=== PATIENT | male | born 1970 | race African-American/Black ===

== ENCOUNTER 2016-10-12 12:19 | Observation (INO) | payer MEDICARE, MEDICAID ==
[~2016-10-12] VITALS: Ht 177.8 cm; Wt 65.0 kg
[~2016-10-12 12:19] MED LIST: ATEN50 PO; DIGO0.12 PO; ERGO50000 PO; FURO20 PO; LISI5 PO; OXYC5 PO; SPIR25 PO; WARF5 PO
[2016-10-12 12:22] VITALS: BP 137/72; PULSE 50; RESP 28; TEMP 97.3; O2SAT 100
--- NOTE | 2016-10-12 17:40 | PD ---
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 He denies any fevers or chills. He says his abdomen feels uncomfortable. He has had ascites in the past and [facility] Past Medical History Hx Anticoagulant Therapy: Yes (WARFARIN) Arthritis: No Asthma: No Blood Disorders: Yes Anxiety: No Depression: No Heart Rhythm Problems: Yes (AFIB) Cancer: No Cardiovascular Problems: Yes (OPEN HEART SX) High Cholesterol: Yes Chemotherapy: No Chest Pain: No Congestive Heart Failure: Yes COPD: No Cerebrovascular Accident: Yes Diabetes: Yes (NO LONGER A DIABETIC, TOLD TO STOP MEDS) Diminished Hearing: No Endocrine: No Gastrointestinal Disorders: Yes (ASCITES) GERD: No Genitourinary: Yes (HEMATURIA) Headaches: No Hiatal Hernia: No Hypertension: Yes Immune Disorder: No Inguinal Hernia: No Implanted Vascular Access Dvce: Yes Kidney Stones: Yes Musculoskeletal: No Neurologic: Yes (CVA A CHILD) Psychiatric: No Reproductive: No Respiratory: No Immunizations Current: No Migraines: No Myocardial Infarction: Yes Radiation Therapy: No Renal Failure: Yes (CKD) Seizures: No Sickle Cell Disease: No Sleep Apnea: No Thyroid Disease: No Ulcer: No Tetanus Vaccination: < 5 Years Influenza Vaccination: Yes Past Surgical History Abdominal Surgery: No AICD: Yes (HAS HAD 5-6 SINCE PLACED AT AGE 12 pacemakers ) Arteriovenous Shunt: No Body Medical Devices: PACER WIRES IN ABDOMEN PLACED AT AGE 12 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 Malick's Valve x1) Social History Alcohol Use: No Tobacco Use: No (quit 10 years ago) Substance Use: No Allergies-Medications (Allergen,Severity, Reaction): Coded Allergies: Cozaar (Verified Allergy, Unknown, 05/28/16) Reported Meds & Prescriptions Reported Meds & Active Scripts Active Reported Lisinopril 2.5 Mg Tab 2.5 Mg PO DAILY Lasix (Furosemide) 20 Mg Tab 20 Mg PO DAILY Drisdol (Ergocalciferol) 50,000 Unit Cap 50,000 Units PO WEEKLY ON WEDNESDAYS Digoxin 0.125 Mg Tab 0.125 Mg PO DAILY Atenolol 50 Mg Tab 50 Mg PO BID Warfarin 7.5 Mg Tab 7.5 Mg PO WEFR @ 1600 Warfarin 5 Mg Tab 5 Mg PO SUMOTUTHSA @ 1600 Physical Exam Narrative GENERAL: Chronically ill-appearing SKIN: Warm and dry. HEAD: Atraumatic. Normocephalic. EYES: Pupils equal and round. No injection or drainage. ENT: Moist mucous membranes NECK: Trachea midline. CARDIOVASCULAR: Regular rate and rhythm. No murmur appreciated. RESPIRATORY: Clear to auscultation. Breath sounds equal bilaterally. GASTROINTESTINAL: Distended, positive fluid wave, reducible umbilical hernia MUSCULOSKELETAL: No obvious deformities. NEUROLOGICAL: Awake and alert. No obvious cranial nerve deficits. Moving all extremities. PSYCHIATRIC: Appropriate mood and affect; insight and judgment normal. Data Data Last Documented VS Vital Signs Date Time Temp Pulse Resp B/P Pulse Ox O2 Delivery O2 Flow Rate FiO2 10/12/16 17:13 22 10/12/16 12:22 97.3 50 137/72 100 Room Air Orders Complete Blood Count With Diff (10/12/16 17:32) Comprehensive Metabolic Panel (10/12/16 17:32) ^ Insert Iv (10/12/16 17:32) Act Partial Throm Time (Ptt) (10/12/16 17:32) Prothrombin Time / Inr (Pt) (10/12/16 17:32) Labs Laboratory Tests Test 10/12/16 18:00 White Blood Count 6.1 TH/MM3 Red Blood Count 4.49 MIL/MM3 Hemoglobin 11.0 GM/DL Hematocrit 33.7 % Mean Corpuscular Volume 75.1 FL Mean Corpuscular Hemoglobin 24.4 PG Mean Corpuscular Hemoglobin 32.5 % Concent Red Cell Distribution Width 19.0 % Platelet Count 186 TH/MM3 Mean Platelet Volume 10.5 FL Neutrophils (%) (Auto) 74.8 % Lymphocytes (%) (Auto) 8.6 % Monocytes (%) (Auto) 14.3 % Eosinophils (%) (Auto) 1.1 % Basophils (%) (Auto) 1.2 % Neutrophils # (Auto) 4.6 TH/MM3 Lymphocytes # (Auto) 0.5 TH/MM3 Monocytes # (Auto) 0.9 TH/MM3 Eosinophils # (Auto) 0.1 TH/MM3 Basophils # (Auto) 0.1 TH/MM3 CBC Comment AUTO DIFF Differential Comment AUTO DIFF CONFIRMED Platelet Estimate NORMAL Platelet Morphology Comment ENLARGED Acanthocytes OCC Keratocytes OCC Prothrombin Time 18.7 SEC Prothromb Time International 1.7 RATIO Ratio Activated Partial 37.8 SEC Thromboplast Time Sodium Level 141 MEQ/L Potassium Level 4.1 MEQ/L Chloride Level 107 MEQ/L Carbon Dioxide Level 22.3 MEQ/L Anion Gap 12 MEQ/L Blood Urea Nitrogen 24 MG/DL Creatinine 1.70 MG/DL Estimat Glomerular Filtration 53 ML/MIN Rate Random Glucose 89 MG/DL Calcium Level 9.0 MG/DL Total Bilirubin 1.8 MG/DL Aspartate Amino Transf 19 U/L (AST/SGOT) Alanine Aminotransferase 17 U/L (ALT/SGPT) Alkaline Phosphatase 328 U/L Total Protein 8.8 GM/DL Albumin 3.2 GM/DL [facility] Medical Decision Making Medical Screen Exam Complete: Yes Emergency Medical Condition: Yes Interpretation(s) Afebrile, bradycardia, tachypnea Anemia Renal insufficiency Total bilirubin is 1.8 INR is 1.7 Differential Diagnosis Congestive heart failure, cirrhosis, spontaneous bacterial peritonitis Narrative Course This is a 47-year-old male who presents the emergency department with ascites which is increasing and is affecting his breathing. The patient has a history of a mechanical valve. Today his INR is 1.7 which is really subtherapeutic for him. Given he needs the paracentesis it seems reasonable to admit him to the hospital and have the paracentesis done now as his INR is subtherapeutic and then we can restart him on anticoagulation and restore him to his therapeutic anticoagulation level. Diagnosis Primary Impression: Ascites Qualified Code: R18.8 - Other ascites Admitting Information Admitting Physician Requests: Admit Shannon Chowdary MD Oct 12, 2016 17:40
[2016-10-12 18:13] LABS: AUTOMATED NEUTROPHIL # 4.6 TH/MM3 (1.8-7.7); BASOPHIL # 0.1 TH/MM3 (0-0.2); BASOPHIL % 1.2 % (0.0-2.0); EOSINOPHIL # 0.1 TH/MM3 (0-0.4); EOSINOPHIL % 1.1 % (0.0-4.0); HEMATOCRIT 33.7 % (39.0-51.0); LYMPH % 8.6 % (9.0-44.0); LYMPHOCYTE # 0.5 TH/MM3 (1.0-4.8); MEAN CELL VOLUME 75.1 FL (80.0-100.0); MEAN CORPUSCULAR HEMOGLOBIN 24.4 PG (27.0-34.0); MEAN CORPUSCULAR HGB CONC 32.5 % (32.0-36.0); MONO % 14.3 % (0.0-8.0); NEUT % 74.8 % (16.0-70.0); PLATELET COUNT 186 TH/MM3 (150-450); RED BLOOD COUNT 4.49 MIL/MM3 (4.50-5.90); WHITE BLOOD COUNT 6.1 TH/MM3 (4.0-11.0)
[2016-10-12 18:18] LABS: HEMO FLAGS AUTO DIFF
[2016-10-12 18:25] LABS: ALT (GPT) 17 U/L (12-78); ANION GAP 12 MEQ/L (5-15); AST (GOT) 19 U/L (15-37); BICARBONATE 22.3 MEQ/L (21.0-32.0); BLOOD UREA NITROGEN 24 MG/DL (7-18); CHLORIDE 107 MEQ/L (98-107); GLOMERULAR FILTRATION RATE 53 ML/MIN (>89); POTASSIUM 4.1 MEQ/L (3.5-5.1); SODIUM (NA) 141 MEQ/L (136-145)
[2016-10-12 18:27] LABS: ALKALINE PHOSPHATASE 328 U/L (45-117); TOTAL BILIRUBIN ADULT 1.8 MG/DL (0.2-1.0)
[2016-10-12] MEDS ORDERED: WARF-21 PO (18:43)
[2016-10-12] MEDS ORDERED: WARF-23 PO (18:43)
[2016-10-12] MEDS ORDERED: ATEN50TA PO (18:43)
[2016-10-12] MEDS ORDERED: DIGO0.12 PO (18:44)
[2016-10-12] MEDS ORDERED: DRIS50002 PO (18:44)
[2016-10-12] MEDS ORDERED: LISI2.5T3 PO (18:45)
[2016-10-12] MEDS ORDERED: FURO1TAB62 PO (18:45)
[2016-10-12 18:48] LABS: SCAN/DIFF AUTO DIFF CONFIRMED
[2016-10-12 18:49] LABS: KERATOCYTES OCC (NORMAL); PLATELET ESTIMATE SMEAR NORMAL (NORMAL); PLATELET MORPHOLOGY ENLARGED (NORMAL)
[2016-10-12 18:50] LABS: ACANTHOCYTES OCC (NORMAL)
[2016-10-12 19:01] LABS: APTT (PATIENT) 37.8 SEC (24.3-30.1); INTERNATIONAL NORMALIZED RATIO 1.7 RATIO; PROTHROMBIN TIME - PATIENT 18.7 SEC (9.8-11.6)
[2016-10-12] MEDS ORDERED: ONDANSETRON HCL 4 MG/2 ML VIAL IVP PRN (19:45)
[2016-10-12] MEDS ORDERED: SENNOSIDES 8.6 MG TAB PO PRN (19:45)
[2016-10-12] MEDS ORDERED: PROCHLORPERAZINE 25 MG SUPP PR PRN (19:45)
[2016-10-12] MEDS ORDERED: ACETAMINOPHEN 325 MG TAB PO PRN (19:45)
[2016-10-12] MEDS ORDERED: BISACODYL 10 MG SUPP PR PRN (19:45)
[2016-10-12] MEDS ORDERED: SODIUM CHLORIDE 0.9% FLUSH 5 ML FLUSH FLUSH PRN (19:45)
--- NOTE | 2016-10-12 20:26 | HHI.HP ---
cc: Makenna Obregon MD [facility] Service [facility] Primary Care Physician Fco Bhakta MD Admission Diagnosis ascites Diagnoses: Chief Complaint: abdominal distention Travel History International Travel<30 Days: No Contact w/Intl Traveler <30 Da: No Traveled to Known Affected Are: No History of Present Illness History taken from patient and the ED physician. 45-year-old male with a history of hypertension, CHF, mitral valve replacement, A. fib, diabetes, COPD and ascites presented with abdominal pain and distention that has been increasing for the last 3-4 weeks. Patient does complain of shortness of breath with increase in abdominal fluid, but denies nausea or vomiting. He does have a history of abdominal wires placed in his abdomen and he feels like the are popping out. Patient has had a paracentesis in the past. Currently on Coumadin for the mechanical valve replacement, INR is currently 1.7. He sees Dr. Lara for his multiple heart issues. Patient currently denies any chest pain, fever or chills. Review of Systems Constitutional: DENIES: Fever, Chills Respiratory: COMPLAINS OF: Shortness of breath, DENIES: Cough, Sputum production Cardiovascular: COMPLAINS OF: Lower Extremity Edema, DENIES: Chest pain Gastrointestinal: COMPLAINS OF: Abdominal pain, DENIES: Diarrhea, Nausea, Vomiting Genitourinary: DENIES: Dysuria Musculoskeletal: DENIES: Back pain, Neck pain Integumentary: DENIES: Rash Hematologic/lymphatic: DENIES: Lymphadenopathy Immunologic/allergic: DENIES: Urticaria Neurologic: DENIES: Headache Past Family Social History Past Medical History Congenital Transposition of the great vessels, 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 Congestive heart failure, EF from April 02 percent 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, chronically anticoagulated on Coumadin Chronic kidney disease Hypertension Diet controlled diabetes Past Surgical History Surgery for transposition the great vessels Mitral valve replacement 2 currently with mechanical valve Pacemaker placement with 5 replacements Reported Medications Reported Meds & Active Scripts Active Reported Lisinopril 2.5 Mg Tab 2.5 Mg PO DAILY Lasix (Furosemide) 20 Mg Tab 20 Mg PO DAILY Drisdol (Ergocalciferol) 50,000 Unit Cap 50,000 Units PO WEEKLY ON WEDNESDAYS Digoxin 0.125 Mg Tab 0.125 Mg PO DAILY Atenolol 50 Mg Tab 50 Mg PO BID Warfarin 7.5 Mg Tab 7.5 Mg PO WEFR @ 1600 Warfarin 5 Mg Tab 5 Mg PO SUMOTUTHSA @ 1600 Allergies: Coded Allergies: Cozaar (Verified Allergy, Unknown, 05/28/16) Active Ordered Medications Current Medications Medications (Trade) Dose Ordered Sig/Leonardo Route Start Time Stop Time Status Last Admin (NS Flush) 2 ml UNSCH PRN FLUSH 10/12/16 19:45 (NS Flush) 2 ml BID FLUSH 10/12/16 21:00 (Tylenol) 650 mg Q4H PRN PO 10/12/16 19:45 (Zofran Inj) 4 mg Q6H PRN IVP 10/12/16 19:45 (Compazine Supp) 25 mg Q12H PRN MN 10/12/16 19:45 (Dulcolax Supp) 10 mg DAILY PRN MN 10/12/16 19:45 (Senokot) 17.2 mg Q12H PRN PO 10/12/16 19:45 (Tenormin) 50 mg BID PO 10/12/16 21:00 (Lanoxin) 0.125 mg DAILY PO 10/13/16 09:00 (Lasix) 20 mg DAILY PO 10/13/16 09:00 (Prinivil) 2.5 mg DAILY PO 10/13/16 09:00 Family History Father: Bladder cancer, DM Mom: CVA, DM Social History Tobacco use: Quit 14 yrs ago Alcohol use: Denies Illicit drug use: Denies Physical Exam Vital Signs Vital Signs Date Time Temp Pulse Resp B/P Pulse Ox O2 Delivery O2 Flow Rate FiO2 10/12/16 17:13 22 10/12/16 12:22 97.3 50 28 137/72 100 Room Air Physical Exam GENERAL: This is a well-nourished, well-developed patient, in no apparent distress. SKIN: No rashes, ecchymoses or lesions. Cool and dry. HEAD: Atraumatic. Normocephalic. EYES: Pupils equal round and reactive. ENT: Nose without bleeding, purulent drainage or septal hematoma. Airway patent. NECK: Trachea midline. No JVD . CARDIOVASCULAR: Regular rate and rhythm with a aortic and mitral murmur appreciated RESPIRATORY: Bilateral basilar crackles, worse on the right GASTROINTESTINAL: Abdomen soft, tender, and distended. Umbilical hernia noted. MUSCULOSKELETAL: +2 pitting edema bilateral lower extremities. No calf tenderness. NEUROLOGICAL: Awake and alert. Motor and sensory grossly within normal limits. Normal speech. Laboratory Laboratory Tests Test 10/12/16 18:00 White Blood Count 6.1 Red Blood Count 4.49 Hemoglobin 11.0 Hematocrit 33.7 Mean Corpuscular Volume 75.1 Mean Corpuscular Hemoglobin 24.4 Mean Corpuscular Hemoglobin 32.5 Concent Red Cell Distribution Width 19.0 Platelet Count 186 Mean Platelet Volume 10.5 Neutrophils (%) (Auto) 74.8 Lymphocytes (%) (Auto) 8.6 Monocytes (%) (Auto) 14.3 Eosinophils (%) (Auto) 1.1 Basophils (%) (Auto) 1.2 Neutrophils # (Auto) 4.6 Lymphocytes # (Auto) 0.5 Monocytes # (Auto) 0.9 Eosinophils # (Auto) 0.1 Basophils # (Auto) 0.1 CBC Comment AUTO DIFF Differential Comment AUTO DIFF CONFIRMED Platelet Estimate NORMAL Platelet Morphology Comment ENLARGED Acanthocytes OCC Keratocytes OCC Prothrombin Time 18.7 Prothromb Time International 1.7 Ratio Activated Partial 37.8 Thromboplast Time Sodium Level 141 Potassium Level 4.1 Chloride Level 107 Carbon Dioxide Level 22.3 Anion Gap 12 Blood Urea Nitrogen 24 Creatinine 1.70 Estimat Glomerular Filtration 53 Rate Random Glucose 89 Calcium Level 9.0 Total Bilirubin 1.8 Aspartate Amino Transf 19 (AST/SGOT) Alanine Aminotransferase 17 (ALT/SGPT) Alkaline Phosphatase 328 Total Protein 8.8 Albumin 3.2 Result Diagram: 10/12/16 1800 10/12/16 1800 Assessment and Plan Problem List: (1) Ascites ICD Code: R18.8 Status: Acute (2) Shortness of breath ICD Code: R06.02 Status: Acute (3) Chronic kidney disease ICD Code: N18.9 Status: Chronic (4) HTN (hypertension) ICD Code: I10 Status: Chronic (5) H/O mitral valve replacement with mechanical valve ICD Code: Z95.2 Status: Chronic (6) Atrial fibrillation ICD Code: I48.91 Status: Chronic Assessment and Plan 45-year-old male with a history of hypertension, CHF, mitral valve replacement, A. fib, diabetes, COPD and ascites presented with: Ascites -Consult radiology for ultrasound-guided abdominal paracentesis -Abdominal x-ray pending Shortness of breath, likely due to increased abdominal fluid -Lasix 40 mg IV 1 given for basilar crackles -Oxygen if needed -Restarted home medications Lasix 20mb BID Mechanical valve replacement, currently on Coumadin -Hold Coumadin for paracentesis, will restart and bridge with Lovenox Chronic kidney disease, chronic Creatinine at baseline 1.7 -Avoid nephrotoxic drugs Hypertension, chronic -Restart home medications lisinopril and atenolol -Monitor vitals A. fib, chronic -Restart home medications digoxin -Monitor telemetry DVT prophylaxis: SCDs Written by Sarahi GONZALEZ, acting as scribe for Dr. Dockery on 10/12/16 at 2045. The documentation accurately reflects the work performed [id number] and decisions made by me and the physician Dr Dockery on 10/12/16. The documentation accurately reflects the work performed [id number] by me Dr Dockery on 10/12/16. Discussed Condition With Patient and ED physician Physician Certification 2 Midnight Certification Type: Admission for Inpatient Services Order for Inpatient Services The services are ordered in accordance with Medicare regulations or non- Medicare payer requirements, as applicable. In the case of services not specified as inpatient-only, they are appropriately provided as inpatient services in accordance with the 2-midnight benchmark. Estimated LOS (days): 3 days is the estimated time the patient will need to remain in the hospital, assuming treatment plan goals are met and no additional complications. Post-Hospital Plan: Home Problem Qualifiers (1) Ascites: Qualified Code: R18.8 - Other ascites (2) Chronic kidney disease: Qualified Code: N18.3 - Chronic kidney disease, stage 3 (moderate) Sarahi Barkley Oct 12, 2016 20:26 Jennifer Dockery MD Oct 13, 2016 04:52
[2016-10-12 20:58] VITALS: BP 131/60; PULSE 50; RESP 18; O2SAT 98
[2016-10-12] MEDS: ATENOLOL 50 MG TAB PO SCH (21:00)
[2016-10-12] MEDS: SODIUM CHLORIDE 0.9% FLUSH 5 ML FLUSH FLUSH SCH (21:14)
[2016-10-12 22:18] VITALS: BP 125/60; PULSE 50; RESP 20; TEMP 97.4; O2SAT 98
[2016-10-12] MEDS ORDERED: FUROSEMIDE 40 MG/4 ML VIAL IV PUSH ONE (22:30)
--- NOTE | 2016-10-12 23:06 | RADRPT ---
EXAM DATE/TIME: 10/12/2016 22:51 [facility] COMPARISON: No previous studies available for comparison. INDICATIONS : Left side abdominal pain. Patient stated he feels like a pacemaker lead is poking out. MEDICAL HISTORY : Hypertension. Hypercholesterolemia. Congestive heart failure. Liver disease. CKD. Hyperammonianemia. Afib. Transposition of great vessels. SURGICAL HISTORY : CABG. Pacemaker. Mitral valve repair. ENCOUNTER: Subsequent ACUITY: 2 days PAIN SCORE: 5/10 LOCATION: Left abdomenial. FINDINGS: A single erect view of the abdomen demonstrates a right pleural effusion. Significant cardiomegaly. L igated pacer leads overlie the left upper quadrant. No evidence of free intraperitoneal gas. The vi sualized bowel loops are unremarkable. CONCLUSION: 1. Significant cardiomegaly. 2. Right pleural effusion. 3. Ligated pacer leads. Ramón Aguilar Jr., MD on October 12, 2016 at 23:02 Board Certified Radiologist. This report was verified electronically.
[2016-10-13] VITALS (7 sets, daily range): BP systolic 104–138; BP diastolic 54–70; PULSE 50–51; RESP 16–20; TEMP 97.2–98; O2SAT 96–100
[2016-10-13 09:01] LABS: BASOPHIL % 0.4 % (0.0-2.0); EOSINOPHIL # 0.1 TH/MM3 (0-0.4); EOSINOPHIL % 2.1 % (0.0-4.0); HEMATOCRIT 29.4 % (39.0-51.0); LYMPH % 7.6 % (9.0-44.0); LYMPHOCYTE # 0.4 TH/MM3 (1.0-4.8); MEAN CELL VOLUME 74.7 FL (80.0-100.0); MEAN CORPUSCULAR HEMOGLOBIN 24.6 PG (27.0-34.0); MEAN CORPUSCULAR HGB CONC 32.9 % (32.0-36.0); MONO % 17.5 % (0.0-8.0); NEUT % 72.4 % (16.0-70.0); PLATELET COUNT 179 TH/MM3 (150-450); RED BLOOD COUNT 3.94 MIL/MM3 (4.50-5.90); WHITE BLOOD COUNT 5.6 TH/MM3 (4.0-11.0)
[2016-10-13 09:09] LABS: HEMO FLAGS AUTO DIFF
[2016-10-13 09:13] LABS: INTERNATIONAL NORMALIZED RATIO 1.8 RATIO; PROTHROMBIN TIME - PATIENT 20.4 SEC (9.8-11.6)
[2016-10-13 09:21] LABS: BICARBONATE 22.7 MEQ/L (21.0-32.0)
[2016-10-13 10:12] LABS: SCAN/DIFF AUTO DIFF CONFIRMED
[2016-10-13] MEDS: ATENOLOL 50 MG TAB PO SCH ×2 (10:31→21:49)
[2016-10-13] MEDS: DIGOXIN 0.125 MG TAB PO SCH (10:31)
[2016-10-13] MEDS: SODIUM CHLORIDE 0.9% FLUSH 5 ML FLUSH FLUSH SCH ×2 (10:32→21:49)
[2016-10-13] MEDS: FUROSEMIDE 20 MG TAB PO SCH (10:32)
[2016-10-13] MEDS: LISINOPRIL 5 MG TAB PO SCH (10:36)
--- NOTE | 2016-10-13 11:12 | HHI.PR ---
Subjective Remarks Follow up for ascites, abdominal distention, SOB. The patient reports continued abdominal distention, slight shortness of breath secondary to the pressure. He denies any abdominal pain, N/V, fevers or chills. He is hungry and wants to eat. He has been able to ambulate without difficulty. Going for paracentesis. Also discussed CHF and possible need for AICD. The patient reports he currently has a pacemaker and Dr. Obregon follows him closely for his CHF however they have not discussed AICD insertion at this time. He states he has an upcoming appt with Dr. Obregon soon. Objective Vitals Vital Signs Date Time Temp Pulse Resp B/P Pulse Ox O2 Delivery O2 Flow Rate FiO2 10/13/16 09:00 97.7 50 18 138/67 96 10/13/16 04:07 98.0 51 18 104/54 98 10/13/16 00:06 97.5 50 20 109/56 98 10/12/16 22:18 97.4 50 20 125/60 98 10/12/16 20:58 50 18 131/60 98 Room Air 10/12/16 17:13 22 10/12/16 12:22 97.3 50 28 137/72 100 Room Air I/O 10/12/16 10/12/16 10/12/16 10/13/16 10/13/16 10/13/16 06:59 14:59 22:59 06:59 14:59 22:59 Output Total 200 ml Balance -200 ml Output Urine Total 200 ml Result Diagram: 10/13/16 0837 10/13/16 0837 Imaging Last Impressions Abdomen X-Ray 10/12/16 0000 Signed Impressions: Service Date/Time: Wednesday, October 12, 2016 22:51 - CONCLUSION: 1. Significant cardiomegaly. 2. Right pleural effusion. 3. Ligated pacer leads. Ramón Aguilar Jr., MD Objective Remarks GENERAL: Well-nourished, well-developed middle aged male patient in [facility]. SKIN: Warm and dry. No rash. HEAD: Normocephalic. Atraumatic. EYES: Pupils equal and round. No scleral icterus. No injection or drainage. NECK: Supple. Trachea midline. CARDIOVASCULAR: Regular rate and rhythm. S1, S2 noted. No murmur appreciated. RESPIRATORY: No accessory muscle use. Clear to auscultation. Breath sounds equal bilaterally. GASTROINTESTINAL: Abdomen soft, non-tender, but diffusely distended, +ascites, with umbilical hernia currently unable to reduce. Normoactive bowel sounds x4. MUSCULOSKELETAL: No obvious deformities. Trace bilateral lower extremity edema, right slightly worse than left (chronic per patient). No calf pain bilaterally. NEUROLOGICAL: Awake and alert. No obvious cranial nerve deficits. Motor grossly within normal limits. Normal speech. PSYCHIATRIC: Appropriate mood and affect; insight and judgment normal. Medications and IVs Current Medications Medications (Trade) Dose Ordered Sig/Leonardo Route Start Time Stop Time Status Last Admin (NS Flush) 2 ml UNSCH PRN FLUSH 10/12/16 19:45 (NS Flush) 2 ml BID FLUSH 10/12/16 21:00 10/13/16 10:32 (Tylenol) 650 mg Q4H PRN PO 10/12/16 19:45 (Zofran Inj) 4 mg Q6H PRN IVP 10/12/16 19:45 (Compazine Supp) 25 mg Q12H PRN MD 10/12/16 19:45 (Dulcolax Supp) 10 mg DAILY PRN MD 10/12/16 19:45 (Senokot) 17.2 mg Q12H PRN PO 10/12/16 19:45 (Tenormin) 50 mg BID PO 10/12/16 21:00 10/13/16 10:31 (Lanoxin) 0.125 mg DAILY PO 10/13/16 09:00 10/13/16 10:31 (Lasix) 20 mg DAILY PO 10/13/16 09:00 10/13/16 10:32 Lisinopril 2.5 mg 2.5 mg DAILY PO 10/13/16 09:00 10/13/16 10:36 (Coumadin Consult Pharmacy) 0 ml @ 0 mls/hr UNSCH OTHER 10/13/16 08:00 (Coumadin) 5 mg SuMoTuThSa@16 PO 10/13/16 16:00 (Coumadin) 7.5 mg WeFr@16 PO 10/14/16 16:00 Urinary Catheter: No Vascular Central Line Catheter: No A/P Problem List: (1) Ascites ICD Code: R18.8 Status: Acute (2) Shortness of breath ICD Code: R06.02 Status: Acute (3) Chronic kidney disease ICD Code: N18.9 Status: Chronic (4) HTN (hypertension) ICD Code: I10 Status: Chronic (5) H/O mitral valve replacement with mechanical valve ICD Code: Z95.2 Status: Chronic (6) Atrial fibrillation ICD Code: I48.91 Status: Chronic Assessment and Plan 45-year-old male with a history of hypertension, CHF, mitral valve replacement, A. fib, diabetes, COPD and ascites presented with: Ascites: secondary to CHF. Has been evaluated by GI on previous admission, no true cirrhosis, all likely secondary to right sided heart failure. -Consulted radiology for ultrasound-guided abdominal paracentesis -Abdominal x-ray unremarkable although does show migrated pacer leads, patient reports since childhood Shortness of breath, suspect secondary to increased abdominal fluid/pressure -S/p Lasix 40 mg IV 1 given for basilar crackles -Oxygen if needed, O2 sat currently 96-98% on room air -Restarted home medications Lasix 20mg BID Mechanical valve replacement, currently on Coumadin, INR goal 2.5-3.5 -Continue Coumadin however will need to check with IR if need to be held for paracentesis Chronic kidney disease, chronic -Creatinine at baseline 1.7 -Avoid nephrotoxic drugs Hypertension, chronic -Restart home medications lisinopril and atenolol -Monitor vitals A. fib, chronic -Restart home medications digoxin -Monitor on telemetry DVT prophylaxis: SCDs, on Coumadin Written by Randi Butt, acting as scribe for Dr. Matias on 10/13/16 at 08:50. The documentation accurately reflects the work performed [id number] by me on at 0850 Discharge Planning Await paracentesis. Possible discharge later today. Problem Qualifiers (1) Ascites: Qualified Code: R18.8 - Other ascites (2) Chronic kidney disease: Qualified Code: N18.3 - Chronic kidney disease, stage 3 (moderate) Randi Butt PA-C Oct 13, 2016 11:12 Jourdan Matias MD Oct 13, 2016 16:45
[2016-10-13] MEDS ORDERED: WARFARIN SOD 5 MG TAB PO SCH (16:00)
[2016-10-13 17:42] LABS: HEMOGLOBIN A1a 0.8 %; HEMOGLOBIN A1b 0.5 %; HEMOGLOBIN Ao 59.3 %; HEMOGLOBIN F 0.7 %; HEMOGLOBIN LA1C 1.4 %; HEMOGLOBIN P3 4.1 %
[2016-10-14 00:10] VITALS: BP 99/55; PULSE 50; RESP 16; TEMP 96.6; O2SAT 97
[2016-10-14 04:30] VITALS: BP 121/60; PULSE 50; RESP 18; TEMP 96; O2SAT 99
[2016-10-14 07:52] LABS: INTERNATIONAL NORMALIZED RATIO 1.6 RATIO; PROTHROMBIN TIME - PATIENT 18.6 SEC (9.8-11.6)
[2016-10-14 07:58] LABS: AUTOMATED NEUTROPHIL # 3.7 TH/MM3 (1.8-7.7); BASOPHIL % 0.3 % (0.0-2.0); EOSINOPHIL # 0.2 TH/MM3 (0-0.4); EOSINOPHIL % 3.8 % (0.0-4.0); HEMATOCRIT 28.5 % (39.0-51.0); LYMPHOCYTE # 0.4 TH/MM3 (1.0-4.8); MEAN CELL VOLUME 74.1 FL (80.0-100.0); MEAN CORPUSCULAR HEMOGLOBIN 24.2 PG (27.0-34.0); MEAN CORPUSCULAR HGB CONC 32.7 % (32.0-36.0); MONO % 20.8 % (0.0-8.0); NEUT % 67.1 % (16.0-70.0); PLATELET COUNT 177 TH/MM3 (150-450); RED BLOOD COUNT 3.85 MIL/MM3 (4.50-5.90); WHITE BLOOD COUNT 5.5 TH/MM3 (4.0-11.0)
[2016-10-14 08:21] LABS: HEMO FLAGS AUTO DIFF
[2016-10-14 09:15] VITALS: BP 131/60; PULSE 50; RESP 18; TEMP 97.6; O2SAT 98
[2016-10-14 09:45] VITALS: BP 122/61; PULSE 50; RESP 14; TEMP 97.7; O2SAT 100
[2016-10-14 10:20] LABS: PLATELET ESTIMATE SMEAR NORMAL (NORMAL); PLATELET MORPHOLOGY NORMAL (NORMAL); SCAN/DIFF AUTO DIFF CONFIRMED
[2016-10-14 10:21] LABS: KERATOCYTES OCC (NORMAL); TARGET CELLS 1+ (NORMAL); TEARDROP RBCS 1+ (NORMAL)
--- NOTE | 2016-10-14 10:39 | HHI.PR ---
Subjective Remarks Follow-up for ascites. The patient appears report abdominal pressure and distention, no change overnight. He denies any abdominal pain. Hopefully going for paracentesis today. He states that he has been on Lovenox in the past , but is unable to give himself shots, asking if home health nurse can do it. Objective Vitals Vital Signs Date Time Temp Pulse Resp B/P Pulse Ox O2 Delivery O2 Flow Rate FiO2 10/14/16 09:45 97.7 50 14 122/61 100 10/14/16 04:30 96.0 50 18 121/60 99 10/14/16 00:10 96.6 50 16 99/55 97 10/13/16 19:33 97.2 50 18 132/70 100 10/13/16 12:30 97.9 50 16 138/66 97 I/O 10/13/16 10/13/16 10/13/16 10/14/16 10/14/16 10/14/16 07:00 15:00 23:00 07:00 15:00 23:00 Intake Total 800 ml Output Total 200 ml 0 ml Balance -200 ml 800 ml Intake Oral 800 ml Output Urine Total 200 ml Stool Total 0 ml # Voids 5 # Bowel Movements 1 Result Diagram: 10/14/16 0720 10/13/16 0837 Imaging Last Impressions Abdomen X-Ray 10/12/16 0000 Signed Impressions: Service Date/Time: Wednesday, October 12, 2016 22:51 - CONCLUSION: 1. Significant cardiomegaly. 2. Right pleural effusion. 3. Ligated pacer leads. Ramón Aguilar Jr., MD Objective Remarks GENERAL: Well-developed well-nourished. In no acute distress. SKIN: Warm and dry. No lesions noted. HEENT: Normocephalic. Pupils equal and round. Mucous membranes pink and moist. CARDIOVASCULAR: Regular rate and rhythm. Mechanical murmur appreciated. RESPIRATORY: No accessory muscle use. Clear to auscultation. Breath sounds equal bilaterally. GASTROINTESTINAL: Abdomen soft, non-tender, significantly distended with ascites. Bowel sounds x4. MUSCULOSKELETAL: No obvious deformities. No clubbing or cyanosis. Trace edema. NEUROLOGICAL: Awake and alert. Chronic right hand weakness. Moves upper and lower extremities spontaneously. Normal speech. PSYCHIATRIC: Appropriate mood and affect; insight and judgment normal. A/P Problem List: (1) Ascites ICD Code: R18.8 Status: Acute (2) Shortness of breath ICD Code: R06.02 Status: Acute (3) Chronic kidney disease ICD Code: N18.9 Status: Chronic (4) HTN (hypertension) ICD Code: I10 Status: Chronic (5) H/O mitral valve replacement with mechanical valve ICD Code: Z95.2 Status: Chronic (6) Atrial fibrillation ICD Code: I48.91 Status: Chronic Assessment and Plan 45-year-old male with a history of hypertension, CHF, mitral valve replacement, A. fib, diabetes, COPD and ascites presented with: Ascites: secondary to CHF. Has been evaluated by GI on previous admission, no true cirrhosis, all likely secondary to right sided heart failure. Abdominal x-ray unremarkable although does show migrated pacer leads, patient reports since childhood -Consulted radiology for ultrasound-guided abdominal paracentesis when INR allows Shortness of breath, suspect secondary to increased abdominal fluid/pressure as above -S/p Lasix 40 mg IV 1 given for basilar crackles -Oxygen if needed, O2 sat currently 96-98% on room air -Restarted home Lasix 20mg BID Mechanical valve replacement, currently on Coumadin, INR goal 2.5-3.5 INR 1.6 today with Coumadin on hold for paracentesis as above. -If no paracentesis today, will start heparin GTT -If paracentesis done, will resume Coumadin and start Lovenox bridge Chronic kidney disease, chronic Chronic, stable. Creatinine baseline ~1.7 -Avoid nephrotoxic drugs Hypertension, chronic -Continue home lisinopril and atenolol -Monitor vitals A. fib, chronic -Continue home digoxin -Monitor on telemetry DVT prophylaxis: SCDs, on Coumadin Written by Ashish Neil, acting as scribe for Dr. Matias on 10/14/16 at 10:39. The documentation accurately reflects the work performed [id number] by me on at 1039 Discharge Planning Possible discharge with [facility] after paracentesis if patient remains stable Problem Qualifiers (1) Ascites: Qualified Code: R18.8 - Other ascites (2) Chronic kidney disease: Qualified Code: N18.3 - Chronic kidney disease, stage 3 (moderate) Ashish Neil Oct 14, 2016 10:39 Jourdan Matias MD Oct 14, 2016 16:46
[2016-10-14 11:12] VITALS: BP 109/51; PULSE 50; RESP 14; TEMP 97.7; O2SAT 99
[2016-10-14] MEDS ORDERED: ALBUMIN HUMAN 25% 50GM-W/12.5GM FOR 62.5GM IV ONE (11:45)
[2016-10-14] MEDS ORDERED: ALBUMIN HUMAN 25% 12.5GM-W/50GM FOR 62.5GM IV ONE (11:45)
[2016-10-14] MEDS: FUROSEMIDE 20 MG TAB PO SCH (12:12)
[2016-10-14] MEDS: DIGOXIN 0.125 MG TAB PO SCH (12:12)
[2016-10-14] MEDS: LISINOPRIL 5 MG TAB PO SCH (12:12)
[2016-10-14] MEDS: ATENOLOL 50 MG TAB PO SCH (12:12)
[2016-10-14 12:46] VITALS: BP 113/70; PULSE 67; RESP 14; TEMP 97.7; O2SAT 97
[2016-10-14] MEDS: SODIUM CHLORIDE 0.9% FLUSH 5 ML FLUSH FLUSH SCH (12:46)
--- NOTE | 2016-10-14 13:14 | RADRPT ---
EXAM DATE/TIME: 10/14/2016 09:25 [place] COMPARISON: US GUIDED ABD PARACENTESIS, May 25, 2016, 14:12. INDICATIONS : Ascites. MEDICAL HISTORY : Congestive heart failure. Hypercholesterolemia. Hypertension. CVA. Heart attack. Dyspnea. Ascites. Li venkatesh disease. CKD. Hyperammonianemia. Afib. Hematuria. Diabetes. Transposition of great vessels. Anit coagulant therapy, Warfarin. SURGICAL HISTORY : CABG. Mitral valve repair. Pacemaker. Paracentesis. Thoracentesis. Blood transfusions. ENCOUNTER: Subsequent ACUITY: 4-6 months PAIN SCORE: 1/10 LOCATION: Right lower quadrant FLUID: Total volume of 10,000 cc of clear, red fluid was removed. Fluid was discarded. Paracentesis was therapeutic only. Post procedure scanning reveals no hematoma or other complication. TECHNIQUE: 1. Ultrasound guidance for abdominal paracentesis. 2. Paracentesis. The risks, benefits, and alternatives to ultrasound guided paracentesis were explained to the patient in detail including the risk of bleeding and infection. Written and verbal informed consent was obt ained. With the patient on the ultrasound table, ultrasound imaging was used to select the most appropriate approach for paracentesis. Overlying skin was prepped and draped in the usual sterile fashion and wi th a local anesthetic, a dermatotomy was made with an 11 blade scalpel. A 6 [place] [id number]ses[employer] ca theter was introduced into the peritoneal cavity and fluid was collected. The patient tolerated the procedure well and left the ultrasound suite in stable condition. CONCLUSION: Uncomplicated ultrasound guided paracentesis. Patient received albumin per protocol. Anthony Almazan MD FACR on October 14, 2016 at 13:13 Board Certified Radiologist. This report was verified electronically.
[2016-10-14] MEDS ORDERED: ENOXAPARIN SODIUM 60 MG/0.6 ML SYRINGE SQ ONE (14:00)
[2016-10-14] MEDS ORDERED: ENOX60P SQ (15:20)
--- NOTE | 2016-10-14 15:24 | HHI.FF ---
Face to Face Verification Diagnosis: (1) H/O mitral valve replacement with mechanical valve (2) Subtherapeutic anticoagulation (3) Congestive heart failure (CHF) (4) Chronic kidney disease (5) Ascites (6) Shortness of breath Home Health Nursing Order: Medical education Signs/symptoms of disease process CHF education Medication education-adverse effect Nursing assessment with vital signs IV medication administration Instructions: Lovenox injections and instruction. Daily PT/INR checks with results to Dr. Lara I have seen patient Mike Ko on 10/14/16. My clinical findings support the need for the requested home health care services because: Need for psychosocial assistance Injectable med education/admin I certify that my clinical findings support that this patient is homebound because: Need for psychosocial assistance Poor cardiac reserve Ashish Neil Oct 14, 2016 15:24
[2016-10-14] MEDS ORDERED: WARFARIN SOD 7.5 MG TAB PO SCH (16:00)
[2016-10-14] MEDS ORDERED: ENOXAPARIN SODIUM 60 MG/0.6 ML SYRINGE SQ SCH (16:00)
[2016-10-14] MEDS ORDERED: ACETAMINOPHEN/HYDROcodone 325 MG/5 MG TAB PO ONE (16:00)
== END 2016-10-14 18:25 | disposition home or self-care (01) ==
LOC: NEPE 12:19 → NEDA 19:25 → INTOOBSV 19:25 → NEPHCDU 22:21
PROVIDERS: ADMIT Internal Medicine; ATTEND Internal Medicine
DX: R18.8 Other ascites (principal); I13.0 Hypertensive heart and chronic kidney disease with heart failure and stage 1 through stage 4 chronic kidney disease, or unspecified chronic kidney disease; N18.3 Chronic kidney disease, stage 3 (moderate); I50.9 Heart failure, unspecified; I48.2 Chronic atrial fibrillation; R06.02 Shortness of breath; Z79.01 Long term (current) use of anticoagulants; Z95.2 Presence of prosthetic heart valve; Z95.0 Presence of cardiac pacemaker; Z95.1 Presence of aortocoronary bypass graft; Z87.891 Personal history of nicotine dependence
CPT/HCPCS: 49083; 74000; 80048; 80053; 83036; 85025; 85610; 85730; 97163; 99285; C1729; G0378; G8987; G8988; J1650; J1940; P9047

== ENCOUNTER 2016-11-15 12:39 | Inpatient (IN) | payer MEDICARE, MEDICAID ==
[~2016-11-15] VITALS: Ht 177.8 cm; Wt 55.0 kg
[~2016-11-15 12:39] MED LIST changes: -ATEN50 PO; +ATEN50TA PO; +DRIS50002 PO; +ENOX60P SQ; -ERGO50000 PO; +FURO1TAB62 PO; -FURO20 PO; +LISI2.5T3 PO; -LISI5 PO; -OXYC5 PO; -SPIR25 PO; +WARF-21 PO; +WARF-23 PO; -WARF5 PO
[2016-11-15 12:41] VITALS: BP 162/74; PULSE 60; RESP 16; TEMP 97.4; O2SAT 92
--- NOTE | 2016-11-15 16:11 | PD ---
HPI Chief Complaint: Abdominal Pain Time Seen by Provider: 16:10 (Sharmila Hcikman) Time Seen by Provider: 16:10 (Luz Toledo DO) Travel History International Travel<30 days: No Contact w/Intl Traveler<30days: No Traveled to known affect area: No (Sharmila Hickman) History of Present Illness HPI 45-year-old male with history of CHF, DM, A. fib, CKD, cirrhosis, mitral valve replacement on Coumadin presents to the ED for evaluation of abdominal pain. Patient states that his ascites is "real bad." Last paracentesis "about a month ago." He denies fevers, chills, chest pain, palpitations, anorexia, nausea, vomiting, changes in bowel habits, dysuria, back pain. Endorses edema in the right lower extremity 2 weeks. Denies known injury. Followed by Dr. Fauzia Lara. (Sharmila Hickman) PFS Past Medical History Hx Anticoagulant Therapy: Yes (WARFARIN) Arthritis: No Asthma: No Blood Disorders: Yes Anxiety: No Depression: No Heart Rhythm Problems: Yes (AFIB) Cancer: No Cardiovascular Problems: Yes (OPEN HEART SX) High Cholesterol: Yes Chemotherapy: No Chest Pain: No Congestive Heart Failure: Yes COPD: No Cerebrovascular Accident: Yes Diabetes: Yes (NO LONGER A DIABETIC, TOLD TO STOP MEDS) Diminished Hearing: No Endocrine: No Gastrointestinal Disorders: Yes (ASCITES) GERD: No Genitourinary: Yes (HEMATURIA) Headaches: No Hiatal Hernia: No Hypertension: Yes Immune Disorder: No Inguinal Hernia: No Implanted Vascular Access Dvce: Yes Kidney Stones: Yes Musculoskeletal: No Neurologic: Yes (CVA A CHILD) Psychiatric: No Reproductive: No Respiratory: No Immunizations Current: No Migraines: No Myocardial Infarction: Yes Radiation Therapy: No Renal Failure: Yes (CKD) Seizures: No Sickle Cell Disease: No Sleep Apnea: No Thyroid Disease: No Ulcer: No (Sharmila Hickman) Past Surgical History Abdominal Surgery: No AICD: Yes (HAS HAD 5-6 SINCE PLACED AT AGE 12 pacemakers ) Arteriovenous Shunt: No Body Medical Devices: PACER WIRES IN ABDOMEN PLACED AT AGE 12 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 Valve x1) (Sharmila Hickman) Social History Alcohol Use: No Tobacco Use: No (quit 10 years ago) Substance Use: No (Sharmila Hickman) Allergies-Medications (Allergen,Severity, Reaction): Coded Allergies: Cozaar (Verified Allergy, Unknown, 11/15/16) Reported Meds & Prescriptions Reported Meds & Active Scripts Active Reported Coumadin (Warfarin) 5 Mg Tab 5 Mg PO DAILY , , , sat, and sun 2.5mg on Monday and Monday Amlodipine (Amlodipine Besylate) 5 Mg Tab 5 Mg PO DAILY Lasix (Furosemide) 20 Mg Tab 20 Mg PO DAILY Atenolol 50 Mg Tab 50 Mg PO BID (Luz Toledo DO) Review of Systems Except as stated in HPI: all other systems reviewed are Neg (Sharmila Hickman ) Physical Exam Narrative GENERAL: Well-nourished, well-developed chronically ill-appearing black male in no acute distress. SKIN: Warm and dry. HEAD: Normocephalic. EYES: No scleral icterus. No drainage. Bilaterally injected. NECK: Supple, trachea midline. No JVD or lymphadenopathy. CARDIOVASCULAR: Regular rate and rhythm with murmur best heard at LLSB. RESPIRATORY: Breath sounds equal bilaterally. No accessory muscle use. GASTROINTESTINAL: Abdomen tense, protuberant, distended. Positive fluid wave. Large protruding, reducible umbilical hernia. MUSCULOSKELETAL: No cyanosis. 2+ pitting edema to the knee on the right. Homans sign negative. BACK: Nontender without obvious deformity. No CVA tenderness. (Sharmila Hickman) Data Data Last Documented VS Vital Signs Date Time Temp Pulse Resp B/P Pulse Ox O2 Delivery O2 Flow Rate FiO2 11/15/16 20:00 98.7 65 16 140/76 95 Room Air (Luz Toledo DO) Orders Complete Blood Count With Diff (11/15/16 16:24) Comprehensive Metabolic Panel (11/15/16 16:24) Prothrombin Time / Inr (Pt) (11/15/16 16:24) Act Partial Throm Time (Ptt) (11/15/16 16:24) Urinalysis - C+S If Indicated (11/15/16 16:24) Iv Access Insert/Monitor (11/15/16 16:24) Ecg Monitoring (11/15/16 16:24) Oximetry (11/15/16 16:24) Morphine Inj (Morphine Inj) (11/15/16 16:30) Sodium Chloride 0.9% Flush (Ns Flush) (11/15/16 16:30) Ammonia (11/15/16 17:03) Admit Order (Ed Use Only) (11/15/16 20:37) (Luz Toledo DO) Labs Laboratory Tests Test 11/15/16 11/15/16 17:00 17:30 Urine Color YELLOW Urine Turbidity CLEAR Urine pH 5.5 Urine Specific [place] 1.012 Urine Protein 30 mg/dL Urine Glucose (UA) NEG mg/dL Urine Ketones NEG mg/dL Urine Occult Blood NEG Urine Nitrite NEG Urine Bilirubin NEG Urine Urobilinogen 4.0 MG/DL Urine Leukocyte Esterase NEG Urine RBC 2 /hpf Urine WBC 2 /hpf Microscopic Urinalysis Comment CULT NOT INDICATED White Blood Count 7.5 TH/MM3 Red Blood Count 4.05 MIL/MM3 Hemoglobin 9.9 GM/DL Hematocrit 30.2 % Mean Corpuscular Volume 74.6 FL Mean Corpuscular Hemoglobin 24.5 PG Mean Corpuscular Hemoglobin 32.8 % Concent Red Cell Distribution Width 19.9 % Platelet Count 341 TH/MM3 Mean Platelet Volume 9.9 FL Neutrophils (%) (Auto) 78.4 % Lymphocytes (%) (Auto) 7.6 % Monocytes (%) (Auto) 12.4 % Eosinophils (%) (Auto) 1.1 % Basophils (%) (Auto) 0.5 % Neutrophils # (Auto) 5.9 TH/MM3 Lymphocytes # (Auto) 0.6 TH/MM3 Monocytes # (Auto) 0.9 TH/MM3 Eosinophils # (Auto) 0.1 TH/MM3 Basophils # (Auto) 0.0 TH/MM3 CBC Comment AUTO DIFF Differential Comment AUTO DIFF CONFIRMED Platelet Estimate NORMAL Platelet Morphology Comment NORMAL Prothrombin Time 29.7 SEC Prothromb Time International 2.6 RATIO Ratio Activated Partial 39.7 SEC Thromboplast Time Sodium Level 138 MEQ/L Potassium Level 4.2 MEQ/L Chloride Level 107 MEQ/L Carbon Dioxide Level 20.2 MEQ/L Anion Gap 11 MEQ/L Blood Urea Nitrogen 24 MG/DL Creatinine 1.40 MG/DL Estimat Glomerular Filtration 66 ML/MIN Rate Random Glucose 79 MG/DL Calcium Level 8.7 MG/DL Total Bilirubin 1.3 MG/DL Aspartate Amino Transf 40 U/L (AST/SGOT) Alanine Aminotransferase 14 U/L (ALT/SGPT) Alkaline Phosphatase 303 U/L Ammonia 45 MCMOL/L Total Protein 8.5 GM/DL Albumin 2.8 GM/DL (Luz Toledo DO) [facility] Medical Decision Making Medical Screen Exam Complete: Yes Emergency Medical Condition: Yes Differential Diagnosis Acute on chronic renal failure versus cirrhosis versus electrolyte abnormality versus anemia versus SBP versus supratherapeutic INR versus other Narrative Course 45-year-old male with history of CHF, DM, A. fib, CKD, cirrhosis, mitral valve replacement on Coumadin presents to the ED for evaluation of abdominal pain. Patient states that his ascites is "real bad." Last paracentesis "about a month ago." He denies fevers, chills, chest pain, palpitations, anorexia, nausea, vomiting, changes in bowel habits, dysuria, back pain. Endorses edema in the right lower extremity 2 weeks. Denies known injury. Followed by Dr. Fauzia Lara. Vitals reviewed. Physical exam reveals a chronically ill-appearing black male in no acute distress. Harsh murmur heard best in the left lower sternal border. Chest clear to auscultation bilaterally. Abdomen protuberant, tense, positive fluid wave. Reducible umbilical hernia. 2+ pretibial edema on the right, Homans sign negative. IV was established. Patient was placed on continuous monitoring. He was administered 4 mg morphine IV. CBC: WBC 7.5. Hemoglobin 9.9. INR 2.6. CMP BUN 24, creatinine 1.4. Bilirubin 1.3. (baseline) UA: No culture indicated. Ammonia: 45 I discussed the patient, workup and plan of care with Dr. Toledo. She agrees that the patient needs therapeutic paracentesis. Discussed with case reviewer. Procedure cannot be done on an outpatient basis due to the patient's INR of 2.6. I spoke with Dr. Mortensen of the the medical service who recommended that I get IR recommendations. I spoke with Dr. Higgins, neuroradiologist who states that the procedure cannot be performed until the INR is 1.5 or less, recommends premedication. Patient will be admitted to the medicine service for reversal of anticoagulation. Please see medicine and IR notes for disposition. (Sharmila Hickman) Diagnosis Primary Impression: Ascites Qualified Code: R18.8 - Other ascites Additional Impression: Supratherapeutic international normalized ratio (INR) Sharmila Hickman Nov 15, 2016 16:11 Luz Toledo DO Nov 16, 2016 12:47
[2016-11-15] MEDS ORDERED: SODIUM CHLORIDE 0.9% FLUSH 5 ML FLUSH IVF PRN (16:30)
[2016-11-15] MEDS ORDERED: MORPHINE SULFATE 4 MG/ML INJ IV PUSH ONE (16:30)
[2016-11-15 17:40] VITALS: BP 124/58; PULSE 59; RESP 20; O2SAT 99
[2016-11-15 17:47] LABS: AUTOMATED NEUTROPHIL # 5.9 TH/MM3 (1.8-7.7); BASOPHIL % 0.5 % (0.0-2.0); EOSINOPHIL # 0.1 TH/MM3 (0-0.4); EOSINOPHIL % 1.1 % (0.0-4.0); HEMATOCRIT 30.2 % (39.0-51.0); LYMPH % 7.6 % (9.0-44.0); LYMPHOCYTE # 0.6 TH/MM3 (1.0-4.8); MEAN CELL VOLUME 74.6 FL (80.0-100.0); MEAN CORPUSCULAR HEMOGLOBIN 24.5 PG (27.0-34.0); MEAN CORPUSCULAR HGB CONC 32.8 % (32.0-36.0); MONO % 12.4 % (0.0-8.0); NEUT % 78.4 % (16.0-70.0); PLATELET COUNT 341 TH/MM3 (150-450); RED BLOOD COUNT 4.05 MIL/MM3 (4.50-5.90); RED CELL DISTRIBUTION WIDTH 19.9 % (11.6-17.2); WHITE BLOOD COUNT 7.5 TH/MM3 (4.0-11.0)
[2016-11-15 17:48] LABS: HEMO FLAGS AUTO DIFF
[2016-11-15 17:59] LABS: APTT (PATIENT) 39.7 SEC (24.3-30.1); INTERNATIONAL NORMALIZED RATIO 2.6 RATIO; PROTHROMBIN TIME - PATIENT 29.7 SEC (9.8-11.6)
[2016-11-15 18:00] LABS: BLOOD, URINE NEG (NEG); COMMENT (UR) CULT NOT INDICATED; CULTURE IF INDICATED CULT NOT INDICATED; GLUCOSE,URINE NEG (NEG); KETONE, URINE NEG (NEG); NITRITE,URINE NEG (NEG); PH, URINE 5.5 (5.0-8.5); URINE COLOR YELLOW (YELLW/STRAW)
[2016-11-15 18:22] LABS: ANION GAP 11 MEQ/L (5-15); AST (GOT) 40 U/L (15-37); BICARBONATE 20.2 MEQ/L (21.0-32.0); BLOOD UREA NITROGEN 24 MG/DL (7-18); CHLORIDE 107 MEQ/L (98-107); GLOMERULAR FILTRATION RATE 66 ML/MIN (>89); SODIUM (NA) 138 MEQ/L (136-145)
[2016-11-15 18:24] LABS: ALKALINE PHOSPHATASE 303 U/L (45-117); ALT (GPT) 14 U/L (12-78); TOTAL BILIRUBIN ADULT 1.3 MG/DL (0.2-1.0)
[2016-11-15 18:25] LABS: PLATELET ESTIMATE SMEAR NORMAL (NORMAL); PLATELET MORPHOLOGY NORMAL (NORMAL); SCAN/DIFF AUTO DIFF CONFIRMED
[2016-11-15 18:27] LABS: POTASSIUM 4.2 MEQ/L (3.5-5.1)
[2016-11-15] MEDS ORDERED: AMLO5TAB2 PO (19:13)
[2016-11-15] MEDS ORDERED: COUM5TAB PO (19:15)
[2016-11-15 20:00] VITALS: BP 140/76; PULSE 65; RESP 16; TEMP 98.7; O2SAT 95
[2016-11-15] MEDS ORDERED: NALOXONE HCL 0.4 MG/ML AMP IV PRN (22:15)
[2016-11-15] MEDS ORDERED: SODIUM CHLORIDE 0.9% FLUSH 5 ML FLUSH FLUSH PRN (22:15)
[2016-11-16] VITALS (7 sets, daily range): BP systolic 97–142; BP diastolic 57–80; PULSE 59–64; RESP 18–21; TEMP 98.7–98.8; O2SAT 95–100
[2016-11-16 04:36] LABS: AUTOMATED NEUTROPHIL # 4.3 TH/MM3 (1.8-7.7); BASOPHIL % 0.5 % (0.0-2.0); EOSINOPHIL # 0.1 TH/MM3 (0-0.4); EOSINOPHIL % 1.6 % (0.0-4.0); HEMATOCRIT 26.8 % (39.0-51.0); LYMPH % 7.8 % (9.0-44.0); LYMPHOCYTE # 0.5 TH/MM3 (1.0-4.8); MEAN CELL VOLUME 73.7 FL (80.0-100.0); MEAN CORPUSCULAR HEMOGLOBIN 24.5 PG (27.0-34.0); MEAN CORPUSCULAR HGB CONC 33.3 % (32.0-36.0); MONO % 17.2 % (0.0-8.0); NEUT % 72.9 % (16.0-70.0); PLATELET COUNT 269 TH/MM3 (150-450); RED BLOOD COUNT 3.64 MIL/MM3 (4.50-5.90); RED CELL DISTRIBUTION WIDTH 19.3 % (11.6-17.2); WHITE BLOOD COUNT 5.9 TH/MM3 (4.0-11.0)
[2016-11-16 04:54] LABS: INTERNATIONAL NORMALIZED RATIO 2.1 RATIO; PROTHROMBIN TIME - PATIENT 24.2 SEC (9.8-11.6)
[2016-11-16 05:00] LABS: BICARBONATE 22.2 MEQ/L (21.0-32.0); POTASSIUM 3.6 MEQ/L (3.5-5.1)
[2016-11-16 05:12] LABS: HEMO FLAGS AUTO DIFF
[2016-11-16 07:26] LABS: KERATOCYTES OCC (NORMAL); PLATELET ESTIMATE SMEAR NORMAL (NORMAL); PLATELET MORPHOLOGY NORMAL (NORMAL); SCAN/DIFF AUTO DIFF CONFIRMED
[2016-11-16 07:27] LABS: TARGET CELLS 1+ (NORMAL)
--- NOTE | 2016-11-16 08:49 | HHI.HP ---
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 The patient is known to me from previous admissions for ascites requiring paracentesis. He measures his abdomen daily, 3-4 days ago measured at 37inches, now over the past few days is 40inches , associated with weight gain, worsening lower extremity edema, and shortness of breath secondary to increased abdominal pressure. Denies any nausea/ vomiting. Bowel movements have been normal, no diarrhea/constipation. Denies fevers/chills. He reports compliance with medications. Although previous extensive GI work ups negative for liver disease/cirrhosis, his community health director is Dr. Obregon believes this is related to the liver and not the heart; Dr. Obregon is referring him to [facility] for further evaluation in the near future. Review of Systems Constitutional: DENIES: Diaphoretic episodes, Fever, Chills, Dizziness Endocrine: DENIES: Polydipsia, Polyuria, Polyphagia Eyes: DENIES: Blurred vision, Vision loss, Double Vision Ears, nose, mouth, throat: DENIES: Throat pain, Ear Pain, Running Nose, Odynophagia Respiratory: COMPLAINS OF: Shortness of breath, DENIES: Cough, Wheezing Cardiovascular: COMPLAINS OF: Lower Extremity Edema, DENIES: Chest pain, Palpitations, Dyspnea on Exertion Gastrointestinal: COMPLAINS OF: Abdominal pain, DENIES: Constipation, Diarrhea , Nausea, Vomiting Genitourinary: DENIES: Urinary frequency, Urgency, Dysuria Musculoskeletal: DENIES: Back pain, Neck pain Integumentary: DENIES: Pruritus, Rash Hematologic/lymphatic: DENIES: Bruising, Lymphadenopathy Immunologic/allergic: DENIES: Eczema, Urticaria Neurologic: DENIES: Abnormal gait, Headache, Localized weakness Psychiatric: DENIES: Anxiety, Depression Past Family Social History Past Medical History systolic CHF with EF 25% on echo March 2016 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 mechanical mitral valve replacement on Coumadin atrial fibrillation COPD hypertension CKD recurrent ascites secondary to heart failure 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 Past Surgical History Surgery for transposition the great vessels Mitral valve replacement 2 currently with mechanical valve Pacemaker placement with 5 replacements Paracentesis Reported Medications Coumadin (Warfarin) 5 Mg Tab 5 Mg PO DAILY , , , sat, and sun 2.5mg on Monday and Monday Amlodipine (Amlodipine Besylate) 5 Mg Tab 5 Mg PO DAILY Lasix (Furosemide) 20 Mg Tab 20 Mg PO DAILY Atenolol 50 Mg Tab 50 Mg PO BID Allergies: Coded Allergies: Cozaar (Verified Allergy, Unknown, 11/15/16) Active Ordered Medications Current Medications Medications (Trade) Dose Ordered Sig/Leonardo Route Start Time Stop Time Status Last Admin (NS Flush) 2 ml UNSCH PRN FLUSH 11/15/16 22:15 (NS Flush) 2 ml BID FLUSH 11/16/16 09:00 11/16/16 10:14 (Narcan Inj) 0.4 mg UNSCH PRN IV 11/15/16 22:15 (Norvasc) 5 mg DAILY PO 11/16/16 10:00 11/16/16 10:13 (Tenormin) 50 mg BID PO 11/16/16 10:00 11/16/16 10:13 (Lasix) 20 mg DAILY PO 11/16/16 10:00 11/16/16 10:13 (Morphine Inj) 2 mg Q3H PRN IV 11/16/16 14:00 (Roxicodone) 5 mg Q4H PRN PO 11/16/16 14:00 Family History Father with Bladder cancer, DM Mom with CVA, DM Social History Tobacco use: Smoked occasional cigar, Quit 14 yrs ago Alcohol use: Denies Illicit drug use: Denies Physical Exam Vital Signs Vital Signs Date Time Temp Pulse Resp B/P Pulse Ox O2 Delivery O2 Flow Rate FiO2 11/16/16 04:18 60 18 140/80 99 Room Air 11/16/16 01:57 64 18 142/78 99 Room Air 11/16/16 00:00 98.8 62 18 141/68 95 Room Air 11/15/16 20:00 98.7 65 16 140/76 95 Room Air 11/15/16 17:40 59 20 124/58 99 Room Air 11/15/16 12:41 97.4 60 16 162/74 92 Room Air Physical Exam GENERAL: Well-nourished, well-developed pleasant AA male patient in NAD. SKIN: Warm and dry. No rash. HEAD: Normocephalic. Atraumatic. EYES: Pupils equal and round. No scleral icterus. No injection or drainage. ENT: No nasal bleeding or discharge. Mucous membranes pink and moist. NECK: Supple. Trachea midline. CARDIOVASCULAR: Irregular rate and rhythm. S1, S2 noted. No murmur appreciated. RESPIRATORY: No accessory muscle use. Clear to auscultation. Breath sounds equal bilaterally. GASTROINTESTINAL: Abdomen soft, diffusely tender, distended, positive fluid wave , with large umbilical hernia. Normoactive bowel sounds x4. MUSCULOSKELETAL: No obvious deformities. 2+ BLE pitting edema. NEUROLOGICAL: Awake and alert. No obvious cranial nerve deficits. Motor grossly within normal limits. Normal speech. PSYCHIATRIC: Appropriate mood and affect; insight and judgment normal. Laboratory Laboratory Tests Test 11/15/16 11/15/16 11/15/16 11/16/16 17:00 17:30 22:10 04:01 Urine Color YELLOW Urine Turbidity CLEAR Urine pH 5.5 Urine Specific Franklin 1.012 Urine Protein 30 Urine Glucose (UA) NEG Urine Ketones NEG Urine Occult Blood NEG Urine Nitrite NEG Urine Bilirubin NEG Urine Urobilinogen 4.0 Urine Leukocyte Esterase NEG Urine RBC 2 Urine WBC 2 Microscopic Urinalysis Comment CULT NOT INDICATED White Blood Count 7.5 5.9 Red Blood Count 4.05 3.64 Hemoglobin 9.9 8.9 Hematocrit 30.2 26.8 Mean Corpuscular Volume 74.6 73.7 Mean Corpuscular Hemoglobin 24.5 24.5 Mean Corpuscular Hemoglobin 32.8 33.3 Concent Red Cell Distribution Width 19.9 19.3 Platelet Count 341 269 Mean Platelet Volume 9.9 9.6 Neutrophils (%) (Auto) 78.4 72.9 Lymphocytes (%) (Auto) 7.6 7.8 Monocytes (%) (Auto) 12.4 17.2 Eosinophils (%) (Auto) 1.1 1.6 Basophils (%) (Auto) 0.5 0.5 Neutrophils # (Auto) 5.9 4.3 Lymphocytes # (Auto) 0.6 0.5 Monocytes # (Auto) 0.9 1.0 Eosinophils # (Auto) 0.1 0.1 Basophils # (Auto) 0.0 0.0 CBC Comment AUTO DIFF AUTO DIFF Differential Comment AUTO DIFF AUTO DIFF CONFIRMED CONFIRMED Platelet Estimate NORMAL NORMAL Platelet Morphology Comment NORMAL NORMAL Prothrombin Time 29.7 24.2 Prothromb Time International 2.6 2.1 Ratio Activated Partial 39.7 Thromboplast Time Sodium Level 138 141 Potassium Level 4.2 3.6 Chloride Level 107 108 Carbon Dioxide Level 20.2 22.2 Anion Gap 11 11 Blood Urea Nitrogen 24 23 Creatinine 1.40 1.38 Estimat Glomerular Filtration 66 67 Rate Random Glucose 79 106 Calcium Level 8.7 8.2 Total Bilirubin 1.3 Aspartate Amino Transf 40 (AST/SGOT) Alanine Aminotransferase 14 (ALT/SGPT) Alkaline Phosphatase 303 Ammonia 45 Total Protein 8.5 Albumin 2.8 Blood Bank Comment Target Cells 1+ Keratocytes OCC Result Diagram: 11/16/1640011/16/16400 Assessment and Plan Problem List: (1) Ascites ICD Code: R18.8 Status: Acute Assessment and Plan 45-year-old male with history of systolic CHF with EF 25%, 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 Ascites: secondary to CHF. Has been thoroughly evaluated by GI on previous admissions, no true cirrhosis, likely secondary to right sided heart failure. -overnight initially radiology requested FFP to be given and proceed with paracentesis (FFP never given) however radiologist today wants patient off Coumadin x5days therefore procedure canceled -patient high risk off Coumadin for multiple days given mechanical valve -Plan for ultrasound-guided abdominal paracentesis when INR < 1.5, will then need to bridge with Lovenox after procedure -Continue patient's lasix -Oxycodone and IV morphine prn pain Chronic Systolic CHF -Restarted home atenolol, Lasix 20mg daily -pt reports his community health director Dr. Obregon does not believe ascites related to CHF , arranging for patient to be seen at [facility] Mechanical valve replacement, currently on Coumadin, INR goal 2.5-3.5 -INR 2.1 today with Coumadin on hold for paracentesis as above. -Restart Coumadin with Lovenox bridge after paracentesis completed Chronic kidney disease, stage II, chronic. Creatinine baseline ~1.7 -Avoid nephrotoxic drugs Hypertension, chronic -Continue home atenolol and Norvasc -Monitor vitals A. fib, chronic -Continue home atenolol -Monitor on telemetry DVT prophylaxis: SCDs, on Coumadin Written by Randi Butt, acting as scribe for Dr. Dockery on 11/16/16 at 11:55 The documentation accurately reflects the work performed [id number] by me Dr. Dockery on 11/16/16 at 11:55 Code Status Full Code Discussed Condition With Patient, Dr. Mortensen, [employer] SALES REPRESENTATIVE Problem Qualifiers (1) Ascites: Qualified Code: R18.8 - Other ascites Randi Butt PA-C Nov 16, 2016 08:49 Jennifer Dockery MD Nov 16, 2016 20:45
[2016-11-16] MEDS: amLODIPine BESYLATE 5 MG TAB PO SCH (10:13)
[2016-11-16] MEDS: FUROSEMIDE 20 MG TAB PO SCH (10:13)
[2016-11-16] MEDS: ATENOLOL 50 MG TAB PO SCH ×2 (10:13→21:41)
[2016-11-16] MEDS: SODIUM CHLORIDE 0.9% FLUSH 5 ML FLUSH FLUSH SCH ×2 (10:14→21:42)
[2016-11-16] MEDS ORDERED: MORPHINE SULFATE 4 MG/ML INJ IV PRN (14:00)
[2016-11-17] VITALS (7 sets, daily range): BP systolic 104–159; BP diastolic 57–87; PULSE 53–64; RESP 18–21; TEMP 96.5–98.4; O2SAT 95–100
[2016-11-17 07:38] LABS: AUTOMATED NEUTROPHIL # 3.4 TH/MM3 (1.8-7.7); BASOPHIL % 0.6 % (0.0-2.0); EOSINOPHIL # 0.2 TH/MM3 (0-0.4); EOSINOPHIL % 3.9 % (0.0-4.0); HEMATOCRIT 27.5 % (39.0-51.0); LYMPH % 8.9 % (9.0-44.0); LYMPHOCYTE # 0.5 TH/MM3 (1.0-4.8); MEAN CORPUSCULAR HEMOGLOBIN 24.2 PG (27.0-34.0); MEAN CORPUSCULAR HGB CONC 32.7 % (32.0-36.0); MONO % 19.8 % (0.0-8.0); NEUT % 66.8 % (16.0-70.0); PLATELET COUNT 272 TH/MM3 (150-450); RED BLOOD COUNT 3.72 MIL/MM3 (4.50-5.90); RED CELL DISTRIBUTION WIDTH 19.3 % (11.6-17.2); WHITE BLOOD COUNT 5.1 TH/MM3 (4.0-11.0)
[2016-11-17 07:40] LABS: HEMO FLAGS AUTO DIFF
[2016-11-17 07:42] LABS: INTERNATIONAL NORMALIZED RATIO 1.9 RATIO; PROTHROMBIN TIME - PATIENT 21.1 SEC (9.8-11.6)
[2016-11-17 08:06] LABS: BICARBONATE 23.8 MEQ/L (21.0-32.0); POTASSIUM 3.8 MEQ/L (3.5-5.1)
[2016-11-17 08:28] LABS: TARGET CELLS 1+ (NORMAL)
[2016-11-17 08:29] LABS: KERATOCYTES OCC (NORMAL); SCAN/DIFF AUTO DIFF CONFIRMED
[2016-11-17] MEDS: amLODIPine BESYLATE 5 MG TAB PO SCH (08:32)
[2016-11-17] MEDS: ATENOLOL 50 MG TAB PO SCH ×2 (08:32→20:59)
[2016-11-17] MEDS: SODIUM CHLORIDE 0.9% FLUSH 5 ML FLUSH FLUSH SCH ×2 (08:33→17:23)
[2016-11-17] MEDS: FUROSEMIDE 20 MG TAB PO SCH (08:33)
--- NOTE | 2016-11-17 14:33 | HHI.PR ---
Subjective Remarks Follow-up for ascites. The patient continues to complain of right upper quadrant pain. He does have abdominal distention. He denies any fever, chills , nausea, vomiting. He states that he is a little short of breath when he tries to walk. Objective Vitals Vital Signs Date Time Temp Pulse Resp B/P Pulse Ox O2 Delivery O2 Flow Rate FiO2 11/17/16 12:00 96.7 55 20 159/87 96 11/17/16 08:00 96.8 60 20 104/57 98 11/17/16 03:25 97.8 60 21 131/69 100 11/17/16 00:00 97.8 64 21 120/62 100 11/16/16 21:04 98.7 59 21 111/57 100 11/16/16 18:24 60 18 125/71 98 Result Diagram: 11/17/16 0702 11/17/16 0702 Objective Remarks GENERAL: Well-developed well-nourished. In no acute distress. SKIN: Warm and dry. No lesions noted. HEENT: Normocephalic. Pupils equal and round. Mucous membranes pink and moist. CARDIOVASCULAR: Regular rate and rhythm. No murmur appreciated. RESPIRATORY: No accessory muscle use. Clear to auscultation. Breath sounds equal bilaterally. GASTROINTESTINAL: Abdomen large, distended, diffusely tender. Large umbilical hernia. Bowel sounds x4. MUSCULOSKELETAL: No obvious deformities. No clubbing or cyanosis. Lower extremity edema. NEUROLOGICAL: Awake and alert. Chronic right-sided weakness. Moves upper and lower extremities spontaneously. Normal speech. PSYCHIATRIC: Appropriate mood and affect; insight and judgment normal. 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 Ascites: secondary to CHF. Has been thoroughly evaluated by GI on previous admissions, no true cirrhosis, likely secondary to right sided heart failure. 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 -Restart Coumadin with Lovenox bridge after paracentesis completed Chronic kidney disease, stage II, chronic. Creatinine baseline ~1.7 -Avoid nephrotoxic drugs Hypertension, chronic -Continue home atenolol and Norvasc -Monitor vitals A. fib, chronic -Continue home atenolol -Monitor on telemetry DVT prophylaxis: SCDs, on Coumadin Written by Ashish Neil, acting as scribe for Dr. Dockery on 11/17/16 at 14:29. The documentation accurately reflects the work performed [id number] by me Dr. Dockery on 11/17/16 at 14:29. Discharge Planning Follow-up INR in the a.m., and hopefully paracentesis tomorrow. Problem Qualifiers (1) Ascites: Qualified Code: R18.8 - Other ascites Ashish Neil Nov 17, 2016 14:33 Jennifer Dockery MD Nov 17, 2016 16:39
[2016-11-18] VITALS (8 sets, daily range): BP systolic 104–145; BP diastolic 58–72; PULSE 56–85; RESP 17–22; TEMP 96.8–98.2; O2SAT 94–100
[2016-11-18 08:03] LABS: INTERNATIONAL NORMALIZED RATIO 1.6 RATIO; PROTHROMBIN TIME - PATIENT 17.5 SEC (9.8-11.6)
[2016-11-18] MEDS: SODIUM CHLORIDE 0.9% FLUSH 5 ML FLUSH FLUSH SCH ×2 (08:48→21:42)
[2016-11-18] MEDS: amLODIPine BESYLATE 5 MG TAB PO SCH (08:48)
[2016-11-18] MEDS: FUROSEMIDE 20 MG TAB PO SCH (08:51)
[2016-11-18] MEDS: ATENOLOL 50 MG TAB PO SCH ×2 (08:51→21:00)
--- NOTE | 2016-11-18 12:15 | HHI.PR ---
Subjective Remarks Follow-up for recurrent ascites. The patient continues to complain of right upper quadrant abdominal pain and distention. He states that due to right sided weakness, he is unable to give himself a Lovenox shot. He states he had issues with home health service last time, and his chief medical officer recommended not being on Lovenox and allow INR to increase back to therapeutic level naturally. Objective Vitals Vital Signs Date Time Temp Pulse Resp B/P Pulse Ox O2 Delivery O2 Flow Rate FiO2 11/18/16 11:57 96.8 59 18 129/62 99 11/18/16 07:36 97.5 60 18 132/66 94 11/18/16 03:43 97.7 56 22 104/63 95 11/17/16 23:45 98.2 62 19 112/63 97 11/17/16 19:05 98.4 60 18 113/57 96 11/17/16 17:22 16 11/17/16 16:00 96.5 53 20 109/62 95 I/O 11/17/16 11/17/16 11/17/16 11/18/16 11/18/16 11/18/16 07:00 15:00 23:00 07:00 15:00 23:00 Output Total 300 ml Balance -300 ml Output Urine Total 300 ml Result Diagram: 11/17/1670111/17/16701 Objective Remarks GENERAL: Well-developed well-nourished. In no acute distress. SKIN: Warm and dry. No lesions noted. HEENT: Normocephalic. Pupils equal and round. Mucous membranes pink and moist. CARDIOVASCULAR: Regular rate and rhythm. Systolic mechanical murmur appreciated. RESPIRATORY: No accessory muscle use. Clear to auscultation. Decreased breath sounds in the right base. GASTROINTESTINAL: Abdomen large, distended, diffusely tender worse in the RUQ. Large umbilical hernia. Bowel sounds x4. MUSCULOSKELETAL: No obvious deformities. No clubbing or cyanosis. Lower extremity edema. NEUROLOGICAL: Awake and alert. Chronic right-sided weakness. Moves upper and lower extremities spontaneously. Normal speech. PSYCHIATRIC: Appropriate mood and affect; insight and judgment normal. 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 Ascites: secondary to CHF. Has been thoroughly evaluated by GI on previous admissions, no true cirrhosis, likely secondary to right sided heart failure. -patient high risk off Coumadin for multiple days given mechanical valve, would avoid performing paracentesis as outpatient -IR consulted, Plan for ultrasound-guided abdominal paracentesis when INR < 1.5 -Continue patient's lasix -Oxycodone and IV morphine prn pain -Outpatient GI follow-up Chronic Systolic CHF -Restarted home atenolol, Lasix 20mg daily -pt reports his chief medical officer Dr. Obregon does not believe ascites related to CHF , arranging for patient to be seen at [facility] Mechanical valve replacement, currently on Coumadin, INR goal 2.5-3.5 -INR 1.6 today with Coumadin on hold for paracentesis as above. -Restart Coumadin with Lovenox bridge after paracentesis completed Chronic kidney disease, stage II, chronic. Creatinine baseline ~1.7 -Avoid nephrotoxic drugs Hypertension, chronic -Continue home atenolol and Norvasc -Monitor vitals A. fib, chronic -Continue home atenolol -Monitor on telemetry DVT prophylaxis: SCDs, on Coumadin Written by Ashish Neil, acting as scribe for Dr. Dockery on 11/18/16 at 12:14. The documentation accurately reflects the work performed [id number] by me Dr. Dockery on 11/18/16 at 12:14. Discharge Planning Resume Coumadin after paracentesis. May have to discharge once INR is therapeutic again. Problem Qualifiers (1) Ascites: Qualified Code: R18.8 - Other ascites Ashish Neil Nov 18, 2016 12:15 Jennifer Dockery MD Nov 18, 2016 16:26
[2016-11-18] MEDS ORDERED: ALBUMIN HUMAN 25% 25 GM/100 ML BAGP IV ONE (15:30)
[2016-11-18] MEDS: WARFARIN SOD 5 MG TAB PO SCH (21:42)
[2016-11-19] VITALS (9 sets, daily range): BP systolic 96–125; BP diastolic 55–71; PULSE 56–63; RESP 18–19; TEMP 97.7–98.2; O2SAT 95–98
[2016-11-19 07:48] LABS: INTERNATIONAL NORMALIZED RATIO 1.4 RATIO; PROTHROMBIN TIME - PATIENT 15.9 SEC (9.8-11.6)
[2016-11-19] MEDS ORDERED: WARFARIN SOD 2 MG TAB PO ONE (08:15)
--- NOTE | 2016-11-19 08:37 | HHI.PR ---
Subjective Remarks Follow-up for ascites. The patient had paracentesis done yesterday. He reports abdominal pain and distention have improved. He has been having a productive cough, has not checked a sputum for color. He denies any fever or chills. He has not had a bowel movement in 3 days. Objective Vitals Vital Signs Date Time Temp Pulse Resp B/P Pulse Ox O2 Delivery O2 Flow Rate FiO2 11/19/16 08:28 97.7 60 18 114/58 98 11/19/16 03:39 98.2 60 19 117/58 98 11/19/16 00:21 98.2 60 18 96/55 98 11/18/16 20:04 98.2 61 18 109/59 95 11/18/16 20:00 60 11/18/16 16:57 97.8 60 17 124/58 100 11/18/16 16:41 97.5 85 17 124/59 97 11/18/16 15:02 98.0 59 20 145/72 97 11/18/16 11:57 96.8 59 18 129/62 99 Result Diagram: 11/17/1670111/17/1602 Objective Remarks GENERAL: Well-developed well-nourished. In no acute distress. SKIN: Warm and dry. No lesions noted. HEENT: Normocephalic. Pupils equal and round. Mucous membranes pink and moist. CARDIOVASCULAR: Regular rate and rhythm. Systolic mechanical murmur appreciated. RESPIRATORY: No accessory muscle use. Clear to auscultation. Decreased breath sounds in the right base. GASTROINTESTINAL: Abdomen soft, mild distention, mild RUQ TTP. Large umbilical hernia. Bowel sounds x4. MUSCULOSKELETAL: No obvious deformities. No clubbing or cyanosis. Lower extremity edema. NEUROLOGICAL: Awake and alert. Chronic right-sided weakness. Moves upper and lower extremities spontaneously. Normal speech. PSYCHIATRIC: Appropriate mood and affect; insight and judgment normal. 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 Ascites: secondary to CHF. Has been thoroughly evaluated by GI on previous admissions, no true cirrhosis, likely secondary to right sided heart failure. 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 -INR 1.4 today, reportedly issues with Lovenox administration in the past -Resumed home Coumadin dose, give extra 2 mg now. -Close monitoring until INR improves, will give further anticoagulation if indicated Chronic kidney disease, stage II, chronic. Creatinine baseline ~1.7 -Avoid nephrotoxic drugs Hypertension, chronic BP bed soft after paracentesis, monitor -Continue home atenolol and Norvasc with hold parameters A. fib, chronic -Continue home atenolol -Monitor on telemetry Cough with possible right pleural effusion: Suspect underlying with CHF as above. Afebrile with no leukocytosis. Check chest x-ray. Incentive spirometry. Supportive care. Antibiotics if indicated. Constipation: Start lactulose daily. DVT prophylaxis: SCDs, on Coumadin Written by Ashish Neil, acting as scribe for Dr. Dockery on 11/19/16 at 08:36. The documentation accurately reflects the work performed [id number] by me Dr. Dockery on 11/19/16 at 08:36. Discharge Planning Discharge planning once INR improves Problem Qualifiers (1) Ascites: Qualified Code: R18.8 - Other ascites Ashish Neil Nov 19, 2016 08:36 Jennifer Dockery MD Nov 19, 2016 14:28
--- NOTE | 2016-11-19 08:54 | RADRPT ---
EXAM DATE/TIME: 11/19/2016 08:32 [place] COMPARISON: CHEST SINGLE AP, May 24, 2016, 11:09. INDICATIONS : Cough. MEDICAL HISTORY : Congestive heart failure. Hypercholesterolemia. Hypertension. CVA. Heart attack. Dyspnea. Ascites. Liver disease. CKD. Hyperammonianemia. Afib. Hematuria. Diabetes. Transposition of great vesse ls. Anticoagulant therapy, Warfarin. SURGICAL HISTORY : CABG. Mitral valve repair. Pacemaker. Paracentesis. Thoracentesis. Blood transfusion. ENCOUNTER: Subsequent ACUITY: 2 days PAIN SCORE: 0/10 LOCATION: Chest. FINDINGS: A single view of the chest demonstrates extensive cardiomegaly. Extensive pleural parenchymal density throughout the right lung and suspected loculated effusion which has increased in size. Right-sided pacemaker with single intact lead. Previous CABG. Left lung relatively clear. There is increased pulm onary vascularity. The cardiomediastinal contours are unremarkable. Osseous structures are intact. CONCLUSION: 1. Right basilar pleural-parenchymal density likely large loculated effusion and atelectasis. 2. Marked enlargement of the cardiac silhouette with previous CABG and increased pulmonary vascularit yNichelle Fenton MD on November 19, 2016 at 8:51 Board Certified Radiologist. This report was verified electronically.
[2016-11-19] MEDS: ATENOLOL 50 MG TAB PO SCH ×2 (09:00→20:24)
[2016-11-19] MEDS: LACTULOSE SYRUP 20 GM/30 ML CUP PO SCH (09:07)
[2016-11-19] MEDS: FUROSEMIDE 20 MG TAB PO SCH (09:07)
[2016-11-19] MEDS: SODIUM CHLORIDE 0.9% FLUSH 5 ML FLUSH FLUSH SCH ×2 (09:07→20:25)
[2016-11-19] MEDS: amLODIPine BESYLATE 5 MG TAB PO SCH (09:08)
[2016-11-19] MEDS: WARFARIN SOD 5 MG TAB PO SCH (16:13)
[2016-11-20] VITALS (9 sets, daily range): BP systolic 104–123; BP diastolic 54–66; PULSE 59–60; RESP 17–19; TEMP 97.8–98.2; O2SAT 95–98
[2016-11-20] MEDS: FUROSEMIDE 20 MG TAB PO SCH (08:31)
[2016-11-20] MEDS: SODIUM CHLORIDE 0.9% FLUSH 5 ML FLUSH FLUSH SCH ×2 (08:31→21:14)
[2016-11-20] MEDS: LACTULOSE SYRUP 20 GM/30 ML CUP PO SCH (08:31)
[2016-11-20] MEDS: amLODIPine BESYLATE 5 MG TAB PO SCH (08:34)
[2016-11-20] MEDS: ATENOLOL 50 MG TAB PO SCH ×2 (09:00→21:14)
--- NOTE | 2016-11-20 09:49 | HHI.PR ---
Subjective Remarks Follow up for ascites, large loculated pleural effusion. The patient denies any shortness of breath today, but does have cough, nonproductive. Denies fevers or chills. Abdominal pain improved s/p paracentesis. Tolerating oral intake. Denies any other medical complaints at this time. Objective Vitals Vital Signs Date Time Temp Pulse Resp B/P Pulse Ox O2 Delivery O2 Flow Rate FiO2 11/20/16 07:40 97.8 60 18 110/60 96 11/20/16 03:51 98.0 59 19 120/65 96 11/20/16 00:19 98.0 60 18 123/64 97 11/19/16 20:00 63 11/19/16 19:24 98.1 56 18 113/58 96 11/19/16 16:38 97.8 59 19 120/60 95 11/19/16 13:08 97.7 60 19 125/59 98 Result Diagram: 11/17/16 0702 11/17/16 0702 Imaging Last Impressions Chest X-Ray 11/19/16 0000 Signed Impressions: Service Date/Time: Saturday, November 19, 2016 08:32 - CONCLUSION: 1. Right basilar pleural-parenchymal density likely large loculated effusion and atelectasis. 2. Marked enlargement of the cardiac silhouette with previous CABG and increased pulmonary vascularity. Jerome Fenton MD Objective Remarks GENERAL: Well-developed well-nourished middle aged male patient in [facility]. SKIN: Warm and dry. No lesions noted. HEENT: Normocephalic. Pupils equal and round. Mucous membranes pink and moist. CARDIOVASCULAR: Regular rate and rhythm. Systolic mechanical murmur appreciated. RESPIRATORY: No accessory muscle use. Clear to auscultation. Decreased breath sounds in the right base. GASTROINTESTINAL: Abdomen soft, mild distention, mild RUQ TTP. Large umbilical hernia. Normoactive Bowel sounds x4. MUSCULOSKELETAL: No obvious deformities. No clubbing or cyanosis. Lower extremity edema. NEUROLOGICAL: Awake and alert. Chronic right-sided weakness. Moves upper and lower extremities spontaneously. Normal speech. PSYCHIATRIC: Appropriate mood and affect; insight and judgment normal. Medications and IVs Current Medications Medications (Trade) Dose Ordered Sig/Leonardo Route Start Time Stop Time Status Last Admin (NS Flush) 2 ml UNSCH PRN FLUSH 11/15/16 22:15 (NS Flush) 2 ml BID FLUSH 11/16/16 09:00 11/20/16 08:31 (Narcan Inj) 0.4 mg UNSCH PRN IV 11/15/16 22:15 (Norvasc) 5 mg DAILY PO 11/16/16 10:00 11/19/16 09:08 (Tenormin) 50 mg BID PO 11/16/16 10:00 11/18/16 08:51 (Lasix) 20 mg DAILY PO 11/16/16 10:00 11/20/16 08:31 (Morphine Inj) 2 mg Q3H PRN IV 11/16/16 14:00 (Roxicodone) 5 mg Q4H PRN PO 11/16/16 14:00 11/20/16 08:32 (Coumadin) 5 mg DAILY@1600 PO 11/18/16 20:00 11/19/16 16:13 (Lactulose Liq) 30 ml DAILY PO 11/19/16 09:00 11/20/16 08:31 (Robitussin Dm 200-20 Mg/10 ml Liq) 10 ml Q4H PRN PO 11/19/16 22:15 A/P Problem List: (1) Ascites ICD Code: R18.8 Status: Acute Assessment and Plan 45-year-old male with history of systolic CHF with EF 25%, 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 Ascites: secondary to CHF. Has been thoroughly evaluated by GI on previous admissions, no true cirrhosis, likely secondary to right sided heart failure. -patient high risk off Coumadin for multiple days given mechanical valve, would avoid performing paracentesis as outpatient -IR consulted, performed therapeutic paracentesis 11/18, symptoms improved -Continue patient's lasix, monitor renal function -Oxycodone and IV morphine prn pain -Outpatient GI follow-up Large Right Loculated Pleural Effusion: Suspect secondary to CHF as above. CXR showed Right basilar pleural-parenchymal density likely large loculated effusion and atelectasis. Afebrile with no leukocytosis. -Incentive spirometry. -Robitussin prn cough. -Consult pulmonology, does not recommend repeat thoracentesis at this time, patient to f/up at 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 Mechanical valve replacement with subtherapeutic anticoagulation on Coumadin, INR goal 2.5-3.5 Coumadin was on hold for paracentesis as above. -INR 1.0 today, reportedly issues with Lovenox administration in the past -Resumed home Coumadin dose, giving extra, pharmacy consult -Close monitoring until INR therapeutic, will give further anticoagulation if indicated Chronic kidney disease, stage II, chronic. Creatinine baseline ~1.7 -Avoid nephrotoxic drugs Hypertension, chronic BP bed soft after paracentesis, monitor -Continue home atenolol and Norvasc with hold parameters A. fib, chronic -Continue home atenolol -Monitor on telemetry Constipation: Started lactulose daily. DVT prophylaxis: SCDs, on Coumadin Written by Randi Butt, acting as scribe for Dr. Dockery on 11/20/16 at 09:47. The documentation accurately reflects the work performed [id number] by me Dr. Dockery on 11/20/16 at 09:47. Problem Qualifiers (1) Ascites: Qualified Code: R18.8 - Other ascites Randi Butt PA-C Nov 20, 2016 09:48 Jennifer Dockery MD Nov 20, 2016 17:42
--- NOTE | 2016-11-20 12:48 | MB ---
cc: JAIME RAGSDALE M.D., R. STEVEN M.D. DATE OF CONSULTATION: 11/20/2016 REASON FOR CONSULTATION: Pulmonary consultation. HISTORY Mr. Ko is a 45-year-old black male with a lifelong history of heart disease. He had congenital transposition of the great vessels and has had a number of surgeries including valve replacement. He is on chronic Coumadin therapy for atrial fibrillation and has presented back multiple times recently with ascites for paracentesis. He has chronic right heart failure according to the record, the last EF was 25% in March of last year. The patient presented on one occasion in May of this year and had a thoracentesis done at that time. Fluid at that time appeared transudative and cultures were negative. Since then, the patient has had several recurrent episodes of ascites, has had it drained but has had no significant chest symptoms or recurrent throacenteses. He presented on this occasion again with tense ascites, has had that drained but routine chest x-ray reveals recurrence of right effusion. He has no symptoms referable to this, no cough, no congestion, no shortness of breath. O2 saturation is 98% on room air. The patient's prior pulmonary history is otherwise unremarkable. SOCIAL HISTORY: He has not smoked in the last 14 or 15 years. FAMILY HISTORY: Family history is positive for cancer, diabetes and stroke. REVIEW OF SYSTEMS The patient has had no chest pain. No fever. No cough or congestion. No significant shortness of breath particularly now that the ascites has been drained, no increasing edema. PHYSICAL EXAMINATION Thin black male in no distress at rest, 98 degrees, pulse is 50-60, respirations are 16-18 and sat is 98% on room air. Sclerae anicteric. Neck veins are mildly distended. Chest is diminished on the right otherwise clear, clear on the left. Heart: Soft systolic murmur. No audible S3. Extremities: No pitting edema or cyanosis. No clubbing. LABORATORY DATA: White blood cell count 5000, hemoglobin 9, BUN is 24 with a creatinine of 1.4. DISCUSSION Mr. Ko presents with recurrent ascites underlying cardiomyopathy. It looks like he may have cirrhosis of the liver probably from chronic heart failure and a recurrence of right effusion which has been drained previously at least on one occasion. He is entirely asymptomatic in this regard. The patient has had a thorough evaluation here with regard to ascites, this is thought to be due to liver problems related to chronic heart failure. He is scheduled in the next few weeks to be evaluated for this at [facility]. A shunt is being considered. In light of the fact the patient is entirely asymptomatic, he is being re-anticoagulated and this pleural effusion at this point is entirely without symptoms. I would suggest not proceeding with another thoracentesis and allowing this to be addressed when he has the appointment at [facility]. Obviously the cause of the effusion seems to be the chronic recurrence of ascites and the pleural fluid will recur in this setting despite the fact we drain it again. Obviously if he became symptomatic it could be drained for palliative purposes or if he had signs of infection for diagnostic purposes. I have reviewed this recommendation with the patient. He agrees. He would like to wait until he is seen at [facility] to address the whole picture but he understands if symptoms arise prior to that, he should come back to the hospital. R. MD DENZEL Cao/ANGELA /11:51 AM /12:33 PM
[2016-11-20] MEDS: guaiFENesin/DEXTROMETHORPHAN 200 MG/20 MG/10 ML CUP PO PRN (16:03)
[2016-11-20] MEDS: WARFARIN SOD 5 MG TAB PO SCH (16:53)
[2016-11-21] VITALS (8 sets, daily range): BP systolic 95–119; BP diastolic 51–62; PULSE 59–60; RESP 16–20; TEMP 97.2–98.2; O2SAT 95–100
[2016-11-21 07:33] LABS: INTERNATIONAL NORMALIZED RATIO 1.9 RATIO; PROTHROMBIN TIME - PATIENT 21.7 SEC (9.8-11.6)
--- NOTE | 2016-11-21 07:49 | RADRPT ---
EXAM DATE/TIME: 11/18/2016 14:43 [facility] COMPARISON: US GUIDED ABD PARACENTESIS, October 14, 2016, 9:25. INDICATIONS : Ascites. MEDICAL HISTORY : Myocardial infarction. Congestive heart failure. Hypercholesterolemia. Hypertension. Dyspnea. Renal f ailure. Kidney stones. Hematuria. Ascites. Chronic kidney disease. Diabetes. SURGICAL HISTORY : CABG Pacemaker. Mitral valve replacement. ENCOUNTER: Subsequent ACUITY: 2 weeks PAIN SCORE: 4/10 LOCATION: Right lower quadrant FLUID: Total volume of 10,600 cc of clear, red fluid was removed. Fluid was discarded. Paracentesis was therapeutic only. Post procedure scanning reveals no hematoma or other complication. TECHNIQUE: 1. Ultrasound guidance for abdominal paracentesis. 2. Paracentesis. The risks, benefits, and alternatives to ultrasound guided paracentesis were explained to the patient in detail including the risk of bleeding and infection. Written and verbal informed consent was obt ained. With the patient on the ultrasound table, ultrasound imaging was used to select the most appropriate approach for paracentesis. Overlying skin was prepped and draped in the usual sterile fashion and wi th a local anesthetic, a dermatotomy was made with an 11 blade scalpel. A 6 [id number] ca theter was introduced into the peritoneal cavity and fluid was collected. The patient tolerated the procedure well and left the ultrasound suite in stable condition. CONCLUSION: Uncomplicated ultrasound guided paracentesis. Patient received albumin per protocol. Anthony Almazan MD FACR on November 21, 2016 at 7:47 Board Certified Radiologist. This report was verified electronically.
[2016-11-21] MEDS: LACTULOSE SYRUP 20 GM/30 ML CUP PO SCH (08:52)
[2016-11-21] MEDS: ATENOLOL 50 MG TAB PO SCH ×2 (08:52→20:38)
[2016-11-21] MEDS: amLODIPine BESYLATE 5 MG TAB PO SCH (08:52)
[2016-11-21] MEDS: FUROSEMIDE 20 MG TAB PO SCH (08:53)
[2016-11-21] MEDS: SODIUM CHLORIDE 0.9% FLUSH 5 ML FLUSH FLUSH SCH ×2 (08:53→20:37)
--- NOTE | 2016-11-21 11:30 | HHI.PR ---
Subjective Remarks Follow up for ascites, large loculated pleural effusion, subtherapeutic INR with mechanical valve. The patient denies any shortness of breath or cough. O2 sat stable on room air. No fevers or chills. Abdominal pain well controlled. Tolerating oral intake. Objective Vitals Vital Signs Date Time Temp Pulse Resp B/P Pulse Ox O2 Delivery O2 Flow Rate FiO2 11/21/16 08:03 97.5 60 16 110/62 100 11/21/16 07:34 60 11/21/16 04:32 98.2 60 18 101/52 95 11/20/16 23:23 98.2 59 18 104/60 97 11/20/16 20:00 60 11/20/16 19:33 98.2 60 18 120/66 98 11/20/16 17:47 60 17 108/61 11/20/16 12:08 59 18 118/54 95 I/O 11/20/16 11/20/16 11/20/16 11/21/16 11/21/16 11/21/16 07:00 15:00 23:00 07:00 15:00 23:00 Output Total 530 ml Balance -530 ml Output Urine Total 530 ml Result Diagram: 11/17/16 0702 11/17/16 0702 Imaging Last Impressions Chest X-Ray 11/19/16 0000 Signed Impressions: Service Date/Time: Saturday, November 19, 2016 08:32 - CONCLUSION: 1. Right basilar pleural-parenchymal density likely large loculated effusion and atelectasis. 2. Marked enlargement of the cardiac silhouette with previous CABG and increased pulmonary vascularity. Jerome Fenton MD Cyst Biopsy Asp-Paracentesis US 11/18/16 0000 Signed Impressions: Service Date/Time: Friday, November 18, 2016 14:43 - CONCLUSION: Uncomplicated ultrasound guided paracentesis. Patient received albumin per protocol. Anthony Almazan MD FACR Objective Remarks GENERAL: Well-developed well-nourished middle aged male patient in [facility]. SKIN: Warm and dry. No lesions noted. HEENT: Normocephalic. Pupils equal and round. Mucous membranes pink and moist. CARDIOVASCULAR: Regular rate and rhythm. Systolic mechanical murmur appreciated. RESPIRATORY: No accessory muscle use. Decreased breath sounds in the right base , otherwise clear. GASTROINTESTINAL: Abdomen soft, mild distention, nontender today. Large umbilical hernia. Normoactive Bowel sounds x4. MUSCULOSKELETAL: No obvious deformities. No clubbing or cyanosis. Trace b/l lower extremity edema. NEUROLOGICAL: Awake and alert. Chronic right-sided weakness. Moves upper and lower extremities spontaneously. Normal speech. PSYCHIATRIC: Appropriate mood and affect; insight and judgment normal. Medications and IVs Current Medications Medications (Trade) Dose Ordered Sig/Leonardo Route Start Time Stop Time Status Last Admin (NS Flush) 2 ml UNSCH PRN FLUSH 11/15/16 22:15 (NS Flush) 2 ml BID FLUSH 11/16/16 09:00 11/21/16 08:53 (Narcan Inj) 0.4 mg UNSCH PRN IV 11/15/16 22:15 (Norvasc) 5 mg DAILY PO 11/16/16 10:00 11/21/16 08:52 (Tenormin) 50 mg BID PO 11/16/16 10:00 11/21/16 08:52 (Lasix) 20 mg DAILY PO 11/16/16 10:00 11/21/16 08:53 (Morphine Inj) 2 mg Q3H PRN IV 11/16/16 14:00 (Roxicodone) 5 mg Q4H PRN PO 11/16/16 14:00 11/20/16 08:32 (Lactulose Liq) 30 ml DAILY PO 11/19/16 09:00 11/21/16 08:52 Guaifenesin/ Dextromethorphan 10 ml 10 ml Q4H PRN PO 11/19/16 22:15 11/20/16 16:03 (Coumadin Consult Pharmacy) 0 ml @ 0 mls/hr UNSCH OTHER 11/20/16 16:45 (Coumadin) 4 mg DAILY@16 PO 11/22/16 16:00 (Coumadin) 2 mg ONCE PO 11/21/16 16:00 11/21/16 21:00 A/P Problem List: (1) Ascites ICD Code: R18.8 Status: Acute Assessment and Plan 45-year-old male with history of systolic CHF with EF 25%, 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 Ascites: secondary to CHF. Has been thoroughly evaluated by GI on previous admissions, no true cirrhosis, likely secondary to right sided heart failure. -patient high risk off Coumadin for multiple days given mechanical valve, would avoid performing paracentesis as outpatient -IR consulted, performed therapeutic paracentesis 11/18, symptoms improved -Continue patient's lasix, monitor renal function -Oxycodone and IV morphine prn pain -Outpatient GI follow-up Large Right Loculated Pleural Effusion: Suspect secondary to CHF as above. CXR showed Right basilar pleural-parenchymal density likely large loculated effusion and atelectasis. Afebrile with no leukocytosis. -Incentive spirometry. -Robitussin prn cough. 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 -INR 1.9 today, reportedly issues with Lovenox administration in the past -Resumed home Coumadin dose, giving extra, pharmacy consult -Close monitoring until INR therapeutic Chronic kidney disease, stage II, chronic. Creatinine baseline ~1.7 -Avoid nephrotoxic drugs Hypertension, chronic BP bed soft after paracentesis, monitor -Continue home atenolol and Norvasc with hold parameters A. fib, chronic -Continue home atenolol -Monitor on telemetry Constipation: Started lactulose daily. DVT prophylaxis: SCDs, on Coumadin Written by Randi Butt, acting as scribe for Dr. Dockery on 11/21/16 at 12:10 The documentation accurately reflects the work performed [id number] by me Dr. Dockery on 11/21/16 at 12:10 Problem Qualifiers (1) Ascites: Qualified Code: R18.8 - Other ascites Randi Butt PA-C Nov 21, 2016 11:30 Jennifer Dockery MD Nov 21, 2016 14:32
[2016-11-21] MEDS ORDERED: WARFARIN SOD 2 MG TAB PO SCH (16:00)
[2016-11-21] MEDS ORDERED: WARFARIN SOD 5 MG TAB PO SCH (16:00)
[2016-11-21] MEDS: guaiFENesin/DEXTROMETHORPHAN 200 MG/20 MG/10 ML CUP PO PRN (20:37)
[2016-11-22 06:10] VITALS: BP 101/54; PULSE 59; RESP 18; TEMP 97.2; O2SAT 93
[2016-11-22 07:03] LABS: INTERNATIONAL NORMALIZED RATIO 2.2 RATIO; PROTHROMBIN TIME - PATIENT 24.7 SEC (9.8-11.6)
[2016-11-22 08:20] VITALS: BP 113/62; PULSE 59; RESP 20; TEMP 97.4; O2SAT 96
--- NOTE | 2016-11-22 10:04 | HHI.PR ---
Subjective Remarks At the margin of the bed. Pain is controlled by meds. INR is 2.2 today. No fever or chills. No n/v/d/c. Objective Vitals Vital Signs Date Time Temp Pulse Resp B/P Pulse Ox O2 Delivery O2 Flow Rate FiO2 11/22/16 08:20 97.4 59 20 113/62 96 11/22/16 06:10 97.2 59 18 101/54 93 11/21/16 23:51 97.4 60 18 95/51 96 11/21/16 20:35 97.2 60 16 119/60 97 11/21/16 20:00 60 11/21/16 15:40 97.9 59 20 97/58 100 11/21/16 12:23 97.3 60 18 109/53 Imaging Last Impressions Chest X-Ray 11/19/16 0000 Signed Impressions: Service Date/Time: Saturday, November 19, 2016 08:32 - CONCLUSION: 1. Right basilar pleural-parenchymal density likely large loculated effusion and atelectasis. 2. Marked enlargement of the cardiac silhouette with previous CABG and increased pulmonary vascularity. Jerome Fenton MD Cyst Biopsy Asp-Paracentesis US 11/18/16 0000 Signed Impressions: Service Date/Time: Friday, November 18, 2016 14:43 - CONCLUSION: Uncomplicated ultrasound guided paracentesis. Patient received albumin per protocol. Anthony Almazan MD FACR Objective Remarks GENERAL: Well-developed well-nourished middle aged male patient in [facility]. SKIN: Warm and dry. No lesions noted. HEENT: Normocephalic. Pupils equal and round. Mucous membranes pink and moist. CARDIOVASCULAR: Regular rate and rhythm. Systolic mechanical murmur appreciated. RESPIRATORY: No accessory muscle use. Decreased breath sounds in the right base , otherwise clear. GASTROINTESTINAL: Abdomen soft, mild distention, nontender today. Large umbilical hernia. Normoactive Bowel sounds x4. MUSCULOSKELETAL: No obvious deformities. No clubbing or cyanosis. Trace b/l lower extremity edema. NEUROLOGICAL: Awake and alert. Chronic right-sided weakness. Moves upper and lower extremities spontaneously. Normal speech. PSYCHIATRIC: Appropriate mood and affect; insight and judgment normal. 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 Ascites: secondary to CHF. Has been thoroughly evaluated by GI on previous admissions, no true cirrhosis, likely secondary to right sided heart failure. -patient high risk off Coumadin for multiple days given mechanical valve, would avoid performing paracentesis as outpatient -IR consulted, performed therapeutic paracentesis 11/18, symptoms improved -Continue patient's lasix, monitor renal function -Oxycodone and IV morphine prn pain -Outpatient GI follow-up Large Right Loculated Pleural Effusion: Suspect secondary to CHF as above. CXR showed Right basilar pleural-parenchymal density likely large loculated effusion and atelectasis. Afebrile with no leukocytosis. -Incentive spirometry. -Robitussin prn cough. 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 Obregon does not believe ascites related to CHF , arranging for patient to be seen at [facility] Mechanical valve replacement with subtherapeutic anticoagulation on Coumadin, INR goal 2.5-3.5 Coumadin was on hold for paracentesis as above. -INR 1.9 today, reportedly issues with Lovenox administration in the past -Resumed home Coumadin dose, giving extra, pharmacy consult -Close monitoring until INR therapeutic Chronic kidney disease, stage II, chronic. Creatinine baseline ~1.7 -Avoid nephrotoxic drugs Hypertension, chronic BP bed soft after paracentesis, monitor -Continue home atenolol and Norvasc with hold parameters A. fib, chronic -Continue home atenolol -Monitor on telemetry Constipation: Started lactulose daily. DVT prophylaxis: SCDs, on Coumadin DC when INR therapeutic ( goal is 2.5-3-5) Problem Qualifiers (1) Ascites: Qualified Code: R18.8 - Other ascites Jennifer Dockery MD Nov 22, 2016 10:04
[2016-11-22] MEDS: FUROSEMIDE 20 MG TAB PO SCH (10:38)
[2016-11-22] MEDS: amLODIPine BESYLATE 5 MG TAB PO SCH (10:38)
[2016-11-22] MEDS: LACTULOSE SYRUP 20 GM/30 ML CUP PO SCH (10:38)
[2016-11-22] MEDS: ATENOLOL 50 MG TAB PO SCH ×2 (10:38→21:00)
[2016-11-22] MEDS: SODIUM CHLORIDE 0.9% FLUSH 5 ML FLUSH FLUSH SCH ×2 (10:38→22:08)
[2016-11-22 11:49] VITALS: BP 110/68; PULSE 59; RESP 20; TEMP 97.4; O2SAT 100
[2016-11-22 15:23] VITALS: BP 117/64; PULSE 60; RESP 20; TEMP 98.1; O2SAT 97
[2016-11-22] MEDS ORDERED: WARFARIN SOD 4 MG TAB PO SCH (16:00)
[2016-11-22] MEDS ORDERED: WARFARIN SOD 2 MG TAB PO SCH (16:00)
[2016-11-22 19:17] VITALS: BP 93/48; PULSE 60; RESP 18; TEMP 97.4; O2SAT 97
[2016-11-22 20:20] VITALS: PULSE 60
[2016-11-23] VITALS (8 sets, daily range): BP systolic 101–117; BP diastolic 55–63; PULSE 59–79; RESP 18–20; TEMP 97.4–98.1; O2SAT 93–100
[2016-11-23 07:04] LABS: PROTHROMBIN TIME - PATIENT 22.4 SEC (9.8-11.6)
[2016-11-23] MEDS: SODIUM CHLORIDE 0.9% FLUSH 5 ML FLUSH FLUSH SCH ×2 (08:31→21:22)
[2016-11-23] MEDS: LACTULOSE SYRUP 20 GM/30 ML CUP PO SCH (08:31)
[2016-11-23] MEDS: FUROSEMIDE 20 MG TAB PO SCH (08:32)
[2016-11-23] MEDS: amLODIPine BESYLATE 5 MG TAB PO SCH (08:33)
[2016-11-23] MEDS: ATENOLOL 50 MG TAB PO SCH ×2 (09:00→21:24)
--- NOTE | 2016-11-23 09:18 | HHI.PR ---
Subjective Remarks INR of 2 today. Patient says he doesn't have much abdominal pain. He is eating no n/v/d/c. Has intermittent cough, nonproductive, no fever or chills. No sob. Objective Vitals Vital Signs Date Time Temp Pulse Resp B/P Pulse Ox O2 Delivery O2 Flow Rate FiO2 11/23/16 08:16 98.1 59 20 111/62 99 11/23/16 00:52 97.4 59 18 101/56 93 11/22/16 20:20 60 11/22/16 19:17 97.4 60 18 93/48 97 11/22/16 15:23 98.1 60 20 117/64 97 11/22/16 11:49 97.4 59 20 110/68 100 Imaging Last Impressions Chest X-Ray 11/19/16 0000 Signed Impressions: Service Date/Time: Saturday, November 19, 2016 08:32 - CONCLUSION: 1. Right basilar pleural-parenchymal density likely large loculated effusion and atelectasis. 2. Marked enlargement of the cardiac silhouette with previous CABG and increased pulmonary vascularity. Jerome Fenton MD Cyst Biopsy Asp-Paracentesis US 11/18/16 0000 Signed Impressions: Service Date/Time: Friday, November 18, 2016 14:43 - CONCLUSION: Uncomplicated ultrasound guided paracentesis. Patient received albumin per protocol. Anthony Almazan MD FACR Objective Remarks GENERAL: Well-developed well-nourished middle aged male patient in [facility]. SKIN: Warm and dry. No lesions noted. HEENT: Normocephalic. Pupils equal and round. Mucous membranes pink and moist. CARDIOVASCULAR: Regular rate and rhythm. Systolic mechanical murmur appreciated. RESPIRATORY: No accessory muscle use. Decreased breath sounds in the right base , otherwise clear. GASTROINTESTINAL: Abdomen soft, mild distention, nontender today. Large umbilical hernia. Normoactive Bowel sounds x4. MUSCULOSKELETAL: No obvious deformities. No clubbing or cyanosis. Trace b/l lower extremity edema. NEUROLOGICAL: Awake and alert. Chronic right-sided weakness. Moves upper and lower extremities spontaneously. Normal speech. PSYCHIATRIC: Appropriate mood and affect; insight and judgment normal. 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 Ascites: secondary to CHF. Has been thoroughly evaluated by GI on previous admissions, no true cirrhosis, likely secondary to right sided heart failure. -patient high risk off Coumadin for multiple days given mechanical valve, would avoid performing paracentesis as outpatient -IR consulted, performed therapeutic paracentesis 11/18, symptoms improved -Continue patient's lasix, monitor renal function -Oxycodone and IV morphine prn pain -Outpatient GI follow-up Large Right Loculated Pleural Effusion: Suspect secondary to CHF as above. CXR showed Right basilar pleural-parenchymal density likely large loculated effusion and atelectasis. Afebrile with no leukocytosis. -Incentive spirometry. -Robitussin prn cough. -Consult pulmonology, does not recommend repeat thoracentesis at this time, patient to f/up at [facility] Chronic Systolic CHF -Restarted home atenolol, Lasix 20mg daily -pt reports his hospital receptionist Dr. Obregon does not believe ascites related to CHF , arranging for patient to be seen at [facility] Mechanical valve replacement with subtherapeutic anticoagulation on Coumadin, INR goal 2.5-3.5 Coumadin was on hold for paracentesis as above. -INR 1.9 today, reportedly issues with Lovenox administration in the past -Resumed home Coumadin dose, giving extra, pharmacy consult -Close monitoring until INR therapeutic Chronic kidney disease, stage II, chronic. Creatinine baseline ~1.7 -Avoid nephrotoxic drugs Hypertension, chronic BP bed soft after paracentesis, monitor -Continue home atenolol and Norvasc with hold parameters A. fib, chronic -Continue home atenolol -Monitor on telemetry Constipation: Started lactulose daily. DVT prophylaxis: SCDs, on Coumadin DC when INR therapeutic ( goal is 2.5-3-5) Problem Qualifiers (1) Ascites: Qualified Code: R18.8 - Other ascites Jennifer Dockery MD Nov 23, 2016 09:18
[2016-11-23] MEDS ORDERED: WARFARIN SOD 3 MG TAB PO SCH (16:00)
[2016-11-23] MEDS: WARFARIN SOD 5 MG TAB PO SCH (16:06)
[2016-11-24 04:41] VITALS: BP 101/59; PULSE 60; RESP 18; TEMP 98.8; O2SAT 97
[2016-11-24 06:27] LABS: INTERNATIONAL NORMALIZED RATIO 2.1 RATIO; PROTHROMBIN TIME - PATIENT 24.1 SEC (9.8-11.6)
[2016-11-24 07:14] VITALS: BP 105/57; PULSE 60; RESP 19; TEMP 98.1; O2SAT 98
[2016-11-24] MEDS: amLODIPine BESYLATE 5 MG TAB PO SCH (08:09)
[2016-11-24] MEDS: ATENOLOL 50 MG TAB PO SCH ×2 (08:09→21:18)
--- NOTE | 2016-11-24 08:09 | HHI.PR ---
Subjective Remarks Patient in bed. Says his belly is feeling again with fluid. No abdominal pain . No fever or chills. No sob or chest pain. He is tolerating food. INR is still subtherapeutic will give extra coumadin today. Objective Vitals Vital Signs Date Time Temp Pulse Resp B/P Pulse Ox O2 Delivery O2 Flow Rate FiO2 11/24/16 07:14 98.1 60 19 105/57 98 11/24/16 04:41 98.8 60 18 101/59 97 11/23/16 23:29 98.1 59 20 114/55 98 11/23/16 21:23 97.9 68 20 107/56 97 11/23/16 20:00 60 11/23/16 16:15 97.5 60 18 117/63 100 11/23/16 11:36 79 11/23/16 08:16 98.1 59 20 111/62 99 Imaging Last Impressions Chest X-Ray 11/19/16 0000 Signed Impressions: Service Date/Time: Saturday, November 19, 2016 08:32 - CONCLUSION: 1. Right basilar pleural-parenchymal density likely large loculated effusion and atelectasis. 2. Marked enlargement of the cardiac silhouette with previous CABG and increased pulmonary vascularity. Jerome Fenton MD Cyst Biopsy Asp-Paracentesis US 11/18/16 0000 Signed Impressions: Service Date/Time: Friday, November 18, 2016 14:43 - CONCLUSION: Uncomplicated ultrasound guided paracentesis. Patient received albumin per protocol. Anthony Almazan MD FACR Objective Remarks GENERAL: Well-developed well-nourished middle aged male patient in [facility]. SKIN: Warm and dry. No lesions noted. HEENT: Normocephalic. Pupils equal and round. Mucous membranes pink and moist. CARDIOVASCULAR: Regular rate and rhythm. Systolic mechanical murmur appreciated. RESPIRATORY: No accessory muscle use. Decreased breath sounds in the right base , otherwise clear. GASTROINTESTINAL: Abdomen soft, mild distention, nontender today. Large umbilical hernia. Normoactive Bowel sounds x4. MUSCULOSKELETAL: No obvious deformities. No clubbing or cyanosis. Trace b/l lower extremity edema. NEUROLOGICAL: Awake and alert. Chronic right-sided weakness. Moves upper and lower extremities spontaneously. Normal speech. PSYCHIATRIC: Appropriate mood and affect; insight and judgment normal. 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 Ascites: secondary to CHF. Has been thoroughly evaluated by GI on previous admissions, no true cirrhosis, likely secondary to right sided heart failure. -patient high risk off Coumadin for multiple days given mechanical valve, would avoid performing paracentesis as outpatient -IR consulted, performed therapeutic paracentesis 11/18, symptoms improved -Continue patient's lasix, monitor renal function -Oxycodone and IV morphine prn pain -Outpatient GI follow-up Large Right Loculated Pleural Effusion: Suspect secondary to CHF as above. CXR showed Right basilar pleural-parenchymal density likely large loculated effusion and atelectasis. Afebrile with no leukocytosis. -Incentive spirometry. -Robitussin prn cough. 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 Obregon does not believe ascites related to CHF , arranging for patient to be seen at [facility] Mechanical valve replacement with subtherapeutic anticoagulation on Coumadin, INR goal 2.5-3.5 Coumadin was on hold for paracentesis as above. -INR still subtherapeutic today, reportedly issues with Lovenox administration in the past -Resumed home Coumadin dose, giving extra, pharmacy consult -Close monitoring until INR therapeutic (goal is 2.5-3.5) Chronic kidney disease, stage II, chronic. Creatinine baseline ~1.7 -Avoid nephrotoxic drugs Hypertension, chronic BP bed soft after paracentesis, monitor -Continue home atenolol and Norvasc with hold parameters A. fib, chronic -Continue home atenolol -Monitor on telemetry Constipation: Started lactulose daily. DVT prophylaxis: SCDs, on Coumadin DC when INR therapeutic ( goal is 2.5-3-5) Problem Qualifiers (1) Ascites: Qualified Code: R18.8 - Other ascites Jennifer Dockery MD Nov 24, 2016 08:09
[2016-11-24] MEDS ORDERED: WARFARIN SOD 2.5 MG TAB PO ONE (09:00)
[2016-11-24] MEDS: FUROSEMIDE 20 MG TAB PO SCH (09:13)
[2016-11-24] MEDS: SODIUM CHLORIDE 0.9% FLUSH 5 ML FLUSH FLUSH SCH ×2 (09:13→21:00)
[2016-11-24] MEDS: LACTULOSE SYRUP 20 GM/30 ML CUP PO SCH (09:13)
[2016-11-24 12:05] VITALS: BP 121/64; PULSE 55; RESP 20; TEMP 98.2; O2SAT 99
[2016-11-24 15:49] VITALS: BP 121/61; PULSE 60; RESP 20; TEMP 98; O2SAT 100
[2016-11-24] MEDS: WARFARIN SOD 5 MG TAB PO SCH (16:06)
[2016-11-24 20:09] VITALS: BP 138/73; PULSE 59; RESP 18; TEMP 98.8; O2SAT 99
[2016-11-25] VITALS: BP 133/73; PULSE 75; RESP 18; TEMP 97.8; O2SAT 98
[2016-11-25 00:50] VITALS: PULSE 62
[2016-11-25 08:23] VITALS: BP 115/64; PULSE 60; RESP 18; TEMP 97.4; O2SAT 100
[2016-11-25] MEDS: SODIUM CHLORIDE 0.9% FLUSH 5 ML FLUSH FLUSH SCH (08:43)
[2016-11-25] MEDS: ATENOLOL 50 MG TAB PO SCH (08:43)
[2016-11-25] MEDS: amLODIPine BESYLATE 5 MG TAB PO SCH (08:43)
[2016-11-25] MEDS: LACTULOSE SYRUP 20 GM/30 ML CUP PO SCH (08:43)
[2016-11-25] MEDS: FUROSEMIDE 20 MG TAB PO SCH (08:43)
[2016-11-25 09:06] LABS: AUTOMATED NEUTROPHIL # 4.9 TH/MM3 (1.8-7.7); BASOPHIL % 0.5 % (0.0-2.0); EOSINOPHIL # 0.1 TH/MM3 (0-0.4); EOSINOPHIL % 1.9 % (0.0-4.0); HEMATOCRIT 31.3 % (39.0-51.0); LYMPHOCYTE # 0.8 TH/MM3 (1.0-4.8); MEAN CELL VOLUME 74.8 FL (80.0-100.0); MEAN CORPUSCULAR HGB CONC 32.1 % (32.0-36.0); MONO % 17.9 % (0.0-8.0); NEUT % 68.7 % (16.0-70.0); PLATELET COUNT 279 TH/MM3 (150-450); RED BLOOD COUNT 4.18 MIL/MM3 (4.50-5.90); RED CELL DISTRIBUTION WIDTH 19.3 % (11.6-17.2); WHITE BLOOD COUNT 7.1 TH/MM3 (4.0-11.0)
[2016-11-25 09:10] LABS: INTERNATIONAL NORMALIZED RATIO 2.4 RATIO
[2016-11-25 09:17] LABS: HEMO FLAGS AUTO DIFF
[2016-11-25 09:26] LABS: BICARBONATE 24.4 MEQ/L (21.0-32.0); POTASSIUM 4.5 MEQ/L (3.5-5.1)
[2016-11-25 10:05] LABS: KERATOCYTES OCC (NORMAL); SCAN/DIFF AUTO DIFF CONFIRMED; TARGET CELLS 1+ (NORMAL)
[2016-11-25] MEDS ORDERED: LACT10SO PO (10:39)
--- NOTE | 2016-11-25 11:14 | HHI.DS ---
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 The patient is known to me from previous admissions for ascites requiring paracentesis. He measures his abdomen daily, 3-4 days ago measured at 37inches, now over the past few days is 40inches , associated with weight gain, worsening lower extremity edema, and shortness of breath secondary to increased abdominal pressure. Denies any nausea/ vomiting. Bowel movements have been normal, no diarrhea/constipation. Denies fevers/chills. He reports compliance with medications. Although previous extensive GI work ups negative for liver disease/cirrhosis, his accounting manager assistant controller is Dr. Obregon believes this is related to the liver and not the heart; Dr. Obregon is referring him to [facility] for further evaluation in the near future. CBC/BMP: 11/25/16 0649 11/25/16 0649 Significant Findings Laboratory Tests Test 11/23/16 11/24/16 11/25/16 06:08 05:45 06:49 Prothrombin Time 22.4 SEC 24.1 SEC 27.0 SEC (9.8-11.6) (9.8-11.6) (9.8-11.6) Red Blood Count 4.18 MIL/MM3 (4.50-5.90) Hemoglobin 10.0 GM/DL (13.0-17.0) Hematocrit 31.3 % (39.0-51.0) Mean Corpuscular Volume 74.8 FL (80.0-100.0) Mean Corpuscular Hemoglobin 24.0 PG (27.0-34.0) Red Cell Distribution Width 19.3 % (11.6-17.2) Monocytes (%) (Auto) 17.9 % (0.0-8.0) Lymphocytes # (Auto) 0.8 TH/MM3 (1.0-4.8) Monocytes # (Auto) 1.3 TH/MM3 (0-0.9) Target Cells 1+ (NORMAL) Estimat Glomerular Filtration 78 ML/MIN (>89) Rate Calcium Level 8.2 MG/DL (8.5-10.1) Imaging Last Impressions Chest X-Ray 11/19/16 0000 Signed Impressions: Service Date/Time: Saturday, November 19, 2016 08:32 - CONCLUSION: 1. Right basilar pleural-parenchymal density likely large loculated effusion and atelectasis. 2. Marked enlargement of the cardiac silhouette with previous CABG and increased pulmonary vascularity. Jerome Fenton MD Cyst Biopsy Asp-Paracentesis US 11/18/16 0000 Signed Impressions: Service Date/Time: Friday, November 18, 2016 14:43 - CONCLUSION: Uncomplicated ultrasound guided paracentesis. Patient received albumin per protocol. Anthony Almazan MD FACR PE at Discharge GENERAL: Well-developed well-nourished middle aged male patient in [facility]. SKIN: Warm and dry. No lesions noted. HEENT: Normocephalic. Pupils equal and round. Mucous membranes pink and moist. CARDIOVASCULAR: Regular rate and rhythm. Systolic mechanical murmur appreciated. RESPIRATORY: No accessory muscle use. Decreased breath sounds in the right base , otherwise clear. GASTROINTESTINAL: Abdomen soft, mild distention, nontender today. Large umbilical hernia. Normoactive Bowel sounds x4. MUSCULOSKELETAL: No obvious deformities. No clubbing or cyanosis. Trace b/l lower extremity edema. NEUROLOGICAL: Awake and alert. Chronic right-sided weakness. Moves upper and lower extremities spontaneously. Normal speech. PSYCHIATRIC: Appropriate mood and affect; insight and judgment normal. Pt update on day of discharge The patient is doing well. He has no acute complaints. Normal BM. INR is 2.4 , patient is ready to go home and follow-up with Dr. 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 Ascites: secondary to CHF. Has been thoroughly evaluated by GI on previous admissions, no true cirrhosis, likely secondary to right sided heart failure. -patient high risk off Coumadin for multiple days given mechanical valve, would avoid performing paracentesis as outpatient -IR consulted, performed therapeutic paracentesis 11/18, symptoms improved -Continue patient's lasix, monitor renal function -Outpatient GI follow-up Large Right Loculated Pleural Effusion: Suspect secondary to CHF as above. CXR showed Right basilar pleural-parenchymal density likely large loculated effusion and atelectasis. Afebrile with no leukocytosis. -Incentive spirometry. -Consult pulmonology, does not recommend repeat thoracentesis at this time, patient to f/up at [facility] Chronic Systolic CHF -Restarted home atenolol, Lasix 20mg daily -pt reports his accounting manager assistant controller Dr. Obregon does not believe ascites related to CHF , arranging for patient to be seen at [facility] Mechanical valve replacement with subtherapeutic anticoagulation on Coumadin, INR goal 2.5-3.5 Coumadin was on hold for paracentesis as above. -INR still subtherapeutic today, reportedly issues with Lovenox administration in the past -Resumed home Coumadin dose, INR improved to 2.4 -Continue outpatient INR monitoring cardiology follow-up Chronic kidney disease, stage II, chronic. Creatinine baseline ~1.7 -Avoid nephrotoxic drugs Hypertension, chronic BP bed soft after paracentesis, monitor -Continue home atenolol and Norvasc with hold parameters A. fib, chronic -Continue home atenolol -Monitor on telemetry Constipation: Lactulose as needed Pt Condition on Discharge: Stable Discharge Disposition: Discharge Home Discharge Time: > 30 minutes Discharge Instructions DIET: Follow Instructions for: Heart Healthy Diet Activities you can perform: Regular-No Restrictions Follow up Referrals: Cardiology - 2 Weeks with Makenna Obregon MD Gastroenterology - 3 Weeks PCP Follow-up - 1 Week with Fco Bhakta MD New Orders: PT/INR - 3-5 Days New Medications: Lactulose Liq (Lactulose Liq) 10 Gm/15 Ml Soln 30 ML PO DAILY PRN CONSTIPATION #1 BOTTLE Continued Medications: Amlodipine (Amlodipine) 5 Mg Tab 5 MG PO DAILY Blood Pressure Management #30 Ref 0 TAB Atenolol (Atenolol) 50 Mg Tab 50 MG PO BID Blood Pressure Management #60 Ref 0 TAB Furosemide (Lasix) 20 Mg Tab 20 MG PO DAILY #30 Ref 0 TAB Warfarin (Coumadin) 5 Mg Tab 5 MG PO DAILY , , , mon, and sun 2.5mg on Monday and Monday Blood Clot Prevention #30 Ref 0 TAB Additional Information Written by Ashish Neil, acting as scribe for Dr. Saunders on 11/25/16 at 11:14. The documentation accurately reflects the work performed [id number] by me on at 11:14. Ashish Neil Nov 25, 2016 11:14 am Patel Saunders DO Nov 25, 2016 3:34 pm
== END 2016-11-25 12:37 | disposition home or self-care (01) | DRG 292 ==
LOC: NEPE 12:39 → NEDA 20:39 → NEDH 11-16 01:08 → NEPHCDU 11-16 17:59 → OBSVTOIN 11-19 16:02
PROVIDERS: ADMIT Hospitalist; ATTEND Hospitalist
PROC: 0W9G3ZZ Drainage of Peritoneal Cavity, Percutaneous Approach (ICD-10-PCS; principal; 2016-11-18)
DX: I13.0 Hypertensive heart and chronic kidney disease with heart failure and stage 1 through stage 4 chronic kidney disease, or unspecified chronic kidney disease (principal); R18.8 Other ascites; I42.9 Cardiomyopathy, unspecified; I50.22 Chronic systolic (congestive) heart failure; J98.11 Atelectasis; I48.2 Chronic atrial fibrillation; N18.2 Chronic kidney disease, stage 2 (mild); I25.2 Old myocardial infarction; K42.9 Umbilical hernia without obstruction or gangrene; J44.9 Chronic obstructive pulmonary disease, unspecified; K59.00 Constipation, unspecified; Z79.01 Long term (current) use of anticoagulants; Z86.73 Personal history of transient ischemic attack (TIA), and cerebral infarction without residual deficits; Z87.74 Personal history of (corrected) congenital malformations of heart and circulatory system; Z87.891 Personal history of nicotine dependence; Z95.2 Presence of prosthetic heart valve
CPT/HCPCS: 49083; 71010; 80048; 80053; 81001; 82140; 85025; 85610; 85730; 86927; 94150; 96374; C1729; G0378; J2270; P9047

== ENCOUNTER 2017-08-01 09:12 | Emergency (ER) | payer MEDICARE, MEDICAID ==
[~2017-08-01] VITALS: Ht 177.8 cm; Wt 50.0 kg
[~2017-08-01 09:12] MED LIST changes: +AMLO5TAB2 PO; +COUM5TAB PO; -DIGO0.12 PO; -DRIS50002 PO; -ENOX60P SQ; +LACT10SO PO; -LISI2.5T3 PO; -WARF-21 PO; -WARF-23 PO
[2017-08-01 09:14] VITALS: BP 158/72; PULSE 60; RESP 16; TEMP 98.4; O2SAT 100
[2017-08-01] MEDS ORDERED: FURO1TAB60 PO (10:00)
[2017-08-01] MEDS ORDERED: BUME1TAB PO (10:00)
[2017-08-01 10:14] LABS: APTT (PATIENT) 40.8 SEC (24.3-30.1); INTERNATIONAL NORMALIZED RATIO 2.4 RATIO
[2017-08-01] MEDS ORDERED: SODIUM CHLORIDE 0.9% FLUSH 10 ML FLUSH IVF PRN (10:45)
[2017-08-01 11:28] LABS: AUTOMATED NEUTROPHIL # 3.8 TH/MM3 (1.8-7.7); BASOPHIL % 0.6 % (0.0-2.0); EOSINOPHIL # 0.1 TH/MM3 (0-0.4); EOSINOPHIL % 1.7 % (0.0-4.0); HEMATOCRIT 33.6 % (39.0-51.0); HEMO FLAGS DIFF FINAL; LYMPH % 9.2 % (9.0-44.0); LYMPHOCYTE # 0.5 TH/MM3 (1.0-4.8); MEAN CELL VOLUME 77.5 FL (80.0-100.0); MEAN CORPUSCULAR HGB CONC 33.5 % (32.0-36.0); MONO % 14.9 % (0.0-8.0); NEUT % 73.6 % (16.0-70.0); PLATELET COUNT 142 TH/MM3 (150-450); RED BLOOD COUNT 4.34 MIL/MM3 (4.50-5.90); RED CELL DISTRIBUTION WIDTH 18.2 % (11.6-17.2); WHITE BLOOD COUNT 5.2 TH/MM3 (4.0-11.0)
[2017-08-01 11:30] LABS: BLOOD, URINE NEG (NEG); GLUCOSE,URINE NEG (NEG); KETONE, URINE TRACE mg/dL (NEG); NITRITE,URINE NEG (NEG); URINE COLOR YELLOW (YELLW/STRAW)
--- NOTE | 2017-08-01 11:31 | PD ---
HPI Chief Complaint: Bleeding Time Seen by Provider: 10:20 Travel History International Travel<30 days: No Contact w/Intl Traveler<30days: No Traveled to known affect area: No History of Present Illness HPI 46-year-old male arrives due to bleeding from the gums. This has been 2 days in duration. He takes Coumadin for history of stroke at age 8 in addition to multiple open chest surgeries initially due to transposition of the great vessels. He denies any injury. He denies hematemesis. He denies hemoptysis. No dizziness or headache. No injury to the gums. Location hematologic. Severity moderate. He denies any petechia or rash. He's had no swelling/ evidence of hemarthrosis. He denies any history of bleeding diathesis. PFSH Past Medical History Hx Anticoagulant Therapy: Yes Arthritis: No Asthma: No Blood Disorders: Yes Anxiety: No Depression: No Heart Rhythm Problems: Yes (AFIB) Cancer: No Cardiovascular Problems: Yes High Cholesterol: Yes Chemotherapy: No Chest Pain: No Congestive Heart Failure: Yes COPD: No Cerebrovascular Accident: Yes Diminished Hearing: No Endocrine: No Gastrointestinal Disorders: Yes (ASCITES) GERD: No Genitourinary: Yes (HEMATURIA) Headaches: No Hiatal Hernia: No Hypertension: Yes Immune Disorder: No Inguinal Hernia: No Implanted Vascular Access Dvce: Yes Kidney Stones: Yes Musculoskeletal: No Neurologic: Yes (CVA A CHILD) Psychiatric: No Reproductive: No Respiratory: No Immunizations Current: No Migraines: No Myocardial Infarction: Yes Radiation Therapy: No Renal Failure: Yes (CKD) Seizures: No Sickle Cell Disease: No Sleep Apnea: No Thyroid Disease: No Ulcer: No Past Surgical History Abdominal Surgery: No AICD: Yes (HAS HAD 5-6 SINCE PLACED AT AGE 12 pacemakers ) Arteriovenous Shunt: No Body Medical Devices: PACER WIRES IN ABDOMEN PLACED AT AGE 12 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 Malick's Valve x1) Social History Alcohol Use: No Tobacco Use: No (quit 10 years ago) Substance Use: No Allergies-Medications (Allergen,Severity, Reaction): Coded Allergies: losartan (Unverified Allergy, Unknown, 08/01/17) Reported Meds & Prescriptions Reported Meds & Active Scripts Active Reported Bumetanide 1 Mg Tab 1 Mg PO DAILY Lasix (Furosemide) 40 Mg Tab 40 Mg PO DAILY Coumadin (Warfarin) 5 Mg Tab 5 Mg PO DAILY , , , sat, and sun 2.5mg on Monday and Monday Atenolol 50 Mg Tab 50 Mg PO BID Review of Systems Except as stated in HPI: all other systems reviewed are Neg General / Constitutional: No: Fever HENT: No: Headaches Physical Exam Narrative GENERAL: Well-nourished well-developed 46-year-old male SKIN: Warm and dry. No evidence of testicular lower extremities. HEAD: Atraumatic. Normocephalic. EYES: Pupils equal and round. No scleral icterus. No injection or drainage. ENT: No nasal bleeding or discharge. Mucous membranes pink and moist. Oral mucosa is normal with no evidence of bleeding. There is some dried blood on his lips. NECK: Trachea midline. No JVD. CARDIOVASCULAR: Regular rate and rhythm. RESPIRATORY: No accessory muscle use. Clear to auscultation. Breath sounds equal bilaterally. GASTROINTESTINAL: Abdomen soft, non-tender, nondistended. Hepatic and splenic margins not palpable. MUSCULOSKELETAL: Extremities without clubbing, cyanosis, or edema. No obvious deformities. NEUROLOGICAL: Awake and alert. No obvious cranial nerve deficits. Motor grossly within normal limits. Five out of 5 muscle strength in the arms and legs. Normal speech. PSYCHIATRIC: Appropriate mood and affect; insight and judgment normal. Data Data Last Documented VS Vital Signs Date Time Temp Pulse Resp B/P (MAP) Pulse Ox O2 Delivery O2 Flow Rate FiO2 08/01/17 13:00 08/01/17 09:14 98.4 60 16 100 Vital signs reviewed Orders Orders Act Partial Throm Time (Ptt) (08/01/17 09:29) Prothrombin Time / Inr (Pt) (08/01/17 09:29) Complete Blood Count With Diff (08/01/17 10:31) Comprehensive Metabolic Panel (08/01/17 10:31) Iv Access Insert/Monitor (10/24/17 10:31) Sodium Chloride 0.9% Flush (Ns Flush) (08/01/17 10:45) Urinalysis - C+S If Indicated (08/01/17 10:31) Ed Discharge Order (08/01/17 12:47) Labs Laboratory Tests Test 08/01/17 09:40 08/01/17 10:42 08/01/17 10:50 Prothrombin Time 27.0 SEC Prothromb Time International Ratio 2.4 RATIO Activated Partial Thromboplast Time 40.8 SEC White Blood Count 5.2 TH/MM3 Red Blood Count 4.34 MIL/MM3 Hemoglobin 11.3 GM/DL Hematocrit 33.6 % Mean Corpuscular Volume 77.5 FL Mean Corpuscular Hemoglobin 26.0 PG Mean Corpuscular Hemoglobin Concent 33.5 % Red Cell Distribution Width 18.2 % Platelet Count 142 TH/MM3 Mean Platelet Volume 10.0 FL Neutrophils (%) (Auto) 73.6 % Lymphocytes (%) (Auto) 9.2 % Monocytes (%) (Auto) 14.9 % Eosinophils (%) (Auto) 1.7 % Basophils (%) (Auto) 0.6 % Neutrophils # (Auto) 3.8 TH/MM3 Lymphocytes # (Auto) 0.5 TH/MM3 Monocytes # (Auto) 0.8 TH/MM3 Eosinophils # (Auto) 0.1 TH/MM3 Basophils # (Auto) 0.0 TH/MM3 CBC Comment DIFF FINAL Differential Comment Blood Urea Nitrogen 29 MG/DL Creatinine 1.62 MG/DL Random Glucose 78 MG/DL Total Protein 8.9 GM/DL Albumin 3.2 GM/DL Calcium Level 9.4 MG/DL Alkaline Phosphatase 317 U/L Aspartate Amino Transf (AST/SGOT) 21 U/L Alanine Aminotransferase (ALT/SGPT) 18 U/L Total Bilirubin 3.0 MG/DL Sodium Level 140 MEQ/L Potassium Level 3.9 MEQ/L Chloride Level 106 MEQ/L Carbon Dioxide Level 24.9 MEQ/L Anion Gap 9 MEQ/L Estimat Glomerular Filtration Rate 56 ML/MIN Urine Color YELLOW Urine Turbidity CLEAR Urine pH 6.0 Urine Specific [place] 1.010 Urine Protein TRACE mg/dL Urine Glucose (UA) NEG mg/dL Urine Ketones TRACE mg/dL Urine Occult Blood NEG Urine Nitrite NEG Urine Bilirubin NEG Urine Urobilinogen 4.0 MG/DL Urine Leukocyte Esterase NEG Urine RBC 1 /hpf Urine WBC 1 /hpf Microscopic Urinalysis Comment CULT NOT INDICATED MDM Medical Decision Making Medical Screen Exam Complete: Yes Emergency Medical Condition: Yes Differential Diagnosis Anemia, subtherapeutic INR, thrombocytopenia, bleeding diathesis Narrative Course CBC & BMP Diagram 08/01/17 10:42 Total Protein 8.9 H, Albumin 3.2 L, Calcium Level 9.4, Alkaline Phosphatase 317 H, Aspartate Amino Transf (AST/SGOT) 21, Alanine Aminotransferase (ALT/SGPT) 18 , Total Bilirubin 3.0 H INR 2.4 APTT 40.8 UA: no blood The patient is resting comfortably and feels better, is alert and in no distress. The patients results and examination findings were discussed. The repeat examination is unremarkable and benign. The history, exam, diagnostic testing, and current condition do not suggest any significant pathology to warrant further testing, continued ED treatment, admission, or surgical evaluation at this point. The vital signs have been stable. The patient does not have uncontrollable pain, intractable vomiting, or other significant symptoms. The patient's condition is stable and appropriate for discharge. The patient will pursue further outpatient evaluation with a primary care physician or other designated or consulting physician as indicated in the discharge instructions. The patient expressed understanding and was agreeable with this plan. Diagnosis Primary Impression: Gingival bleeding Referrals: Primary Care Physician call for appointment Additional Instructions: You have a choice when it comes to health care, and we are glad that you chose [facility]. Hopefully, we have met your expectations on today's visit. You are welcome to return to [facility] at any time, as we are committed to meeting the health care needs of our community. Med/Other Pt SpecificInfo: No Change to Meds Disposition: 01 DISCHARGE HOME Condition: Stable Quinton Portillo MD Aug 01, 2017 11:31
[2017-08-01 11:36] LABS: COMMENT (UR) CULT NOT INDICATED; CULTURE IF INDICATED CULT NOT INDICATED
[2017-08-01 11:52] LABS: ALT (GPT) 18 U/L (12-78); ANION GAP 9 MEQ/L (5-15); AST (GOT) 21 U/L (15-37); BICARBONATE 24.9 MEQ/L (21.0-32.0); BLOOD UREA NITROGEN 29 MG/DL (7-18); CHLORIDE 106 MEQ/L (98-107); GLOMERULAR FILTRATION RATE 56 ML/MIN (>89); POTASSIUM 3.9 MEQ/L (3.5-5.1); SODIUM (NA) 140 MEQ/L (136-145)
[2017-08-01 11:55] LABS: ALKALINE PHOSPHATASE 317 U/L (45-117)
== END 2017-08-01 16:30 | disposition home or self-care (01) ==
LOC: NEPD 09:12
DX: K06.8 Other specified disorders of gingiva and edentulous alveolar ridge (principal); I48.91 Unspecified atrial fibrillation; E78.00 Pure hypercholesterolemia, unspecified; I50.9 Heart failure, unspecified; I10 Essential (primary) hypertension; I12.9 Hypertensive chronic kidney disease with stage 1 through stage 4 chronic kidney disease, or unspecified chronic kidney disease; N18.9 Chronic kidney disease, unspecified; Z79.01 Long term (current) use of anticoagulants; Z86.73 Personal history of transient ischemic attack (TIA), and cerebral infarction without residual deficits
CPT/HCPCS: 80053; 81001; 85025; 85610; 85730; 99283

== ENCOUNTER 2017-11-14 11:07 | Observation (INO) | payer MEDICARE, MEDICAID ==
[~2017-11-14] VITALS: Ht 177.8 cm; Wt 58.6 kg
[~2017-11-14 11:07] MED LIST changes: -AMLO5TAB2 PO; +BUME1TAB PO; +FURO1TAB60 PO; -FURO1TAB62 PO; -LACT10SO PO
[2017-11-14 11:08] VITALS: BP 163/74; PULSE 59; RESP 16; TEMP 97.5; O2SAT 97
--- NOTE | 2017-11-14 11:27 | PD ---
HPI Chief Complaint: Lump, Cyst, Hernia Time Seen by Provider: 11:25 Travel History International Travel<30 days: No Contact w/Intl Traveler<30days: No Traveled to known affect area: No History of Present Illness HPI 46-year-old male came to the emergency room complaining of his umbilical hernia worsening. Meanwhile patient appeared to be nauseated, tachypneic and looking sick. Upon asking he said that he has history of congestive heart failure. His breathing and shortness of breath has worsened more than his baseline. No history of chest pain or fever. No history of cough. Patient does not have any history of abdominal pain but he has noticed that his abdomen is getting distended. He has had paracentesis done in the past as well as pleuracentesis. Vital signs were relatively stable. 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 He is on Coumadin and his last INR was done couple days ago. He saw his wire saw operator about a week or so ago. Patient was admitted in [facility] in [place] 1 year ago when the recommended that he should have heart transplant but at that time he had refused to get that and they have done another surgery. He does not know the name. He says since then he has been feeling little better. [facility] Past Medical History Narrative Medical List of his past medical, surgical, social and family history is reviewed from the nursing note. Hx Anticoagulant Therapy: Yes Arthritis: No Asthma: No Blood Disorders: Yes Anxiety: No Depression: No Heart Rhythm Problems: Yes (AFIB) Cancer: No Cardiovascular Problems: Yes High Cholesterol: Yes Chemotherapy: No Chest Pain: No Congestive Heart Failure: Yes COPD: No Cerebrovascular Accident: Yes Diabetes: Yes Diminished Hearing: No Endocrine: No Gastrointestinal Disorders: Yes (ASCITES) GERD: No Genitourinary: Yes (HEMATURIA) Headaches: No Hiatal Hernia: No Hypertension: Yes Immune Disorder: No Inguinal Hernia: No Implanted Vascular Access Dvce: Yes Kidney Stones: Yes Musculoskeletal: No Neurologic: Yes (CVA A CHILD) Psychiatric: No Reproductive: No Respiratory: Yes Immunizations Current: No Migraines: No Myocardial Infarction: Yes Radiation Therapy: No Renal Failure: Yes (CKD) Seizures: No Sickle Cell Disease: No Sleep Apnea: No Thyroid Disease: No Ulcer: No Past Surgical History Abdominal Surgery: No AICD: Yes (HAS HAD 5-6 SINCE PLACED AT AGE 12 pacemakers ) Arteriovenous Shunt: No Body Medical Devices: PACER WIRES IN ABDOMEN PLACED AT AGE 12 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 Malick's Valve x1) Social History Alcohol Use: No Tobacco Use: No (quit 10 years ago) Substance Use: No Allergies-Medications (Allergen,Severity, Reaction): Coded Allergies: losartan (Unverified Allergy, Unknown, 08/01/17) Comments List of his allergies reviewed from the nursing note. Reported Meds & Prescriptions Reported Meds & Active Scripts Active Reported Bumetanide 1 Mg Tab 1 Mg PO DAILY Coumadin (Warfarin) 5 Mg Tab 5 Mg PO DAILY , , , sat, and sun 2.5mg on Monday and Monday Narrative Medication List of his home medications reviewed from the nursing note. Review of Systems Except as stated in HPI: all other systems reviewed are Neg Respiratory: Positive: Shortness of Breath Physical Exam Narrative GENERAL: Awake, alert, mass seated, moderate distress SKIN: Focused skin assessment warm/dry. HEAD: Atraumatic. Normocephalic. EYES: Pupils equal and round. No scleral icterus. No injection or drainage. ENT: No nasal bleeding or discharge. Mucous membranes pink and moist. NECK: Trachea midline. No JVD. CARDIOVASCULAR: Regular rate and rhythm. No murmur appreciated. RESPIRATORY: No accessory muscle use. Tachypnea, decreased air entry right lung field GASTROINTESTINAL: Abdomen is distended with ascites and 2 separate umbilical hernia both reducible. The skin is thickened and appears to be chronic. Hepatic and splenic margins not palpable. MUSCULOSKELETAL: No cyanosis. No edema. NEUROLOGICAL: Awake and alert. No obvious cranial nerve deficits. Motor grossly within normal limits. Normal speech. PSYCHIATRIC: Appropriate mood and affect; insight and judgment normal. Data Data Last Documented VS Orders Orders Complete Blood Count With Diff (11/14/17 11:35) Comprehensive Metabolic Panel (11/14/17 11:35) Prothrombin Time / Inr (Pt) (11/14/17 11:35) Urinalysis - C+S If Indicated (11/14/17 11:35) Chest, Single Ap (11/14/17 ) Electrocardiogram (11/14/17 ) Admit Order (Ed Use Only) (11/14/17 14:37) Labs Laboratory Tests Test 11/14/17 11:55 11/14/17 13:20 White Blood Count 5.3 TH/MM3 Red Blood Count 4.20 MIL/MM3 Hemoglobin 11.0 GM/DL Hematocrit 32.8 % Mean Corpuscular Volume 78.1 FL Mean Corpuscular Hemoglobin 26.2 PG Mean Corpuscular Hemoglobin Concent 33.6 % Red Cell Distribution Width 18.7 % Platelet Count 183 TH/MM3 Mean Platelet Volume 10.0 FL Neutrophils (%) (Auto) 80.5 % Lymphocytes (%) (Auto) 5.2 % Monocytes (%) (Auto) 12.8 % Eosinophils (%) (Auto) 0.8 % Basophils (%) (Auto) 0.7 % Neutrophils # (Auto) 4.3 TH/MM3 Lymphocytes # (Auto) 0.3 TH/MM3 Monocytes # (Auto) 0.7 TH/MM3 Eosinophils # (Auto) 0.0 TH/MM3 Basophils # (Auto) 0.0 TH/MM3 CBC Comment AUTO DIFF Differential Comment AUTO DIFF CONFIRMED Prothrombin Time 17.6 SEC Prothromb Time International Ratio 1.7 RATIO Blood Urea Nitrogen 27 MG/DL Creatinine 1.82 MG/DL Random Glucose 174 MG/DL Total Protein 8.7 GM/DL Albumin 3.0 GM/DL Calcium Level 8.6 MG/DL Alkaline Phosphatase 323 U/L Aspartate Amino Transf (AST/SGOT) 26 U/L Alanine Aminotransferase (ALT/SGPT) 15 U/L Total Bilirubin 2.7 MG/DL Sodium Level 137 MEQ/L Potassium Level 4.0 MEQ/L Chloride Level 104 MEQ/L Carbon Dioxide Level 25.1 MEQ/L Anion Gap 8 MEQ/L Estimat Glomerular Filtration Rate 49 ML/MIN Urine Color YELLOW Urine Turbidity CLEAR Urine pH 6.5 Urine Specific [place] 1.008 Urine Protein 100 mg/dL Urine Glucose (UA) NEG mg/dL Urine Ketones NEG mg/dL Urine Occult Blood NEG Urine Nitrite NEG Urine Bilirubin NEG Urine Urobilinogen 2.0 MG/DL Urine Leukocyte Esterase NEG Urine RBC 1 /hpf Urine WBC LESS THAN 1 /hpf Urine Squamous Epithelial Cells <1 /hpf Urine Hyaline Casts 4 /lpf Microscopic Urinalysis Comment CULT NOT INDICATED MDM Medical Decision Making Medical Screen Exam Complete: Yes Emergency Medical Condition: Yes Medical Record Reviewed: Yes Interpretation(s) Twelve-lead EKG was reviewed by me. Paced rhythm. Heart rate of 62 bpm. 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 He had surgery in the childhood but requires further surgery. Patient says he has refused for cardiac transplant and he absolutely does not want that. Meanwhile he has been managed medically. I ordered blood test to check his liver function test as well as chest x-ray since I did not hear any lung sounds on the right side. Blood test results do not appear to be significantly different from his baseline in the past. However the chest x-ray shows a large right-sided pleural effusion. Patient's INR is 1.7 since he is on Coumadin. With that INR patient cannot have a pleural tap done by IR. In which case I would prefer to admit him. Awaiting for the hospitalist to call back. Procedures EKG Prior to Arrival: No Diagnosis Primary Impression: Pleural effusion on right Additional Impressions: Respiratory distress Ascites Qualified Codes: R18.8 - Other ascites Umbilical hernia Qualified Codes: K42.9 - Umbilical hernia without obstruction or gangrene Renal insufficiency Jaundice Congestive heart failure Qualified Codes: I50.9 - Heart failure, unspecified Admitting Information Admitting Physician Requests: Admit Scripts Furosemide (Furosemide) 40 Mg Tab 40 MG PO BID, #28 TAB 0 Refills Prov: Kingsley Hopson MD R2 11/16/17 Donny Villegas MD Nov 14, 2017 11:27
[2017-11-14 12:05] LABS: AUTOMATED NEUTROPHIL # 4.3 TH/MM3 (1.8-7.7); BASOPHIL % 0.7 % (0.0-2.0); EOSINOPHIL % 0.8 % (0.0-4.0); HEMATOCRIT 32.8 % (39.0-51.0); LYMPH % 5.2 % (9.0-44.0); LYMPHOCYTE # 0.3 TH/MM3 (1.0-4.8); MEAN CELL VOLUME 78.1 FL (80.0-100.0); MEAN CORPUSCULAR HEMOGLOBIN 26.2 PG (27.0-34.0); MEAN CORPUSCULAR HGB CONC 33.6 % (32.0-36.0); MONO % 12.8 % (0.0-8.0); MONOCYTE # 0.7 TH/MM3 (0-0.9); NEUT % 80.5 % (16.0-70.0); PLATELET COUNT 183 TH/MM3 (150-450); RED CELL DISTRIBUTION WIDTH 18.7 % (11.6-17.2); WHITE BLOOD COUNT 5.3 TH/MM3 (4.0-11.0)
[2017-11-14 12:14] LABS: INTERNATIONAL NORMALIZED RATIO 1.7 RATIO; PROTHROMBIN TIME - PATIENT 17.6 SEC (9.8-11.6)
--- NOTE | 2017-11-14 12:23 | RADRPT ---
EXAM DATE/TIME: 11/14/2017 12:05 [facility] COMPARISON: CHEST SINGLE AP, November 19, 2016, 8:32. INDICATIONS : Shortness of breath. MEDICAL HISTORY : Diabetes mellitus type II. Congestive heart failure. Hypercholesterolemia. Hypertension. CVA. H eart attack. Dyspnea. Ascites. Liver disease. CKD. Hyperammonianemia. SURGICAL HISTORY : CABG. Mitral valve repair. Pacemaker. ENCOUNTER: Initial ACUITY: 3 days PAIN SCORE: 0/10 LOCATION: Bilateral chest FINDINGS: Pacemaker device is noted with control pack over the right chest. There is extensive right pleural ef fusion with near-complete opacification of the right chest. The left lung is grossly clear. Past card iomegaly noted. Previous sternotomy. CONCLUSION: Cardiomegaly and large right effusion with parenchymal consolidation, slightly worse than on previous exam. Fco Bassett MD on November 14, 2017 at 12:20 Board Certified Radiologist. This report was verified electronically.
[2017-11-14 12:25] LABS: AST (GOT) 26 U/L (15-37); BICARBONATE 25.1 MEQ/L (21.0-32.0); BLOOD UREA NITROGEN 27 MG/DL (7-18); CALCIUM 8.6 MG/DL (8.5-10.1); CHLORIDE 104 MEQ/L (98-107); CREATININE 1.82 MG/DL (0.60-1.30); GLOMERULAR FILTRATION RATE 49 ML/MIN (>89); GLUCOSE,RANDOM 174 MG/DL (74-106); SODIUM (NA) 137 MEQ/L (136-145)
[2017-11-14 12:27] LABS: ALKALINE PHOSPHATASE 323 U/L (45-117); ALT (GPT) 15 U/L (12-78); TOTAL BILIRUBIN ADULT 2.7 MG/DL (0.2-1.0); TOTAL PROTEIN 8.7 GM/DL (6.4-8.2)
[2017-11-14 13:54] LABS: BILIRUBIN, URINE NEG (NEG); BLOOD, URINE NEG (NEG); GLUCOSE,URINE NEG (NEG); HYALINE CAST, URINE 4 /lpf (RARE); KETONE, URINE NEG (NEG); NITRITE,URINE NEG (NEG); PH, URINE 6.5 (5.0-8.5); SQUAMOUS EPITHELIAL CELL URINE <1 /hpf (0-5); URINE COLOR YELLOW (YELLW/STRAW); URINE LEUKOCYTE ESTERASE NEG (NEG)
--- NOTE | 2017-11-14 15:12 | HHI.HP ---
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 Patient reports 3 year history of umbilical hernia. He reports it has been getting bigger on the right side over the past month. He has been experience a right-sided, aching, intermittent, abdominal pain this morning. The only thing that makes it better is laying on his right side. The umbilical pain was the reason he called a cab and decided to come to the ED. He reports regular BMs and has been passing gas. He reports history of multiple paracentesis. He was offered elective surgery for umbilical hernia, but declined. He is reconsidering and interested in umbilical hernia repair now. He also complains of troubling breathing for the past 2 weeks. He reports expiratory breathing problems that has worsen in the last 3-4 days. He also has associated nonproductive cough for the last 2 weeks. He attributed the cough to possibly having a "cold". He has been having intermittent, slightly-tinged blood in the last 2 weeks attributed to severe cough. He denies fever and CP. Architectural Inspector is Dr. Obregon. Patient was admitted in [facility] in [place] 1 yr ago , patient refused recommended heart transplant. (Jenn Navarro MD R1) Review of Systems Constitutional: COMPLAINS OF: Night Sweats (mild), DENIES: Fever, Weight loss Eyes: DENIES: Blurred vision Ears, nose, mouth, throat: DENIES: Throat pain, Running Nose Respiratory: COMPLAINS OF: Cough, Hemoptysis, Shortness of breath Cardiovascular: DENIES: Chest pain Gastrointestinal: COMPLAINS OF: Abdominal pain, Vomiting, DENIES: Diarrhea, Nausea Genitourinary: DENIES: Dysuria Musculoskeletal: DENIES: Muscle aches Integumentary: DENIES: Rash Hematologic/lymphatic: DENIES: Bruising Neurologic: DENIES: Headache (Jenn Navarro MD R1) Past Family Social History Past Medical History Past Medical History systolic CHF with EF 25% on echo March 2016 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- 4 open heart surgies before he was 12 pacemaker at 12 mechanical mitral valve replacement on Coumadin atrial fibrillation COPD hypertension CKD recurrent ascites secondary to heart failure 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 Past Surgical History Past Surgical History Surgery for transposition the great vessels Mitral valve replacement 2 currently with mechanical valve, 8 & 12yrs old Pacemaker placement with 5 replacements Paracentesis x6, last paracentesis was last year in [place] in de[place] (Jenn Navarro MD R1) Allergies: Coded Allergies: losartan (Unverified Allergy, Unknown, 08/01/17) Family History Family History Father with Bladder cancer, DM 84 Mom with CVA, DM 86, living Social History Social History Lives with mom in [facility], 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 Cool and dry. HEAD: Atraumatic. Normocephalic. No temporal or scalp tenderness. EYES: Pupils equal round and reactive. Extraocular motions intact. No scleral icterus. No injection or drainage. ENT: Nose without bleeding, purulent drainage or septal hematoma. Throat without erythema, tonsillar hypertrophy or exudate. Uvula midline. Airway patent. NECK: JVD present b/l CARDIOVASCULAR: Distant heart sounds RESPIRATORY: Moderate decreased breath sound on R lower lung base compared to L GASTROINTESTINAL: 9x9cm fluid-filled abdominal outpouching with skin changes MUSCULOSKELETAL: Extremities without clubbing, cyanosis, or edema. No joint tenderness, effusion, or edema noted. No calf tenderness. Negative Homans sign bilaterally. NEUROLOGICAL: Awake, alert, and oriented x3 Laboratory Laboratory Tests Test 11/14/17 11:55 11/14/17 13:20 White Blood Count 5.3 Red Blood Count 4.20 Hemoglobin 11.0 Hematocrit 32.8 Mean Corpuscular Volume 78.1 Mean Corpuscular Hemoglobin 26.2 Mean Corpuscular Hemoglobin Concent 33.6 Red Cell Distribution Width 18.7 Platelet Count 183 Mean Platelet Volume 10.0 Neutrophils (%) (Auto) 80.5 Lymphocytes (%) (Auto) 5.2 Monocytes (%) (Auto) 12.8 Eosinophils (%) (Auto) 0.8 Basophils (%) (Auto) 0.7 Neutrophils # (Auto) 4.3 Lymphocytes # (Auto) 0.3 Monocytes # (Auto) 0.7 Eosinophils # (Auto) 0.0 Basophils # (Auto) 0.0 CBC Comment AUTO DIFF Differential Comment AUTO DIFF CONFIRMED Prothrombin Time 17.6 Prothromb Time International Ratio 1.7 Blood Urea Nitrogen 27 Creatinine 1.82 Random Glucose 174 Total Protein 8.7 Albumin 3.0 Calcium Level 8.6 Alkaline Phosphatase 323 Aspartate Amino Transf (AST/SGOT) 26 Alanine Aminotransferase (ALT/SGPT) 15 Total Bilirubin 2.7 Sodium Level 137 Potassium Level 4.0 Chloride Level 104 Carbon Dioxide Level 25.1 Anion Gap 8 Estimat Glomerular Filtration Rate 49 Urine Color YELLOW Urine Turbidity CLEAR Urine pH 6.5 Urine Specific [place] 1.008 Urine Protein 100 Urine Glucose (UA) NEG Urine Ketones NEG Urine Occult Blood NEG Urine Nitrite NEG Urine Bilirubin NEG Urine Urobilinogen 2.0 Urine Leukocyte Esterase NEG Urine RBC 1 Urine WBC LESS THAN 1 Urine Squamous Epithelial Cells <1 Urine Hyaline Casts 4 Microscopic Urinalysis Comment CULT NOT INDICATED (Jenn Navarro MD R1) Result Diagram: 11/14/17 1155 11/14/17 1155 Caprini VTE Risk Assessment Caprini VTE Risk Assessment: No/Low Risk (score <= 1) Caprini Risk Assessment Model Point Value = 1 Point Value = 2 Point Value = 3 Point Value = 5 Age 41-60 Minor surgery BMI > 25 kg/m2 Swollen legs Varicose veins or History of unexplained or recurrent spontaneous Oral contraceptives or hormone replacement Sepsis (< 1 month) Serious lung disease, including pneumonia (< 1 month) Abnormal pulmonary function Acute myocardial infarction Congestive heart failure (< 1 month) History of inflammatory bowel disease Medical patient at bed rest Age 61-74 Arthroscopic surgery Major open surgery (> 45 min) Laparoscopic surgery (> 45 min) Malignancy Confined to bed (> 72 hours) Immobilizing plaster cast Central venous access Age >= 75 History of VTE Family history of VTE Factor V Leiden Prothrombin [id number] Lupus anticoagulant Anticardiolipin antibodies Elevated serum homocysteine Heparin-induced thrombocytopenia Other congenital or acquired thrombophilia Stroke (< 1 month) Elective arthroplasty Hip, pelvis, or leg fracture Acute spinal cord injury (< 1 month) Prophylaxis Regimen Total Risk Factor Score Risk Level Prophylaxis Regimen 0-1 Low Early ambulation 2 Moderate Order ONE of the following: *Sequential Compression Device (SCD) *Heparin 5000 units SQ BID 3-4 Higher Order ONE of the following medications: *Heparin 5000 units SQ TID *Enoxaparin/Lovenox 40 mg SQ daily (WT < 150 kg, CrCl > 30 mL/min) *Enoxaparin/Lovenox 30 mg SQ daily (WT < 150 kg, CrCl > 10-29 mL/min) *Enoxaparin/Lovenox 30 mg SQ BID (WT < 150 kg, CrCl > 30 mL/min) AND/OR *Sequential Compression Device (SCD) 5 or more Highest Order ONE of the following medications: *Heparin 5000 units SQ TID (Preferred with Epidurals) *Enoxaparin/Lovenox 40 mg SQ daily (WT < 150 kg, CrCl > 30 mL/min) *Enoxaparin/Lovenox 30 mg SQ daily (WT < 150 kg, CrCl > 10-29 mL/min) *Enoxaparin/Lovenox 30 mg SQ BID (WT < 150 kg, CrCl > 30 mL/min) AND *Sequential Compression Device (SCD) (Jenn Navarro MD R1) Assessment and Plan Assessment and Plan 46 year-old male with history of systolic CHF with EF 25% in March2016, 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 Code Status Full code Discussed Condition With Dr. Abbott and Dr. Hopson (Jenn Navarro MD R1) Attending Attestation THIS CASE WAS DISCUSSED WITH THE RESIDENT PHYSICIAN. I HAVE REVIEWED THE RECORD AND AGREE WITH THE ABOVE NOTE AND PLAN OF CARE WAS DISCUSSED. I HAVE AUTHORIZED THE ORDER FOR PLACEMENT IN OUT-PATIENT OBSERVATION STATUS. (Serge Abbott MD) Problem List: (1) CHF (congestive heart failure) ICD Codes: I50.9 - Heart failure, unspecified Status: Chronic Plan: -Hx of CHF (Echo 2014)EF of 25% -BNP elevated at 938 -EKG and Troponin ordered -CXR demonstrates cardiomegaly and large right effusion with parenchymal consolidation -Administer Lasix 20mg IV Push once -Continue home Lasix 40mg PO daily, Bumex 1 mg PO daily -Fluid restriction 1.5L daily, strict I & Os, daily weights, Low sodium diet -Monitor on cardiac Telemetry -Hold home Coumadin for thora/para centesis tomorrow (2) Pleural effusion due to congestive heart failure ICD Codes: I50.9 - Heart failure, unspecified Plan: -Held home Coumadin, anticoagulate with Heparin 5000 units q8h -INR 1.7, INR needs to be less than 1.5 for procedure -Recheck INR in the AM -Plan for therapeutic thoracentesis tomorrow (3) Abdominal distention ICD Codes: R14.0 - Abdominal distension (gaseous) Plan: Held home Coumadin, anticoagulate with Heparin 5000 units q8h -INR 1.7, INR needs to be less than 1.5 for procedure -Recheck INR in the AM -Plan for therapeutic paracentesis tomorrow (4) Stage 3 chronic kidney disease ICD Codes: N18.3 - Chronic kidney disease, stage 3 (moderate) Plan: GFR of 49 BUN 27, Cr 1.82 Per chart review, Cr 1.22 on previous admission on 11/25/16 Continue to monitor (5) Umbilical hernia ICD Codes: K42.9 - Umbilical hernia without obstruction or gangrene Status: Acute Plan: -Will follow up with surgery outpatient for elective surgery (6) Nutrition, metabolism, and development symptoms ICD Codes: R63.8 - Other symptoms and signs concerning food and fluid intake Status: Acute Plan: Diet: Low sodium diet, fluid restriction 1.5 L Fluids: not indicated at this time strict I & Os, monitor vitals q4, daily weights DVT ppx: heparin 5000 units q8hr (Jenn Navarro MD R1) Problem Qualifiers (1) CHF (congestive heart failure): Qualified Codes: I50.23 - Acute on chronic systolic (congestive) heart failure (2) Umbilical hernia: Qualified Codes: K42.9 - Umbilical hernia without obstruction or gangrene Jenn Navarro MD R1 Nov 14, 2017 15:12 Serge Abbott MD Nov 14, 2017 19:16
[2017-11-14] MEDS ORDERED: FUROSEMIDE 40 MG TAB PO SCH (16:00)
[2017-11-14] MEDS ORDERED: BUMETANIDE 1 MG TAB PO SCH (16:00)
[2017-11-14] MEDS ORDERED: SODIUM CHLORIDE 0.9% FLUSH 10 ML FLUSH IV FLUSH PRN (16:30)
[2017-11-14] MEDS ORDERED: BISACODYL 10 MG SUPP RECTAL PRN (16:30)
[2017-11-14] MEDS ORDERED: hydrALAZINE HCL 10 MG TAB PO PRN (16:30)
[2017-11-14] MEDS ORDERED: ACETAMINOPHEN 325 MG TAB PO PRN (16:30)
[2017-11-14] MEDS ORDERED: MAGNESIUM HYDROXIDE SUSP 30 ML CUP PO PRN (16:30)
[2017-11-14] MEDS ORDERED: LACTULOSE SYRUP 20 GM/30 ML CUP PO PRN (16:30)
[2017-11-14] MEDS ORDERED: NALOXONE HCL 0.4 MG/ML AMP IV PUSH PRN (16:30)
[2017-11-14] MEDS ORDERED: FUROSEMIDE 40 MG/4 ML VIAL IV PUSH ONE (16:30)
[2017-11-14] MEDS ORDERED: SENNOSIDES 8.6 MG TAB PO PRN (16:30)
[2017-11-14] MEDS ORDERED: ONDANSETRON HCL 4 MG/2 ML VIAL IVP PRN (16:30)
[2017-11-14 16:33] VITALS: BP 123/57; PULSE 61; RESP 20; O2SAT 100
[2017-11-14] MEDS ORDERED: FUROSEMIDE 20 MG/2 ML VIAL IV PUSH ONE (16:45)
[2017-11-14] MEDS: HEPARIN SODIUM - SQ 10,000 UNITS/ML VIAL SQ SCH (17:00)
[2017-11-14 17:48] VITALS: BP 130/61; PULSE 61; RESP 16; TEMP 97.8; O2SAT 98
--- NOTE | 2017-11-14 19:12 | HHI.HP ---
[facility] Service Family Medicine Primary Care Physician Fco Bhakta MD Admission Diagnosis Respiratory distress, pleural effusion, ascites Diagnoses: (1) CHF (congestive heart failure) (2) Pleural effusion due to congestive heart failure (3) Abdominal distention (4) Stage 3 chronic kidney disease (5) Umbilical hernia (6) Nutrition, metabolism, and development symptoms International Travel<30 Days: No Contact w/Intl Traveler<30days: No Known Affected Area: No History of Present Illness 46 yo M presenting to the ED with progressive shortness of breath and abdominal pain. 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 He states that over the last 3 days he has had a progression of shortness of breath and increased abdominal distention causing pain and an existing umbilical hernia. He has had the umbilical hernia for greater than 3 years but feels that it has slowly been getting bigger over the last month and painful over the last 3 days. He denies any fevers or chills, denies any nausea or vomiting has any chest pain or palpitations, he denies any sputum production. He does endorse progressive shortness of breath with a subjective weight gain. He denies lower extremity edema. 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- 4 open heart surgies before he was 12 pacemaker at 12 mechanical mitral valve replacement on Coumadin atrial fibrillation COPD hypertension CKD recurrent ascites secondary to heart failure 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 Past Surgical History Past Surgical History Surgery for transposition the great vessels Mitral valve replacement 2 currently with mechanical valve, 8 & 12yrs old Pacemaker placement with 5 replacements Paracentesis x6, last paracentesis was last year in [place] in december Allergies: Coded Allergies: losartan (Unverified Allergy, Unknown, 08/01/17) Family History Family History Father with Bladder cancer, DM 84 Mom with CVA, DM 86, living Social History Social History Lives with mom in [facility], 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 Cool and dry. HEAD: Atraumatic. Normocephalic. No temporal or scalp tenderness. EYES: Pupils equal round and reactive. Extraocular motions intact. No scleral icterus. No injection or drainage. ENT: Nose without bleeding, purulent drainage or septal hematoma. Throat without erythema, tonsillar hypertrophy or exudate. Uvula midline. Airway patent. NECK: JVD present b/l CARDIOVASCULAR: Distant heart sounds RESPIRATORY: Moderate decreased breath sound on R lower lung base compared to L GASTROINTESTINAL: 9x9cm fluid-filled abdominal outpouching with skin changes MUSCULOSKELETAL: Extremities without clubbing, cyanosis, or edema. No joint tenderness, effusion, or edema noted. No calf tenderness. Negative Homans sign bilaterally. NEUROLOGICAL: Awake, alert, and oriented x3 Laboratory Laboratory Tests Test 11/14/17 11:55 11/14/17 13:20 11/14/17 17:25 White Blood Count 5.3 Red Blood Count 4.20 Hemoglobin 11.0 Hematocrit 32.8 Mean Corpuscular Volume 78.1 Mean Corpuscular Hemoglobin 26.2 Mean Corpuscular Hemoglobin Concent 33.6 Red Cell Distribution Width 18.7 Platelet Count 183 Mean Platelet Volume 10.0 Neutrophils (%) (Auto) 80.5 Lymphocytes (%) (Auto) 5.2 Monocytes (%) (Auto) 12.8 Eosinophils (%) (Auto) 0.8 Basophils (%) (Auto) 0.7 Neutrophils # (Auto) 4.3 Lymphocytes # (Auto) 0.3 Monocytes # (Auto) 0.7 Eosinophils # (Auto) 0.0 Basophils # (Auto) 0.0 CBC Comment AUTO DIFF Differential Comment AUTO DIFF CONFIRMED Prothrombin Time 17.6 Prothromb Time International Ratio 1.7 Blood Urea Nitrogen 27 Creatinine 1.82 Random Glucose 174 Total Protein 8.7 Albumin 3.0 Calcium Level 8.6 Alkaline Phosphatase 323 Aspartate Amino Transf (AST/SGOT) 26 Alanine Aminotransferase (ALT/SGPT) 15 Total Bilirubin 2.7 Sodium Level 137 Potassium Level 4.0 Chloride Level 104 Carbon Dioxide Level 25.1 Anion Gap 8 Estimat Glomerular Filtration Rate 49 Urine Color YELLOW Urine Turbidity CLEAR Urine pH 6.5 Urine Specific Morton 1.008 Urine Protein 100 Urine Glucose (UA) NEG Urine Ketones NEG Urine Occult Blood NEG Urine Nitrite NEG Urine Bilirubin NEG Urine Urobilinogen 2.0 Urine Leukocyte Esterase NEG Urine RBC 1 Urine WBC LESS THAN 1 Urine Squamous Epithelial Cells <1 Urine Hyaline Casts 4 Microscopic Urinalysis Comment CULT NOT INDICATED Troponin I LESS THAN 0.02 B-Type Natriuretic Peptide 938 Result Diagram: 11/14/17 1155 11/14/17 1155 Imaging Last 48 hours Impressions Chest X-Ray 11/14/17 0000 Signed Impressions: Service Date/Time: Tuesday, November 14, 2017 12:05 - CONCLUSION: Cardiomegaly and large right effusion with parenchymal consolidation, slightly worse than on previous exam. MD Dennis Swanson VTE Risk Assessment Caprini VTE Risk Assessment: No/Low Risk (score <= 1) Caprini Risk Assessment Model Point Value = 1 Point Value = 2 Point Value = 3 Point Value = 5 Age 41-60 Minor surgery BMI > 25 kg/m2 Swollen legs Varicose veins or History of unexplained or recurrent spontaneous Oral contraceptives or hormone replacement Sepsis (< 1 month) Serious lung disease, including pneumonia (< 1 month) Abnormal pulmonary function Acute myocardial infarction Congestive heart failure (< 1 month) History of inflammatory bowel disease Medical patient at bed rest Age 61-74 Arthroscopic surgery Major open surgery (> 45 min) Laparoscopic surgery (> 45 min) Malignancy Confined to bed (> 72 hours) Immobilizing plaster cast Central venous access Age >= 75 History of VTE Family history of VTE Factor V Leiden Prothrombin [id number] Lupus anticoagulant Anticardiolipin antibodies Elevated serum homocysteine Heparin-induced thrombocytopenia Other congenital or acquired thrombophilia Stroke (< 1 month) Elective arthroplasty Hip, pelvis, or leg fracture Acute spinal cord injury (< 1 month) Prophylaxis Regimen Total Risk Factor Score Risk Level Prophylaxis Regimen 0-1 Low Early ambulation 2 Moderate Order ONE of the following: *Sequential Compression Device (SCD) *Heparin 5000 units SQ BID 3-4 Higher Order ONE of the following medications: *Heparin 5000 units SQ TID *Enoxaparin/Lovenox 40 mg SQ daily (WT < 150 kg, CrCl > 30 mL/min) *Enoxaparin/Lovenox 30 mg SQ daily (WT < 150 kg, CrCl > 10-29 mL/min) *Enoxaparin/Lovenox 30 mg SQ BID (WT < 150 kg, CrCl > 30 mL/min) AND/OR *Sequential Compression Device (SCD) 5 or more Highest Order ONE of the following medications: *Heparin 5000 units SQ TID (Preferred with Epidurals) *Enoxaparin/Lovenox 40 mg SQ daily (WT < 150 kg, CrCl > 30 mL/min) *Enoxaparin/Lovenox 30 mg SQ daily (WT < 150 kg, CrCl > 10-29 mL/min) *Enoxaparin/Lovenox 30 mg SQ BID (WT < 150 kg, CrCl > 30 mL/min) AND *Sequential Compression Device (SCD) Assessment and Plan Assessment and Plan 46 year-old male with history of systolic CHF with EF 25% in March2016, 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 Problem List: (1) CHF (congestive heart failure) ICD Codes: I50.9 - Heart failure, unspecified Status: Chronic Plan: -Hx of CHF (Echo 2014)EF of 25% -BNP elevated at 938 -EKG and Troponin ordered -CXR demonstrates cardiomegaly and large right effusion with parenchymal consolidation -Administer Lasix 20mg IV Push once -Continue home Lasix 40mg PO daily, Bumex 1 mg PO daily -Fluid restriction 1.5L daily, strict I & Os, daily weights, Low sodium diet -Monitor on cardiac Telemetry -Hold home Coumadin for thora/para centesis tomorrow (2) Pleural effusion due to congestive heart failure ICD Codes: I50.9 - Heart failure, unspecified Plan: -Held home Coumadin, anticoagulate with Heparin 5000 units q8h -INR 1.7, INR needs to be less than 1.5 for procedure -Recheck INR in the AM -Plan for therapeutic thoracentesis tomorrow (3) Abdominal distention ICD Codes: R14.0 - Abdominal distension (gaseous) Plan: Held home Coumadin, anticoagulate with Heparin 5000 units q8h -INR 1.7, INR needs to be less than 1.5 for procedure -Recheck INR in the AM -Plan for therapeutic paracentesis tomorrow (4) Stage 3 chronic kidney disease ICD Codes: N18.3 - Chronic kidney disease, stage 3 (moderate) Plan: GFR of 49 BUN 27, Cr 1.82 Per chart review, Cr 1.22 on previous admission on 11/25/16 Continue to monitor (5) Umbilical hernia ICD Codes: K42.9 - Umbilical hernia without obstruction or gangrene Status: Acute Plan: -Will follow up with surgery outpatient for elective surgery (6) Nutrition, metabolism, and development symptoms ICD Codes: R63.8 - Other symptoms and signs concerning food and fluid intake Status: Acute Plan: Diet: Low sodium diet, fluid restriction 1.5 L Fluids: not indicated at this time strict I & Os, monitor vitals q4, daily weights DVT ppx: heparin 5000 units q8hr Problem Qualifiers (1) CHF (congestive heart failure): Qualified Codes: I50.23 - Acute on chronic systolic (congestive) heart failure (2) Umbilical hernia: Qualified Codes: K42.9 - Umbilical hernia without obstruction or gangrene Serge Abbott MD Nov 14, 2017 19:12
[2017-11-14 20:30] VITALS: BP 116/56; PULSE 60; RESP 18; TEMP 97.6; O2SAT 96
[2017-11-14] MEDS: DOCUSATE SODIUM 50 MG/SENNA 8.6 MG TAB PO SCH (21:52)
[2017-11-14] MEDS: SODIUM CHLORIDE 0.9% FLUSH 10 ML FLUSH IV FLUSH SCH (21:52)
[2017-11-15] VITALS (12 sets, daily range): BP systolic 116–144; BP diastolic 69–80; PULSE 55–69; RESP 16–20; TEMP 97.3–98.4; O2SAT 95–99
[2017-11-15] MEDS: HEPARIN SODIUM - SQ 10,000 UNITS/ML VIAL SQ SCH (01:00)
[2017-11-15 06:43] LABS: AUTOMATED NEUTROPHIL # 3.6 TH/MM3 (1.8-7.7); BASOPHIL % 0.3 % (0.0-2.0); EOSINOPHIL # 0.1 TH/MM3 (0-0.4); HEMATOCRIT 31.9 % (39.0-51.0); HEMOGLOBIN 10.9 GM/DL (13.0-17.0); LYMPH % 7.8 % (9.0-44.0); LYMPHOCYTE # 0.4 TH/MM3 (1.0-4.8); MEAN CELL VOLUME 77.5 FL (80.0-100.0); MEAN CORPUSCULAR HEMOGLOBIN 26.4 PG (27.0-34.0); MEAN CORPUSCULAR HGB CONC 34.1 % (32.0-36.0); MEAN PLATELET VOLUME 9.8 FL (7.0-11.0); MONO % 15.3 % (0.0-8.0); MONOCYTE # 0.7 TH/MM3 (0-0.9); NEUT % 74.6 % (16.0-70.0); PLATELET COUNT 180 TH/MM3 (150-450); RED BLOOD COUNT 4.11 MIL/MM3 (4.50-5.90); RED CELL DISTRIBUTION WIDTH 18.8 % (11.6-17.2); WHITE BLOOD COUNT 4.8 TH/MM3 (4.0-11.0)
[2017-11-15 06:46] LABS: INTERNATIONAL NORMALIZED RATIO 1.8 RATIO; PROTHROMBIN TIME - PATIENT 18.7 SEC (9.8-11.6)
[2017-11-15 07:00] LABS: ALBUMIN 2.9 GM/DL (3.4-5.0); AST (GOT) 22 U/L (15-37); BICARBONATE 27.3 MEQ/L (21.0-32.0); BLOOD UREA NITROGEN 30 MG/DL (7-18); CALCIUM 9.2 MG/DL (8.5-10.1); CHLORIDE 102 MEQ/L (98-107); CREATININE 1.74 MG/DL (0.60-1.30); GLOMERULAR FILTRATION RATE 51 ML/MIN (>89); GLUCOSE,RANDOM 100 MG/DL (74-106); SODIUM (NA) 137 MEQ/L (136-145)
[2017-11-15 07:01] LABS: ALT (GPT) 12 U/L (12-78)
[2017-11-15 07:03] LABS: ALKALINE PHOSPHATASE 304 U/L (45-117); TOTAL BILIRUBIN ADULT 2.9 MG/DL (0.2-1.0); TOTAL PROTEIN 8.7 GM/DL (6.4-8.2)
[2017-11-15] MEDS ORDERED: FUROSEMIDE 40 MG TAB PO SCH (08:00)
[2017-11-15] MEDS: DOCUSATE SODIUM 50 MG/SENNA 8.6 MG TAB PO SCH ×2 (09:00→21:00)
[2017-11-15] MEDS: BUMETANIDE 1 MG TAB PO SCH ×2 (09:00→10:00)
[2017-11-15] MEDS ORDERED: HEPARIN-D5W 25,000 U/250 ML 250 ML IV PRN (09:45)
[2017-11-15] MEDS: SODIUM CHLORIDE 0.9% FLUSH 10 ML FLUSH IV FLUSH SCH ×2 (10:00→21:00)
--- NOTE | 2017-11-15 10:29 | HHI.FPPN ---
Subjective Remarks No acute events overnight. Pt lying in bed on right side, comfortably. He states that his SOB and abdominal pressure has improved. Pt has no complaints this AM. He denies CP, diarrhea, and N/V. (Jenn Navarro MD R1) Objective Vitals Vital Signs Date Time Temp Pulse Resp B/P (MAP) Pulse Ox O2 Delivery O2 Flow Rate FiO2 11/15/17 08:18 97.7 59 18 138/80 (99) 96 11/15/17 07:29 98 21 11/15/17 06:13 21 11/15/17 04:42 97.3 55 16 116/78 (91) 99 11/15/17 03:54 60 11/15/17 01:48 97.6 60 16 125/69 (87) 98 11/15/17 00:00 60 11/14/17 20:30 97.6 60 18 116/56 (76) 96 11/14/17 17:54 (84) 11/14/17 17:48 97.8 61 16 130/61 (84) 98 11/14/17 16:33 61 20 123/57 (79) 100 Room Air 11/14/17 11:08 97.5 59 16 163/74 (103) 97 Room Air I/O 11/14/17 11/14/17 11/14/17 11/15/17 11/15/17 11/15/17 07:00 15:00 23:00 07:00 15:00 23:00 Output Total 350 ml Balance -350 ml Output Urine Total 350 ml (Jenn Navarro MD R1) Result Diagram: 11/15/17 0609 11/15/17 0609 Imaging GENERAL: thin male, laying on right side, in NAD SKIN: No rashes, ecchymoses or lesions. Cool and dry. HEAD: Atraumatic. Normocephalic. No temporal or scalp tenderness. EYES: Pupils equal round and reactive. Extraocular motions intact. No scleral icterus. No injection or drainage. ENT: Nose without bleeding, purulent drainage or septal hematoma. Throat without erythema, tonsillar hypertrophy or exudate. Uvula midline. Airway patent. NECK: JVD present b/l CARDIOVASCULAR: Distant heart sounds RESPIRATORY: Moderate decreased breath sound on R lower lung base compared to L GASTROINTESTINAL: 9x9cm fluid-filled abdominal outpouching with skin changes, distended abdomen improved from prior exam, EKG wires present in abdomen MUSCULOSKELETAL: Extremities without clubbing, cyanosis, or edema. No joint tenderness, effusion, or edema noted. No calf tenderness. Negative Homans sign bilaterally. 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 (Jenn Navarro MD R1) Attending Attestation Patient seen and examined during rounds this morning with resident physicians The patient case and updates were discussed with the resident physicians during rounds I have read the above note and agree with the assessment/plan as discussed with me I was involved in all medical decision making for this patient Serge Abbott MD (Serge Abbott MD) Problem List: (1) CHF (congestive heart failure) ICD Codes: I50.9 - Heart failure, unspecified Status: Chronic Plan: -Hx of CHF (Echo 2014)EF of 25% -Held home lasix, continue Furosemide 40mg BID -Fluid restriction 1.5L daily, strict I & Os, daily weights, Low sodium diet -Monitor on cardiac Telemetry -Continue home Coumadin for thora/para centesis tomorrow, INR 1.8 Previous Workup: -BNP elevated at 938 -EKG- electronic ventricular pacemaker -Troponin less than 0.02 -CXR demonstrates cardiomegaly and large right effusion with parenchymal consolidation (2) Pleural effusion due to congestive heart failure ICD Codes: I50.9 - Heart failure, unspecified Plan: -Held home Coumadin, anticoagulate with Heparin drip -INR 1.8 today -Recheck INR in the AM -Plan for therapeutic thoracentesis tomorrow, plan to stop heparin drip 1 hr before procedure (3) Abdominal distention ICD Codes: R14.0 - Abdominal distension (gaseous) Plan: Held home Coumadin, anticoagulate with Heparin drip -INR 1.8 today -Recheck INR in the AM -Plan for therapeutic paracentesis tomorrow, plan to stop heparin drip 1 hr before procedure (4) Stage 3 chronic kidney disease ICD Codes: N18.3 - Chronic kidney disease, stage 3 (moderate) Plan: Improving Per chart review, Cr 1.82, BUN 27 on admission, Cr 1.22 on previous admission on 11/25/16 Continue to monitor (5) Umbilical hernia ICD Codes: K42.9 - Umbilical hernia without obstruction or gangrene Status: Acute Plan: -Will follow up with surgery outpatient for elective surgery (6) Nutrition, metabolism, and development symptoms ICD Codes: R63.8 - Other symptoms and signs concerning food and fluid intake Status: Acute Plan: Diet: Low sodium diet, fluid restriction 1.5 L Fluids: not indicated at this time strict I & Os, monitor vitals q4, daily weights DVT ppx: heparin drip (Jenn Navarro MD R1) Problem Qualifiers (1) CHF (congestive heart failure): Qualified Codes: I50.23 - Acute on chronic systolic (congestive) heart failure (2) Umbilical hernia: Qualified Codes: K42.9 - Umbilical hernia without obstruction or gangrene Jenn Navarro MD R1 Nov 15, 2017 10:28 Serge Abbott MD Nov 15, 2017 16:46
--- NOTE | 2017-11-15 13:04 | EKG ---
Date Performed: 11/14/2017 Time Performed: 11:54:26 PTAGE: 46 years EKG: ELECTRONIC VENTRICULAR PACEMAKER ABNORMAL RHYTHM ECG PREVIOUS TRACING : 12/01/2015 08.36 DOCTOR: Joe Messer Interpretating Date/Time 11/15/2017 12:56:29
[2017-11-15 15:58] LABS: HEMATOCRIT 32.2 % (39.0-51.0); HEMOGLOBIN 10.5 GM/DL (13.0-17.0); MEAN CELL VOLUME 78.9 FL (80.0-100.0); MEAN CORPUSCULAR HEMOGLOBIN 25.7 PG (27.0-34.0); MEAN CORPUSCULAR HGB CONC 32.5 % (32.0-36.0); MEAN PLATELET VOLUME 10.2 FL (7.0-11.0); PLATELET COUNT 177 TH/MM3 (150-450); RED BLOOD COUNT 4.08 MIL/MM3 (4.50-5.90); RED CELL DISTRIBUTION WIDTH 18.1 % (11.6-17.2)
[2017-11-15] MEDS: FUROSEMIDE 40 MG/5 ML UNIT DOSE CUP NG SCH (17:46)
[2017-11-16] VITALS (16 sets, daily range): BP systolic 92–157; BP diastolic 53–83; PULSE 58–82; RESP 16–26; TEMP 97.5–98.5; O2SAT 93–100
[2017-11-16 04:00] LABS: HEMATOCRIT 29.9 % (39.0-51.0); HEMOGLOBIN 9.9 GM/DL (13.0-17.0); MEAN CELL VOLUME 78.4 FL (80.0-100.0); MEAN CORPUSCULAR HEMOGLOBIN 26.1 PG (27.0-34.0); MEAN CORPUSCULAR HGB CONC 33.3 % (32.0-36.0); MEAN PLATELET VOLUME 9.9 FL (7.0-11.0); PLATELET COUNT 171 TH/MM3 (150-450); RED BLOOD COUNT 3.81 MIL/MM3 (4.50-5.90); RED CELL DISTRIBUTION WIDTH 18.2 % (11.6-17.2)
[2017-11-16 04:22] LABS: BICARBONATE 26.8 MEQ/L (21.0-32.0); CALCIUM 9.1 MG/DL (8.5-10.1); CREATININE 1.55 MG/DL (0.60-1.30)
[2017-11-16 04:24] LABS: INTERNATIONAL NORMALIZED RATIO 1.8 RATIO; PROTHROMBIN TIME - PATIENT 18.7 SEC (9.8-11.6)
[2017-11-16] MEDS: SODIUM CHLORIDE 0.9% FLUSH 10 ML FLUSH IV FLUSH SCH ×2 (09:00→20:32)
[2017-11-16] MEDS ORDERED: SODIUM CHLOR 0.9% 250 ML INJ 250 ML IV ONE (09:00)
--- NOTE | 2017-11-16 09:05 | HHI.FPPN ---
Subjective Remarks No acute events overnight. Pt lying in bed this morning. States that he was slightly SOB overnight and requested oxygen. He received 2L NC. He has been off of oxygen this morning and O2 sats at 100%. He denies active SOB, CP, abdominal pain, and N/V. Had a BM yesterday. Patients INR still 1.8. Team spoke with Dr. Mann Almazan and he agreed to do thoracentesis and paracentesis with administration of FFP before procedure. Updated patient on the plan, patient understood and agreed. Objective Vitals Vital Signs Date Time Temp Pulse Resp B/P (MAP) Pulse Ox O2 Delivery O2 Flow Rate FiO2 11/16/17 05:24 100 Room Air 11/16/17 04:00 60 11/16/17 03:59 98.0 59 16 106/59 (75) 100 11/16/17 01:42 97.9 60 16 125/68 (87) 100 11/16/17 00:02 60 11/15/17 20:01 62 11/15/17 19:10 97 11/15/17 18:11 99 Nasal Cannula 2.00 21 11/15/17 16:26 97.9 60 18 144/75 (98) 95 11/15/17 15:00 58 11/15/17 12:09 98.4 69 20 124/71 (88) 97 11/15/17 09:45 59 I/O 11/15/17 11/15/17 11/15/17 11/16/17 11/16/17 11/16/17 07:00 15:00 23:00 07:00 15:00 23:00 Intake Total 4 ml Output Total 400 ml 450 ml Balance -396 ml -450 ml Intake IV Total 4 ml Output Urine Total 400 ml 450 ml # Bowel Movements 3 Result Diagram: 11/16/17 0344 11/16/17 0344 Objective Remarks GENERAL: thin male, lying in bed, in NAD NECK: JVD present b/l CARDIOVASCULAR: RRR RESPIRATORY: Moderate decreased breath sound on R lower lung base compared to L , unchanged to prior exam GASTROINTESTINAL: 9x9cm fluid-filled abdominal outpouching with hypertrophic skin changes, distended abdomen, EKG wires present in abdomen MUSCULOSKELETAL: Extremities without clubbing, cyanosis, or edema. No joint tenderness, effusion, or edema noted. No calf tenderness. Negative Homans sign bilaterally. 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 Discharge Planning Thoracentesis and Paracentesis today Possible discharge this afternoon if stable Problem List: (1) CHF (congestive heart failure) ICD Codes: I50.9 - Heart failure, unspecified Status: Chronic Plan: -Hx of CHF (Echo 2014)EF of 25% -Held home lasix, continue Furosemide 40mg BID -Fluid restriction 1.5L daily, strict I & Os, daily weights, Low sodium diet -Monitor on cardiac Telemetry -Continue to hold Coumadin for thora/para centesis today, INR 1.8, patient will receive 2 units of FFP before procedure Previous Workup: -BNP elevated at 938 -EKG- electronic ventricular pacemaker -Troponin less than 0.02 -CXR demonstrates cardiomegaly and large right effusion with parenchymal consolidation (2) Pleural effusion due to congestive heart failure ICD Codes: I50.9 - Heart failure, unspecified Plan: -Held home Coumadin, anticoagulate with Heparin drip -INR 1.8 today -Plan for therapeutic thoracentesis today, plan to stop heparin drip 1 hr before procedure (3) Abdominal distention ICD Codes: R14.0 - Abdominal distension (gaseous) Plan: Held home Coumadin, anticoagulate with Heparin drip -Recheck INR in the AM -Plan for therapeutic paracentesis today, plan to stop heparin drip 1 hr before procedure (4) Stage 3 chronic kidney disease ICD Codes: N18.3 - Chronic kidney disease, stage 3 (moderate) Plan: Improving Per chart review, Cr 1.82, BUN 27 on admission, Cr 1.22 on previous admission on 11/25/16 Continue to monitor (5) Umbilical hernia ICD Codes: K42.9 - Umbilical hernia without obstruction or gangrene Status: Acute Plan: -Will follow up with surgery outpatient for elective surgery (6) Nutrition, metabolism, and development symptoms ICD Codes: R63.8 - Other symptoms and signs concerning food and fluid intake Status: Acute Plan: Diet: Low sodium diet, fluid restriction 1.5 L Fluids: not indicated at this time strict I & Os, monitor vitals q4, daily weights DVT ppx: heparin drip Problem Qualifiers (1) CHF (congestive heart failure): Qualified Codes: I50.23 - Acute on chronic systolic (congestive) heart failure (2) Umbilical hernia: Qualified Codes: K42.9 - Umbilical hernia without obstruction or gangrene Jenn Navarro MD R1 Nov 16, 2017 09:05
[2017-11-16] MEDS: DOCUSATE SODIUM 50 MG/SENNA 8.6 MG TAB PO SCH ×2 (11:03→20:34)
[2017-11-16] MEDS: FUROSEMIDE 40 MG/5 ML UNIT DOSE CUP NG SCH (11:03)
[2017-11-16] MEDS: BUMETANIDE 1 MG TAB PO SCH (11:03)
--- NOTE | 2017-11-16 14:51 | RADRPT ---
EXAM DATE/TIME: 11/16/2017 14:38 [facility] COMPARISON: CHEST SINGLE AP, November 14, 2017, 12:05. INDICATIONS : Right pleural effusion. MEDICAL HISTORY : Diabetes mellitus type II. Congestive heart failure. Hypercholesterolemia. Hypertension. CVA. Heart a ttack. Dyspnea. Ascites. Liver disease. CKD. Hyperammonianemia. SURGICAL HISTORY : CABG. Mitral valve repair. Pacemaker. ENCOUNTER: Initial ACUITY: 1 day PAIN SCORE: 5/10 LOCATION: Right chest FINDINGS: Single view chest demonstrates near-complete interval resolution of the patient's right-sided pleural effusion. No pneumothorax is seen. The heart is enlarged. The patient is post median sternotomy. There is minimal effusion seen on the l eft. CONCLUSION: 1. Dramatic interval reduction in the size of the patient's right pleural effusion. 2. No pneumothorax identified. Quinton Almazan MD on November 16, 2017 at 14:48 Board Certified Radiologist. This report was verified electronically.
[2017-11-16] MEDS ORDERED: LIDOCAINE HCL 1% 20 ML VIAL ONE (16:16)
[2017-11-16] MEDS ORDERED: ACETAMINOPHEN/HYDROcodone 325 MG/5 MG TAB PO ONE (16:30)
[2017-11-16] MEDS ORDERED: FURO40TA PO (16:43)
--- NOTE | 2017-11-16 16:45 | HHI.DCPOC ---
Discharge Care Plan Diagnosis: (1) Pleural effusion due to congestive heart failure (2) Ascites (3) Warfarin anticoagulation Goals to Promote Your Health * To prevent worsening of your condition and complications * To maintain your health at the optimal level Directions to Meet Your Goals Take your medications as prescribed Follow your dietary instruction Follow activity as directed Keep your appointments as scheduled Take your immunizations and boosters as scheduled If your symptoms worsen call your PCP, if no PCP go to Urgent Care Center or Emergency Room Smoking is Dangerous to Your Health. Avoid second hand smoke Call the 24-hour hour crisis hotline for domestic abuse at Kingsley Hopson MD R2 Nov 16, 2017 16:45
--- NOTE | 2017-11-16 16:48 | RADRPT ---
EXAM DATE/TIME: 11/16/2017 13:59 [facility] COMPARISON: US GUIDED ABD PARACENTESIS, November 18, 2016, 14:43. INDICATIONS : Right pleural effusion. MEDICAL HISTORY : Myocardial infarction. Congestive heart failure. Hypercholesterolemia. CVA. Afib. HTN. Dyspnea. Hemop tysis. Ascites. Hematuria. Chronic kidney disease. Renal calculi. Diabetes. Pleural effusion. Anticoa gulant therapy, Heparin. SURGICAL HISTORY : Pacemaker. CABG. Born with heart backwards. Mitral valve replacement x2. Paracentesis. Thoracentesi s. Blood transfusions. ENCOUNTER: Subsequent ACUITY: > 1 yr PAIN SCORE: 0/10 LOCATION: Right chest FLUID: Total volume of 1900 cc of clear, red fluid was removed. Fluid was discarded. Thoracentesis was therapeutic only. TECHNIQUE: 1. Ultrasound guidance for thoracentesis. 2. Thoracentesis. The risks, benefits, and alternatives to ultrasound guided thoracentesis were explained to the patien t in lay simple terms, including the risk of bleeding and infection. Written and verbal informed con sent was obtained. Appropriate area for thoracentesis was marked under ultrasound guidance with the patient in the uprig ht position. Overlying skin was prepped and draped in the usual sterile fashion and with local anest hetic, a dermatotomy was made with an 11 blade scalpel. A 6 Icelandic thoracentesis catheter was placed in the pleural space and fluid was removed. Catheter was then removed and a sterile dressing applie d. There were no immediate complications. The patient tolerated the procedure well and the left the ultrasound suite in stable condition. Chest radiograph is to be obtained. CONCLUSION: Uncomplicated ultrasound guided thoracentesis. Quinton Almazan MD on November 16, 2017 at 16:46 Board Certified Radiologist. This report was verified electronically.
--- NOTE | 2017-11-16 16:48 | RADRPT ---
EXAM DATE/TIME: 11/16/2017 14:28 [place] COMPARISON: US GUIDED THORACENTESIS RIGHT, November 16, 2017, 13:59. INDICATIONS : Ascites. MEDICAL HISTORY : Myocardial infarction. Congestive heart failure. Hypercholesterolemia. CVA. Afib. HTN. Dyspnea. Hemop tysis. Ascites. Hematuria. Chronic kidney disease. Renal calculi. Diabetes. Pleural effusion. Anticoa gulant therapy, Heparin. SURGICAL HISTORY : Pacemaker. CABG. Born with heart backwards. Mitral valve replacement x2. Paracentesis. Thoracentesi s. Blood transfusions. ENCOUNTER: Subsequent ACUITY: 1 yr PAIN SCORE: 0/10 LOCATION: Right lower quadrant FLUID: Total volume of 6,000 cc of cloudy, red fluid was removed. Fluid was discarded. Paracentesis was therapeutic only. Post procedure scanning reveals no hematoma or other complication. TECHNIQUE: 1. Ultrasound guidance for abdominal paracentesis. 2. Paracentesis. The risks, benefits, and alternatives to ultrasound guided paracentesis were explained to the patient in detail including the risk of bleeding and infection. Written and verbal informed consent was obt ained. With the patient on the ultrasound table, ultrasound imaging was used to select the most appropriate approach for paracentesis. Overlying skin was prepped and draped in the usual sterile fashion and wi th a local anesthetic, a dermatotomy was made with an 11 blade scalpel. A 6 [place] [id number] ca theter was introduced into the peritoneal cavity and fluid was collected. The patient tolerated the procedure well and left the ultrasound suite in stable condition. CONCLUSION: Uncomplicated ultrasound guided paracentesis. Quinton Almazan MD on November 16, 2017 at 16:46 Board Certified Radiologist. This report was verified electronically.
[2017-11-16] MEDS ORDERED: ACETAMINOPHEN 325 MG TAB PO PRN (17:15)
[2017-11-16] MEDS ORDERED: ACETAMINOPHEN/HYDROcodone 325 MG/5 MG TAB PO PRN (17:15)
[2017-11-16] MEDS ORDERED: NALOXONE HCL 0.4 MG/ML AMP IV PUSH PRN (17:15)
[2017-11-16] MEDS: FUROSEMIDE 40 MG TAB PO SCH (20:30)
[2017-11-17 03:32] VITALS: BP 83/47; PULSE 56; RESP 18; TEMP 98.6; O2SAT 96
[2017-11-17 04:14] VITALS: BP 112/53
[2017-11-17 05:07] VITALS: PULSE 61
[2017-11-17 06:52] LABS: HEMATOCRIT 28.6 % (39.0-51.0); HEMOGLOBIN 9.6 GM/DL (13.0-17.0); MEAN CELL VOLUME 78.4 FL (80.0-100.0); MEAN CORPUSCULAR HEMOGLOBIN 26.4 PG (27.0-34.0); MEAN CORPUSCULAR HGB CONC 33.6 % (32.0-36.0); MEAN PLATELET VOLUME 10.2 FL (7.0-11.0); PLATELET COUNT 165 TH/MM3 (150-450); RED BLOOD COUNT 3.64 MIL/MM3 (4.50-5.90); WHITE BLOOD COUNT 8.3 TH/MM3 (4.0-11.0)
[2017-11-17 07:01] VITALS: BP 103/56; PULSE 61; RESP 18; TEMP 97.9; O2SAT 96
[2017-11-17 07:05] LABS: INTERNATIONAL NORMALIZED RATIO 1.6 RATIO; PROTHROMBIN TIME - PATIENT 16.4 SEC (9.8-11.6)
[2017-11-17 07:18] LABS: BICARBONATE 25.9 MEQ/L (21.0-32.0); CALCIUM 8.3 MG/DL (8.5-10.1); CREATININE 1.54 MG/DL (0.60-1.30)
--- NOTE | 2017-11-17 08:25 | HHI.FPPN ---
Subjective Remarks No acute events overnight. Pt lying in bed. States that he feels better after getting thoracentesis and paracentesis yesterday. 1900ml fluid drained from thoracentesis and 6000ml drained from paracentesis. He states that he is breathing better and his abdomen is less distended. He has no complaints this AM. He denies CP, abdominal pain, and N/V. (Jenn Navarro MD R1) Objective Vitals Vital Signs Date Time Temp Pulse Resp B/P (MAP) Pulse Ox O2 Delivery O2 Flow Rate FiO2 11/17/17 07:01 97.9 61 18 103/56 (72) 96 11/17/17 05:07 61 11/17/17 04:14 112/53 (72) 11/17/17 03:32 98.6 56 18 83/47 (59) 96 11/16/17 23:32 62 11/16/17 23:11 98.5 60 16 92/53 (66) 98 11/16/17 20:30 Room Air 11/16/17 20:15 98.5 59 16 106/53 (70) 100 11/16/17 20:07 60 11/16/17 16:02 98.1 82 26 115/70 (85) 94 11/16/17 16:00 98.1 60 26 108/59 (75) 95 11/16/17 15:40 98.4 60 24 116/69 (85) 93 11/16/17 14:04 97.8 59 20 128/83 (98) 100 11/16/17 13:43 97.8 60 20 97 11/16/17 12:52 97.7 58 20 134/74 99 11/16/17 11:31 97.5 60 20 157/77 97 11/16/17 10:20 97.9 58 18 125/65 (85) 98 I/O 11/16/17 11/16/17 11/16/17 11/17/17 11/17/17 11/17/17 07:00 15:00 23:00 07:00 15:00 23:00 Intake Total 562 ml 742 ml Output Total 450 ml 850 ml 550 ml Balance -450 ml 562 ml -108 ml -550 ml Intake Oral 240 ml IV Total 2 ml FFP 532 ml 500 ml Blood Product IV Normal Saline Flush 30 ml Output Urine Total 450 ml 850 ml 550 ml (Jenn Navarro MD R1) Result Diagram: 11/17/1751611/17/17516 Objective Remarks GENERAL: thin male, lying in bed, in NAD NECK: JVD present b/l CARDIOVASCULAR: RRR, 3/6 systolic murmur, mechanical heart valve RESPIRATORY: Mild decreased breath sound on R lower lung base compared to L s/p thoracentesis, much improved from prior exam GASTROINTESTINAL: 9x9cm fluid-filled abdominal outpouching with hypertrophic skin changes, distended abdomen much improved from prior exam s/p paracentesis , EKG wires present in abdomen MUSCULOSKELETAL: Extremities without clubbing, cyanosis, or edema. No joint tenderness, effusion, or edema noted. No calf tenderness. Negative Homans sign bilaterally. 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 S/p thoracentesis and paracentesis preformed on 11/16. Discharge Planning Passed home O2 walk test Home with no PT Stable for discharge (Jenn Navarro MD R1) Attending Attestation Patient examined separately from resident physicians on rounds this morning at 9 AM Patient case discussed with resident physicians and assessment/plan was discussed with me I have read the above note and agree with the assessment/plan as discussed with me I was involved in all medical decision making with this patient Serge Abbott MD (Serge Abbott MD) Problem List: (1) CHF (congestive heart failure) ICD Codes: I50.9 - Heart failure, unspecified Status: Chronic Plan: -Hx of CHF (Echo 2014)EF of 25% -Continue Furosemide 40mg BID (increased from 40mg once daily) -Fluid restriction 1.5L daily, strict I & Os, daily weights, Low sodium diet -Monitor on cardiac Telemetry Previous Workup: -BNP elevated at 938 -EKG- electronic ventricular pacemaker -Troponin less than 0.02 -CXR demonstrates cardiomegaly and large right effusion with parenchymal consolidation (2) Pleural effusion due to congestive heart failure ICD Codes: I50.9 - Heart failure, unspecified Status: Chronic Plan: -CXR revealed large right pleural effusion -s/p thoracentesis- 1900ml drained on 11/16 -Continue home Coumadin 5mg PO upon discharge, INR today 1.6, follow up closely outpatient with PCP (3) Abdominal distention ICD Codes: R14.0 - Abdominal distension (gaseous) Status: Chronic Plan: -s/p paracentesis- 6000ml drained on 11/16 -Continue home Coumadin 5mg PO upon discharge, INR today 1.6, follow up closely outpatient with PCP (4) Stage 3 chronic kidney disease ICD Codes: N18.3 - Chronic kidney disease, stage 3 (moderate) Plan: Stable Per chart review, Cr 1.82, BUN 27 on admission, Cr 1.22 on previous admission on 11/25/16 Continue to monitor (5) Umbilical hernia ICD Codes: K42.9 - Umbilical hernia without obstruction or gangrene Status: Acute Plan: -Will follow up with surgery outpatient for elective surgery (6) Nutrition, metabolism, and development symptoms ICD Codes: R63.8 - Other symptoms and signs concerning food and fluid intake Status: Acute Plan: Diet: Low sodium diet, fluid restriction 1.5 L Fluids: not indicated at this time strict I & Os, monitor vitals q4, daily weights (Jenn Navarro MD R1) Problem Qualifiers (1) CHF (congestive heart failure): Qualified Codes: I50.23 - Acute on chronic systolic (congestive) heart failure (2) Umbilical hernia: Qualified Codes: K42.9 - Umbilical hernia without obstruction or gangrene Jenn Navarro MD R1 Nov 17, 2017 08:25 Serge Abbott MD Nov 17, 2017 14:49
[2017-11-17] MEDS: BUMETANIDE 1 MG TAB PO SCH (09:20)
[2017-11-17] MEDS: SODIUM CHLORIDE 0.9% FLUSH 10 ML FLUSH IV FLUSH SCH (09:21)
[2017-11-17] MEDS: FUROSEMIDE 40 MG TAB PO SCH (09:21)
[2017-11-17] MEDS: DOCUSATE SODIUM 50 MG/SENNA 8.6 MG TAB PO SCH (09:21)
--- NOTE | 2017-11-17 09:52 | HHI.DS ---
Discharge Summary Admission Date Nov 14, 2017 at 14:38 Admitting Diagnosis Respiratory distress, pleural effusion, ascites (1) CHF (congestive heart failure) Plan: -Hx of CHF (Echo 2014)EF of 25% -Held home lasix, continue Furosemide 40mg BID -Fluid restriction 1.5L daily, strict I & Os, daily weights, Low sodium diet -Monitor on cardiac Telemetry -Continue to hold Coumadin for thora/para centesis today, INR 1.8, patient will receive 2 units of FFP before procedure Previous Workup: -BNP elevated at 938 -EKG- electronic ventricular pacemaker -Troponin less than 0.02 -CXR demonstrates cardiomegaly and large right effusion with parenchymal consolidation ICD Codes: I50.9 - Heart failure, unspecified Status: Chronic (2) Pleural effusion due to congestive heart failure Plan: -Held home Coumadin, anticoagulate with Heparin drip -INR 1.8 today -Plan for therapeutic thoracentesis today, plan to stop heparin drip 1 hr before procedure ICD Codes: I50.9 - Heart failure, unspecified Status: Chronic (3) Abdominal distention Plan: Held home Coumadin, anticoagulate with Heparin drip -Recheck INR in the AM -Plan for therapeutic paracentesis today, plan to stop heparin drip 1 hr before procedure ICD Codes: R14.0 - Abdominal distension (gaseous) Status: Chronic (4) Stage 3 chronic kidney disease Plan: Improving Per chart review, Cr 1.82, BUN 27 on admission, Cr 1.22 on previous admission on 11/25/16 Continue to monitor ICD Codes: N18.3 - Chronic kidney disease, stage 3 (moderate) (5) Umbilical hernia Plan: -Will follow up with surgery outpatient for elective surgery ICD Codes: K42.9 - Umbilical hernia without obstruction or gangrene Status: Acute (6) Nutrition, metabolism, and development symptoms Plan: Diet: Low sodium diet, fluid restriction 1.5 L Fluids: not indicated at this time strict I & Os, monitor vitals q4, daily weights DVT ppx: heparin drip ICD Codes: R63.8 - Other symptoms and signs concerning food and fluid intake Status: Acute Brief History 46 yo M presenting to the ED with progressive shortness of breath and abdominal pain. 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 He states that over the last 3 days he has had a progression of shortness of breath and increased abdominal distention causing pain and an existing umbilical hernia. He has had the umbilical hernia for greater than 3 years but feels that it has slowly been getting bigger over the last month and painful over the last 3 days. He denies any fevers or chills, denies any nausea or vomiting has any chest pain or palpitations, he denies any sputum production. He does endorse progressive shortness of breath with a subjective weight gain. He denies lower extremity edema. CBC/BMP: 11/17/17 0517 11/17/17 0517 Significant Findings Laboratory Tests Test 11/14/17 11:55 11/14/17 13:20 11/14/17 17:25 11/15/17 06:09 Red Blood Count 4.20 MIL/MM3 (4.50-5.90) 4.11 MIL/MM3 (4.50-5.90) Hemoglobin 11.0 GM/DL (13.0-17.0) 10.9 GM/DL (13.0-17.0) Hematocrit 32.8 % (39.0-51.0) 31.9 % (39.0-51.0) Mean Corpuscular Volume 78.1 FL (80.0-100.0) 77.5 FL (80.0-100.0) Mean Corpuscular Hemoglobin 26.2 PG (27.0-34.0) 26.4 PG (27.0-34.0) Red Cell Distribution Width 18.7 % (11.6-17.2) 18.8 % (11.6-17.2) Neutrophils (%) (Auto) 80.5 % (16.0-70.0) 74.6 % (16.0-70.0) Lymphocytes (%) (Auto) 5.2 % (9.0-44.0) 7.8 % (9.0-44.0) Monocytes (%) (Auto) 12.8 % (0.0-8.0) 15.3 % (0.0-8.0) Lymphocytes # (Auto) 0.3 TH/MM3 (1.0-4.8) 0.4 TH/MM3 (1.0-4.8) Prothrombin Time 17.6 SEC (9.8-11.6) 18.7 SEC (9.8-11.6) Blood Urea Nitrogen 27 MG/DL (7-18) 30 MG/DL (7-18) Creatinine 1.82 MG/DL (0.60-1.30) 1.74 MG/DL (0.60-1.30) Random Glucose 174 MG/DL (74-106) Total Protein 8.7 GM/DL (6.4-8.2) 8.7 GM/DL (6.4-8.2) Albumin 3.0 GM/DL (3.4-5.0) 2.9 GM/DL (3.4-5.0) Alkaline Phosphatase 323 U/L (45-117) 304 U/L (45-117) Total Bilirubin 2.7 MG/DL (0.2-1.0) 2.9 MG/DL (0.2-1.0) Estimat Glomerular Filtration Rate 49 ML/MIN (>89) 51 ML/MIN (>89) Urine Protein 100 mg/dL (NEG-TRACE) Troponin I LESS THAN 0.02 NG/ML B-Type Natriuretic Peptide 938 PG/ML (0-100) Test 11/15/17 14:57 11/15/17 21:00 11/16/17 03:44 11/17/17 05:17 Red Blood Count 4.08 MIL/MM3 (4.50-5.90) 3.81 MIL/MM3 (4.50-5.90) 3.64 MIL/MM3 (4.50-5.90) Hemoglobin 10.5 GM/DL (13.0-17.0) 9.9 GM/DL (13.0-17.0) 9.6 GM/DL (13.0-17.0) Hematocrit 32.2 % (39.0-51.0) 29.9 % (39.0-51.0) 28.6 % (39.0-51.0) Mean Corpuscular Volume 78.9 FL (80.0-100.0) 78.4 FL (80.0-100.0) 78.4 FL (80.0-100.0) Mean Corpuscular Hemoglobin 25.7 PG (27.0-34.0) 26.1 PG (27.0-34.0) 26.4 PG (27.0-34.0) Red Cell Distribution Width 18.1 % (11.6-17.2) 18.2 % (11.6-17.2) 18.0 % (11.6-17.2) Activated Partial Thromboplast Time 35.7 SEC (24.3-30.1) 45.4 SEC (24.3-30.1) 52.3 SEC (24.3-30.1) Prothrombin Time 18.7 SEC (9.8-11.6) 16.4 SEC (9.8-11.6) Blood Urea Nitrogen 27 MG/DL (7-18) 29 MG/DL (7-18) Creatinine 1.55 MG/DL (0.60-1.30) 1.54 MG/DL (0.60-1.30) Random Glucose 113 MG/DL (74-106) 172 MG/DL (74-106) Estimat Glomerular Filtration Rate 59 ML/MIN (>89) 59 ML/MIN (>89) Calcium Level 8.3 MG/DL (8.5-10.1) Imaging Last Impressions Thoracentesis Ultrasound 11/16/17 Signed Impressions: Service Date/Time: November 13:59 - CONCLUSION: Uncomplicated ultrasound guided thoracentesis. Quinton Almazan MD Cyst Biopsy Asp-Paracentesis US 11/16/17 Signed Impressions: Service Date/Time: November 14:28 - CONCLUSION: Uncomplicated ultrasound guided paracentesis. Quinton Almazan MD Chest X-Ray 11/16/17 Signed Impressions: Service Date/Time: November 14:38 - CONCLUSION: 1. Dramatic interval reduction in the size of the patient's right pleural effusion. 2. No pneumothorax identified. Quinton Almazan MD PE at Discharge GENERAL: thin male, lying in bed, in NAD NECK: JVD present b/l CARDIOVASCULAR: RRR RESPIRATORY: Moderate decreased breath sound on R lower lung base compared to L , unchanged to prior exam GASTROINTESTINAL: 9x9cm fluid-filled abdominal outpouching with hypertrophic skin changes, distended abdomen, EKG wires present in abdomen MUSCULOSKELETAL: Extremities without clubbing, cyanosis, or edema. No joint tenderness, effusion, or edema noted. No calf tenderness. Negative Homans sign bilaterally. 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 Presented with SOB and abdominal pain, admitted on 11/14. CXR revealed large right pleural effusion. Coumadin held during hospital stay and patient was placed on heparin drip. Heparin was stopped 1 hour before thoracentesis/paracentesis procedure. Patient also given 2 units of frozen fresh platelets due to INR of 1.8 before procedure. US guided thoracentesis and paracentesis performed by IR on 11/16 without complications. Patient dose of Furosemide was also increased from 40mg daily to 40mg BID. Patient was determined stable 11/17 and discharged home. INR 1.6 upon discharge. Patient told to follow-up closely with PCP. Pt Condition on Discharge: Stable Discharge Disposition: Discharge Home Discharge Instructions DIET: Follow Instructions for: Heart Healthy Diet, Coumadin (Warfarin) Diet Activities you can perform: Weight Bearing as Ariane Follow up Referrals: PCP Follow-up - 1 Week Surgical - 2 Weeks New Medications: Furosemide (Furosemide) 40 Mg Tab 40 MG PO BID, #28 TAB 0 Refills Continued Medications: Bumetanide (Bumetanide) 1 Mg Tab 1 MG PO DAILY, TAB 0 Refills Warfarin (Coumadin) 5 Mg Tab 5 MG PO DAILY for Blood Clot Prevention, #30 TAB 0 Refills , , , sat, and sun 2.5mg on Monday and Monday Discontinued Medications: Furosemide (Lasix) 40 Mg Tab 40 MG PO DAILY, TAB 0 Refills Jenn Navarro MD R1 Nov 17, 2017 09:52
--- NOTE | 2017-11-17 10:15 | PD.PN.STU ---
Subjective Remarks No acute events overnight. Patient states he is feeling much better after his thoracentesis and paracentesis yesterday. Feels less pressure in his abdomen and states that his breathing has improved. No complaints this morning. Denies chest pain, shortness of breath, or abdominal pain. Objective Vitals Vital Signs Date Time Temp Pulse Resp B/P (MAP) Pulse Ox O2 Delivery O2 Flow Rate FiO2 11/17/17 07:01 97.9 61 18 103/56 (72) 96 11/17/17 05:07 61 11/17/17 04:14 112/53 (72) 11/17/17 03:32 98.6 56 18 83/47 (59) 96 11/16/17 23:32 62 11/16/17 23:11 98.5 60 16 92/53 (66) 98 11/16/17 20:30 Room Air 11/16/17 20:15 98.5 59 16 106/53 (70) 100 11/16/17 20:07 60 11/16/17 16:02 98.1 82 26 115/70 (85) 94 11/16/17 16:00 98.1 60 26 108/59 (75) 95 11/16/17 15:40 98.4 60 24 116/69 (85) 93 11/16/17 14:04 97.8 59 20 128/83 (98) 100 11/16/17 13:43 97.8 60 20 97 11/16/17 12:52 97.7 58 20 134/74 99 11/16/17 11:31 97.5 60 20 157/77 97 11/16/17 10:20 97.9 58 18 125/65 (85) 98 I/O 11/16/17 11/16/17 11/16/17 11/17/17 11/17/17 11/17/17 07:00 15:00 23:00 07:00 15:00 23:00 Intake Total 562 ml 742 ml Output Total 450 ml 850 ml 550 ml Balance -450 ml 562 ml -108 ml -550 ml Intake Oral 240 ml IV Total 2 ml FFP 532 ml 500 ml Blood Product IV Normal Saline Flush 30 ml Output Urine Total 450 ml 850 ml 550 ml Result Diagram: 11/17/1751611/17/17516 Objective Remarks GENERAL: thin male lying comfortably in bed. NAD NECK: JVD present bilaterally CARDIOVASCULAR: RRR, 3/6 systolic murmur in mitral area. RESPIRATORY: Mildly decreased breath sound on R lower lung base compared to L, much improved from prior exam GASTROINTESTINAL: 9x9cm fluid-filled abdominal outpouching with hypertrophic skin changes, abdomen soft and nondistended much improved from prior exam, EKG wires present in abdomen MUSCULOSKELETAL: Extremities without clubbing, cyanosis, or edema. No joint tenderness, effusion, or edema noted. No calf tenderness. NEUROLOGICAL: Awake, alert, and oriented x3 Procedures Thoracentesis: Total volume of 1900 cc of clear, red fluid was removed. Paracentesis: Total volume of 6,000 cc of cloudy, red fluid was removed. 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 Problem List: 1. Congestive Heart Failure -Discharge home on Furosemide 40mg BID -Resume home Coumadin 2. Pleural effusion due to CHF -s/p therapeutic thoracentesis on 11/16/17 (1900cc) 3. Abdominal distention -s/p therapeutic paracentesis on 11/16/17 (6000cc) -much improved 4. Stage 3 CKD -Improving, Cr 1.54, BUN 29 5. Umbilical hernia -Follow up with general surgery outpatient for elective repair Rosibel Rose M3 Nov 17, 2017 10:15
== END 2017-11-17 11:36 | disposition home or self-care (01) ==
LOC: NEPE 11:07 → INTOOBSV 14:38 → NEDA 14:38 → NEPFCDU 17:36
PROVIDERS: ADMIT Family Medicine; ATTEND Family Medicine
DX: I50.23 Acute on chronic systolic (congestive) heart failure (principal); I13.0 Hypertensive heart and chronic kidney disease with heart failure and stage 1 through stage 4 chronic kidney disease, or unspecified chronic kidney disease; E11.22 Type 2 diabetes mellitus with diabetic chronic kidney disease; N18.3 Chronic kidney disease, stage 3 (moderate); I48.91 Unspecified atrial fibrillation; R06.03 Acute respiratory distress; R17 Unspecified jaundice; E78.00 Pure hypercholesterolemia, unspecified; I25.2 Old myocardial infarction; R14.0 Abdominal distension (gaseous); K42.9 Umbilical hernia without obstruction or gangrene; J44.9 Chronic obstructive pulmonary disease, unspecified; Z86.73 Personal history of transient ischemic attack (TIA), and cerebral infarction without residual deficits; Z87.891 Personal history of nicotine dependence; Z79.01 Long term (current) use of anticoagulants; Z95.1 Presence of aortocoronary bypass graft; Z95.2 Presence of prosthetic heart valve; Z95.0 Presence of cardiac pacemaker; Z79.899 Other long term (current) drug therapy
CPT/HCPCS: 32555; 36430; 49083; 71045; 80048; 80053; 81001; 83880; 84484; 85025; 85027; 85610; 85730; 86850; 86900; 86901; 86927; 93005; 94618; 96361; 96365; 96375; 97161; 99285; C1729; G0378; G8987; G8988; J1644; J1940; J7050; P9017

== ENCOUNTER 2018-06-16 10:20 | Inpatient (IN) ==
[2018-06-16] MEDS ORDERED: Morphine Inj 4 MG/ML Vial IV.PUSH ONE (10:43)
--- NOTE | 2018-06-16 10:58 | ED ---
HPI General Chief Complaint: Chest Pain Stated Complaint: medical/pain left side of chest Time Seen by Provider: 06/16/18 10:33 Source: patient Mode of arrival: ambulatory Limitations: no limitations History of Present Illness HPI narrative: The patient is a 47-year-old male who presents to the emergency department for chest pain. The patient developed chest pain approximately 3-4 days ago. The pain started after he leaned over to waste picker an object. He had a sharp stabbing pain in the left anterior to lateral aspect of the chest. The pain is sharp, intermittent, worse with palpation and certain movements. The pain is alleviated at rest. He does complain of mild shortness of breath and mild nausea without any vomiting. 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 The patient last had a cardiac catheterization 3 years ago in [place] per his report, was negative for coronary artery disease. He does complain of mild right lower extremity edema for the last several months. The patient does have a history of ascites and umbilical hernia, last had his abdomen drained 6 months ago. Symptoms are moderate, worse with movement, and alleviated at rest. MD complaint: chest pain Complete Quality Measures for STEMI Alert Patients STEMI Alert: No Onset (ago): day(s) Duration: intermittent Onset: other Pain location: left chest Severity: moderate Severity scale (1-10): 5 Quality: sharp Pain radiation: none Relieving factors: rest Exacerbating factors: movement Treatments prior to arrival chest pain: none Related Data Home Medications Medication Instructions Recorded Confirmed bumetanide 1 mg PO BID 06/16/18 06/16/18 furosemide 40 mg PO BID 06/16/18 06/16/18 warfarin [Coumadin] 5 mg PO BID 06/16/18 06/16/18 Allergies Allergy/AdvReac Type Severity Reaction Status Date / Time losartan Allergy Unknown Anaphylaxis Verified 06/16/18 11:01 Review of Systems ROS: all other systems reviewed are negative [facility] Medical History Medical History Great vessels transposition (Acute) Mitral valve regurgitation (Acute) Pacemaker (Acute) Social History Social History Substance History: No History of Abuse Second Hand Smoke Exposure: No Smoking Status: Never smoker How Often Do You Have a Drink Containing Alcohol: Never Recent Travel in [facility] [place] within the Last 8 Weeks: No Recent Out of Country Travel within the Last 8 Weeks: No Immunization History Tetanus Immunization: >5 Years Hx Influenza Vaccine This Season: Yes Exam Narrative Exam Narrative: GENERAL: Awake, alert, pleasant 47-year-old male who appears his stated age. SKIN: Focused skin assessment warm/dry. HEAD: Atraumatic. Normocephalic. EYES: No injection or drainage ENT: No nasal bleeding or discharge. Mucous membranes pink and moist. NECK: Trachea midline. No JVD. CARDIOVASCULAR: Regular rate and rhythm. No murmur appreciated. Well-healed scar midsternal. AICD in place right upper chest wall. Tender to palpation of the left inferior lateral aspect of the chest. RESPIRATORY: Tachypnea with a respiratory rate of 24. Some intercostal retractions noted. GASTROINTESTINAL: Abdomen distended, umbilical hernia noted. Positive fluid wave. MUSCULOSKELETAL: No obvious deformities. No clubbing. No cyanosis. Pitting edema the right lower extremity, right lower extremity appears more swollen than the left. NEUROLOGICAL: Awake and alert. No obvious cranial nerve deficits. Motor grossly within normal limits. Normal speech. PSYCHIATRIC: Appropriate mood and affect; insight and judgment normal. Course Initial Documented Vital Signs Temperature 97.6 F 06/16/18 10:26 Pulse Rate 57 L 06/16/18 10:26 Respiratory Rate 20 06/16/18 10:26 Blood Pressure 147/68 H 06/16/18 10:26 Pulse Oximetry 98 06/16/18 10:26 Last Documented Vital Signs Temperature 97.6 F 06/16/18 10:26 Pulse Rate 64 06/16/18 12:33 Respiratory Rate 22 06/16/18 12:33 Blood Pressure 135/64 06/16/18 12:33 Pulse Oximetry 96 06/16/18 12:33 Medical Decision Making [facility] Narrative Medical decision making narrative: IV was established, labs are drawn and sent, and the patient was placed on cardiac telemetry monitoring and continuous pulse oximetry monitoring. EKG was ordered and interpreted. Chest x-ray was obtained. The patient was administered aspirin, Zofran, and morphine. The patient had multiple episodes of nausea and vomiting, was administered Zofran 4 mg intravenously. Chest x-ray reveals right consolidative area, could be pleural effusion versus pulmonary edema. I doubt pneumonia as patient is afebrile with no new cough. The patient may benefit from ultrasound of the chest and abdomen for possible thoracentesis and paracentesis. However, the patient's INR is 4.4. The patient's BNP was greater than 4000, I reviewed the EMR, last one was less than 1000. Patient will be admitted. Medical Screen Exam Complete: Yes Emergency Medical Condition: Yes Differential Diagnosis Differential Diagnosis: Differential diagnosis includes rib fracture, pneumothorax, hemothorax, pleurisy, pericarditis, myocardial infarction, GERD, esophageal spasm, pancreatitis, pulmonary embolism, pneumonia. Lab Data Result diagrams: 06/16/18 11:00 06/16/18 11:00 Lab Results 06/16/18 06/16/18 06/16/18 Range/Units 11:00 11:00 11:00 WBC 4.6 (4.0-11.0) th/mm3 RBC 4.38 L (4.50-5.90) mil/mm3 Hgb 11.3 L (13.0-17.0) gm/dL Hct 34.5 L (39.0-51.0) % MCV 78.8 L (80.0-100.0) fL MCH 25.8 L (27.0-34.0) pg MCHC 32.8 (32.0-36.0) % RDW 21.1 H (11.6-17.2) % Plt Count 184 (150-450) th/mm3 MPV 10.5 (7.0-11.0) fL Neut % (Auto) 76.3 H (16.0-70.0) % Lymph % (Auto) 7.4 L (9.0-44.0) % Izard % (Auto) 15.0 H (0.0-8.0) % Eos % (Auto) 0.4 (0.0-4.0) % Baso % (Auto) 0.9 (0.0-2.0) % Neut # (Auto) 3.5 (1.8-7.7) th/mm3 Lymph # (Auto) 0.3 L (1.0-4.8) th/mm3 Izard # (Auto) 0.7 (0.0-0.9) th/mm3 Eos # (Auto) 0.0 (0.0-0.4) th/mm3 Baso # (Auto) 0.0 (0.0-0.2) th/mm3 WBC Differential . Differential Comment Auto diff final PT (9.8-11.6) sec INR Ratio APTT (24.3-30.1) sec Sodium 141 (136-145) meq/L Potassium 3.8 (3.5-5.1) meq/L Chloride 103 (98-107) meq/L Carbon Dioxide 26.6 (21.0-32.0) meq/L Anion Gap 11 (5-15) meq/L BUN 30 H (7-18) mg/dL Creatinine 1.84 H (0.60-1.30) mg/dL Estimated GFR 48 L (>89) mL/min Random Glucose 196 H (74-106) mg/dL Calcium 8.4 L (8.5-10.1) mg/dL Magnesium 1.9 (1.5-2.5) mg/dL Total Bilirubin 3.2 H (0.2-1.0) mg/dL AST 35 (15-37) U/L ALT 19 (12-78) U/L Alkaline Phosphatase 306 H (45-117) U/L Total Creatine Kinase 109 (39-308) U/L CK-MB (CK-2) 1.7 (0.5-3.6) ng/mL Troponin I 0.04 (0.02-0.05) ng/mL B-Natriuretic Peptide 4322 H (0-100) pg/mL Total Protein 9.3 H (6.4-8.2) g/dL Albumin 2.8 L (3.4-5.0) g/dL Lipase 326 (73-393) U/L 06/16/18 Range/Units 11:00 WBC (4.0-11.0) th/mm3 RBC (4.50-5.90) mil/mm3 Hgb (13.0-17.0) gm/dL Hct (39.0-51.0) % MCV (80.0-100.0) fL MCH (27.0-34.0) pg MCHC (32.0-36.0) % RDW (11.6-17.2) % Plt Count (150-450) th/mm3 MPV (7.0-11.0) fL Neut % (Auto) (16.0-70.0) % Lymph % (Auto) (9.0-44.0) % Izard % (Auto) (0.0-8.0) % Eos % (Auto) (0.0-4.0) % Baso % (Auto) (0.0-2.0) % Neut # (Auto) (1.8-7.7) th/mm3 Lymph # (Auto) (1.0-4.8) th/mm3 Izard # (Auto) (0.0-0.9) th/mm3 Eos # (Auto) (0.0-0.4) th/mm3 Baso # (Auto) (0.0-0.2) th/mm3 WBC Differential Differential Comment PT 44.3 H (9.8-11.6) sec INR 4.4 Ratio APTT 48.5 H (24.3-30.1) sec Sodium (136-145) meq/L Potassium (3.5-5.1) meq/L Chloride (98-107) meq/L Carbon Dioxide (21.0-32.0) meq/L Anion Gap (5-15) meq/L BUN (7-18) mg/dL Creatinine (0.60-1.30) mg/dL Estimated GFR (>89) mL/min Random Glucose (74-106) mg/dL Calcium (8.5-10.1) mg/dL Magnesium (1.5-2.5) mg/dL Total Bilirubin (0.2-1.0) mg/dL AST (15-37) U/L ALT (12-78) U/L Alkaline Phosphatase (45-117) U/L Total Creatine Kinase (39-308) U/L CK-MB (CK-2) (0.5-3.6) ng/mL Troponin I (0.02-0.05) ng/mL B-Natriuretic Peptide (0-100) pg/mL Total Protein (6.4-8.2) g/dL Albumin (3.4-5.0) g/dL Lipase (73-393) U/L Imaging Data Radiologist's impression: Chest X-Ray 06/16/18 10:43 CONCLUSION: Consolidation pleural effusion right lung base increased since November. Left lungs grossly clear. Cardiomegaly remains. Venous Doppler Study 06/16/18 10:43 CONCLUSION: 1. Normal study ECG Data EKG Prior to Arrival: No Attestation: I personally reviewed and interpreted this ECG as follows: Interpretation: EKG reveals electronic ventricular pacemaker with a rate of 60. Unifocal PVC noted. Discharge Plan Discharge Disposition Patient Disposition: 30 Still Patient Discharge Condition Condition: Stable Discharge Details Diagnosis: Congestive heart failure, Ascites Physicians Team ED Provider: Devin Balderas Primary Care Provider: UNKNOWN, Attending Provider: Cristin Lowry Rxs /Orders / Referrals /Forms Prescriptions: No Action furosemide 40 mg Tablet 40 mg PO BID RF: 0 warfarin [Coumadin] 5 mg Tablet 5 mg PO BID RF: 0 bumetanide 1 mg Tablet 1 mg PO BID RF: 0 Discharge Instructions Patient Printed Instructions: Chest Pain (ED) Discharge Interventions Interventions: Vital Signs Last Done: 06/16/18 10:37 Status ED Status: Admitted Patient
[2018-06-16 11:34] LABS: Baso % (Auto) 0.9 % (0.0-2.0); Eos % (Auto) 0.4 % (0.0-4.0); Hematocrit 34.5 % (39.0-51.0); Hemoglobin 11.3 gm/dL (13.0-17.0); Lymph # (Auto) 0.3 th/mm3 (1.0-4.8); Lymph % (Auto) 7.4 % (9.0-44.0); Mean Corpuscular HGB Conc 32.8 % (32.0-36.0); Mean Corpuscular Hemoglobin 25.8 pg (27.0-34.0); Mean Corpuscular Volume 78.8 fL (80.0-100.0); Mean Platelet Volume 10.5 fL (7.0-11.0); Mono # (Auto) 0.7 th/mm3 (0.0-0.9); Neut # (Auto) 3.5 th/mm3 (1.8-7.7); Neut % (Auto) 76.3 % (16.0-70.0); Platelet Count 184 th/mm3 (150-450); Red Blood Count 4.38 mil/mm3 (4.50-5.90); Red Cell Distribution Width 21.1 % (11.6-17.2); White Blood Count 4.6 th/mm3 (4.0-11.0)
[2018-06-16 11:45] LABS: Activated Partial Thrombo Time 48.5 sec (24.3-30.1); INR 4.4 Ratio; Prothrombin Time 44.3 sec (9.8-11.6)
[2018-06-16 11:56] LABS: Alanine Aminotransferase 19 U/L (12-78); Albumin 2.8 g/dL (3.4-5.0); Anion Gap 11 meq/L (5-15); Aspartate Aminotransferase 35 U/L (15-37); Blood Urea Nitrogen 30 mg/dL (7-18); Calcium 8.4 mg/dL (8.5-10.1); Carbon Dioxide 26.6 meq/L (21.0-32.0); Chloride 103 meq/L (98-107); Glomerular Filtration Rate 48 mL/min (>89); Glucose,Random 196 mg/dL (74-106); Lipase 326 U/L (73-393); Magnesium 1.9 mg/dL (1.5-2.5); Potassium 3.8 meq/L (3.5-5.1); Sodium 141 meq/L (136-145)
[2018-06-16 12:00] LABS: Alkaline Phosphatase 306 U/L (45-117); Creatine Kinase 109 U/L (39-308); Total Protein 9.3 g/dL (6.4-8.2); Troponin I 0.04 ng/mL (0.02-0.05)
--- NOTE | 2018-06-16 12:00 | XR ---
EXAM DATE: 06/16/2018 11:56 AM EDT AGE/SEX: 47 years / Male INDICATIONS: Chest pain. CLINICAL DATA: This is the patient's initial encounter. Patient reports that signs and symptoms have been present for 3 days and indicates a pain score of 4/10. MEDICAL/SURGICAL HISTORY: . Myocardial infarction. Congestive heart failure. Hypercholesterolem ia. CVA. Afib. HTN. Dyspnea. Hemoptysis. Ascites. Hematuria. Chronic kidney disease. Renal calculi. D iabetes. Situs inversus. Pleural effusion. Anticoagulant therapy, Heparin. Pacemaker. CABG. Mitral va lve replacement x2. Paracentesis. Thoracentesis. Blood transfusions. . COMPARISON: [facility] [place], CHEST EXPIRATION ONLY, 11/16/2017. . FINDINGS: There is some dense consolidation in the right lung. Small right pleural effusion. The heart remains enlarged. There are sternal wires and right subclavian pacer. Left lung is relatively clear. CONCLUSION: Consolidation pleural effusion right lung base increased since November. Left lungs grossly clear. Ca rdiomegaly remains. Electronically signed by: Joe Avery MD 06/16/2018 11:59 AM EDT
[2018-06-16 12:13] LABS: Creatine Kinase MB 1.7 ng/mL (0.5-3.6)
--- NOTE | 2018-06-16 12:43 | US ---
EXAM DATE: 06/16/2018 12:35 PM EDT AGE/SEX: 47 years / Male INDICATIONS: Right leg edema. CLINICAL DATA: This is the patient's initial encounter. Patient reports that signs and symptoms have been present for 1 day and indicates a pain score of 0/10. MEDICAL/SURGICAL HISTORY: . Great vessels transposition. Mitral valve regurgitation. Umbilica l hernia. Ascites. . Automated implantable carioverter-defibrillator. Cardiac catheterization. COMPARISON: None. TECHNIQUE: Venous ultrasound of both lower extremities was performed from the inguinal ligament to t he proximal calf. Real-time, color Doppler and spectral tracing, compression and augmentation techni ques were used. FINDINGS: Normal compression of the deep venous system from the inguinal region to the proximal calf . No echogenic clot is seen. Normal response of the venous system to augmentation and respiration. CONCLUSION: 1. Normal study Electronically signed by: Joe Avery MD 06/16/2018 12:41 PM EDT
[2018-06-16] MEDS ORDERED: Bisacodyl 10 MG Supp RECTAL PRN (13:18)
[2018-06-16] MEDS ORDERED: Acetaminophen 325 MG Tablet PO PRN (13:19)
[2018-06-16] MEDS ORDERED: Zolpidem Tartrate 5 MG Tablet PO PRN (13:19)
--- NOTE | 2018-06-16 13:21 | P.HPIM ---
History of Present Illness Primary Care Physician: Dr. Bhakta History of Present Illness: 47 year old male with history of transposition of the great vessels, mitral valve replacement x 2, pacemaker, CHF, CKD, large umbilical hernia, and recurrent ascites/pleural effusions presenting initially for symptoms of chest wall pain. He states two days ago he feels like he pulled a muscle in his chest when he reached for something and since then he has an "ache " with certain positions. Denies chest pain at rest or exertional chest pain. Denies jaw or arm pain, dizziness, or diaphoresis. In the ED, he was noted to be tachypneic with respiratory rate in the 30s and when further inquired the patient states he has been breathing like that for at least three weeks. During this time he has also had a dry cough. He states he has been under a lot of stress recently regarding his family. He lives alone but is the only local family member who is able to take care of his mother who lives in a senior living. He states he got into a verbal argument with one of his brothers about six weeks ago and that is when he first noticed his right leg was swollen. He states he had attributed the swelling to his nerves and being worked up. The patient denies any fever or chills. He states in the past he has had about 5 or 6 paracenteses and thoracenteses, most recently about six months ago when 1.9 L was removed from his chest and 6L was removed from his abdomen. He follows with Dr. Obregon (virtual assistant for advertisers) and Dr. Bhakta (PCP). He is anticoagulated on Coumadin and his last outpatient INR check was 3.4 about a month ago. He states his INR is kept between 2.5 and 3.5. He denies any bleeding from any site. He has been recommended to have a heart transplant when he was evaluated at [facility] in the past but the patient states he does not want this. - Diagnosis (1) Pleural effusion (2) Shortness of breath (3) Congestive heart failure (4) Ascites Inpatient Certification: I certify that the inpatient services were ordered in accordance with Medicare regulations governing the order. This includes certification that hospital inpatient services are reasonable and necessary and in the case of services not specified as inpatient-only under 42 CFR 419.22(n), that they are appropriately provided as inpatient services in accordance to with the 2-midnight benchmark under 43 CFR 412.3(e) Plans for Post Hospital Care: Home Review of Systems Constitutional: Reports lack of energy, Denies chills, Denies fever(s) Eyes: Denies loss of vision Ears, Nose, Mouth, and Throat: Denies dizziness, Denies nasal congestion, Denies sore throat Cardiovascular: Reports chest pain, Reports leg swelling, Reports shortness of breath with activity, Denies fast heart rate, Denies irregular heart rhythm, Denies lightheadedness, Denies radiating jaw, neck or arm pain, Denies shortness of breath when lying down Respiratory: Reports cough, Reports shortness of breath, Denies chest congestion , Denies coughing up blood Gastrointestinal: Reports vomiting, Denies abdominal pain, Denies black, tarry stools, Denies bright, red blood in stools, Denies constipation, Denies nausea Genitourinary: Denies painful urination Musculoskeletal: Denies back pain Skin/Breast: Denies rash Neurologic: Denies abnormal walking, Denies headache(s) Psychiatric: Reports anxiety PMFSH - History History Provided By: Patient - Medical History Medical History: Medical History (Last Updated 06/16/18 @ 13:06 by Cristin Lowry MD) Great vessels transposition History of abdominal paracentesis Mitral valve regurgitation Pacemaker - Surgical History Surgical History: Surgical History (Last Updated 06/16/18 @ 13:06 by Cristin Lowry MD) H/O heart surgery H/O mitral valve replacement History of permanent cardiac pacemaker placement History of thoracentesis - Family History Family History: Family History (Last Updated 06/16/18 @ 13:07 by Cristin Lowry MD) Mother Stroke Diabetes Father Bladder cancer - Social History I have reviewed the patient's Social History: Yes - Tobacco History Second Hand Smoke Exposure: No Tobacco Use In Past 30 Days: No Smoking Status: Former smoker (Quit in his 20s) Tobacco Type: Cigarettes - Alcohol History How Often Do You Have a Drink Containing Alcohol: Never - Substance Use History Substance History: No History of Abuse - Travel History Recent Travel in the [place] Within the Last 8 Weeks: No Recent Travel Out of the Country Within the Last 8 Weeks: No - Immunization History Tetanus Immunization: >5 Years Hx Influenza Vaccine This Season: Yes Medications and Allergies Active Medications: Active Medications Sodium Chloride (Ns Flush) 2 ml IV.FLUSH UNSCH PRN PRN Reason: FLUSH AFTER USING IV ACCESS Last Admin: 06/16/18 10:56 Dose: 2 ml Allergies Allergy/AdvReac Type Severity Reaction Status Date / Time losartan Allergy Unknown Anaphylaxis Verified 06/16/18 11:01 Home Medications Medication Instructions Recorded Confirmed Type bumetanide 1 mg PO BID 06/16/18 06/16/18 History furosemide 40 mg PO BID 06/16/18 06/16/18 History warfarin [Coumadin] 5 mg PO BID 06/16/18 06/16/18 History Exam Vital signs: Vital Signs 06/16/18 10:26 06/16/18 10:37 06/16/18 10:53 Temperature 97.6 F Pulse Rate 57 L 60 82 Respiratory Rate 20 32 H Blood Pressure 147/68 H 161/73 H Pulse Oximetry 98 98 98 06/16/18 11:56 06/16/18 12:33 Temperature Pulse Rate 64 Respiratory Rate 18 22 Blood Pressure 135/64 Pulse Oximetry 96 Intake & Output 06/15/18 06/16/18 06/16/18 18:59 06:59 18:59 Weight 58.967 kg Narrative: GENERAL: WN, WD male resting in bed in [facility]. SKIN: Warm and dry. HEENT: AT/NC. Pupils equal and round. MMM. NECK: Supple no tender LAD or JVD. HEART: Distant heart sounds but regular rate and rhythm appreciated. 1/6 MERT. LUNGS: Diminish and course breath sounds over right lung bowie. Left lung bowie clear. ABDOMEN: Large, bilobed, reducible umbilical hernia. +fluid shift and ascites. Abdomen nontender. EXTREMITIES: 2+ pitting edema of RLE, trace pitting edema of LLE. NEURO: Awake and alert. PSYCH: Appropriate mood and affect. Results - Labs CBC & Chem 7: 06/16/18 11:00 06/16/18 11:00 Labs: Short CBC 06/16/18 Range/Units 11:00 WBC 4.6 (4.0-11.0) th/mm3 Hgb 11.3 L (13.0-17.0) gm/dL Hct 34.5 L (39.0-51.0) % Plt Count 184 (150-450) th/mm3 BMP 06/16/18 11:00 Sodium 141 Potassium 3.8 Chloride 103 Carbon Dioxide 26.6 BUN 30 H Creatinine 1.84 H Calcium 8.4 L Cardiac Enzymes 06/16/18 Range/Units 11:00 Total Creatine Kinase 109 (39-308) U/L CK-MB (CK-2) 1.7 (0.5-3.6) ng/mL Troponin I 0.04 (0.02-0.05) ng/mL Liver Function 06/16/18 Range/Units 11:00 Total Bilirubin 3.2 H (0.2-1.0) mg/dL AST 35 (15-37) U/L ALT 19 (12-78) U/L Alkaline Phosphatase 306 H (45-117) U/L Albumin 2.8 L (3.4-5.0) g/dL - Imaging Impressions Chest X-Ray 06/16/18 10:43 CONCLUSION: Consolidation pleural effusion right lung base increased since November. Left lungs grossly clear. Cardiomegaly remains. Venous Doppler Study 06/16/18 10:43 CONCLUSION: 1. Normal study Caprini VTE Risk Assessment Caprini VTE Risk Assessment: Moderate/High Risk (score >= 2) VTE Pharmacological Exception Reason: Coagulopathy,INR elevated Caprini Risk Assessment Model: Point Value = 1 Point Value = 2 Point Value = 3 Point Value = 5 Age 41-60 Minor surgery BMI > 25 kg/m2 Swollen legs Varicose veins or History of unexplained or recurrent spontaneous Oral contraceptives or hormone replacement Sepsis (< 1 month) Serious lung disease, including pneumonia (< 1 month) Abnormal pulmonary function Acute myocardial infarction Congestive heart failure (< 1 month) History of inflammatory bowel disease Medical patient at bed rest Age 61-74 Arthroscopic surgery Major open surgery (> 45 min) Laparoscopic surgery (> 45 min) Malignancy Confined to bed (> 72 hours) Immobilizing plaster cast Central venous access Age >= 75 History of VTE Family history of VTE Factor V Leiden Prothrombin [id number] Lupus anticoagulant Anticardiolipin antibodies Elevated serum homocysteine Heparin-induced thrombocytopenia Other congenital or acquired thrombophilia Stroke (< 1 month) Elective arthroplasty Hip, pelvis, or leg fracture Acute spinal cord injury (< 1 month) Prophylaxis Regimen: Total Risk Factor Score Risk Level Prophylaxis Regimen 0-1 Low Early ambulation 2 Moderate Order ONE of the following: *Sequential Compression Device (SCD) *Heparin 5000 units SQ BID 3-4 Higher Order ONE of the following medications: *Heparin 5000 units SQ TID *Enoxaparin/Lovenox 40 mg SQ daily (WT < 150 kg, CrCl > 30 mL/min) *Enoxaparin/Lovenox 30 mg SQ daily (WT < 150 kg, CrCl > 10-29 mL/min) *Enoxaparin/Lovenox 30 mg SQ BID (WT < 150 kg, CrCl > 30 mL/min) AND/OR *Sequential Compression Device (SCD) 5 or more Highest Order ONE of the following medications: *Heparin 5000 units SQ TID (Preferred with Epidurals) *Enoxaparin/Lovenox 40 mg SQ daily (WT < 150 kg, CrCl > 30 mL/min) *Enoxaparin/Lovenox 30 mg SQ daily (WT < 150 kg, CrCl > 10-29 mL/min) *Enoxaparin/Lovenox 30 mg SQ BID (WT < 150 kg, CrCl > 30 mL/min) AND *Sequential Compression Device (SCD) Assessment and Plan - Assessment (1) Pleural effusion Code(s): J90 - Pleural effusion, not elsewhere classified Status: Acute (2) Shortness of breath Code(s): R06.02 - Shortness of breath Status: Acute (3) Congestive heart failure Code(s): I50.9 - Heart failure, unspecified Status: Acute (4) Ascites Code(s): R18.8 - Other ascites Status: Acute - Plan 47 year old male with history of transposition of the great vessels, mitral valve replacement x 2, pacemaker, CHF, CKD, large umbilical hernia, and recurrent ascites/pleural effusions presenting initially for symptoms of chest wall pain and found to be in CHF exacerbation. 1. CHF exacerbation - CXR showing cardiomegaly and right lung pleural effusion increased since last November - BNP elevated at 4322, was around 900 in November - Troponin 0.04 likely secondary to heart strain - Lasix 40 mg IV Q12 with potassium supplementation - Supplemental O2 PRN - Check 2D echo since it has been >6 months and patient missed his last appt with Dr. Obregon - Doppler U/S ordered for RLE edema>LLE, negative for DVT - Strict I/Os - Fluid and sodium restriction - Elevate HOB 2. Chest wall pain - No active chest pain during encounter - Troponin 0.04, EKG is paced - Seems musculoskeletal in origin since pain is positional and started when he reached for something - Tylenol PRN 3. Mitral valve replacement - Anticoagulated on Coumadin but INR supratherapeutic at 4.4 - Hold Coumadin in light of supratherapeutic INR and in anticipation of thora/ paracentesis - Recheck INR tomorrow, if it doesn't fall a significant amount then administer 2 units FFP so procedure can be expedited - Can put on heparin gtt while waiting for procedure when INR falls to a normal level 4. Right pleural effusion - CXR demonstrating large right pleural effusion that has increased when compared to November and at that time patient was tapped nearly 2L - Lasix 40 mg IV BID - Consult IR for thoracentesis to hopefully be done in next few days if INR <1.5 5. Ascites - Last tap was 2017 and 6L was removed - Lasix as above - Consult IR for paracentesis 6. CKD stage III - Creatinine is stable around baseline - Avoid nephrotoxic agents - Renally dose meds DVT prophylaxis: supratherapeutic INR at this time, holding anticoagulation Code Status: FULL Discussed Condition With: Patient and Dr. Balderas (3) Congestive heart failure Qualifiers: Heart failure type: unspecified Heart failure chronicity: acute Qualified Code(s): I50.9 - Heart failure, unspecified (4) Ascites Qualifiers: Ascites type: other type Qualified Code(s): R18.8 - Other ascites
--- NOTE | 2018-06-16 14:45 | US ---
EXAM DATE: 06/16/2018 2:38 PM EDT AGE/SEX: 47 years / Male INDICATIONS: Abdominal distention. Ascites. CLINICAL DATA: This is the patient's subsequent encounter. Patient reports that signs and symptoms h ave been present for 1 day and indicates a pain score of 5/10. MEDICAL/SURGICAL HISTORY: . Great vessels transposition. Mitral valve regurgitation. Umbilical hernia. Ascites. . Automated implantable cardioverter-defibrillator. . Cardiac catheterization. COMPARISON: C, US GUIDED ABD PARACENTESIS, 11/16/2017. C, US GUIDED ABD PARACENTESIS, 11/18/19 17. . FINDINGS: Masses: None Fluid Collections: Large volume ascites identified within the right lower quadrant and to a lesser ex tent the left lower quadrant. Other: None. CONCLUSION: 1. Large volume of uncomplicated appearing ascites. Electronically signed by: Andreia Herbert MD 06/16/2018 2:44 PM EDT
[2018-06-16] MEDS: Benzonatate 100 MG Capsule PO PRN (17:03)
[2018-06-16] MEDS: Senna/Docusate Sodium 8.6/50 MG Tablet PO SCH (20:56)
[2018-06-17] MEDS: Benzonatate 100 MG Capsule PO PRN ×3 (00:40→16:59)
[2018-06-17] MEDS: Senna/Docusate Sodium 8.6/50 MG Tablet PO SCH ×2 (08:49→22:00)
[2018-06-17 09:19] LABS: Eos % (Auto) 0.9 % (0.0-4.0); Hematocrit 32.4 % (39.0-51.0); Hemoglobin 10.6 gm/dL (13.0-17.0); Lymph # (Auto) 0.3 th/mm3 (1.0-4.8); Lymph % (Auto) 6.4 % (9.0-44.0); Mean Corpuscular HGB Conc 32.7 % (32.0-36.0); Mean Corpuscular Hemoglobin 25.8 pg (27.0-34.0); Mean Corpuscular Volume 78.9 fL (80.0-100.0); Mean Platelet Volume 10.5 fL (7.0-11.0); Mono # (Auto) 0.7 th/mm3 (0.0-0.9); Mono % (Auto) 16.6 % (0.0-8.0); Neut # (Auto) 3.4 th/mm3 (1.8-7.7); Neut % (Auto) 75.1 % (16.0-70.0); Platelet Count 161 th/mm3 (150-450); Red Cell Distribution Width 20.7 % (11.6-17.2); White Blood Count 4.5 th/mm3 (4.0-11.0)
[2018-06-17 09:22] LABS: Prothrombin Time 39.8 sec (9.8-11.6)
[2018-06-17 09:46] LABS: Calcium 8.8 mg/dL (8.5-10.1); Carbon Dioxide 26.1 meq/L (21.0-32.0); Potassium 4.4 meq/L (3.5-5.1)
--- NOTE | 2018-06-17 13:16 | ECG ---
Date Performed: 06/16/2018 Time Performed: 10:43:32 PTAGE: 47 years EKG: ELECTRONIC VENTRICULAR PACEMAKER ABNORMAL RHYTHM ECG INTERPRETATION BASED ON A DEFAULT AGE OF 40 YEARS PREVIOUS TRACING : 11/14/2017 11.54 Since the previous tracing, no significant change not ed DOCTOR: Ten Cisneros Interpretating Date/Time 06/17/2018 13:14:59
--- NOTE | 2018-06-17 14:50 | P.PNIM ---
Subjective Interval history: 47 year old male with history of transposition of the great vessels, mitral valve replacement x 2, pacemaker, CHF, CKD, large umbilical hernia, and recurrent ascites/pleural effusions presenting initially for symptoms of chest wall pain. He states two days ago he feels like he pulled a muscle in his chest when he reached for something and since then he has an "ache " with certain positions. Denies chest pain at rest or exertional chest pain. Denies jaw or arm pain, dizziness, or diaphoresis. In the ED, he was noted to be tachypneic with respiratory rate in the 30s and when further inquired the patient states he has been breathing like that for at least three weeks. During this time he has also had a dry cough. He states he has been under a lot of stress recently regarding his family. He lives alone but is the only local family member who is able to take care of his mother who lives in a jail. He states he got into a verbal argument with one of his brothers about six weeks ago and that is when he first noticed his right leg was swollen. He states he had attributed the swelling to his nerves and being worked up. The patient denies any fever or chills. He states in the past he has had about 5 or 6 paracenteses and thoracenteses, most recently about six months ago when 1.9 L was removed from his chest and 6L was removed from his abdomen. He follows with Dr. Obregon (boom operator) and Dr. Bhakta (PCP). He is anticoagulated on Coumadin and his last outpatient INR check was 3.4 about a month ago. He states his INR is kept between 2.5 and 3.5. He denies any bleeding from any site. He has been recommended to have a heart transplant when he was evaluated at [facility] in the past but the patient states he does not want this. 9-9 WILL CONTINUE TO DIURESE NEEDS ECHO WHICH HAS NOT BEEN DONE YET DW RN AND PT AND CM AM LABS PT AND OT DAILY PT INR PARACENTESIS VS THORACENTESIS Physical Exam Vital signs: Vital Signs 06/16/18 16:00 06/16/18 20:00 06/17/18 00:00 Temperature 97.2 F L 98.9 F 97.6 F Pulse Rate 60 62 59 L Respiratory Rate 16 18 16 Blood Pressure 132/76 106/55 L 94/54 L Pulse Oximetry 97 94 L 95 06/17/18 04:00 06/17/18 08:00 06/17/18 09:00 Temperature 97.6 F 97.4 F L Pulse Rate 58 L 60 68 Respiratory Rate 18 18 Blood Pressure 114/73 127/68 Pulse Oximetry 94 L 96 06/17/18 12:00 Temperature 97.4 F L Pulse Rate 60 Respiratory Rate 18 Blood Pressure 138/82 Pulse Oximetry 99 Intake & Output 06/16/18 06/17/18 06/17/18 18:59 06:59 18:59 Weight 58.967 kg 57.9 kg Narrative: GENERAL: WN, WD male resting in bed in NAD. SKIN: Warm and dry. HEENT: AT/NC. Pupils equal and round. MMM. NECK: Supple no tender LAD or JVD. HEART: Distant heart sounds but regular rate and rhythm appreciated. 1/6 MERT. LUNGS: Diminish and course breath sounds over right lung bowie. Left lung bowie clear. ABDOMEN: Large, bilobed, reducible umbilical hernia. +fluid shift and ascites. Abdomen nontender. EXTREMITIES: 2+ pitting edema of RLE, trace pitting edema of LLE. NEURO: Awake and alert. PSYCH: Appropriate mood and affect. Results - Labs CBC & Chem 7: 06/17/18 04:43 06/17/18 04:43 Laboratory Results - last 24 hr 06/17/18 06/17/18 06/17/18 04:43 04:43 04:43 WBC 4.5 RBC 4.10 L Hgb 10.6 L Hct 32.4 L MCV 78.9 L MCH 25.8 L MCHC 32.7 RDW 20.7 H Plt Count 161 MPV 10.5 Neut % (Auto) 75.1 H Lymph % (Auto) 6.4 L Gove % (Auto) 16.6 H Eos % (Auto) 0.9 Baso % (Auto) 1.0 Neut # (Auto) 3.4 Lymph # (Auto) 0.3 L Gove # (Auto) 0.7 Eos # (Auto) 0.0 Baso # (Auto) 0.0 WBC Differential . Differential Comment Auto diff final PT 39.8 H INR 4.0 Sodium Potassium Chloride Carbon Dioxide Anion Gap BUN Creatinine Estimated GFR Random Glucose Calcium B-Natriuretic Peptide 1349 H 06/17/18 04:43 WBC RBC Hgb Hct MCV MCH MCHC RDW Plt Count MPV Neut % (Auto) Lymph % (Auto) Gove % (Auto) Eos % (Auto) Baso % (Auto) Neut # (Auto) Lymph # (Auto) Gove # (Auto) Eos # (Auto) Baso # (Auto) WBC Differential Differential Comment PT INR Sodium 137 Potassium 4.4 Chloride 102 Carbon Dioxide 26.1 Anion Gap 9 BUN 35 H Creatinine 1.93 H Estimated GFR 45 L Random Glucose 76 D Calcium 8.8 B-Natriuretic Peptide - Imaging Impressions Abdomen Ultrasound 06/16/18 00:00 CONCLUSION: 1. Large volume of uncomplicated appearing ascites. - Procedures NONE Assessment and Plan - Assessment (1) Pleural effusion Code(s): J90 - Pleural effusion, not elsewhere classified Status: Acute (2) Shortness of breath Code(s): R06.02 - Shortness of breath Status: Acute (3) Congestive heart failure Code(s): I50.9 - Heart failure, unspecified Status: Acute (4) Ascites Code(s): R18.8 - Other ascites Status: Acute - Plan 47 year old male with history of transposition of the great vessels, mitral valve replacement x 2, pacemaker, CHF, CKD, large umbilical hernia, and recurrent ascites/pleural effusions presenting initially for symptoms of chest wall pain and found to be in CHF exacerbation. 1. CHF exacerbation - CXR showing cardiomegaly and right lung pleural effusion increased since last November - BNP elevated at 4322, was around 900 in November - Troponin 0.04 likely secondary to heart strain - Lasix 40 mg IV Q12 with potassium supplementation - Supplemental O2 PRN - Check 2D echo since it has been >6 months and patient missed his last appt with Dr. Obregon - Doppler U/S ordered for RLE edema>LLE, negative for DVT - Strict I/Os - Fluid and sodium restriction - Elevate HOB 2. Chest wall pain - No active chest pain during encounter - Troponin 0.04, EKG is paced - Seems musculoskeletal in origin since pain is positional and started when he reached for something - Tylenol PRN 3. Mitral valve replacement - Anticoagulated on Coumadin but INR supratherapeutic at 4.4 - Hold Coumadin in light of supratherapeutic INR and in anticipation of thora/ paracentesis - Recheck INR tomorrow, if it doesn't fall a significant amount then administer 2 units FFP so procedure can be expedited - Can put on heparin gtt while waiting for procedure when INR falls to a normal level WILL NEED HEPARIN IF INR < 2.5 4. Right pleural effusion - CXR demonstrating large right pleural effusion that has increased when compared to November and at that time patient was tapped nearly 2L - Lasix 40 mg IV BID - Consult IR for thoracentesis to hopefully be done in next few days if INR <1.5 5. Ascites - Last tap was 2017 and 6L was removed - Lasix as above - Consult IR for paracentesis 6. CKD stage III - Creatinine is stable around baseline - Avoid nephrotoxic agents - Renally dose meds DVT prophylaxis: supratherapeutic INR at this time, holding anticoagulation Code Status: FULL CODE Discussed Condition With: RN AND PT AND CM Discharge Planning: AFTER PARACENTESIS AND THORACENTESIS AND INR RELOADED (3) Congestive heart failure Qualifiers: Heart failure type: unspecified Heart failure chronicity: acute Qualified Code(s): I50.9 - Heart failure, unspecified (4) Ascites Qualifiers: Ascites type: other type Qualified Code(s): R18.8 - Other ascites
[2018-06-18 07:11] LABS: Hematocrit 31.7 % (39.0-51.0); Hemoglobin 10.7 gm/dL (13.0-17.0); Mean Corpuscular HGB Conc 33.7 % (32.0-36.0); Mean Corpuscular Hemoglobin 25.8 pg (27.0-34.0); Mean Corpuscular Volume 76.5 fL (80.0-100.0); Red Blood Count 4.14 mil/mm3 (4.50-5.90); Red Cell Distribution Width 20.4 % (11.6-17.2); White Blood Count 4.7 th/mm3 (4.0-11.0)
[2018-06-18 07:12] LABS: Baso % (Auto) 0.5 % (0.0-2.0); Eos # (Auto) 0.1 th/mm3 (0.0-0.4); Eos % (Auto) 1.3 % (0.0-4.0); Lymph # (Auto) 0.3 th/mm3 (1.0-4.8); Lymph % (Auto) 6.9 % (9.0-44.0); Mean Platelet Volume 10.4 fL (7.0-11.0); Mono # (Auto) 0.8 th/mm3 (0.0-0.9); Mono % (Auto) 17.2 % (0.0-8.0); Neut # (Auto) 3.5 th/mm3 (1.8-7.7); Neut % (Auto) 74.1 % (16.0-70.0); Platelet Count 173 th/mm3 (150-450)
[2018-06-18 07:26] LABS: INR 3.9 Ratio; Prothrombin Time 38.7 sec (9.8-11.6)
[2018-06-18 07:48] LABS: Albumin 2.4 g/dL (3.4-5.0); Anion Gap 8 meq/L (5-15); Aspartate Aminotransferase 28 U/L (15-37); Calcium 8.3 mg/dL (8.5-10.1); Carbon Dioxide 27.9 meq/L (21.0-32.0); Chloride 104 meq/L (98-107); Cholesterol 111 mg/dL (120-200); Glomerular Filtration Rate 46 mL/min (>89); Glucose,Random 74 mg/dL (74-106); Magnesium 1.9 mg/dL (1.5-2.5); Potassium 4.6 meq/L (3.5-5.1); Sodium 140 meq/L (136-145)
[2018-06-18 07:57] LABS: Alanine Aminotransferase 15 U/L (12-78); Alkaline Phosphatase 238 U/L (45-117); Blood Urea Nitrogen 37 mg/dL (7-18); Chol/HDL Ratio 4.53 Ratio; Free T4 (Free Thyroxine) 1.63 ng/dL (0.76-1.46); HDL Cholesterol 24.5 mg/dL (40.0-60.0); LDL Cholesterol,Calculated 70 mg/dL (0-99); Phosphorus 2.2 mg/dL (2.5-4.9); Total Protein 8.2 g/dL (6.4-8.2); Triglycerides 82 mg/dL (42-150)
[2018-06-18] MEDS: Senna/Docusate Sodium 8.6/50 MG Tablet PO SCH ×2 (10:05→20:32)
[2018-06-18] MEDS: Benzonatate 100 MG Capsule PO PRN ×2 (10:12→17:20)
--- NOTE | 2018-06-18 13:30 | P.PNIM ---
Subjective Interval history: 47 year old male with history of transposition of the great vessels, mitral valve replacement x 2, pacemaker, CHF, CKD, large umbilical hernia, and recurrent ascites/pleural effusions presenting initially for symptoms of chest wall pain. He states two days ago he feels like he pulled a muscle in his chest when he reached for something and since then he has an "ache " with certain positions. Denies chest pain at rest or exertional chest pain. Denies jaw or arm pain, dizziness, or diaphoresis. In the ED, he was noted to be tachypneic with respiratory rate in the 30s and when further inquired the patient states he has been breathing like that for at least three weeks. During this time he has also had a dry cough. He states he has been under a lot of stress recently regarding his family. He lives alone but is the only local family member who is able to take care of his mother who lives in a residential. He states he got into a verbal argument with one of his brothers about six weeks ago and that is when he first noticed his right leg was swollen. He states he had attributed the swelling to his nerves and being worked up. The patient denies any fever or chills. He states in the past he has had about 5 or 6 paracenteses and thoracenteses, most recently about six months ago when 1.9 L was removed from his chest and 6L was removed from his abdomen. He follows with Dr. Obregon (trestleman) and Dr. Bhakta (PCP). He is anticoagulated on Coumadin and his last outpatient INR check was 3.4 about a month ago. He states his INR is kept between 2.5 and 3.5. He denies any bleeding from any site. He has been recommended to have a heart transplant when he was evaluated at [facility] in the past but the patient states he does not want this. 9-9 WILL CONTINUE TO DIURESE NEEDS ECHO WHICH HAS NOT BEEN DONE YET DW RN AND PT AND CM AM LABS PT AND OT DAILY PT INR PARACENTESIS VS THORACENTESIS 9-10 INR NEEDS TO TREND DOWN WILL PROBABLY NEED FFP PRIOR TO PARA OR THORACENTESIS DW RN AND PT ABDOMEN IS QUITE DISTENDED Physical Exam Vital signs: Vital Signs 06/17/18 16:00 06/17/18 20:00 06/18/18 00:00 Temperature 98.2 F 98.4 F 99.1 F Pulse Rate 61 60 62 Respiratory Rate 18 18 18 Blood Pressure 113/66 103/51 L 120/59 L Pulse Oximetry 96 96 97 06/18/18 04:00 06/18/18 08:00 06/18/18 09:00 Temperature 98.0 F 97.4 F L Pulse Rate 66 60 59 L Respiratory Rate 18 17 Blood Pressure 101/57 L 117/56 L Pulse Oximetry 97 96 06/18/18 11:18 06/18/18 12:00 Temperature 97.5 F L Pulse Rate 63 Respiratory Rate 17 Blood Pressure 116/64 Pulse Oximetry 96 98 Intake & Output 06/17/18 06/18/18 06/18/18 18:59 06:59 18:59 Output Total 275 / 275 1050 / 1050 Balance -275 / -275 -1050 / -1050 Weight 60.2 kg Output: Urine 275 / 275 1050 / 1050 Narrative: GENERAL: WN, WD male resting in bed in [facility]. SKIN: Warm and dry. HEENT: AT/NC. Pupils equal and round. MMM. NECK: Supple no tender LAD or JVD. HEART: Distant heart sounds but regular rate and rhythm appreciated. 1/6 MERT. LUNGS: Diminish and course breath sounds over right lung bowie. Left lung bowie clear. ABDOMEN: Large, bilobed, reducible umbilical hernia. +fluid shift and ascites. Abdomen nontender.VERY DISTENDED EXTREMITIES: 2+ pitting edema of RLE, trace pitting edema of LLE. NEURO: Awake and alert. PSYCH: Appropriate mood and affect. Results - Labs CBC & Chem 7: 06/18/18 06:23 06/18/18 06:23 Laboratory Results - last 24 hr 06/18/18 06/18/18 06/18/18 06:23 06:23 06:23 WBC 4.7 RBC 4.14 L Hgb 10.7 L Hct 31.7 L MCV 76.5 L MCH 25.8 L MCHC 33.7 RDW 20.4 H Plt Count 173 MPV 10.4 Prelim Diff (Auto) Clerical Coordinator Neut % (Auto) 74.1 H Lymph % (Auto) 6.9 L [place]ade % (Auto) 17.2 H Eos % (Auto) 1.3 Baso % (Auto) 0.5 Neut # (Auto) 3.5 Lymph # (Auto) 0.3 L [place]ade # (Auto) 0.8 Eos # (Auto) 0.1 Baso # (Auto) 0.0 WBC Differential . Differential Comment Auto diff final PT 38.7 H INR 3.9 Sodium 140 Potassium 4.6 Chloride 104 Carbon Dioxide 27.9 Anion Gap 8 BUN 37 H Creatinine 1.92 H Estimated GFR 46 L Random Glucose 74 Calcium 8.3 L Phosphorus 2.2 L Magnesium 1.9 Total Bilirubin 3.2 H AST 28 ALT 15 Alkaline Phosphatase 238 H Total Protein 8.2 D Albumin 2.4 L Triglycerides 82 Cholesterol 111 L LDL Cholesterol, Calc 70 HDL Cholesterol 24.5 L Cholesterol/HDL Ratio 4.53 TSH 2.920 Free T4 1.63 H - Imaging Abdomen Ultrasound 06/16/18 00:00 CONCLUSION: 1. Large volume of uncomplicated appearing ascites. Chest X-Ray 06/16/18 10:43 CONCLUSION: Consolidation pleural effusion right lung base increased since November. Left lungs grossly clear. Cardiomegaly remains. Venous Doppler Study 06/16/18 10:43 CONCLUSION: 1. Normal study - Procedures NONE Assessment and Plan - Assessment (1) Pleural effusion Code(s): J90 - Pleural effusion, not elsewhere classified Status: Acute (2) Shortness of breath Code(s): R06.02 - Shortness of breath Status: Acute (3) Congestive heart failure Code(s): I50.9 - Heart failure, unspecified Status: Acute (4) Ascites Code(s): R18.8 - Other ascites Status: Acute - Plan 47 year old male with history of transposition of the great vessels, mitral valve replacement x 2, pacemaker, CHF, CKD, large umbilical hernia, and recurrent ascites/pleural effusions presenting initially for symptoms of chest wall pain and found to be in CHF exacerbation. 1. CHF exacerbation - CXR showing cardiomegaly and right lung pleural effusion increased since last November - BNP elevated at 4322, was around 900 in November - Troponin 0.04 likely secondary to heart strain - Lasix 40 mg IV Q12 with potassium supplementation - Supplemental O2 PRN - Check 2D echo since it has been >6 months and patient missed his last appt with Dr. Obregon - Doppler U/S ordered for RLE edema>LLE, negative for DVT - Strict I/Os - Fluid and sodium restriction - Elevate HOB CONTINUE TO DIURESE 2. Chest wall pain - No active chest pain during encounter - Troponin 0.04, EKG is paced - Seems musculoskeletal in origin since pain is positional and started when he reached for something - Tylenol PRN 3. Mitral valve replacement - Anticoagulated on Coumadin but INR supratherapeutic at 4.4 - Hold Coumadin in light of supratherapeutic INR and in anticipation of thora/ paracentesis - Recheck INR tomorrow, if it doesn't fall a significant amount then administer 2 units FFP so procedure can be expedited - Can put on heparin gtt while waiting for procedure when INR falls to a normal level WILL NEED HEPARIN IF INR < 2.5 WAIT FOR INR TO DECREASE DOWN 4. Right pleural effusion - CXR demonstrating large right pleural effusion that has increased when compared to November and at that time patient was tapped nearly 2L - Lasix 40 mg IV BID - Consult IR for thoracentesis to hopefully be done in next few days if INR <1.5 5. Ascites - Last tap was 2017 and 6L was removed - Lasix as above - Consult IR for paracentesis 6. CKD stage III - Creatinine is stable around baseline - Avoid nephrotoxic agents - Renally dose meds DVT prophylaxis: supratherapeutic INR at this time, holding anticoagulation Code Status: FULL CODE Discussed Condition With: RN AND PT AND CM Discharge Planning: AFTER PARACENTESIS AND THORACENTESIS AND INR RELOADED (3) Congestive heart failure Qualifiers: Heart failure type: unspecified Heart failure chronicity: acute Qualified Code(s): I50.9 - Heart failure, unspecified (4) Ascites Qualifiers: Ascites type: other type Qualified Code(s): R18.8 - Other ascites
[2018-06-18 15:37] LABS: Hemoglobin A1c 6.1 % (4.3-6.0)
--- NOTE | 2018-06-18 18:29 | ECHRPT ---
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 The left ventricular systolic function is severely reduced with an estimated ejection fraction less than 20%. The right ventricle is severely dilated. Mechanical mitral valve appears to be bileaflet, with both leaflets moving. Mild aortic valve regurgitation. There is severe tricuspid regurgitation. There is estimated [id number] pulmonary hypertension present (range 60-70 mmHg). BP: / HR: Rhythm: MEASUREMENTS (Male / Female) Normal Values Technical Quality: DOPPLER AV Peak Velocity 286.0 cm/s AV Peak Gradient 32.7 mmHg AV Mean Gradient 16.0 mmHg AV Velocity Time Integral 79.2 cm LVOT Peak Velocity 95.6 cm/s LVOT Peak Gradient 3.7 mmHg TR Peak Velocity 364.0 cm/s TR Peak Gradient 53.0 mmHg Right Atrial Pressure 15.0 mmHg Pulmonary Artery Systolic Pressu 68.0 mmHg Right Ventricular Systolic Press 68.0 mmHg FINDINGS LEFT VENTRICLE The left ventricular systolic function is severely reduced with an estimated ejection fraction less than 20%. RIGHT VENTRICLE The right ventricle is severely dilated. The right ventricular systoilc function is moderately decreased. A pacemaker wire is noted. LEFT ATRIUM The left atrial size is severely dilated. RIGHT ATRIUM The right atrial size is severely dilated. There is a pacemaker wire present in the right atrial cavity. ATRIAL SEPTUM The interatrial septum not well visualized. No shunt noted AORTA The aortic root and proximal ascending aorta are not well visualized. MITRAL VALVE Mechanical mitral valve appears to be bileaflet, with both leaflets moving. AORTIC VALVE Grossly normal Mild aortic valve regurgitation. No aortic valve stenosis. TRICUSPID VALVE There is severe tricuspid regurgitation. No tricuspid valve stenosis. There is estimated [id number] pulmonary hypertension present (range 60-70 mmHg). PULMONARY VALVE No pulmonary valve regurgitation or stenosis. Mitch Portillo DO (Electronically Signed) Final Date:18 June 2018 18:28
[2018-06-19] MEDS: Senna/Docusate Sodium 8.6/50 MG Tablet PO SCH ×2 (08:43→20:05)
[2018-06-19 09:09] LABS: Baso # (Auto) 0.1 th/mm3 (0.0-0.2); Baso % (Auto) 1.3 % (0.0-2.0); Eos # (Auto) 0.1 th/mm3 (0.0-0.4); Eos % (Auto) 1.3 % (0.0-4.0); Hematocrit 29.8 % (39.0-51.0); Lymph # (Auto) 0.3 th/mm3 (1.0-4.8); Lymph % (Auto) 6.5 % (9.0-44.0); Mean Corpuscular HGB Conc 33.5 % (32.0-36.0); Mean Corpuscular Hemoglobin 25.7 pg (27.0-34.0); Mean Corpuscular Volume 76.8 fL (80.0-100.0); Mean Platelet Volume 10.4 fL (7.0-11.0); Mono # (Auto) 0.8 th/mm3 (0.0-0.9); Neut # (Auto) 3.6 th/mm3 (1.8-7.7); Neut % (Auto) 74.9 % (16.0-70.0); Platelet Count 164 th/mm3 (150-450); Red Blood Count 3.88 mil/mm3 (4.50-5.90); Red Cell Distribution Width 20.2 % (11.6-17.2); White Blood Count 4.8 th/mm3 (4.0-11.0)
[2018-06-19 09:24] LABS: INR 3.3 Ratio; Prothrombin Time 33.6 sec (9.8-11.6)
[2018-06-19 09:37] LABS: Albumin 2.5 g/dL (3.4-5.0); Anion Gap 8 meq/L (5-15); Aspartate Aminotransferase 31 U/L (15-37); Blood Urea Nitrogen 41 mg/dL (7-18); Calcium 8.7 mg/dL (8.5-10.1); Carbon Dioxide 27.6 meq/L (21.0-32.0); Chloride 103 meq/L (98-107); Glomerular Filtration Rate 44 mL/min (>89); Glucose,Random 151 mg/dL (74-106); Magnesium 1.9 mg/dL (1.5-2.5); Potassium 4.2 meq/L (3.5-5.1); Sodium 139 meq/L (136-145)
[2018-06-19 09:39] LABS: Alanine Aminotransferase 15 U/L (12-78); Phosphorus 2.1 mg/dL (2.5-4.9)
[2018-06-19 09:40] LABS: Alkaline Phosphatase 259 U/L (45-117); Total Protein 7.9 g/dL (6.4-8.2)
[2018-06-19] MEDS ORDERED: Phytonadione 5 MG/SWFI 5 ML Oral Syringe PO ONE (15:09)
--- NOTE | 2018-06-19 15:09 | P.PNIM ---
Subjective Interval history: 47 year old male with history of transposition of the great vessels, mitral valve replacement x 2, pacemaker, CHF, CKD, large umbilical hernia, and recurrent ascites/pleural effusions presenting initially for symptoms of chest wall pain. He states two days ago he feels like he pulled a muscle in his chest when he reached for something and since then he has an "ache " with certain positions. Denies chest pain at rest or exertional chest pain. Denies jaw or arm pain, dizziness, or diaphoresis. In the ED, he was noted to be tachypneic with respiratory rate in the 30s and when further inquired the patient states he has been breathing like that for at least three weeks. During this time he has also had a dry cough. He states he has been under a lot of stress recently regarding his family. He lives alone but is the only local family member who is able to take care of his mother who lives in a prison. He states he got into a verbal argument with one of his brothers about six weeks ago and that is when he first noticed his right leg was swollen. He states he had attributed the swelling to his nerves and being worked up. The patient denies any fever or chills. He states in the past he has had about 5 or 6 paracenteses and thoracenteses, most recently about six months ago when 1.9 L was removed from his chest and 6L was removed from his abdomen. He follows with Dr. Obregon (setter off) and Dr. Bhakta (PCP). He is anticoagulated on Coumadin and his last outpatient INR check was 3.4 about a month ago. He states his INR is kept between 2.5 and 3.5. He denies any bleeding from any site. He has been recommended to have a heart transplant when he was evaluated at [facility] in the past but the patient states he does not want this. 9-9 WILL CONTINUE TO DIURESE NEEDS ECHO WHICH HAS NOT BEEN DONE YET DW RN AND PT AND CM AM LABS PT AND OT DAILY PT INR PARACENTESIS VS THORACENTESIS 9-10 INR NEEDS TO TREND DOWN WILL PROBABLY NEED FFP PRIOR TO PARA OR THORACENTESIS DW RN AND PT ABDOMEN IS QUITE DISTENDED 9-11 INR SLOWLY TRENDING DOWN WILL LET TREND DOWN NATURALLY CONSULT CARDIOLOGY CAN DO PARACENTESIS AND THORACENTESIS Physical Exam Vital signs: Vital Signs 06/18/18 15:26 06/18/18 16:00 06/18/18 20:00 Temperature 97.2 F L 98.3 F Pulse Rate 59 L 62 Respiratory Rate 18 18 Blood Pressure 141/70 H 101/52 L Pulse Oximetry 98 98 94 L 06/19/18 00:00 06/19/18 04:00 06/19/18 08:00 Temperature 98.1 F 97.1 F L 97.9 F Pulse Rate 60 57 L 58 L Respiratory Rate 18 18 18 Blood Pressure 114/51 L 112/58 L 135/81 Pulse Oximetry 99 97 96 06/19/18 09:00 06/19/18 11:00 06/19/18 12:00 Temperature 98.0 F Pulse Rate 62 60 Respiratory Rate 19 Blood Pressure 120/71 Pulse Oximetry 97 99 Intake & Output 06/18/18 06/19/18 06/19/18 18:59 06:59 18:59 Intake Total 930 / 930 360 / 360 Output Total 725 / 725 900 / 900 Balance 205 / 205 -540 / -540 Weight 61 kg Intake: Oral 930 / 930 360 / 360 Output: Urine 725 / 725 900 / 900 Other: # Voids 3 Date of Last Bowel Movement 06/18/18 06/18/18 06/18/18 # Bowel Movements 1 Narrative: GENERAL: WN, WD male resting in bed in [facility]. SKIN: Warm and dry. HEENT: AT/NC. Pupils equal and round. MMM. NECK: Supple no tender LAD or JVD. HEART: Distant heart sounds but regular rate and rhythm appreciated. 1/6 MERT. LUNGS: Diminish and course breath sounds over right lung bowie. Left lung bowie clear. ABDOMEN: Large, bilobed, reducible umbilical hernia. +fluid shift and ascites. Abdomen nontender.VERY DISTENDED EXTREMITIES: 2+ pitting edema of RLE, trace pitting edema of LLE. NEURO: Awake and alert. PSYCH: Appropriate mood and affect. Results - Labs CBC & Chem 7: 06/19/18 07:31 06/19/18 07:31 Laboratory Results - last 24 hr 06/18/18 06/19/18 06/19/18 06:23 07:31 07:31 WBC 4.8 RBC 3.88 L Hgb 10.0 L Hct 29.8 L MCV 76.8 L MCH 25.7 L MCHC 33.5 RDW 20.2 H Plt Count 164 MPV 10.4 Neut % (Auto) 74.9 H Lymph % (Auto) 6.5 L Gray % (Auto) 16.0 H Eos % (Auto) 1.3 Baso % (Auto) 1.3 Neut # (Auto) 3.6 Lymph # (Auto) 0.3 L Gray # (Auto) 0.8 Eos # (Auto) 0.1 Baso # (Auto) 0.1 WBC Differential . Differential Comment Auto diff final PT 33.6 H INR 3.3 Sodium Potassium Chloride Carbon Dioxide Anion Gap BUN Creatinine Estimated GFR Random Glucose Hemoglobin A1c 6.1 H Calcium Phosphorus Magnesium Total Bilirubin AST ALT Alkaline Phosphatase Total Protein Albumin 06/19/18 07:31 WBC RBC Hgb Hct MCV MCH MCHC RDW Plt Count MPV Neut % (Auto) Lymph % (Auto) Gray % (Auto) Eos % (Auto) Baso % (Auto) Neut # (Auto) Lymph # (Auto) Gray # (Auto) Eos # (Auto) Baso # (Auto) WBC Differential Differential Comment PT INR Sodium 139 Potassium 4.2 Chloride 103 Carbon Dioxide 27.6 Anion Gap 8 BUN 41 H Creatinine 1.97 H Estimated GFR 44 L Random Glucose 151 H Hemoglobin A1c Calcium 8.7 Phosphorus 2.1 L Magnesium 1.9 Total Bilirubin 2.8 H AST 31 ALT 15 Alkaline Phosphatase 259 H Total Protein 7.9 Albumin 2.5 L - Procedures NONE Assessment and Plan - Assessment (1) Pleural effusion Code(s): J90 - Pleural effusion, not elsewhere classified Status: Acute (2) Shortness of breath Code(s): R06.02 - Shortness of breath Status: Acute (3) Congestive heart failure Code(s): I50.9 - Heart failure, unspecified Status: Acute (4) Ascites Code(s): R18.8 - Other ascites Status: Acute - Plan 47 year old male with history of transposition of the great vessels, mitral valve replacement x 2, pacemaker, CHF, CKD, large umbilical hernia, and recurrent ascites/pleural effusions presenting initially for symptoms of chest wall pain and found to be in CHF exacerbation. 1. CHF exacerbation - CXR showing cardiomegaly and right lung pleural effusion increased since last November - BNP elevated at 4322, was around 900 in November - Troponin 0.04 likely secondary to heart strain - Lasix 40 mg IV Q12 with potassium supplementation - Supplemental O2 PRN - Check 2D echo since it has been >6 months and patient missed his last appt with Dr. Obregon - Doppler U/S ordered for RLE edema>LLE, negative for DVT - Strict I/Os - Fluid and sodium restriction - Elevate HOB CONTINUE TO DIURESE EF OF LEST THAN 20% 2. Chest wall pain - No active chest pain during encounter - Troponin 0.04, EKG is paced - Seems musculoskeletal in origin since pain is positional and started when he reached for something - Tylenol PRN 3. Mitral valve replacement - Anticoagulated on Coumadin but INR supratherapeutic at 4.4 - Hold Coumadin in light of supratherapeutic INR and in anticipation of thora/ paracentesis - Recheck INR tomorrow, if it doesn't fall a significant amount then administer 2 units FFP so procedure can be expedited - Can put on heparin gtt while waiting for procedure when INR falls to a normal level WILL NEED HEPARIN IF INR < 2.5 WAIT FOR INR TO DECREASE DOWN WILL GIVE VITAMIN K 1MG WILL NEED HEPARIN IF INR<2.5 4. Right pleural effusion - CXR demonstrating large right pleural effusion that has increased when compared to November and at that time patient was tapped nearly 2L - Lasix 40 mg IV BID - Consult IR for thoracentesis to hopefully be done in next few days if INR <1.5 5. Ascites - Last tap was 2017 and 6L was removed - Lasix as above - Consult IR for paracentesis 6. CKD stage III - Creatinine is stable around baseline - Avoid nephrotoxic agents - Renally dose meds DVT prophylaxis: supratherapeutic INR at this time, holding anticoagulation Code Status: FULL CODE Discussed Condition With: RN AND PT AND CM Discharge Planning: AFTER PARACENTESIS AND THORACENTESIS AND INR RELOADED (3) Congestive heart failure Qualifiers: Heart failure type: unspecified Heart failure chronicity: acute Qualified Code(s): I50.9 - Heart failure, unspecified (4) Ascites Qualifiers: Ascites type: other type Qualified Code(s): R18.8 - Other ascites
[2018-06-19] MEDS: Benzonatate 100 MG Capsule PO PRN (18:04)
[2018-06-20 07:11] LABS: Baso % (Auto) 0.8 % (0.0-2.0); Eos # (Auto) 0.1 th/mm3 (0.0-0.4); Eos % (Auto) 2.3 % (0.0-4.0); Hematocrit 28.7 % (39.0-51.0); Hemoglobin 9.5 gm/dL (13.0-17.0); Lymph # (Auto) 0.3 th/mm3 (1.0-4.8); Lymph % (Auto) 7.2 % (9.0-44.0); Mean Corpuscular HGB Conc 33.1 % (32.0-36.0); Mean Corpuscular Hemoglobin 25.8 pg (27.0-34.0); Mean Corpuscular Volume 77.9 fL (80.0-100.0); Mean Platelet Volume 9.9 fL (7.0-11.0); Mono # (Auto) 0.8 th/mm3 (0.0-0.9); Neut # (Auto) 3.4 th/mm3 (1.8-7.7); Neut % (Auto) 72.7 % (16.0-70.0); Platelet Count 156 th/mm3 (150-450); Red Blood Count 3.68 mil/mm3 (4.50-5.90); Red Cell Distribution Width 20.6 % (11.6-17.2); White Blood Count 4.7 th/mm3 (4.0-11.0)
[2018-06-20 07:16] LABS: INR 2.1 Ratio; Prothrombin Time 21.4 sec (9.8-11.6)
[2018-06-20 07:52] LABS: Alanine Aminotransferase 16 U/L (12-78); Albumin 2.3 g/dL (3.4-5.0); Anion Gap 8 meq/L (5-15); Aspartate Aminotransferase 28 U/L (15-37); Blood Urea Nitrogen 39 mg/dL (7-18); Calcium 8.7 mg/dL (8.5-10.1); Carbon Dioxide 29.5 meq/L (21.0-32.0); Chloride 105 meq/L (98-107); Glomerular Filtration Rate 49 mL/min (>89); Glucose,Random 126 mg/dL (74-106); Magnesium 2.1 mg/dL (1.5-2.5); Phosphorus 2.2 mg/dL (2.5-4.9); Potassium 4.3 meq/L (3.5-5.1); Sodium 142 meq/L (136-145)
[2018-06-20 07:53] LABS: Alkaline Phosphatase 249 U/L (45-117); Total Protein 7.8 g/dL (6.4-8.2)
[2018-06-20] MEDS: Senna/Docusate Sodium 8.6/50 MG Tablet PO SCH ×2 (08:52→21:15)
[2018-06-20] MEDS ORDERED: Potassium Phosphate 500 MG Soluble Tablet PO ONE (09:38)
[2018-06-20] MEDS: Benzonatate 100 MG Capsule PO PRN ×2 (13:17→21:12)
--- NOTE | 2018-06-20 14:41 | P.PNIM ---
Subjective Interval history: No new symptoms. INR is 2.1 today. Heparin bridge initiated. Physical Exam Vital signs: Vital Signs 06/19/18 16:00 06/19/18 20:00 06/20/18 00:00 Temperature 97.9 F 97.9 F 97.5 F L Pulse Rate 60 60 60 Respiratory Rate 19 20 18 Blood Pressure 107/47 L 104/58 L Pulse Oximetry 98 97 97 06/20/18 04:00 06/20/18 08:00 06/20/18 09:00 Temperature 97.8 F 97.5 F L Pulse Rate 59 L 59 L 109 H Respiratory Rate 18 16 Blood Pressure 103/58 L 136/79 Pulse Oximetry 95 99 06/20/18 10:38 06/20/18 12:00 Temperature 97.7 F Pulse Rate 65 Respiratory Rate 16 Blood Pressure 113/67 Pulse Oximetry 95 97 Intake & Output 06/19/18 06/20/18 06/20/18 18:59 06:59 18:59 Intake Total 480 / 480 480 / 480 Output Total 900 / 900 2600 / 2600 Balance -420 / -420 -2120 / -2120 Weight 61 kg Intake: Oral 480 / 480 480 / 480 Output: Urine 900 / 900 2600 / 2600 Other: # Voids 3 Date of Last Bowel Movement 06/18/18 06/19/18 Narrative: GENERAL: NAD, A&Ox3 HEAD: Normocephalic. NECK: Supple, trachea midline. No lymphadenopathy. EYES: No scleral icterus. No injection or drainage. CARDIOVASCULAR: Regular rate and rhythm without murmurs, gallops, or rubs. RESPIRATORY: Breath sounds equal bilaterally. No accessory muscle use. Decreased breath sounds at right base. GASTROINTESTINAL: Abdomen soft, non-tender, Distended abdomen, umbilical hernia. MUSCULOSKELETAL: No cyanosis, or edema. SKIN: Warm and dry. NEURO: No focal neurological deficits. Results - Labs CBC & Chem 7: 06/20/18 06:10 06/20/18 06:10 Laboratory Results - last 24 hr 06/20/18 06/20/18 06/20/18 06:10 06:10 06:10 WBC 4.7 RBC 3.68 L Hgb 9.5 L Hct 28.7 L MCV 77.9 L MCH 25.8 L MCHC 33.1 RDW 20.6 H Plt Count 156 MPV 9.9 Neut % (Auto) 72.7 H Lymph % (Auto) 7.2 L [place] % (Auto) 17.0 H Eos % (Auto) 2.3 Baso % (Auto) 0.8 Neut # (Auto) 3.4 Lymph # (Auto) 0.3 L [place] # (Auto) 0.8 Eos # (Auto) 0.1 Baso # (Auto) 0.0 WBC Differential . Differential Comment Auto diff final PT 21.4 H D INR 2.1 Sodium 142 Potassium 4.3 Chloride 105 Carbon Dioxide 29.5 Anion Gap 8 BUN 39 H Creatinine 1.81 H Estimated GFR 49 L Random Glucose 126 H Calcium 8.7 Phosphorus 2.2 L Magnesium 2.1 Total Bilirubin 3.1 H AST 28 ALT 16 Alkaline Phosphatase 249 H Total Protein 7.8 Albumin 2.3 L - Procedures NONE Assessment and Plan - Assessment (1) Pleural effusion Code(s): J90 - Pleural effusion, not elsewhere classified Status: Acute (2) Shortness of breath Code(s): R06.02 - Shortness of breath Status: Acute (3) Congestive heart failure Code(s): I50.9 - Heart failure, unspecified Status: Acute (4) Ascites Code(s): R18.8 - Other ascites Status: Acute - Plan 47 year old male with history of transposition of the great vessels, mitral valve replacement x 2, pacemaker, CHF, CKD, large umbilical hernia, and recurrent ascites/pleural effusions - presenting initially for symptoms of chest wall pain and found to be in CHF exacerbation. CHF exacerbation Continue Lasix EF < 20% Improved Will need paracentesis and thoracentesis Chest wall pain Musculoskeletal and pleural effusion related Hx of Mitral valve replacement Anticoagulation, goal 2.5-3.5 Bridge with heparin initiated Right pleural effusion Lasix 40 mg IV BID Thoracentesis pending once INR < 1.5 Ascites Last tap was 2017 and 6L was removed Continue Lasix paracentesis pending INR < 1.5 CKD stage III Follow renal function Avoid nephrotoxic agents Renally dose meds DVT prophylaxis: Treatments on hold Therapeutic on Coumadin Discharge Planning AFTER PARACENTESIS AND THORACENTESIS AND INR RELOADED (3) Congestive heart failure Qualifiers: Heart failure type: unspecified Heart failure chronicity: acute Qualified Code(s): I50.9 - Heart failure, unspecified (4) Ascites Qualifiers: Ascites type: other type Qualified Code(s): R18.8 - Other ascites
[2018-06-20] MEDS: Heparin - SQ 10,000 UNITS/ML Vial SQ SCH (21:12)
[2018-06-21 07:14] LABS: Baso % (Auto) 0.4 % (0.0-2.0); Eos # (Auto) 0.1 th/mm3 (0.0-0.4); Eos % (Auto) 2.7 % (0.0-4.0); Hematocrit 31.4 % (39.0-51.0); Hemoglobin 10.2 gm/dL (13.0-17.0); Lymph # (Auto) 0.3 th/mm3 (1.0-4.8); Lymph % (Auto) 5.4 % (9.0-44.0); Mean Corpuscular HGB Conc 32.4 % (32.0-36.0); Mean Corpuscular Hemoglobin 25.7 pg (27.0-34.0); Mean Corpuscular Volume 79.4 fL (80.0-100.0); Mean Platelet Volume 9.8 fL (7.0-11.0); Mono # (Auto) 0.8 th/mm3 (0.0-0.9); Mono % (Auto) 16.2 % (0.0-8.0); Neut # (Auto) 3.8 th/mm3 (1.8-7.7); Neut % (Auto) 75.3 % (16.0-70.0); Platelet Count 151 th/mm3 (150-450); Red Blood Count 3.96 mil/mm3 (4.50-5.90); Red Cell Distribution Width 20.4 % (11.6-17.2); White Blood Count 5.1 th/mm3 (4.0-11.0)
[2018-06-21 07:21] LABS: INR 1.5 Ratio; Prothrombin Time 15.5 sec (9.8-11.6)
[2018-06-21 07:41] LABS: Albumin 2.4 g/dL (3.4-5.0); Anion Gap 8 meq/L (5-15); Aspartate Aminotransferase 30 U/L (15-37); Blood Urea Nitrogen 37 mg/dL (7-18); Calcium 8.9 mg/dL (8.5-10.1); Carbon Dioxide 26.7 meq/L (21.0-32.0); Chloride 106 meq/L (98-107); Glomerular Filtration Rate 56 mL/min (>89); Glucose,Random 99 mg/dL (74-106); Potassium 4.6 meq/L (3.5-5.1); Sodium 141 meq/L (136-145)
[2018-06-21 07:43] LABS: Alanine Aminotransferase 16 U/L (12-78)
[2018-06-21 07:45] LABS: Alkaline Phosphatase 276 U/L (45-117); Total Protein 8.1 g/dL (6.4-8.2)
[2018-06-21] MEDS: Heparin - SQ 10,000 UNITS/ML Vial SQ SCH ×2 (09:23→20:40)
[2018-06-21] MEDS: Senna/Docusate Sodium 8.6/50 MG Tablet PO SCH ×2 (09:27→20:40)
--- NOTE | 2018-06-21 11:04 | P.PNIM ---
Subjective Interval history: INR is now 1.5. Procedures are safe at this point. Patient is on a heparin bridge which is held right now, and procedures likely occurring this afternoon. Physical Exam Vital signs: Vital Signs 06/20/18 12:00 06/20/18 16:00 06/20/18 16:38 Temperature 97.7 F 97.7 F Pulse Rate 65 60 Respiratory Rate 16 17 Blood Pressure 113/67 121/81 Pulse Oximetry 97 98 97 06/20/18 20:00 06/21/18 00:00 06/21/18 04:00 Temperature 97.9 F 97.8 F 97.9 F Pulse Rate 60 60 60 Respiratory Rate 18 18 18 Blood Pressure 103/55 L 112/53 L 115/60 Pulse Oximetry 97 96 96 06/21/18 08:00 Temperature 97.2 F L Pulse Rate 60 Respiratory Rate 15 Blood Pressure 127/71 Pulse Oximetry 99 Intake & Output 06/20/18 06/21/18 06/21/18 18:59 06:59 18:59 Intake Total 480 / 480 Output Total 1000 / 1000 975 / 975 Balance -520 / -520 -975 / -975 Weight 63.2 kg Intake: Oral 480 / 480 Output: Urine 1000 / 1000 975 / 975 Other: Date of Last Bowel Movement 06/20/18 06/20/18 # Bowel Movements 2 Narrative: GENERAL: NAD, A&Ox3 HEAD: Normocephalic. NECK: Supple, trachea midline. No lymphadenopathy. EYES: No scleral icterus. No injection or drainage. CARDIOVASCULAR: Regular rate and rhythm without murmurs, gallops, or rubs. RESPIRATORY: Breath sounds equal bilaterally. No accessory muscle use. Decreased breath sounds at right base. GASTROINTESTINAL: Abdomen soft, non-tender, Distended abdomen, umbilical hernia. MUSCULOSKELETAL: No cyanosis, or edema. SKIN: Warm and dry. NEURO: No focal neurological deficits. Results - Labs CBC & Chem 7: 06/21/18 07:01 06/21/18 07:01 Laboratory Results - last 24 hr 06/21/18 06/21/18 06/21/18 07:01 07:01 07:01 WBC 5.1 RBC 3.96 L Hgb 10.2 L Hct 31.4 L MCV 79.4 L MCH 25.7 L MCHC 32.4 RDW 20.4 H Plt Count 151 MPV 9.8 Prelim Diff (Auto) Auto diff final Neut % (Auto) 75.3 H Lymph % (Auto) 5.4 L [place] % (Auto) 16.2 H Eos % (Auto) 2.7 Baso % (Auto) 0.4 Neut # (Auto) 3.8 Lymph # (Auto) 0.3 L [place] # (Auto) 0.8 Eos # (Auto) 0.1 Baso # (Auto) 0.0 WBC Differential . Differential Comment . PT 15.5 H INR 1.5 Sodium 141 Potassium 4.6 Chloride 106 Carbon Dioxide 26.7 Anion Gap 8 BUN 37 H Creatinine 1.60 H Estimated GFR 56 L Random Glucose 99 Calcium 8.9 Total Bilirubin 3.6 H AST 30 ALT 16 Alkaline Phosphatase 276 H Total Protein 8.1 Albumin 2.4 L - Procedures NONE Assessment and Plan - Assessment (1) Pleural effusion Code(s): J90 - Pleural effusion, not elsewhere classified Status: Acute (2) Shortness of breath Code(s): R06.02 - Shortness of breath Status: Acute (3) Congestive heart failure Code(s): I50.9 - Heart failure, unspecified Status: Acute (4) Ascites Code(s): R18.8 - Other ascites Status: Acute - Plan 47 year old male with history of transposition of the great vessels, mitral valve replacement x 2, pacemaker, CHF, CKD, large umbilical hernia, and recurrent ascites/pleural effusions - presenting initially for symptoms of chest wall pain and found to be in CHF exacerbation. Thoracentesis and paracentesis may occur today, INR is 1.5 today. Heparin bridge provided up to procedure and will be initiated after procedures completed. CHF exacerbation Continue Lasix EF < 20% Improved Will need paracentesis and thoracentesis Chest wall pain Musculoskeletal and pleural effusion related Hx of Mitral valve replacement Anticoagulation, goal 2.5-3.5 Bridge with heparin initiated Right pleural effusion Lasix 40 mg IV BID Thoracentesis pending once INR < 1.5 Ascites Last tap was 2017 and 6L was removed Continue Lasix paracentesis pending INR < 1.5 CKD stage III Follow renal function Avoid nephrotoxic agents Renally dose meds DVT prophylaxis: Treatments on hold Therapeutic on Coumadin Discharge Planning AFTER PARACENTESIS AND THORACENTESIS AND INR RELOADED (3) Congestive heart failure Qualifiers: Heart failure type: unspecified Heart failure chronicity: acute Qualified Code(s): I50.9 - Heart failure, unspecified (4) Ascites Qualifiers: Ascites type: other type Qualified Code(s): R18.8 - Other ascites
--- NOTE | 2018-06-21 15:59 | XR ---
EXAM DATE: 06/21/2018 3:43 PM EDT AGE/SEX: 47 years / Male INDICATIONS: Post right thoracentesis. CLINICAL DATA: This is the patient's initial encounter. Patient reports that signs and symptoms have been present for 4 - 6 days and indicates a pain score of 0/10. MEDICAL/SURGICAL HISTORY: . Myocardial infarction. Congestive heart failure. Hypercholesterole greyson. CVA. Afib. HTN. Dyspnea. Hemoptysis. Ascites. Hematuria. Chronic kidney disease. Renal calculi. Diabetes. Situs inversus. Pleural effusion. Anticoagulant therapy, Heparin. . Pacemaker. CABG. Usman ral valve replacement x2. Paracentesis. Thoracentesis. Blood transfusions COMPARISON: [facility] – [place], CHEST 1V SINGLE AP, 06/16/2018. . FINDINGS: A single frontal expiratory view of the chest was performed. Cardiomegaly. This is pronounced. Right pleural effusion is smaller from the prior exam. No pneumothorax following thoracentesis. Pacing meenu ce overlies the right chest. Median sternotomy wires. Right basilar consolidation is less pronounced. Left lung is clear. CONCLUSION: No pneumothorax following right thoracentesis. Electronically signed by: Ramón Aguilar MD 06/21/2018 3:58 PM EDT
--- NOTE | 2018-06-21 16:47 | US ---
EXAM DATE: 06/21/2018 4:40 PM EDT AGE/SEX: 47 years / Male INDICATIONS: Ascites. CLINICAL DATA: This is the patient's subsequent encounter. Patient reports that signs and symptoms h ave been present for 4 - 6 days and indicates a pain score of 3/10. MEDICAL/SURGICAL HISTORY: . Great vessels transposition. Mitral valve regurgitation. Umbilical hernia. Ascites. . Automated implantable cardioverter-defibrillator. . Cardiac catheterization. COMPARISON: [facility] – [place] ABDOMEN LOWER LIMITED, 06/16/2018. . FLUID: Total volume of 5,400 cc of cloudy, red fluid was removed. Fluid was discarded. Paracentesis was ther apeutic only. . . TECHNIQUE: Ultrasound guidance for abdominal paracentesis. Paracentesis. The risks, benefits, and alternatives to ultrasound guided paracentesis were explained to the patient in detail including the risk of bleeding and infection. Written and verbal informed consent was obt ained. With the patient on the ultrasound table, ultrasound imaging was used to select the most appropriate approach for paracentesis. Overlying skin was prepped and draped in the usual sterile fashion and wi th a local anesthetic, a dermatotomy was made with an 11 blade scalpel. A 6 Amharic Ifs-D-hociucen ca theter was introduced into the peritoneal cavity and fluid was collected. Post procedure scanning reveals no hematoma or other complication. The patient tolerated the procedu re well and left the ultrasound suite in stable condition. CONCLUSION: 1. Uncomplicated therapeutic paracentesis. Electronically signed by: Ramón Aguilar MD 06/21/2018 4:46 PM EDT
--- NOTE | 2018-06-21 16:49 | US ---
EXAM DATE: 06/21/2018 4:37 PM EDT AGE/SEX: 47 years / Male INDICATIONS: Right pleural effusion. CLINICAL DATA: This is the patient's subsequent encounter. Patient reports that signs and symptoms h ave been present for 4 - 6 days and indicates a pain score of 2/10. MEDICAL/SURGICAL HISTORY: . Great vessels transposition. Mitral valve regurgitation. Umbilical hernia. Ascites. . Automated implantable cardioverter-defibrillator. . Cardiac catheterization. COMPARISON: [facility] – [place] GUIDED THORACENTESIS RIGHT, 11/16/2017. . FLUID: Total volume of 900 cc of cloudy, red fluid was removed. Fluid was discarded. Thoracentesis was therapeutic only. . . TECHNIQUE: Ultrasound guidance for thoracentesis. Thoracentesis. The risks, benefits, and alternatives to ultrasound guided thoracentesis were explained to the patien t in lay simple terms, including the risk of bleeding and infection. Written and verbal informed con sent was obtained. Appropriate area for right thoracentesis was marked under ultrasound guidance with the patient in the upright position. Overlying skin was prepped and draped in the usual sterile fashion and with local anesthetic, a dermatotomy was made with an 11 blade scalpel. A 6 Czech thoracentesis catheter was placed in the pleural space and fluid was removed. Catheter was then removed and a sterile dressing applied. There were no immediate complications. The patient tolerated the procedure well and the lef t the ultrasound suite in stable condition. Chest radiograph is to be obtained. CONCLUSION: 1. Uncomplicated therapeutic right thoracentesis. Electronically signed by: Ramón Aguilar MD 06/21/2018 4:48 PM EDT
[2018-06-21] MEDS ORDERED: Albumin Human 25% Inj 150 ML IV.SIG ONE (17:00)
[2018-06-22 06:10] LABS: Baso % (Auto) 0.6 % (0.0-2.0); Eos # (Auto) 0.1 th/mm3 (0.0-0.4); Hematocrit 28.2 % (39.0-51.0); Hemoglobin 9.3 gm/dL (13.0-17.0); Lymph # (Auto) 0.4 th/mm3 (1.0-4.8); Lymph % (Auto) 6.9 % (9.0-44.0); Mean Corpuscular HGB Conc 33.1 % (32.0-36.0); Mean Corpuscular Volume 78.5 fL (80.0-100.0); Mean Platelet Volume 9.9 fL (7.0-11.0); Mono # (Auto) 0.7 th/mm3 (0.0-0.9); Mono % (Auto) 12.3 % (0.0-8.0); Neut # (Auto) 4.7 th/mm3 (1.8-7.7); Neut % (Auto) 79.2 % (16.0-70.0); Platelet Count 158 th/mm3 (150-450); Red Cell Distribution Width 20.1 % (11.6-17.2)
[2018-06-22 06:19] LABS: INR 1.5 Ratio; Prothrombin Time 14.7 sec (9.8-11.6)
[2018-06-22 06:33] LABS: Alanine Aminotransferase 15 U/L (12-78); Albumin 2.4 g/dL (3.4-5.0); Alkaline Phosphatase 242 U/L (45-117); Anion Gap 9 meq/L (5-15); Aspartate Aminotransferase 28 U/L (15-37); Blood Urea Nitrogen 37 mg/dL (7-18); Calcium 8.1 mg/dL (8.5-10.1); Carbon Dioxide 26.4 meq/L (21.0-32.0); Chloride 104 meq/L (98-107); Glomerular Filtration Rate 55 mL/min (>89); Glucose,Random 155 mg/dL (74-106); Potassium 4.6 meq/L (3.5-5.1); Sodium 139 meq/L (136-145); Total Protein 7.5 g/dL (6.4-8.2)
[2018-06-22] MEDS: Heparin - SQ 10,000 UNITS/ML Vial SQ SCH ×2 (08:34→21:08)
[2018-06-22] MEDS: Senna/Docusate Sodium 8.6/50 MG Tablet PO SCH ×2 (08:35→21:10)
--- NOTE | 2018-06-22 10:51 | P.PNIM ---
Subjective Interval history: Patient is status post paracentesis and thoracentesis. 900 mL removed during thoracentesis. 5000 mL removed during paracentesis. He is feeling better. INR is presently 1.5. Goal is 2.5-3.5 for his INR. Physical Exam Vital signs: Vital Signs 06/21/18 12:00 06/21/18 14:58 06/21/18 16:00 Temperature 97.8 F 98.4 F Pulse Rate 59 L 132 H 60 Respiratory Rate 16 26 H Blood Pressure 107/57 L 115/70 Pulse Oximetry 99 98 06/21/18 16:30 06/21/18 16:45 06/21/18 17:55 Temperature 97.7 F Pulse Rate 60 58 L Respiratory Rate 24 22 Blood Pressure 128/69 110/50 L Pulse Oximetry 92 L 94 L 06/21/18 20:00 06/22/18 00:00 06/22/18 04:00 Temperature 97.6 F 98.0 F 97.4 F L Pulse Rate 60 61 78 Respiratory Rate 18 18 20 Blood Pressure 110/56 L 102/54 L 178/81 H Pulse Oximetry 100 96 92 L 06/22/18 08:00 Temperature 97.8 F Pulse Rate 65 Respiratory Rate 18 Blood Pressure 133/52 L Pulse Oximetry 96 Intake & Output 06/21/18 06/22/18 06/22/18 18:59 06:59 18:59 Intake Total 1110 / 1110 150 / 150 Output Total 1350 / 1350 Balance -240 / -240 150 / 150 Weight 57.2 kg Intake: IV 150 / 150 Flexbumin 25% Inj 150 ML @ 60 150 / 150 mls/hr IV.SIG ONCE ONE Rx#: [id number] Oral 1110 / 1110 Output: Urine 1350 / 1350 Other: Date of Last Bowel Movement 06/20/18 06/21/18 # Bowel Movements 1 Narrative: GENERAL: NAD, A&Ox3 HEAD: Normocephalic. NECK: Supple, trachea midline. No lymphadenopathy. EYES: No scleral icterus. No injection or drainage. CARDIOVASCULAR: Regular rate and rhythm without murmurs, gallops, or rubs. RESPIRATORY: Breath sounds equal bilaterally. No accessory muscle use. Decreased breath sounds at right base. GASTROINTESTINAL: Abdomen soft, non-tender, Distended abdomen, large umbilical hernia (reducible). MUSCULOSKELETAL: No cyanosis, or edema. SKIN: Warm and dry. NEURO: No focal neurological deficits. Results - Labs CBC & Chem 7: 06/22/18 05:53 06/22/18 05:53 Laboratory Results - last 24 hr 06/22/18 06/22/18 06/22/18 05:53 05:53 05:53 WBC 6.0 RBC 3.60 L Hgb 9.3 L Hct 28.2 L MCV 78.5 L MCH 26.0 L MCHC 33.1 RDW 20.1 H Plt Count 158 MPV 9.9 Neut % (Auto) 79.2 H Lymph % (Auto) 6.9 L [place] % (Auto) 12.3 H Eos % (Auto) 1.0 Baso % (Auto) 0.6 Neut # (Auto) 4.7 Lymph # (Auto) 0.4 L [place] # (Auto) 0.7 Eos # (Auto) 0.1 Baso # (Auto) 0.0 WBC Differential . Differential Comment Auto diff final PT 14.7 H INR 1.5 Sodium 139 Potassium 4.6 Chloride 104 Carbon Dioxide 26.4 Anion Gap 9 BUN 37 H Creatinine 1.64 H Estimated GFR 55 L Random Glucose 155 H Calcium 8.1 L D Total Bilirubin 4.2 H AST 28 ALT 15 Alkaline Phosphatase 242 H Total Protein 7.5 D Albumin 2.4 L - Imaging Impressions Chest X-Ray 06/21/18 00:00 CONCLUSION: No pneumothorax following right thoracentesis. Paracentesis Ultrasound 06/21/18 00:00 CONCLUSION: 1. Uncomplicated therapeutic paracentesis. Thoracentesis Ultrasound 06/21/18 00:00 CONCLUSION: 1. Uncomplicated therapeutic right thoracentesis. - Procedures NONE Assessment and Plan - Assessment (1) Pleural effusion Code(s): J90 - Pleural effusion, not elsewhere classified Status: Acute (2) Shortness of breath Code(s): R06.02 - Shortness of breath Status: Acute (3) Congestive heart failure Code(s): I50.9 - Heart failure, unspecified Status: Acute (4) Ascites Code(s): R18.8 - Other ascites Status: Acute - Plan 47 year old male with history of transposition of the great vessels, mitral valve replacement x 2, pacemaker, CHF, CKD, large umbilical hernia, and recurrent ascites/pleural effusions - presenting initially for symptoms of chest wall pain and found to be in CHF exacerbation. Status post thoracentesis and paracentesis. Clinically improved. INR is 1.5 today. Heparin bridge provided up to procedure and will be initiated after procedures completed. Coumadin resumed today. Follow INR. CHF exacerbation Continue Lasix EF < 20% Improved Will need paracentesis and thoracentesis Chest wall pain Musculoskeletal and pleural effusion related Hx of Mitral valve replacement Anticoagulation, goal 2.5-3.5 Bridge with heparin initiated Right pleural effusion Lasix 40 mg IV BID Thoracentesis pending once INR < 1.5 Ascites Last tap was 2017 and 6L was removed Continue Lasix paracentesis pending INR < 1.5 CKD stage III Follow renal function Avoid nephrotoxic agents Renally dose meds DVT prophylaxis: Treatments on hold Therapeutic on Coumadin Discharge Planning AFTER PARACENTESIS AND THORACENTESIS AND INR RELOADED (3) Congestive heart failure Qualifiers: Heart failure type: unspecified Heart failure chronicity: acute Qualified Code(s): I50.9 - Heart failure, unspecified (4) Ascites Qualifiers: Ascites type: other type Qualified Code(s): R18.8 - Other ascites
[2018-06-22] MEDS: Furosemide 40 MG Tablet PO SCH (16:16)
[2018-06-22] MEDS: Benzonatate 100 MG Capsule PO PRN (21:10)
[2018-06-23 07:05] LABS: Baso % (Auto) 0.4 % (0.0-2.0); Eos # (Auto) 0.1 th/mm3 (0.0-0.4); Eos % (Auto) 0.6 % (0.0-4.0); Hematocrit 23.8 % (39.0-51.0); Hemoglobin 8.2 gm/dL (13.0-17.0); Lymph # (Auto) 0.3 th/mm3 (1.0-4.8); Lymph % (Auto) 4.2 % (9.0-44.0); Mean Corpuscular HGB Conc 34.3 % (32.0-36.0); Mean Corpuscular Hemoglobin 26.9 pg (27.0-34.0); Mean Corpuscular Volume 78.4 fL (80.0-100.0); Mean Platelet Volume 10.6 fL (7.0-11.0); Mono # (Auto) 1.2 th/mm3 (0.0-0.9); Mono % (Auto) 14.5 % (0.0-8.0); Neut # (Auto) 6.4 th/mm3 (1.8-7.7); Neut % (Auto) 80.3 % (16.0-70.0); Platelet Count 171 th/mm3 (150-450); Red Blood Count 3.04 mil/mm3 (4.50-5.90); Red Cell Distribution Width 19.8 % (11.6-17.2); White Blood Count 7.9 th/mm3 (4.0-11.0)
[2018-06-23 07:11] LABS: INR 1.5 Ratio; Prothrombin Time 14.7 sec (9.8-11.6)
[2018-06-23 07:36] LABS: Albumin 2.3 g/dL (3.4-5.0); Anion Gap 6 meq/L (5-15); Aspartate Aminotransferase 27 U/L (15-37); Blood Urea Nitrogen 38 mg/dL (7-18); Calcium 8.3 mg/dL (8.5-10.1); Carbon Dioxide 28.2 meq/L (21.0-32.0); Chloride 107 meq/L (98-107); Glomerular Filtration Rate 52 mL/min (>89); Glucose,Random 117 mg/dL (74-106); Sodium 141 meq/L (136-145)
[2018-06-23 07:38] LABS: Alanine Aminotransferase 14 U/L (12-78); Alkaline Phosphatase 230 U/L (45-117); Total Protein 7.3 g/dL (6.4-8.2)
[2018-06-23] MEDS: Heparin - SQ 10,000 UNITS/ML Vial SQ SCH ×2 (10:27→21:39)
[2018-06-23] MEDS: Senna/Docusate Sodium 8.6/50 MG Tablet PO SCH ×2 (10:28→21:38)
[2018-06-23] MEDS: Furosemide 40 MG Tablet PO SCH ×2 (10:35→16:06)
--- NOTE | 2018-06-23 11:52 | P.PNIM ---
Subjective Interval history: Patient doing well post procedures. Bandages are removed. INR is 1.5 today. Physical Exam Vital signs: Vital Signs 06/22/18 12:00 06/22/18 16:00 06/22/18 20:00 Temperature 97.3 F L 97.1 F L 99.0 F Pulse Rate 60 60 62 Respiratory Rate 18 18 18 Blood Pressure 111/52 L 102/55 L 105/56 L Pulse Oximetry 100 99 97 06/23/18 00:00 06/23/18 04:00 06/23/18 08:00 Temperature 98.8 F 98.7 F 98.1 F Pulse Rate 60 60 59 L Respiratory Rate 18 17 19 Blood Pressure 93/49 L 90/52 L 100/57 L Pulse Oximetry 100 96 99 Intake & Output 06/22/18 06/23/18 06/23/18 18:59 06:59 18:59 Weight 55.7 kg Other: Date of Last Bowel Movement 06/21/18 06/21/18 06/22/18 Narrative: GENERAL: NAD, A&Ox3 HEAD: Normocephalic. NECK: Supple, trachea midline. No lymphadenopathy. EYES: No scleral icterus. No injection or drainage. CARDIOVASCULAR: Regular rate and rhythm without murmurs, gallops, or rubs. RESPIRATORY: Breath sounds equal bilaterally. No accessory muscle use. Decreased breath sounds at right base. GASTROINTESTINAL: Abdomen soft, non-tender, Distended abdomen, large umbilical hernia (reducible). MUSCULOSKELETAL: No cyanosis, or edema. SKIN: Warm and dry. NEURO: No focal neurological deficits. Results - Labs CBC & Chem 7: 06/23/18 06:11 06/23/18 06:11 Laboratory Results - last 24 hr 06/23/18 06/23/18 06/23/18 06:11 06:11 06:11 WBC 7.9 RBC 3.04 L Hgb 8.2 L Hct 23.8 L MCV 78.4 L MCH 26.9 L MCHC 34.3 RDW 19.8 H Plt Count 171 MPV 10.6 Neut % (Auto) 80.3 H Lymph % (Auto) 4.[address] [place] % (Auto) 14.5 H Eos % (Auto) 0.6 Baso % (Auto) 0.4 Neut # (Auto) 6.4 Lymph # (Auto) 0.[address] [place] # (Auto) 1.2 H Eos # (Auto) 0.1 Baso # (Auto) 0.0 WBC Differential . Differential Comment Auto diff final PT 14.7 H INR 1.5 Sodium 141 Potassium 5.0 Chloride 107 Carbon Dioxide 28.2 Anion Gap 6 BUN 38 H Creatinine 1.72 H Estimated GFR 52 L Random Glucose 117 H Calcium 8.3 L Total Bilirubin 4.2 H AST 27 ALT 14 Alkaline Phosphatase 230 H Total Protein 7.3 Albumin 2.3 L - Procedures NONE Assessment and Plan - Assessment (1) Pleural effusion Code(s): J90 - Pleural effusion, not elsewhere classified Status: Acute (2) Shortness of breath Code(s): R06.02 - Shortness of breath Status: Acute (3) Congestive heart failure Code(s): I50.9 - Heart failure, unspecified Status: Acute (4) Ascites Code(s): R18.8 - Other ascites Status: Acute - Plan 47 year old male with history of transposition of the great vessels, mitral valve replacement x 2, pacemaker, CHF, CKD, large umbilical hernia, and recurrent ascites/pleural effusions - presenting initially for symptoms of chest wall pain and found to be in CHF exacerbation. Bandages removed today. She is doing well postprocedure. Status post thoracentesis and paracentesis. Clinically improved. INR is 1.5 today. Heparin bridge provided up to procedure and will be initiated after procedures completed. Coumadin resumed 06/22/2018. Follow INR. CHF exacerbation Continue Lasix EF < 20% Improved Will need paracentesis and thoracentesis Chest wall pain Musculoskeletal and pleural effusion related Hx of Mitral valve replacement Anticoagulation, goal 2.5-3.5 Bridge with heparin initiated Right pleural effusion Lasix 40 mg IV BID Thoracentesis pending once INR < 1.5 Ascites Last tap was 2017 and 6L was removed Continue Lasix paracentesis pending INR < 1.5 CKD stage III Follow renal function Avoid nephrotoxic agents Renally dose meds DVT prophylaxis: Treatments on hold Therapeutic on Coumadin Discharge Planning After INR regained therapeutic range which is 2.5-3.5 (3) Congestive heart failure Qualifiers: Heart failure type: unspecified Heart failure chronicity: acute Qualified Code(s): I50.9 - Heart failure, unspecified (4) Ascites Qualifiers: Ascites type: other type Qualified Code(s): R18.8 - Other ascites
[2018-06-23] MEDS: Benzonatate 100 MG Capsule PO PRN (21:38)
[2018-06-24 07:44] LABS: Baso % (Auto) 0.4 % (0.0-2.0); Eos % (Auto) 0.6 % (0.0-4.0); Hematocrit 21.5 % (39.0-51.0); Hemoglobin 7.1 gm/dL (13.0-17.0); Lymph # (Auto) 0.4 th/mm3 (1.0-4.8); Lymph % (Auto) 4.7 % (9.0-44.0); Mean Corpuscular HGB Conc 33.1 % (32.0-36.0); Mean Corpuscular Hemoglobin 26.7 pg (27.0-34.0); Mean Corpuscular Volume 80.4 fL (80.0-100.0); Mean Platelet Volume 10.1 fL (7.0-11.0); Mono # (Auto) 1.3 th/mm3 (0.0-0.9); Mono % (Auto) 16.6 % (0.0-8.0); Neut # (Auto) 6.1 th/mm3 (1.8-7.7); Neut % (Auto) 77.7 % (16.0-70.0); Platelet Count 162 th/mm3 (150-450); Red Blood Count 2.68 mil/mm3 (4.50-5.90); Red Cell Distribution Width 19.8 % (11.6-17.2); White Blood Count 7.9 th/mm3 (4.0-11.0)
[2018-06-24 07:49] LABS: INR 1.6 Ratio; Prothrombin Time 16.1 sec (9.8-11.6)
[2018-06-24 08:06] LABS: Alanine Aminotransferase 15 U/L (12-78); Albumin 2.2 g/dL (3.4-5.0); Anion Gap 9 meq/L (5-15); Aspartate Aminotransferase 24 U/L (15-37); Blood Urea Nitrogen 37 mg/dL (7-18); Calcium 7.9 mg/dL (8.5-10.1); Carbon Dioxide 23.3 meq/L (21.0-32.0); Chloride 106 meq/L (98-107); Glomerular Filtration Rate 54 mL/min (>89); Glucose,Random 134 mg/dL (74-106); Potassium 4.4 meq/L (3.5-5.1); Sodium 138 meq/L (136-145)
[2018-06-24 08:09] LABS: Alkaline Phosphatase 208 U/L (45-117)
[2018-06-24] MEDS ORDERED: Sodium Chlor 0.9% Inj 250 ML IV.SIG SCH (09:00)
[2018-06-24] MEDS: Heparin - SQ 10,000 UNITS/ML Vial SQ SCH ×2 (10:04→20:46)
[2018-06-24] MEDS: Furosemide 40 MG Tablet PO SCH ×2 (10:04→15:59)
[2018-06-24] MEDS: Senna/Docusate Sodium 8.6/50 MG Tablet PO SCH ×2 (10:05→20:46)
--- NOTE | 2018-06-24 12:00 | P.PNIM ---
Subjective Interval history: No acute changes. Patient's INR has an upward trend to 1.6 today. No complaints from the patient. Physical Exam Vital signs: Vital Signs 06/23/18 12:00 06/23/18 12:54 06/23/18 16:00 Temperature 98.6 F 97.6 F Pulse Rate 60 60 Respiratory Rate 20 20 Blood Pressure 97/52 L 120/69 Pulse Oximetry 99 97 100 06/23/18 16:01 06/23/18 17:41 06/23/18 20:00 Temperature 98.7 F Pulse Rate 60 60 Respiratory Rate 18 Blood Pressure 107/53 L Pulse Oximetry 99 94 L 06/24/18 00:00 06/24/18 04:00 06/24/18 08:00 Temperature 98.1 F 98 F 97.9 F Pulse Rate 60 60 60 Respiratory Rate 18 16 Blood Pressure 93/49 L 93/46 L 121/65 Pulse Oximetry 100 99 100 06/24/18 10:24 Temperature Pulse Rate Respiratory Rate Blood Pressure Pulse Oximetry 99 Intake & Output 06/23/18 06/24/18 06/24/18 18:59 06:59 18:59 Weight 58.3 kg Other: Date of Last Bowel Movement 06/22/18 06/21/18 Narrative: GENERAL: NAD, A&Ox3 HEAD: Normocephalic. NECK: Supple, trachea midline. No lymphadenopathy. EYES: No scleral icterus. No injection or drainage. CARDIOVASCULAR: Regular rate and rhythm without murmurs, gallops, or rubs. RESPIRATORY: Breath sounds equal bilaterally. No accessory muscle use. Decreased breath sounds at right base. GASTROINTESTINAL: Abdomen soft, non-tender, Distended abdomen, large umbilical hernia (reducible). MUSCULOSKELETAL: No cyanosis, or edema. SKIN: Warm and dry. NEURO: No focal neurological deficits. Results - Labs CBC & Chem 7: 06/24/18 06:35 06/24/18 06:35 Laboratory Results - last 24 hr 06/24/18 06/24/18 06/24/18 06:35 06:35 06:35 WBC 7.9 RBC 2.68 L Hgb 7.1 L Hct 21.5 L MCV 80.4 MCH 26.7 L MCHC 33.1 RDW 19.8 H Plt Count 162 MPV 10.1 Neut % (Auto) 77.7 H Lymph % (Auto) 4.7 L [place] % (Auto) 16.6 H Eos % (Auto) 0.6 Baso % (Auto) 0.4 Neut # (Auto) 6.1 Lymph # (Auto) 0.4 L [place] # (Auto) 1.3 H Eos # (Auto) 0.0 Baso # (Auto) 0.0 WBC Differential . Differential Comment Auto diff final PT 16.1 H INR 1.6 Sodium 138 Potassium 4.4 Chloride 106 Carbon Dioxide 23.3 Anion Gap 9 BUN 37 H Creatinine 1.65 H Estimated GFR 54 L Random Glucose 134 H Calcium 7.9 L Total Bilirubin 3.7 H AST 24 ALT 15 Alkaline Phosphatase 208 H Total Protein 7.0 Albumin 2.2 L MTS Gel Crossmatch 06/24/18 10:42 WBC RBC Hgb Hct MCV MCH MCHC RDW Plt Count MPV Neut % (Auto) Lymph % (Auto) [place] % (Auto) Eos % (Auto) Baso % (Auto) Neut # (Auto) Lymph # (Auto) [place] # (Auto) Eos # (Auto) Baso # (Auto) WBC Differential Differential Comment PT INR Sodium Potassium Chloride Carbon Dioxide Anion Gap BUN Creatinine Estimated GFR Random Glucose Calcium Total Bilirubin AST ALT Alkaline Phosphatase Total Protein Albumin MTS Gel Crossmatch See Detail - Procedures NONE Assessment and Plan - Assessment (1) Pleural effusion Code(s): J90 - Pleural effusion, not elsewhere classified Status: Acute (2) Shortness of breath Code(s): R06.02 - Shortness of breath Status: Acute (3) Congestive heart failure Code(s): I50.9 - Heart failure, unspecified Status: Acute (4) Ascites Code(s): R18.8 - Other ascites Status: Acute - Plan 47 year old male with history of transposition of the great vessels, mitral valve replacement x 2, pacemaker, CHF, CKD, large umbilical hernia, and recurrent ascites/pleural effusions - presenting initially for symptoms of chest wall pain and found to be in CHF exacerbation. No acute changes overnight. INR is 1.6 today. Status post thoracentesis and paracentesis. Heparin bridge provided up to procedure and will be initiated after procedures completed. Coumadin resumed 06/22/2018. Follow INR. CHF exacerbation Continue Lasix EF < 20% Improved Will need paracentesis and thoracentesis Chest wall pain Musculoskeletal and pleural effusion related Hx of Mitral valve replacement Anticoagulation, goal 2.5-3.5 Bridge with heparin initiated Right pleural effusion Lasix 40 mg IV BID Thoracentesis pending once INR < 1.5 Ascites Last tap was 2017 and 6L was removed Continue Lasix paracentesis pending INR < 1.5 CKD stage III Follow renal function Avoid nephrotoxic agents Renally dose meds DVT prophylaxis: Treatments on hold Therapeutic on Coumadin Discharge Planning After INR regained therapeutic range which is 2.5-3.5 (3) Congestive heart failure Qualifiers: Heart failure type: unspecified Heart failure chronicity: acute Qualified Code(s): I50.9 - Heart failure, unspecified (4) Ascites Qualifiers: Ascites type: other type Qualified Code(s): R18.8 - Other ascites
[2018-06-24] MEDS: Benzonatate 100 MG Capsule PO PRN ×2 (13:38→23:32)
[2018-06-24] MEDS ORDERED: Acetaminophen 500 MG Tablet PO ONE (14:09)
[2018-06-25 06:28] LABS: Baso # (Auto) 0.1 th/mm3 (0.0-0.2); Baso % (Auto) 0.7 % (0.0-2.0); Eos # (Auto) 0.1 th/mm3 (0.0-0.4); Eos % (Auto) 1.3 % (0.0-4.0); Hematocrit 26.6 % (39.0-51.0); Hemoglobin 9.1 gm/dL (13.0-17.0); Lymph # (Auto) 0.4 th/mm3 (1.0-4.8); Lymph % (Auto) 5.4 % (9.0-44.0); Mean Corpuscular HGB Conc 34.1 % (32.0-36.0); Mean Corpuscular Hemoglobin 27.6 pg (27.0-34.0); Mean Platelet Volume 10.2 fL (7.0-11.0); Mono # (Auto) 1.2 th/mm3 (0.0-0.9); Mono % (Auto) 15.3 % (0.0-8.0); Neut # (Auto) 6.2 th/mm3 (1.8-7.7); Neut % (Auto) 77.3 % (16.0-70.0); Platelet Count 161 th/mm3 (150-450); Red Blood Count 3.29 mil/mm3 (4.50-5.90); Red Cell Distribution Width 19.4 % (11.6-17.2)
[2018-06-25 06:41] LABS: INR 1.8 Ratio; Prothrombin Time 18.2 sec (9.8-11.6)
[2018-06-25 06:55] LABS: Alanine Aminotransferase 16 U/L (12-78); Albumin 2.3 g/dL (3.4-5.0); Anion Gap 9 meq/L (5-15); Aspartate Aminotransferase 25 U/L (15-37); Blood Urea Nitrogen 41 mg/dL (7-18); Calcium 8.1 mg/dL (8.5-10.1); Carbon Dioxide 25.2 meq/L (21.0-32.0); Chloride 105 meq/L (98-107); Glomerular Filtration Rate 53 mL/min (>89); Glucose,Random 151 mg/dL (74-106); Potassium 4.4 meq/L (3.5-5.1); Sodium 139 meq/L (136-145)
[2018-06-25 06:57] LABS: Alkaline Phosphatase 218 U/L (45-117); Total Protein 7.2 g/dL (6.4-8.2)
[2018-06-25] MEDS: Furosemide 40 MG Tablet PO SCH ×2 (08:02→15:20)
[2018-06-25] MEDS: Heparin - SQ 10,000 UNITS/ML Vial SQ SCH ×2 (08:02→20:45)
[2018-06-25] MEDS: Senna/Docusate Sodium 8.6/50 MG Tablet PO SCH ×2 (08:03→20:45)
[2018-06-25] MEDS: Benzonatate 100 MG Capsule PO PRN ×2 (09:52→20:45)
--- NOTE | 2018-06-25 15:21 | P.PNIM ---
Subjective Interval history: Patient reports blood-tinged sputum. Etiology for this is likely related to reexpansion of the lung for thoracentesis procedure. Active bleed is not yet suspected. No other complaints. INR is trended upwards to 1.8 today. Physical Exam Vital signs: Vital Signs 06/24/18 16:00 06/24/18 18:09 06/24/18 18:29 Temperature 97.8 F 98.4 F 97.8 F Pulse Rate 60 60 60 Respiratory Rate 19 22 20 Blood Pressure 117/67 107/54 L 102/53 L Pulse Oximetry 99 99 100 06/24/18 20:00 06/25/18 00:00 06/25/18 04:00 Temperature 98.1 F 98 F 97.8 F Pulse Rate 60 120 H 60 Respiratory Rate 17 17 17 Blood Pressure 104/53 L 106/53 L 122/49 L Pulse Oximetry 100 100 100 06/25/18 07:57 06/25/18 08:00 06/25/18 09:00 Temperature 97.9 F Pulse Rate 59 L 60 Respiratory Rate 20 Blood Pressure 117/57 L Pulse Oximetry 99 97 06/25/18 10:54 06/25/18 12:00 Temperature 98.2 F Pulse Rate 60 Respiratory Rate 20 Blood Pressure 123/58 L Pulse Oximetry 97 98 Intake & Output 06/24/18 06/25/18 06/25/18 18:59 06:59 18:59 Intake Total 0 / 0 50 / 50 Balance 0 / 0 50 / 50 Weight 58.5 kg Intake: IV 50 / 50 NS Inj 250 ML @ 15 mls/hr IV. 50 / 50 SIG ONCE JOSÉ MIGUEL Rx#:[id number] Intake (Blood Product) Amt 0 / 0 0 / 0 Rbc Cp2d Leukoreduced Unit 0 / 0 [id number] Rbc Cp2d Leukoreduced Unit 0 / 0 0 / 0 [id number] Other: Date of Last Bowel Movement 06/21/18 06/21/18 Narrative: GENERAL: NAD, A&Ox3 HEAD: Normocephalic. NECK: Supple, trachea midline. No lymphadenopathy. EYES: No scleral icterus. No injection or drainage. CARDIOVASCULAR: Regular rate and rhythm without murmurs, gallops, or rubs. RESPIRATORY: Breath sounds equal bilaterally. No accessory muscle use. Decreased breath sounds at right base. GASTROINTESTINAL: Abdomen soft, non-tender, Distended abdomen, large umbilical hernia (reducible). MUSCULOSKELETAL: No cyanosis, or edema. SKIN: Warm and dry. NEURO: No focal neurological deficits. Results - Labs CBC & Chem 7: 06/25/18 04:20 06/25/18 04:20 Laboratory Results - last 24 hr 06/24/18 06/25/18 06/25/18 10:42 04:20 04:20 WBC 8.0 RBC 3.29 L Hgb 9.1 L D Hct 26.6 L MCV 81.0 MCH 27.6 MCHC 34.1 RDW 19.4 H Plt Count 161 MPV 10.2 Neut % (Auto) 77.3 H Lymph % (Auto) 5.4 L [place] % (Auto) 15.3 H Eos % (Auto) 1.3 Baso % (Auto) 0.7 Neut # (Auto) 6.2 Lymph # (Auto) 0.4 L [place] # (Auto) 1.2 H Eos # (Auto) 0.1 Baso # (Auto) 0.1 WBC Differential . Differential Comment Auto diff final PT 18.2 H INR 1.8 Sodium Potassium Chloride Carbon Dioxide Anion Gap BUN Creatinine Estimated GFR Random Glucose Calcium Total Bilirubin AST ALT Alkaline Phosphatase Total Protein Albumin Blood Type O Positive Antibody Screen Negative MTS Gel Crossmatch See Detail 06/25/18 04:20 WBC RBC Hgb Hct MCV MCH MCHC RDW Plt Count MPV Neut % (Auto) Lymph % (Auto) [place] % (Auto) Eos % (Auto) Baso % (Auto) Neut # (Auto) Lymph # (Auto) [place] # (Auto) Eos # (Auto) Baso # (Auto) WBC Differential Differential Comment PT INR Sodium 139 Potassium 4.4 Chloride 105 Carbon Dioxide 25.2 Anion Gap 9 BUN 41 H Creatinine 1.68 H Estimated GFR 53 L Random Glucose 151 H Calcium 8.1 L Total Bilirubin 4.9 H AST 25 ALT 16 Alkaline Phosphatase 218 H Total Protein 7.2 Albumin 2.3 L Blood Type Antibody Screen MTS Gel Crossmatch - Procedures NONE Assessment and Plan - Assessment (1) Pleural effusion Code(s): J90 - Pleural effusion, not elsewhere classified Status: Acute (2) Shortness of breath Code(s): R06.02 - Shortness of breath Status: Acute (3) Congestive heart failure Code(s): I50.9 - Heart failure, unspecified Status: Acute (4) Ascites Code(s): R18.8 - Other ascites Status: Acute - Plan 47 year old male with history of transposition of the great vessels, mitral valve replacement x 2, pacemaker, CHF, CKD, large umbilical hernia, and recurrent ascites/pleural effusions - presenting initially for symptoms of chest wall pain and found to be in CHF exacerbation. Follow hemoptysis (appears subacute, no active bleed suspected at this point). No acute changes overnight. INR is 1.7 today. Status post thoracentesis and paracentesis. Heparin bridge provided up to procedure and will be initiated after procedures completed. Coumadin resumed 06/22/2018. Follow INR. CHF exacerbation Continue Lasix EF < 20% Improved Will need paracentesis and thoracentesis Chest wall pain Musculoskeletal and pleural effusion related Hx of Mitral valve replacement Anticoagulation, goal 2.5-3.5 Bridge with heparin initiated Right pleural effusion Lasix 40 mg IV BID Thoracentesis pending once INR < 1.5 Ascites Last tap was 2017 and 6L was removed Continue Lasix paracentesis pending INR < 1.5 CKD stage III Follow renal function Avoid nephrotoxic agents Renally dose meds DVT prophylaxis: Treatments on hold Therapeutic on Coumadin Discharge Planning After INR regained therapeutic range which is 2.5-3.5 (3) Congestive heart failure Qualifiers: Heart failure type: unspecified Heart failure chronicity: acute Qualified Code(s): I50.9 - Heart failure, unspecified (4) Ascites Qualifiers: Ascites type: other type Qualified Code(s): R18.8 - Other ascites
[2018-06-26 06:51] LABS: Baso % (Auto) 0.6 % (0.0-2.0); Eos # (Auto) 0.1 th/mm3 (0.0-0.4); Eos % (Auto) 1.6 % (0.0-4.0); Hematocrit 24.7 % (39.0-51.0); Hemoglobin 8.4 gm/dL (13.0-17.0); Lymph # (Auto) 0.4 th/mm3 (1.0-4.8); Mean Corpuscular HGB Conc 34.1 % (32.0-36.0); Mean Corpuscular Hemoglobin 27.6 pg (27.0-34.0); Mean Corpuscular Volume 81.1 fL (80.0-100.0); Mono % (Auto) 14.5 % (0.0-8.0); Neut # (Auto) 5.6 th/mm3 (1.8-7.7); Neut % (Auto) 78.3 % (16.0-70.0); Platelet Count 194 th/mm3 (150-450); Red Blood Count 3.05 mil/mm3 (4.50-5.90); Red Cell Distribution Width 19.6 % (11.6-17.2); White Blood Count 7.2 th/mm3 (4.0-11.0)
[2018-06-26 07:00] LABS: INR 2.4 Ratio; Prothrombin Time 24.7 sec (9.8-11.6)
[2018-06-26 07:22] LABS: Albumin 2.1 g/dL (3.4-5.0); Anion Gap 12 meq/L (5-15); Aspartate Aminotransferase 25 U/L (15-37); Calcium 7.7 mg/dL (8.5-10.1); Carbon Dioxide 22.4 meq/L (21.0-32.0); Chloride 106 meq/L (98-107); Glomerular Filtration Rate 54 mL/min (>89); Glucose,Random 129 mg/dL (74-106); Potassium 4.2 meq/L (3.5-5.1); Sodium 140 meq/L (136-145)
[2018-06-26 07:25] LABS: Alanine Aminotransferase 16 U/L (12-78); Alkaline Phosphatase 231 U/L (45-117); Blood Urea Nitrogen 38 mg/dL (7-18)
[2018-06-26] MEDS: Furosemide 40 MG Tablet PO SCH ×2 (08:04→16:23)
[2018-06-26] MEDS: Heparin - SQ 10,000 UNITS/ML Vial SQ SCH (08:06)
[2018-06-26] MEDS: Benzonatate 100 MG Capsule PO PRN ×2 (08:06→16:24)
[2018-06-26] MEDS: Senna/Docusate Sodium 8.6/50 MG Tablet PO SCH ×2 (08:06→21:04)
--- NOTE | 2018-06-26 16:48 | P.PNIM ---
Subjective Interval history: Patient currently does not have any complaints. He is sitting upright with no complaints of shortness of breath. No cough. Physical Exam Vital signs: Vital Signs 06/25/18 20:00 06/26/18 00:00 06/26/18 04:00 Temperature 98.1 F 97.6 F 97.5 F L Pulse Rate 63 59 L 60 Respiratory Rate 15 18 18 Blood Pressure 108/53 L 111/53 L 108/55 L Pulse Oximetry 97 99 06/26/18 08:00 06/26/18 09:00 06/26/18 10:30 Temperature 97.7 F Pulse Rate 60 66 Respiratory Rate 21 Blood Pressure 140/65 Pulse Oximetry 97 99 06/26/18 12:00 06/26/18 14:37 Temperature 98.1 F Pulse Rate 60 63 Respiratory Rate 21 Blood Pressure 149/60 H Pulse Oximetry 99 Intake & Output 06/25/18 06/26/18 06/26/18 18:59 06:59 18:59 Weight 59.1 kg Other: Date of Last Bowel Movement 06/21/18 06/21/18 Narrative: General patient in no acute distress HEENT extraocular movements are intact Cardiovascular S1-S2 audible, 2/6 systolic ejection murmur at the second left intercostal space Respiratory decreased breath sounds at bilateral bases. Abdomen soft, nontender, mildly distended, no abdominal pain. Extremities trace edema bilateral lower extremities Neuro patient moves all 4 extremities and is ambulatory. Sensation is intact bilaterally Results - Labs CBC & Chem 7: 06/26/18 05:15 06/26/18 05:15 Laboratory Results - last 24 hr 06/26/18 06/26/18 06/26/18 05:15 05:15 05:15 WBC 7.2 RBC 3.05 L Hgb 8.4 L Hct 24.7 L MCV 81.1 MCH 27.6 MCHC 34.1 RDW 19.6 H Plt Count 194 MPV 10.0 Neut % (Auto) 78.3 H Lymph % (Auto) 5.0 L [place] % (Auto) 14.5 H Eos % (Auto) 1.6 Baso % (Auto) 0.6 Neut # (Auto) 5.6 Lymph # (Auto) 0.4 L [place] # (Auto) 1.0 H Eos # (Auto) 0.1 Baso # (Auto) 0.0 WBC Differential . Differential Comment Auto diff final PT 24.7 H INR 2.4 Sodium 140 Potassium 4.2 Chloride 106 Carbon Dioxide 22.4 Anion Gap 12 BUN 38 H Creatinine 1.66 H Estimated GFR 54 L Random Glucose 129 H Calcium 7.7 L Total Bilirubin 3.1 H AST 25 ALT 16 Alkaline Phosphatase 231 H Total Protein 7.0 Albumin 2.1 L - Procedures NONE Assessment and Plan - Assessment (1) Pleural effusion Code(s): J90 - Pleural effusion, not elsewhere classified Status: Acute (2) Shortness of breath Code(s): R06.02 - Shortness of breath Status: Acute (3) Congestive heart failure Code(s): I50.9 - Heart failure, unspecified Status: Acute (4) Ascites Code(s): R18.8 - Other ascites Status: Acute - Plan This patient is a 47-year-old -[place] male with a 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 He also had a mitral valve replacement at the age of 8, status post pacemaker placement, systolic CHF with an ejection fraction of 20%. He also has chronic kidney disease stage III as well as a large umbilical hernia. The patient was admitted for a acute on chronic systolic CHF exacerbation with a right sided pleural effusion. CHF exacerbation Ejection fraction is less than 20% we will continue IV Lasix for now. The patient is currently on room air without any complaints of shortness of breath. He is status post thoracentesis on the right side. He will be continued on his medications for CHF. 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 Hx of Mitral valve replacement Patient is currently on Coumadin INR today is 2.4 with a goal of INR 2.5-3.5. We will repeat INR tomorrow morning once therapeutic the patient will be discharged home. Right pleural effusion Status post right-sided thoracentesis. Lasix 40 mg IV BID The patient has been having recurrent right-sided pleural effusions. If he continues to have recurrent pleural effusions he may benefit from pleurodesis. Upon discharge the patient should follow-up with his food prep worker as well as a surgical team for evaluation for possible pleurodesis. CKD stage III The patient has chronic kidney disease stage III. Upon discharge she should follow-up with his primary care physician as well as a fulfillment associate. We will continue to follow his renal function. Avoid nephrotoxic agents Renally dose meds Ascites Patient does have some abdominal distention likely has ascites. No current shortness of breath and no urgent need for paracentesis at this time. He should follow-up with his primary care physician upon discharge and schedule routine paracentesis if needed. DVT prophylaxis: Patient is currently on Coumadin Discharge Planning After INR regained therapeutic range which is 2.5-3.5 (3) Congestive heart failure Qualifiers: Heart failure type: unspecified Heart failure chronicity: acute Qualified Code(s): I50.9 - Heart failure, unspecified (4) Ascites Qualifiers: Ascites type: other type Qualified Code(s): R18.8 - Other ascites
[2018-06-27] MEDS: Benzonatate 100 MG Capsule PO PRN (04:18)
[2018-06-27 06:19] LABS: INR 3.3 Ratio; Prothrombin Time 33.5 sec (9.8-11.6)
[2018-06-27 09:13] VITALS: RESP 18; O2SAT 100
[2018-06-27] MEDS: Furosemide 40 MG Tablet PO SCH (09:18)
--- NOTE | 2018-06-27 09:38 | P.DS ---
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 The patient has had seat CHF exacerbations in the past and has had pleural effusions and abdominal ascites which were drained in the past as well. The patient presented to our emergency department complaint of shortness of breath and chest wall tenderness. He follows up with director of marketing [employer] Dr. Obregon and primary care physician Dr. Bhakta. 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 The patient has had seat CHF exacerbations in the past and has had pleural effusions and abdominal ascites which were drained in the past as well. The patient presented to our emergency department complaint of shortness of breath and chest wall tenderness. He follows up with director of marketing [employer] Dr. Obregon and primary care physician Dr. Bhakta. 1. Acute on chronic systolic CHF exacerbation As mentioned above the patient has an ejection fraction of 20%. He presented with complaints of shortness of breath and was unable to lie flat. JVD was present on physical examination. Chest x-ray showed pulmonary vascular congestion and a right-sided pleural effusion, and abdominal ascites. The patient was started on IV Lasix and he was diuresed throughout this hospitalization. He underwent right-sided thoracentesis and after diuresis his shortness of breath improved. The patient's director of marketing [employer] is and I recommend that he follows up with his director of marketing [employer] within the next week. The patient is currently on p.o. Lasix, Bumex. It is unclear why the patient is currently not on a beta-adrienne, and an MIKI inhibitor for systolic CHF. As per the patient the beta-adrienne was discontinued because of low blood pressure. He should follow-up with his director of marketing [employer] and these medications may be of benefit to the patient given his systolic heart failure. 2. Right-sided pleural effusion. The patient had a right-sided pleural effusion likely secondary to systolic CHF exacerbation. After reversal of the patient's INR he underwent a thoracentesis on the right and improvement of his symptoms after the thoracentesis. If the patient continues to have recurrent pleural effusions he may benefit from pleurodesis. 3. Abdominal ascites The patient also has abdominal ascites. His abdomen is soft, nontender, no fevers, no concern for SBP at this time. He should follow-up with his primary care physician and have a scheduled outpatient paracentesis performed. 4. History of mitral valve replacement. The patient is currently on Coumadin with an INR goal of 2.5-3.5. His current INR is at goal. He should follow-up with his primary care physician this Monday and obtain a pre-clinic INR prior to the clinic visit. His Coumadin can then be adjusted as needed. He will be discharged on 5 mg of Coumadin p.o. daily. 5. Chronic kidney disease stage III The patient's primary care physician can have the patient follow-up with a museum informatics specialist for chronic kidney disease. Current serum creatinine is around 1.6. - Time Spent with Patient Total time spent providing and/or coordinating discharge services: Less than 30 minutes - Quality: VTE Deep Vein Thrombosis/Pulmonary Embolism Present on Admission: No Exam Vital signs: Vital Signs 06/26/18 10:30 06/26/18 12:00 06/26/18 14:37 Temperature 98.1 F Pulse Rate 60 63 Respiratory Rate 21 Blood Pressure 149/60 H Pulse Oximetry 99 99 06/26/18 16:00 06/26/18 18:00 06/26/18 20:00 Temperature 97.8 F 98.1 F Pulse Rate 60 60 60 Respiratory Rate 21 20 Blood Pressure 130/60 107/52 L Pulse Oximetry 100 100 06/26/18 23:24 06/27/18 04:00 06/27/18 04:07 Temperature 98.0 F 98.2 F Pulse Rate 60 62 60 Respiratory Rate 18 20 Blood Pressure 128/69 104/56 L Pulse Oximetry 100 97 06/27/18 08:00 Temperature 97.8 F Pulse Rate 59 L Respiratory Rate 18 Blood Pressure 136/75 Pulse Oximetry 100 Intake & Output 06/26/18 06/27/18 06/27/18 18:59 06:59 18:59 Intake Total 716 / 716 Output Total 825 / 825 875 / 875 Balance -825 / -825 -159 / -159 Weight 60 kg Intake: Oral 716 / 716 Output: Urine 825 / 825 875 / 875 Other: Date of Last Bowel Movement 06/21/18 # Bowel Movements 1 Narrative: General patient in no acute distress HEENT extraocular movements are intact, clear oropharyngeal mucosa, no JVD Cardiovascular S1-S2 audible, systolic ejection murmur audible Respiratory decreased breath sounds at bilateral bases. Abdomen soft, nontender, distended, umbilical hernia present reducible. Extremities trace edema bilateral lower extremities to the the shins Neuro no neuro deficits noted patient was all 4 extremities and sensation is Results Procedures completed during hospitalization: Right sided thoracentesis Labs on day of discharge: Labs from last 24 hours 06/27/18 05:27 PT 33.5 H INR 3.3 - Impressions ITS Impressions Abdomen Ultrasound 06/16/18 00:00 CONCLUSION: 1. Large volume of uncomplicated appearing ascites. Venous Doppler Study 06/16/18 10:43 CONCLUSION: 1. Normal study Chest X-Ray 06/21/18 00:00 CONCLUSION: No pneumothorax following right thoracentesis. Paracentesis Ultrasound 06/21/18 00:00 CONCLUSION: 1. Uncomplicated therapeutic paracentesis. Thoracentesis Ultrasound 06/21/18 00:00 CONCLUSION: 1. Uncomplicated therapeutic right thoracentesis. Discharge Plan - Discharge Disposition Patient Disposition: 01 Discharge Home - Discharge Condition Condition: Stable - Discharge Order Discharge Orders: Discharge Order (Routine); Ordered 06/27/18 Ordered By: Siobhan Brown - Physicians Team Primary Care Provider: UNKNOWN, Attending Provider: Siobhan Brown Other Providers: Kingsley King DO
[2018-06-28 07:24] VITALS: BP 144/66; PULSE 60; TEMP 97.3
== END 2018-06-27 12:36 | disposition home or self-care (01) ==
LOC: NEPE 10:20 → NEDA 12:47 → N04 15:00
PROVIDERS: ADMIT Hospitalist; ATTEND Hospitalist

== ENCOUNTER 2018-09-24 16:33 | Inpatient (IN) ==
--- NOTE | 2018-09-24 17:43 | ED ---
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 His brother states that he went to check on this morning and noticed he had a large some cerebral hemorrhage to the right eye as well as has been confused. Last seen normal was a couple of weeks ago. Patient is alert to person and place, but not time. The patient has AICD. Patient was admitted in June and underwent thoracentesis. He has a history of ascites in the past according the chart. The patient denies any pain. He denies any fevers or chills. No chest pain he did. He denies shortness of breath, but appears short of breath on exam. Patient's brother also states that he has been taking his mother's BuSpar. The patient is only on warfarin and carvedilol at this time. Patient lives alone. Onset (ago): week(s) Severity: severe Relieving factors: none Exacerbating factors: none Associated symptoms: Reports confusion, cough, shortness of breath and weakness ; Denies chest pain, diaphoresis, fever/chills, headaches, loss of appetite and seizure Related Data Home Medications Medication Instructions Recorded Confirmed warfarin [Coumadin] 5 mg PO DAILY 06/16/18 09/24/18 carvedilol 3.125 mg PO BID 09/24/18 09/24/18 Allergies Allergy/AdvReac Type Severity Reaction Status Date / Time losartan Allergy Unknown Anaphylaxis Verified 06/16/18 11:01 Review of Systems ROS: all other systems reviewed are negative [facility] Social History Social History Substance History: No History of Abuse Second Hand Smoke Exposure: No Smoking Status: Never smoker Tobacco Type: Cigars How Often Do You Have a Drink Containing Alcohol: Never Recent Travel in [facility] within the Last 8 Weeks: No Recent Out of Country Travel within the Last 8 Weeks: No Immunization History Tetanus Immunization: Unsure Exam Narrative Exam Narrative: GENERAL: Well-nourished, well-developed male patient, afebrile. Patient is alert and oriented to person and place only. SKIN: Focused skin assessment warm/dry. AICD wires noted to chest with large midline scar HEAD: Normocephalic. EYES: No scleral icterus. No injection or drainage. Subconjunctival hemorrhage to right eye. EOM intact. NECK: Supple, trachea midline. No JVD or lymphadenopathy. CARDIOVASCULAR: Regular rate and rhythm without murmurs, gallops, or rubs. RESPIRATORY: Breath sounds equal bilaterally. + accessory muscle use. Patient has diffuse rhonchi, wheezing. GASTROINTESTINAL: Abdomen distended. He has a large umbilical hernia. MUSCULOSKELETAL: No cyanosis, or edema. BACK: Nontender without obvious deformity. No CVA tenderness. Course Initial Documented Vital Signs Temperature 97.5 F L 09/24/18 16:44 Pulse Rate 60 09/24/18 16:44 Respiratory Rate 20 09/24/18 16:44 Blood Pressure 129/69 09/24/18 16:44 Pulse Oximetry 98 09/24/18 16:44 Last Documented Vital Signs Temperature 97.5 F L 09/24/18 16:44 Pulse Rate 60 09/24/18 17:32 Respiratory Rate 20 09/24/18 17:32 Blood Pressure 130/80 09/24/18 17:32 Pulse Oximetry 99 09/24/18 17:32 Medical Decision Making SANTOS Attestation SANTOS supervised visit: Yes Attestation: I, Dr. Balderas, have reviewed the advance practice practitioner' s documentation and am in agreement, met with the patient face to face, made the diagnosis, and the medical decision making was done by me. *My assessment and Findings: The patient is a 47-year-old -[place] male who presents to the emergency department with his brother for altered mental status. 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 The patient apparently had some type of procedure to fix the hole in the heart and was placed on Coumadin. The patient was living with his mother, however, his mother recently went to the [place] [facility]. The patient lives alone at home, the brother does the grocery shopping for the patient. He is ambulatory in the house without the use of a cane or a walker. However, the brother went by the house earlier today and noticed the patient had some change in mentation. Upon arrival the patient is oriented to person and place, gets the month, year, and screw down wrong initially, but eventually is able to get the right answer. The patient is noted to have a right subconjunctival hemorrhage, the patient cannot recall falling, but is currently on Coumadin. The patient is also noted to have a large distended abdomen with a large umbilical hernia with positive fluid wave, consistent with ascites. The patient was afebrile but is confused, may be elevated ammonia levels versus spontaneous bacterial peritonitis. Patient is also noted to have a rhonchorous cough, possibly could be secondary to effusion and/or pneumonia. Blood culture, lactic acid, chest x-ray were obtained. The patient will be admitted to the on-call medical service. [facility] Narrative Medical decision making narrative: 39-year-old male presents to the emergency department with his mother for evaluation of confusion, abdominal distention, shortness of breath. IV access obtained. EKG shows paced rhythm, heart rate 60. CBC, CMP, magnesium, CK, troponin, lactic acid, blood cultures x2, PTT, PT/ INR, ammonia level, BNP, acetaminophen level, alcohol level are ordered and pending. CBC shows slight anemia hemoglobin 10.4, hematocrit 31.8. CMP shows slight hyperkalemia of 5.4, hemolysis is noted. BUN is 29, creatinine 1.71, bilirubin 2.9. CK is 114. Troponin is 0.02. BNP is 966. Lactic acid is 2.1. Ammonia level is 50. PTT is 37.7. PT is 1.1.5. INR is 2.1. UA is negative for acute infection. Urine drug screen is negative. Acetaminophen level is less than 2.0. Alcohol level is less than 3. Patient is given cefepime 2 g IV, azithromycin 500 mg IV. Patient is given Lasix 40 mg IV. Patient will be admitted for altered mental status, pneumonia, pleural effusions , ascites. Medical Screen Exam Complete: Yes Emergency Medical Condition: Yes Differential Diagnosis Differential Diagnosis: encephalopathy vs. CHF vs. intracranial hemorrhage vs. metabolic abnormality vs. ascites Medical Records Medical records reviewed: Yes I reviewed the patient's medical records. Lab Data Result diagrams: 09/24/18 18:15 09/24/18 18:15 Lab Results 09/24/18 09/24/18 09/24/18 Range/Units 18:15 18:15 18:15 WBC 4.6 (4.0-11.0) th/mm3 RBC 3.75 L (4.50-5.90) mil/mm3 Hgb 10.4 L (13.0-17.0) gm/dL Hct 31.8 L (39.0-51.0) % MCV 84.7 (80.0-100.0) fL MCH 27.9 (27.0-34.0) pg MCHC 32.9 (32.0-36.0) % RDW 19.7 H (11.6-17.2) % Plt Count 182 (150-450) th/mm3 MPV 10.0 (7.0-11.0) fL Neut % (Auto) 76.7 H (16.0-70.0) % Lymph % (Auto) 5.7 L (9.0-44.0) % [place] % (Auto) 15.5 H (0.0-8.0) % Eos % (Auto) 1.7 (0.0-4.0) % Baso % (Auto) 0.4 (0.0-2.0) % Neut # (Auto) 3.5 (1.8-7.7) th/mm3 Lymph # (Auto) 0.3 L (1.0-4.8) th/mm3 [place] # (Auto) 0.7 (0.0-0.9) th/mm3 Eos # (Auto) 0.1 (0.0-0.4) th/mm3 Baso # (Auto) 0.0 (0.0-0.2) th/mm3 WBC Differential . Differential Comment Auto diff final PT 21.5 H (9.8-11.6) sec INR 2.1 Ratio APTT 37.7 H (23.4-31.7) sec Sodium 135 L (136-145) meq/L Potassium 5.4 H (3.5-5.1) meq/L Chloride 105 (98-107) meq/L Carbon Dioxide 27.4 (21.0-32.0) meq/L Anion Gap 3 L (5-15) meq/L BUN 29 H (7-18) mg/dL Creatinine 1.71 H (0.60-1.30) mg/dL Estimated GFR 52 L (>89) mL/min Random Glucose 145 H (74-106) mg/dL Lactic Acid (0.4-2.0) mmol/L Calcium 8.1 L (8.5-10.1) mg/dL Magnesium 1.9 (1.5-2.5) mg/dL Total Bilirubin 2.9 H (0.2-1.0) mg/dL AST 36 (15-37) U/L ALT 17 (12-78) U/L Alkaline Phosphatase 281 H (45-117) U/L Ammonia (11-32) mcmol/L Total Creatine Kinase 114 (39-308) U/L Troponin I 0.02 (0.02-0.05) ng/mL B-Natriuretic Peptide (0-100) pg/mL Total Protein 8.4 H (6.4-8.2) g/dL Albumin 2.3 L (3.4-5.0) g/dL Urine Color (Yellw/Straw) Urine Clarity (Clear) Urine pH (5.0-8.5) Ur Specific [place] (1.002-1.035) Urine Protein (Neg-Trace) mg/dL Urine Glucose (UA) (Negative) mg/dL Urine Ketones (Negative) mg/dL Urine Occult Blood (Negative) Urine Nitrate (Negative) Urine Bilirubin (Negative) Urine Urobilinogen (Less than 2) mg/dL Ur Leukocyte Esterase (Negative) Urine RBC (0-3) /hpf Urine WBC (0-5) /hpf Hyaline Casts (0-3) /lpf Urine Mucus (Occasional) /lpf Micro UA Comment Ur Microscopic Review Urine Culture Comments Urine Opiates Screen (Neg) Acetaminophen Less than 2.0 L (10.0-30.0) mcg/mL Ur Barbiturates Screen (Neg) Ur Amphetamines Screen (Neg) U Benzodiazepines Scrn (Neg) Urine Cocaine Screen (Neg) U Cannabinoids Screen (Neg) Serum Alcohol Less than 3 (0-5) mg/dL 09/24/18 09/24/18 09/24/18 Range/Units 18:15 18:15 18:15 WBC (4.0-11.0) th/mm3 RBC (4.50-5.90) mil/mm3 Hgb (13.0-17.0) gm/dL Hct (39.0-51.0) % MCV (80.0-100.0) fL MCH (27.0-34.0) pg MCHC (32.0-36.0) % RDW (11.6-17.2) % Plt Count (150-450) th/mm3 MPV (7.0-11.0) fL Neut % (Auto) (16.0-70.0) % Lymph % (Auto) (9.0-44.0) % [place] % (Auto) (0.0-8.0) % Eos % (Auto) (0.0-4.0) % Baso % (Auto) (0.0-2.0) % Neut # (Auto) (1.8-7.7) th/mm3 Lymph # (Auto) (1.0-4.8) th/mm3 [place] # (Auto) (0.0-0.9) th/mm3 Eos # (Auto) (0.0-0.4) th/mm3 Baso # (Auto) (0.0-0.2) th/mm3 WBC Differential Differential Comment PT (9.8-11.6) sec INR Ratio APTT (23.4-31.7) sec Sodium (136-145) meq/L Potassium (3.5-5.1) meq/L Chloride (98-107) meq/L Carbon Dioxide (21.0-32.0) meq/L Anion Gap (5-15) meq/L BUN (7-18) mg/dL Creatinine (0.60-1.30) mg/dL Estimated GFR (>89) mL/min Random Glucose (74-106) mg/dL Lactic Acid 2.1 H (0.4-2.0) mmol/L Calcium (8.5-10.1) mg/dL Magnesium (1.5-2.5) mg/dL Total Bilirubin (0.2-1.0) mg/dL AST (15-37) U/L ALT (12-78) U/L Alkaline Phosphatase (45-117) U/L Ammonia 50 H (11-32) mcmol/L Total Creatine Kinase (39-308) U/L Troponin I (0.02-0.05) ng/mL B-Natriuretic Peptide 966 H (0-100) pg/mL Total Protein (6.4-8.2) g/dL Albumin (3.4-5.0) g/dL Urine Color (Yellw/Straw) Urine Clarity (Clear) Urine pH (5.0-8.5) Ur Specific [place] (1.002-1.035) Urine Protein (Neg-Trace) mg/dL Urine Glucose (UA) (Negative) mg/dL Urine Ketones (Negative) mg/dL Urine Occult Blood (Negative) Urine Nitrate (Negative) Urine Bilirubin (Negative) Urine Urobilinogen (Less than 2) mg/dL Ur Leukocyte Esterase (Negative) Urine RBC (0-3) /hpf Urine WBC (0-5) /hpf Hyaline Casts (0-3) /lpf Urine Mucus (Occasional) /lpf Micro UA Comment Ur Microscopic Review Urine Culture Comments Urine Opiates Screen (Neg) Acetaminophen (10.0-30.0) mcg/mL Ur Barbiturates Screen (Neg) Ur Amphetamines Screen (Neg) U Benzodiazepines Scrn (Neg) Urine Cocaine Screen (Neg) U Cannabinoids Screen (Neg) Serum Alcohol (0-5) mg/dL 09/24/18 09/24/18 Range/Units 18:26 18:26 WBC (4.0-11.0) th/mm3 RBC (4.50-5.90) mil/mm3 Hgb (13.0-17.0) gm/dL Hct (39.0-51.0) % MCV (80.0-100.0) fL MCH (27.0-34.0) pg MCHC (32.0-36.0) % RDW (11.6-17.2) % Plt Count (150-450) th/mm3 MPV (7.0-11.0) fL Neut % (Auto) (16.0-70.0) % Lymph % (Auto) (9.0-44.0) % [place] % (Auto) (0.0-8.0) % Eos % (Auto) (0.0-4.0) % Baso % (Auto) (0.0-2.0) % Neut # (Auto) (1.8-7.7) th/mm3 Lymph # (Auto) (1.0-4.8) th/mm3 [place] # (Auto) (0.0-0.9) th/mm3 Eos # (Auto) (0.0-0.4) th/mm3 Baso # (Auto) (0.0-0.2) th/mm3 WBC Differential Differential Comment PT (9.8-11.6) sec INR Ratio APTT (23.4-31.7) sec Sodium (136-145) meq/L Potassium (3.5-5.1) meq/L Chloride (98-107) meq/L Carbon Dioxide (21.0-32.0) meq/L Anion Gap (5-15) meq/L BUN (7-18) mg/dL Creatinine (0.60-1.30) mg/dL Estimated GFR (>89) mL/min Random Glucose (74-106) mg/dL Lactic Acid (0.4-2.0) mmol/L Calcium (8.5-10.1) mg/dL Magnesium (1.5-2.5) mg/dL Total Bilirubin (0.2-1.0) mg/dL AST (15-37) U/L ALT (12-78) U/L Alkaline Phosphatase (45-117) U/L Ammonia (11-32) mcmol/L Total Creatine Kinase (39-308) U/L Troponin I (0.02-0.05) ng/mL B-Natriuretic Peptide (0-100) pg/mL Total Protein (6.4-8.2) g/dL Albumin (3.4-5.0) g/dL Urine Color Yellow (Yellw/Straw) Urine Clarity Clear (Clear) Urine pH 7.0 (5.0-8.5) Ur Specific [place] 1.008 (1.002-1.035) Urine Protein 30 H (Neg-Trace) mg/dL Urine Glucose (UA) Negative (Negative) mg/dL Urine Ketones Negative (Negative) mg/dL Urine Occult Blood Negative (Negative) Urine Nitrate Negative (Negative) Urine Bilirubin Negative (Negative) Urine Urobilinogen 4 or greater (Less than 2) mg/dL Ur Leukocyte Esterase Negative (Negative) Urine RBC Less than 1 (0-3) /hpf Urine WBC Less than 1 (0-5) /hpf Hyaline Casts 3 (0-3) /lpf Urine Mucus Few H (Occasional) /lpf Micro UA Comment Cath-culture not ind Ur Microscopic Review Not Reportable Urine Culture Comments Cath-cult not ind Urine Opiates Screen Neg (Neg) Acetaminophen (10.0-30.0) mcg/mL Ur Barbiturates Screen Neg (Neg) Ur Amphetamines Screen Neg (Neg) U Benzodiazepines Scrn Neg (Neg) Urine Cocaine Screen Neg (Neg) U Cannabinoids Screen Neg (Neg) Serum Alcohol (0-5) mg/dL Imaging Data Radiologist's impression: Abdomen/Pelvis CT 09/24/18 17:32 CONCLUSION: 1. Moderate to large amount of ascitic fluid again noted. 2. The liver is more prominent than on the prior study with prominent left lobe and diffuse inhomogeneity. 3. The bowel loops are displaced centrally within nonobstructive bowel gas pattern. 4. Small nonobstructing right renal calculus. 5. Large right pleural effusion and small left pleural effusion. Chest X-Ray 18 17:32 CONCLUSION: 1. Cardiomegaly with increase in pulmonary vascularity. 2. Large right pleural effusion and right basilar density. 3. Status post CABG. Head CT 18 17:32 CONCLUSION: 1. No acute infarct, acute hemorrhage, mass effect or extra-axial fluid collections. 2. 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 . Discharge Plan Discharge Disposition Patient Disposition: ED Admit(ED Internal Use Only) Discharge Details Diagnosis: Pleural effusion, Congestive heart failure, Ascites, Altered mental status Physicians Team ED Provider: Devin Balderas ED Midlevel Provider: Joellen Currie Primary Care Provider: UNKNOWN, Rxs /Orders / Referrals /Forms Prescriptions: No Action warfarin [Coumadin] 5 mg Tablet 5 mg PO DAILY RF: 0 carvedilol 3.125 mg Tablet 3.125 mg PO BID RF: 0 Discharge Interventions Interventions: Vital Signs Last Done: 09/24/18 17:32 Status ED Status: Pending Admission
[2018-09-24] MEDS ORDERED: Azithromycin Inj 500 MG in Sodium Chlor 0.9% Inj 250 ML IV.SIG STA (17:57)
--- NOTE | 2018-09-24 17:59 | XR ---
EXAM DATE: 09/24/2018 5:55 PM EST AGE/SEX: 47 years / Male INDICATIONS: Short of breath. CLINICAL DATA: This is the patient's initial encounter. Patient reports that signs and symptoms have been present for 1 day and indicates a pain score of 0/10. MEDICAL/SURGICAL HISTORY: . Myocardial infarction. Congestive heart failure. Hypercholesterolem ia. CVA. Afib. HTN. Dyspnea. Hemoptysis. Ascites. Hematuria. Chronic kidney disease. Renal calculi. D iabetes. Situs inversus. Pleural effusion. Anticoagulant therapy, Heparin. . Pacemaker. CABG. [place] l valve replacement x2. Paracentesis. Thoracentesis. Blood transfusions COMPARISON: [facility] [place], CHEST 1V SINGLE AP, 06/16/2018. . FINDINGS: A single AP view of the chest demonstrates large right pleural effusion and right basilar density. Ca rdiomegaly. Increase in pulmonary vascularity. Right-sided pacemaker with single intact lead. Status post CABG. The cardiomediastinal contours are unremarkable. Osseous structures are intact. CONCLUSION: 1. Cardiomegaly with increase in pulmonary vascularity. 2. Large right pleural effusion and right basilar density. 3. Status post CABG. Electronically signed by: Jerome Fenton MD Board Certified Radiologist 09/24/2018 5:58 PM EST
[2018-09-24 18:34] LABS: Baso % (Auto) 0.4 % (0.0-2.0); Eos # (Auto) 0.1 th/mm3 (0.0-0.4); Eos % (Auto) 1.7 % (0.0-4.0); Hematocrit 31.8 % (39.0-51.0); Hemoglobin 10.4 gm/dL (13.0-17.0); Lymph # (Auto) 0.3 th/mm3 (1.0-4.8); Lymph % (Auto) 5.7 % (9.0-44.0); Mean Corpuscular HGB Conc 32.9 % (32.0-36.0); Mean Corpuscular Hemoglobin 27.9 pg (27.0-34.0); Mean Corpuscular Volume 84.7 fL (80.0-100.0); Mono # (Auto) 0.7 th/mm3 (0.0-0.9); Mono % (Auto) 15.5 % (0.0-8.0); Neut # (Auto) 3.5 th/mm3 (1.8-7.7); Neut % (Auto) 76.7 % (16.0-70.0); Platelet Count 182 th/mm3 (150-450); Red Blood Count 3.75 mil/mm3 (4.50-5.90); Red Cell Distribution Width 19.7 % (11.6-17.2); White Blood Count 4.6 th/mm3 (4.0-11.0)
[2018-09-24 18:52] LABS: Bilirubin,Urine Negative (Negative); Clarity,Urine Clear (Clear); Color,Urine Yellow (Yellw/Straw); Glucose,Urine (UA) Negative (Negative); Hyaline Casts,Urine 3 /lpf (0-3); Leukocyte Esterase,Urine Negative (Negative); Mucus,Urine Few /lpf (Occasional); Nitrite,Urine Negative (Negative); Specific Gravity,Urine 1.008 (1.002-1.035); Urobilinogen,Urine 4 or Greater mg/dL (Less than 2)
[2018-09-24 18:55] LABS: Activated Partial Thrombo Time 37.7 sec (23.4-31.7); INR 2.1 Ratio; Prothrombin Time 21.5 sec (9.8-11.6)
[2018-09-24 18:56] LABS: Amphetamine Screen,Urine Neg (Neg); Barbiturate Screen,Urine Neg (Neg); Cannabinoid Screen,Urine Neg (Neg); Cocaine Screen,Urine Neg (Neg)
[2018-09-24 18:58] LABS: Opiate Screen,Urine Neg (Neg)
[2018-09-24 19:04] LABS: Anion Gap 3 meq/L (5-15)
--- NOTE | 2018-09-24 19:05 | CT ---
EXAM DATE: 09/24/2018 6:56 PM EST AGE/SEX: 47 years / Male INDICATIONS: Abdominal distention with rectal bleeding. CLINICAL DATA: This is the patient's initial encounter. Patient reports that signs and symptoms have been present for 1 day and indicates a pain score of 0/10. MEDICAL/SURGICAL HISTORY: Cardiovascular disease. Cerebrovascular disease. Hypertension. Tayler betes CKD Ascites Renal stones CABG. Pacemaker. RADIATION DOSE: 9.96 CTDI (mGy) [place] [facility] [place]27/2016. . TECHNIQUE: Multiple contiguous axial images were obtained through the abdomen. Images were obtained using multiple row detector helical technique. Using automated exposure control and adjustment of the mA and/or kV according to patient size, radiation dose was kept as low as reasonably achievable to o btain optimal diagnostic quality images. DICOM format image data is available electronically for rev iew and comparison. FINDINGS: Lower Lungs: Patient is status post median sternotomy. Marked cardiomegaly is again noted with transv enous pacers in place a large right pleural effusion is again noted as well as a small left pleural e ffusion. Consolidation is again noted in the right lung base which may be compressive. Liver: The liver appears more prominent than on the prior study with prominent left lobe and mild kalee ginating. No distinct focal mass or ductal dilatation is identified. The gallbladder is not well visu alized. There is a moderate to large amount of ascitic fluid present throughout the abdomen and pelvi s. Spleen: Homogeneous density without enlargement. Pancreas: Unremarkable without mass or calcification. Kidneys: Normal in size and shape. No evidence of mass or hydronephrosis. A small nonobstructing 2 m m right renal calculus. The kidneys remain lobular in contour. Adrenal Glands: Unremarkable. Aorta: The aorta and proximal iliac vessels are grossly unremarkable without aneurysmal dilation. Bowel/Mesentery: No oral contrast was given limiting the sensitivity of this exam. There is suboptim al visualization evaluation of the bowel and mesentery due to the ascites fluid lack of intravenous a nd oral contrast. There is a moderate to large amount of ascitic fluid throughout the abdomen and pel vis. The bowel loops are displaced centrally. There is nonobstructive bowel gas pattern with no free air. Abdominal Wall: Intact. Retroperitoneum: No evidence of adenopathy in the retrocrural, para-aortic, or deep pelvic regions. Bladder: Contours are smooth. Reproductive Organs: No abnormal masses or calcifications seen. Inguinal: The inguinal region is unremarkable without evidence of adenopathy. Bony Structures: Unremarkable. CONCLUSION: 1. Moderate to large amount of ascitic fluid again noted. 2. The liver is more prominent than on the prior study with prominent left lobe and diffuse inhomoge neity. 3. The bowel loops are displaced centrally within nonobstructive bowel gas pattern. 4. Small nonobstructing right renal calculus. 5. Large right pleural effusion and small left pleural effusion. Electronically signed by: Bay Wyman MD Board Certified Radiologist 09/24/2018 7:04 PM EST
--- NOTE | 2018-09-24 19:09 | CT ---
EXAM DATE: 09/24/2018 6:56 PM EST AGE/SEX: 47 years / Male INDICATIONS: Altered mental status. CLINICAL DATA: This is the patient's initial encounter. Patient reports that signs and symptoms have been present for 1 day and indicates a pain score of 0/10. MEDICAL/SURGICAL HISTORY: Cardiovascular disease. Cerebrovascular disease. Hypertension. Diabete s CKD Ascites Renal stones CABG. Pacemaker. RADIATION DOSE: 66.34 CTDI (mGy) COMPARISON: No prior exams available for comparison. TECHNIQUE: CT of the head without contrast. Using automated exposure control and adjustment of the mA and/or kV according to patient size, radiation dose was kept as low as reasonably achievable to ob tain optimal diagnostic quality images. DICOM format image data is available electronically for revi ew and comparison. FINDINGS: Cerebrum: The ventricles are normal for age. No evidence of midline shift, mass lesion, hemorrhage or acute infarction. No extraaxial fluid collections are seen. 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 Ex vacuo dilatation of the left lateral ventricle is noted. Posterior Fossa: The cerebellum and brainstem are intact. The 4th ventricle is midline. The cerebe llopontine angle is unremarkable. Extracranial: The visualized portion of the orbits is intact. Skull: The calvaria is intact. No evidence of skull fracture. CONCLUSION: 1. No acute infarct, acute hemorrhage, mass effect or extra-axial fluid collections. 2. 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 . Electronically signed by: Luis Alfredo Álvarez MD Board Certified Radiologist 09/24/2018 7:07 PM EST
[2018-09-24 19:14] LABS: Alanine Aminotransferase 17 U/L (12-78); Albumin 2.3 g/dL (3.4-5.0); Alkaline Phosphatase 281 U/L (45-117); Aspartate Aminotransferase 36 U/L (15-37); Blood Urea Nitrogen 29 mg/dL (7-18); Calcium 8.1 mg/dL (8.5-10.1); Carbon Dioxide 27.4 meq/L (21.0-32.0); Chloride 105 meq/L (98-107); Creatine Kinase 114 U/L (39-308); Glomerular Filtration Rate 52 mL/min (>89); Glucose,Random 145 mg/dL (74-106); Magnesium 1.9 mg/dL (1.5-2.5); Potassium 5.4 meq/L (3.5-5.1); Sodium 135 meq/L (136-145); Total Protein 8.4 g/dL (6.4-8.2); Troponin I 0.02 ng/mL (0.02-0.05)
[2018-09-24] MEDS ORDERED: Acetaminophen 325 MG Tablet PO PRN (20:01)
[2018-09-24] MEDS ORDERED: Bisacodyl 10 MG Supp RECTAL PRN (20:01)
--- NOTE | 2018-09-24 20:53 | P.HP ---
History of Present Illness Service: [facility] Primary Care Physician: UNKNOWN History of Present Illness: 47-year-old male with a past medical history significant for transposition of the great vessels, mitral valve replacement x2 on Coumadin, pacemaker, CHF, CKD , large umbilical hernia and recurrent ascites/pleural effusions presented to the emergency department for evaluation of altered mental status. Per the patient's brother he was more confused than usual today. The patient believes this is because he took 5 of his mother's BuSpar because who had been unable to sleep recently. The patient's brother reports that his mother recently relocated to a fdc and his brother has been depressed because of this. The patient now lives alone. It is unclear if he is able to properly care for himself. The patient and his brother do not know all of the patient's medications however the patient's brother states that he is on multiple medications for his medical illnesses. The patient last had a paracentesis and thoracentesis on 06/21/18. The patient is oriented to self and place however believes it is 1984. He is an extremely poor historian. His PCP is Dr. Montero. He denies any chest pain or shortness of breath. No cough or congestion. No abdominal pain. No nausea/vomiting/diarrhea. No focal neurologic deficits. The patient reports he does not notice his distended abdomen. Inpatient Certification: I certify that the inpatient services were ordered in accordance with Medicare regulations governing the order. This includes certification that hospital inpatient services are reasonable and necessary and in the case of services not specified as inpatient-only under 42 CFR 419.22(n), that they are appropriately provided as inpatient services in accordance to with the 2-midnight benchmark under 43 CFR 412.3(e) Estimated Total Length of Stay (Days): 3 Plans for Post Hospital Care: SNF Review of Systems All other systems reviewed negative except as stated in HPI PMFSH - History History Provided By: Patient - Medical History Medical History: Medical History (Last Updated 09/24/18 @ 20:42 by Brianna Rae MD) Chronic kidney disease, stage III (moderate) Congestive heart failure Umbilical hernia Great vessels transposition History of abdominal paracentesis Mitral valve regurgitation Pacemaker - Surgical History Surgical History: Surgical History (Last Reviewed 09/24/18 @ 20:42 by Brianna Rae MD) H/O heart surgery H/O mitral valve replacement History of permanent cardiac pacemaker placement History of thoracentesis - Family History Family History: Family History (Last Reviewed 09/24/18 @ 20:42 by Brianna Rae MD) Mother Stroke Diabetes Father Bladder cancer - Tobacco History Second Hand Smoke Exposure: No Smoking Status: Never smoker Tobacco Type: Cigars - Alcohol History How Often Do You Have a Drink Containing Alcohol: Never - Substance Use History Substance History: No History of Abuse - Travel History Recent Travel in the [place] Within the Last 8 Weeks: No Recent Travel Out of the Country Within the Last 8 Weeks: No - Immunization History Tetanus Immunization: Unsure Medications and Allergies Active Medications: Active Medications Acetaminophen (Tylenol) 650 mg PO Q4H PRN PRN Reason: Temp > 100.4 Al Hydroxide/Mg Hydroxide (Milk Of Magnesia Liq) 30 ml PO Q12H PRN PRN Reason: Mild Constipation Bisacodyl (Dulcolax Supp) 10 mg RECTAL DAILY PRN PRN Reason: SEVERE CONSITIPATION Carvedilol (Coreg) 3.125 mg PO BID JOSÉ MIGUEL Furosemide (Lasix Inj) 20 mg IV.PUSH BID@0900,1800 JOSÉ MIGUEL Cefepime HCl 2,000 mg/ Sodium (Chloride) 100 mls @ 200 mls/hr IV.SIG Q8H JOSÉ MIGUEL Azithromycin 500 mg/ Sodium (Chloride) 250 mls @ 250 mls/hr IV.SIG Q24H JOSÉ MIGUEL Lactulose (Lactulose Liq) 30 ml PO QID JOSÉ MIGUEL Ondansetron HCl (Zofran Inj) 4 mg IV.PUSH Q6H PRN PRN Reason: NAUSEA OR VOMITING Sennosides (Senokot) 17.2 mg PO Q12H PRN PRN Reason: Moderate Constipation Sodium Chloride (Ns Flush) 2 ml IV.FLUSH PRN PRN PRN Reason: FLUSH AFTER USING IV ACCESS Sodium Chloride (Ns Flush) 2 ml IV.FLUSH BID JOSÉ MIGUEL Sodium Chloride (Ns Flush) 2 ml IV.FLUSH PRN PRN PRN Reason: FLUSH AFTER USING IV ACCESS Allergies Allergy/AdvReac Type Severity Reaction Status Date / Time losartan Allergy Unknown Anaphylaxis Verified 06/16/18 11:01 Home Medications Medication Instructions Recorded Confirmed Type warfarin [Coumadin] 5 mg PO DAILY 06/16/18 09/24/18 History carvedilol 3.125 mg PO BID 09/24/18 09/24/18 History Exam Vital signs: Vital Signs 09/24/18 16:44 09/24/18 17:32 09/24/18 20:00 Temperature 97.5 F L Pulse Rate 60 60 65 Respiratory Rate 20 20 16 Blood Pressure 129/69 130/80 134/65 Pulse Oximetry 98 99 100 Intake & Output 09/24/18 09/24/18 09/25/18 06:59 18:59 06:59 Intake Total 250 / 250 Balance 250 / 250 Weight 58.967 kg Intake: IV 250 / 250 Azithromycin Inj 500 MG In NS 250 / 250 Inj 250 ML @ 250 mls/hr IV.SIG STAT STA Rx#:[id number] Narrative: Gen.: No acute distress Head: Normocephalic. Atraumatic. EENT: Pupils equal round and reactive to light. Nose without drainage. Airway intact. Throat without injection. Cardiovascular: Regular rate and rhythm. No murmurs, rubs or gallops. Respiratory: Decreased breath sounds and crackles on the right. No wheezes or rhonchi. Abdomen: Soft, nontender,+ distention. No peritoneal signs. Large reducible umbilical hernia. Musculoskeletal: No gross deformities. No edema. Skin: No obvious rashes or erythema. Neuro: Sensory and motor grossly intact. Cranial nerves II through XII grossly intact. Believes it is 1984. Oriented to self and place. Results - Labs CBC & Chem 7: 09/24/18 18:15 09/24/18 18:15 Labs: Laboratory Results - last 24 hr 09/24/18 09/24/18 09/24/18 18:15 18:15 18:15 WBC 4.6 RBC 3.75 L Hgb 10.4 L Hct 31.8 L MCV 84.7 MCH 27.9 MCHC 32.9 RDW 19.7 H Plt Count 182 MPV 10.0 Neut % (Auto) 76.7 H Lymph % (Auto) 5.7 L [place] % (Auto) 15.5 H Eos % (Auto) 1.7 Baso % (Auto) 0.4 Neut # (Auto) 3.5 Lymph # (Auto) 0.3 L [place] # (Auto) 0.7 Eos # (Auto) 0.1 Baso # (Auto) 0.0 WBC Differential . Differential Comment Auto diff final PT 21.5 H INR 2.1 APTT 37.7 H Sodium 135 L Potassium 5.4 H Chloride 105 Carbon Dioxide 27.4 Anion Gap 3 L BUN 29 H Creatinine 1.71 H Estimated GFR 52 L Random Glucose 145 H Lactic Acid Calcium 8.1 L Magnesium 1.9 Total Bilirubin 2.9 H AST 36 ALT 17 Alkaline Phosphatase 281 H Ammonia Total Creatine Kinase 114 Troponin I 0.02 B-Natriuretic Peptide Total Protein 8.4 H Albumin 2.3 L Urine Color Urine Clarity Urine pH Ur Specific [place] Urine Protein Urine Glucose (UA) Urine Ketones Urine Occult Blood Urine Nitrate Urine Bilirubin Urine Urobilinogen Ur Leukocyte Esterase Urine RBC Urine WBC Hyaline Casts Urine Mucus Micro UA Comment Ur Microscopic Review Urine Culture Comments Urine Opiates Screen Acetaminophen Less than 2.0 L Ur Barbiturates Screen Ur Amphetamines Screen U Benzodiazepines Scrn Urine Cocaine Screen U Cannabinoids Screen Serum Alcohol Less than 3 09/24/18 09/24/18 09/24/18 18:15 18:15 18:15 WBC RBC Hgb Hct MCV MCH MCHC RDW Plt Count MPV Neut % (Auto) Lymph % (Auto) [place] % (Auto) Eos % (Auto) Baso % (Auto) Neut # (Auto) Lymph # (Auto) [place] # (Auto) Eos # (Auto) Baso # (Auto) WBC Differential Differential Comment PT INR APTT Sodium Potassium Chloride Carbon Dioxide Anion Gap BUN Creatinine Estimated GFR Random Glucose Lactic Acid 2.1 H Calcium Magnesium Total Bilirubin AST ALT Alkaline Phosphatase Ammonia 50 H Total Creatine Kinase Troponin I B-Natriuretic Peptide 966 H Total Protein Albumin Urine Color Urine Clarity Urine pH Ur Specific [place] Urine Protein Urine Glucose (UA) Urine Ketones Urine Occult Blood Urine Nitrate Urine Bilirubin Urine Urobilinogen Ur Leukocyte Esterase Urine RBC Urine WBC Hyaline Casts Urine Mucus Micro UA Comment Ur Microscopic Review Urine Culture Comments Urine Opiates Screen Acetaminophen Ur Barbiturates Screen Ur Amphetamines Screen U Benzodiazepines Scrn Urine Cocaine Screen U Cannabinoids Screen Serum Alcohol 09/24/18 09/24/18 18:26 18:26 WBC RBC Hgb Hct MCV MCH MCHC RDW Plt Count MPV Neut % (Auto) Lymph % (Auto) [place] % (Auto) Eos % (Auto) Baso % (Auto) Neut # (Auto) Lymph # (Auto) [place] # (Auto) Eos # (Auto) Baso # (Auto) WBC Differential Differential Comment PT INR APTT Sodium Potassium Chloride Carbon Dioxide Anion Gap BUN Creatinine Estimated GFR Random Glucose Lactic Acid Calcium Magnesium Total Bilirubin AST ALT Alkaline Phosphatase Ammonia Total Creatine Kinase Troponin I B-Natriuretic Peptide Total Protein Albumin Urine Color Yellow Urine Clarity Clear Urine pH 7.0 Ur Specific [place] 1.008 Urine Protein 30 H Urine Glucose (UA) Negative Urine Ketones Negative Urine Occult Blood Negative Urine Nitrate Negative Urine Bilirubin Negative Urine Urobilinogen 4 or greater Ur Leukocyte Esterase Negative Urine RBC Less than 1 Urine WBC Less than 1 Hyaline Casts 3 Urine Mucus Few H Micro UA Comment Cath-culture not ind Ur Microscopic Review Not Reportable Urine Culture Comments Cath-cult not ind Urine Opiates Screen Neg Acetaminophen Ur Barbiturates Screen Neg Ur Amphetamines Screen Neg U Benzodiazepines Scrn Neg Urine Cocaine Screen Neg U Cannabinoids Screen Neg Serum Alcohol - Imaging Impressions Abdomen/Pelvis CT 09/24/18 17:32 CONCLUSION: 1. Moderate to large amount of ascitic fluid again noted. 2. The liver is more prominent than on the prior study with prominent left lobe and diffuse inhomogeneity. 3. The bowel loops are displaced centrally within nonobstructive bowel gas pattern. 4. Small nonobstructing right renal calculus. 5. Large right pleural effusion and small left pleural effusion. Chest X-Ray 18 17:32 CONCLUSION: 1. Cardiomegaly with increase in pulmonary vascularity. 2. Large right pleural effusion and right basilar density. 3. Status post CABG. Head CT 18 17:32 CONCLUSION: 1. No acute infarct, acute hemorrhage, mass effect or extra-axial fluid collections. 2. 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 . Caprini VTE Risk Assessment Caprini VTE Risk Assessment: Moderate/High Risk (score >= 2) Caprini Risk Assessment Model: Point Value = 1 Point Value = 2 Point Value = 3 Point Value = 5 Age 41-60 Minor surgery BMI > 25 kg/m2 Swollen legs Varicose veins or History of unexplained or recurrent spontaneous Oral contraceptives or hormone replacement Sepsis (< 1 month) Serious lung disease, including pneumonia (< 1 month) Abnormal pulmonary function Acute myocardial infarction Congestive heart failure (< 1 month) History of inflammatory bowel disease Medical patient at bed rest Age 61-74 Arthroscopic surgery Major open surgery (> 45 min) Laparoscopic surgery (> 45 min) Malignancy Confined to bed (> 72 hours) Immobilizing plaster cast Central venous access Age >= 75 History of VTE Family history of VTE Factor V Leiden Prothrombin [id number] Lupus anticoagulant Anticardiolipin antibodies Elevated serum homocysteine Heparin-induced thrombocytopenia Other congenital or acquired thrombophilia Stroke (< 1 month) Elective arthroplasty Hip, pelvis, or leg fracture Acute spinal cord injury (< 1 month) Prophylaxis Regimen: Total Risk Factor Score Risk Level Prophylaxis Regimen 0-1 Low Early ambulation 2 Moderate Order ONE of the following: *Sequential Compression Device (SCD) *Heparin 5000 units SQ BID 3-4 Higher Order ONE of the following medications: *Heparin 5000 units SQ TID *Enoxaparin/Lovenox 40 mg SQ daily (WT < 150 kg, CrCl > 30 mL/min) *Enoxaparin/Lovenox 30 mg SQ daily (WT < 150 kg, CrCl > 10-29 mL/min) *Enoxaparin/Lovenox 30 mg SQ BID (WT < 150 kg, CrCl > 30 mL/min) AND/OR *Sequential Compression Device (SCD) 5 or more Highest Order ONE of the following medications: *Heparin 5000 units SQ TID (Preferred with Epidurals) *Enoxaparin/Lovenox 40 mg SQ daily (WT < 150 kg, CrCl > 30 mL/min) *Enoxaparin/Lovenox 30 mg SQ daily (WT < 150 kg, CrCl > 10-29 mL/min) *Enoxaparin/Lovenox 30 mg SQ BID (WT < 150 kg, CrCl > 30 mL/min) AND *Sequential Compression Device (SCD) Assessment and Plan - Plan Assessment/plan: 1. CHF exacerbation BNP elevated at 999 Chest x-ray showing cardiomegaly, pulmonary vascular congestion and large right- sided pleural effusion IV Lasix Interventional radiology consulted for thoracentesis Continue home carvedilol 2. Ascites Moderate to large amount of the ascitic fluid with the liver more prominent than prior study Interventional radiology consulted for paracentesis Patient reports he is status post a stenting procedure at [facility] ([facility] as above 3. Altered mental status May be secondary to BuSpar ingestion, monitor on telemetry Ammonia elevated at 50 Lactulose Monitor ammonia level 4. Pneumonia Chest x-ray significant for right basilar density Cefepime and azithromycin 5. Chronic kidney disease, stage III Creatinine 1.7, baseline Monitor renal function 6. Status post mitral valve replacement Anticoagulated on Coumadin INR 2.1 Holding Coumadin for paracentesis/thoracentesis Resume once procedures completed Patient does not know his home medications. The patient's brother who is bedside reports that there are many medications in his house. He will collect them and bring them in tomorrow morning. Resume home medications once reconciled. FEN N.p.o. Electrolytes: Potassium 5.4, hemolysis noted. Monitor Holding pharmacologic anticoagulation for pending procedures
[2018-09-25 06:59] LABS: Baso # (Auto) 0.1 th/mm3 (0.0-0.2); Baso % (Auto) 1.2 % (0.0-2.0); Eos # (Auto) 0.1 th/mm3 (0.0-0.4); Eos % (Auto) 2.8 % (0.0-4.0); Hematocrit 30.3 % (39.0-51.0); Lymph # (Auto) 0.2 th/mm3 (1.0-4.8); Lymph % (Auto) 5.7 % (9.0-44.0); Mean Corpuscular HGB Conc 33.1 % (32.0-36.0); Mean Corpuscular Hemoglobin 27.5 pg (27.0-34.0); Mean Platelet Volume 10.1 fL (7.0-11.0); Mono # (Auto) 0.7 th/mm3 (0.0-0.9); Mono % (Auto) 15.8 % (0.0-8.0); Neut # (Auto) 3.2 th/mm3 (1.8-7.7); Neut % (Auto) 74.5 % (16.0-70.0); Platelet Count 149 th/mm3 (150-450); Red Blood Count 3.65 mil/mm3 (4.50-5.90); Red Cell Distribution Width 19.1 % (11.6-17.2); White Blood Count 4.3 th/mm3 (4.0-11.0)
[2018-09-25 07:08] LABS: INR 2.2 Ratio; Prothrombin Time 22.7 sec (9.8-11.6)
[2018-09-25 07:39] LABS: Calcium 8.1 mg/dL (8.5-10.1); Carbon Dioxide 25.2 meq/L (21.0-32.0); Potassium 4.4 meq/L (3.5-5.1)
--- NOTE | 2018-09-25 16:32 | ECG ---
Date Performed: 09/24/2018 Time Performed: 17:44:00 PTAGE: 47 years EKG: ELECTRONIC VENTRICULAR PACEMAKER ABNORMAL RHYTHM ECG PREVIOUS TRACING : 06/16/2018 10.43 Since the previous tracing, no significant change noted DOCTOR: Darwin Diez Interpretating Date/Time 09/25/2018 16:31:30
--- NOTE | 2018-09-25 17:23 | P.PNIM ---
Subjective Interval history: 47-year-old male with a history of liver failure, recurrent ascites, CHF presented to the ER yesterday with pneumonia, ascites, altered mental status. He was given IV diuresis and has improved somewhat with his mental status. His abdomen remains rotund and densely full of fluid. This is his main complaint. He states otherwise he is breathing better and feeling slightly better. Physical Exam Vital signs: Last Vital Signs Temp 97.3 F L 09/25/18 16:00 Pulse 60 09/25/18 16:00 Resp 20 09/25/18 16:00 BP 123/58 L 09/25/18 16:00 Pulse Ox 100 09/25/18 16:00 Intake & Output 09/23/18 09/24/18 09/25/18 09/26/18 06:59 06:59 06:59 06:59 Intake Total 450 / 450 100 / 100 Output Total 1200 / 1200 355 / 355 Balance -750 / -750 -255 / -255 Weight 59 kg Narrative: Gen.: No acute distress, quiet, generally weak, thin extremities Head: Normocephalic. Atraumatic. EENT: Pupils equal round and reactive to light. Nose without drainage. Airway intact. Throat without injection. Cardiovascular: Regular rate and rhythm. No murmurs, rubs or gallops. Respiratory: Decreased breath sounds and crackles on the right. No wheezes or rhonchi. Abdomen: Tight, rotund ascites, hypoactive bowel sounds, not acutely tender Musculoskeletal: No gross deformities. No edema. Skin: No obvious rashes or erythema. Neuro: Sensory and motor grossly intact. Cranial nerves II through XII grossly intact. Oriented to self and place. Still remains a little bit confused Results Labs CBC & Chem 7: 09/25/18 05:15 09/25/18 05:15 Labs: Microbiology 09/24/18 18:01 Blood - Peripheral Aerobic Blood Culture - Preliminary No growth in 1 day 09/24/18 18:01 Blood - Peripheral Anaerobic Blood Culture - Preliminary No growth in 1 day 09/24/18 17:55 Blood - Peripheral Aerobic Blood Culture - Preliminary No growth in 1 day 09/24/18 17:55 Blood - Peripheral Anaerobic Blood Culture - Preliminary No growth in 1 day Imaging Imaging: Impressions Abdomen/Pelvis CT 09/24/18 17:32 CONCLUSION: 1. Moderate to large amount of ascitic fluid again noted. 2. The liver is more prominent than on the prior study with prominent left lobe and diffuse inhomogeneity. 3. The bowel loops are displaced centrally within nonobstructive bowel gas pattern. 4. Small nonobstructing right renal calculus. 5. Large right pleural effusion and small left pleural effusion. Chest X-Ray 09/24/18 17:32 CONCLUSION: 1. Cardiomegaly with increase in pulmonary vascularity. 2. Large right pleural effusion and right basilar density. 3. Status post CABG. Head CT 09/24/18 17:32 CONCLUSION: 1. No acute infarct, acute hemorrhage, mass effect or extra-axial fluid collections. 2. 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 . Assessment and Plan Plan Ascites Large amount of ascitic fluid in abdomen Interventional radiology consulted for paracentesis, however INR is 2.1 on admission Patient reports he had procedure done at [facility] ([facility] Continue IV diuresis with Lasix CHF exacerbation BNP on admission was 999 Large right-sided pleural effusion complicated by taut ascites and pneumonia Possible addition of thoracentesis, surface requested with interventional radiology Continue IV Lasix Continue carvedilol Altered mental status Possibly related to hyperammonemia, ammonia level was 50 on admission Questionable relation to BuSpar ingestion, continue telemetry in case of overdose Continue lactulose for elevated ammonia Pneumonia Right basilar density on chest x-ray, consider effect of ascites and cirrhosis Continue empiric coverage with cefepime and azithromycin Chronic kidney disease Baseline creatinine is 1.7 Monitor renal function during stay Avoid nephrotoxic agents h/o mitral valve replacement Coumadin held for paracentesis and thoracentesis INR on admission was 2.1, will follow daily INR Resume Coumadin when procedures are completed DVT prophylaxis INR is 2.1 on admission and 2.2 this morning, Coumadin held for procedures Progress Note: Quality VTE Deep Vein Thrombosis/Pulmonary Embolism Present on Admission: No
[2018-09-25] MEDS: Azithromycin Inj 500 MG in Sodium Chlor 0.9% Inj 250 ML IV.SIG SCH (18:18)
[2018-09-26 05:01] LABS: Hematocrit 30.7 % (39.0-51.0); Hemoglobin 10.2 gm/dL (13.0-17.0); Mean Corpuscular HGB Conc 33.1 % (32.0-36.0); Mean Corpuscular Hemoglobin 27.1 pg (27.0-34.0); Mean Corpuscular Volume 81.9 fL (80.0-100.0); Mean Platelet Volume 9.3 fL (7.0-11.0); Platelet Count 152 th/mm3 (150-450); Red Blood Count 3.74 mil/mm3 (4.50-5.90); Red Cell Distribution Width 19.3 % (11.6-17.2); White Blood Count 4.7 th/mm3 (4.0-11.0)
[2018-09-26 05:09] LABS: INR 2.3 Ratio; Prothrombin Time 23.5 sec (9.8-11.6)
[2018-09-26 05:37] LABS: Calcium 9.1 mg/dL (8.5-10.1); Carbon Dioxide 25.9 meq/L (21.0-32.0); Potassium 4.1 meq/L (3.5-5.1)
[2018-09-26] MEDS ORDERED: Phytonadione Inj 10 MG in Sodium Chlor 0.9% Inj 50 ML IV.SIG ONE (08:30)
--- NOTE | 2018-09-26 12:51 | P.PNIM ---
Subjective Interval history: Maikel is feeling better today, he was admitted with marked ascites and shortness of breath secondary to right-sided pleural effusion. Paracentesis has been delayed by his elevated INR level. He is however taking diuretics feels better today but remains somewhat confused and is requesting to go home. I do not believe he is oriented enough to leave AMA, he stands at his door looking around but somewhat confused. Physical Exam Vital signs: Last Vital Signs Temp 99.4 F 09/26/18 11:37 Pulse 59 L 09/26/18 11:37 Resp 24 09/26/18 11:37 BP 142/66 H 09/26/18 11:37 Pulse Ox 100 09/26/18 11:37 Intake & Output 09/24/18 09/25/18 09/26/18 09/27/18 06:59 06:59 06:59 06:59 Intake Total 450 / 450 450 / 450 151 / 151 Output Total 1200 / 1200 355 / 355 Balance -750 / -750 95 / 95 151 / 151 Weight 59 kg 59.1 kg Narrative: Gen.: No acute distress, quiet, generally weak, thin extremities Head: Normocephalic. Atraumatic. EENT: Pupils equal round and reactive to light. Nose without drainage. Airway intact. Throat without injection. Cardiovascular: Regular rate and rhythm. No murmurs, rubs or gallops. Respiratory: Decreased breath sounds and crackles on the right. No wheezes or rhonchi. Abdomen: Tight, rotund ascites slightly softer today, hypoactive bowel sounds, not acutely tender Musculoskeletal: No gross deformities. No edema. Skin: No obvious rashes or erythema. Neuro: Moderately disoriented .sensory and motor grossly intact. Cranial nerves II through XII grossly intact. Oriented to self and place. Results Labs CBC & Chem 7: 09/26/18 04:46 09/26/18 04:46 Labs: Microbiology 09/24/18 18:01 Blood - Peripheral Aerobic Blood Culture - Preliminary No growth in 2 days 09/24/18 18:01 Blood - Peripheral Anaerobic Blood Culture - Preliminary No growth in 2 days 09/24/18 17:55 Blood - Peripheral Aerobic Blood Culture - Preliminary No growth in 2 days 09/24/18 17:55 Blood - Peripheral Anaerobic Blood Culture - Preliminary No growth in 2 days Assessment and Plan Plan Ascites Large amount of ascitic fluid in abdomen Interventional radiology consulted for paracentesis, however INR is 2.1 on admission Patient preferably needs an INR less than 1.9 in order to proceed with paracentesis Patient reports he had procedure done at [facility] ([facility] Continue IV diuresis with Lasix Elevated INR Patient is having trouble clearing his Coumadin due to liver failure and ascites He was given an IV dose of vitamin K this morning, recheck INR this afternoon, re-dose as needed Repeat INR level with a.m. labs, follow daily CHF exacerbation BNP on admission was 999 Large right-sided pleural effusion complicated by taut ascites and pneumonia Possible addition of thoracentesis, surface requested with interventional radiology Continue IV Lasix Continue carvedilol Altered mental status Possibly related to hyperammonemia, ammonia level was 50 on admission Questionable relation to BuSpar ingestion, continue telemetry in case of overdose Ammonia normalized down to 25 today Continue lactulose for elevated ammonia Pneumonia Right basilar density on chest x-ray, consider effect of ascites and cirrhosis Continue empiric coverage with cefepime and azithromycin Chronic kidney disease Baseline creatinine is 1.7 Monitor renal function during stay Avoid nephrotoxic agents h/o mitral valve replacement Coumadin held for paracentesis and thoracentesis, resume when completed DVT prophylaxis INR is 2.1 on admission and 2.2 this morning, Coumadin held for procedures Progress Note: Quality VTE Deep Vein Thrombosis/Pulmonary Embolism Present on Admission: No
[2018-09-26] MEDS: Azithromycin Inj 500 MG in Sodium Chlor 0.9% Inj 250 ML IV.SIG SCH (17:34)
[2018-09-26 17:43] LABS: INR 1.9 Ratio; Prothrombin Time 19.5 sec (9.8-11.6)
[2018-09-27 05:16] LABS: Hematocrit 29.1 % (39.0-51.0); Hemoglobin 9.8 gm/dL (13.0-17.0); Mean Corpuscular HGB Conc 33.5 % (32.0-36.0); Mean Corpuscular Hemoglobin 27.4 pg (27.0-34.0); Mean Corpuscular Volume 81.8 fL (80.0-100.0); Mean Platelet Volume 9.3 fL (7.0-11.0); Platelet Count 162 th/mm3 (150-450); Red Blood Count 3.56 mil/mm3 (4.50-5.90); Red Cell Distribution Width 19.3 % (11.6-17.2); White Blood Count 4.9 th/mm3 (4.0-11.0)
[2018-09-27 05:27] LABS: INR 1.7 Ratio
[2018-09-27] MEDS ORDERED: Lidocaine PF 1% Inj 5 ML Vial ONE (09:17)
--- NOTE | 2018-09-27 09:18 | XR ---
EXAM DATE: 09/27/2018 9:04 AM EST AGE/SEX: 47 years / Male INDICATIONS: Post right thoracentesis CLINICAL DATA: This is the patient's subsequent encounter. Patient reports that signs and symptoms h ave been present for 3 days and indicates a pain score of 0/10. MEDICAL/SURGICAL HISTORY: . Myocardial infarction. Congestive heart failure. Hypercholesterolem ia. CVA. Afib. HTN. Dyspnea. Hemoptysis. Ascites. Hematuria. Chronic kidney disease. Renal calculi. D iabetes. Situs inversus. Pleural effusion. Anticoagulant therapy, Heparin. . . Pacemaker. CABG. Usman ral valve replacement x2. Paracentesis. Thoracentesis. Blood transfusions COMPARISON: [facility] – [place], CHEST 1V SINGLE AP, 09/24/2018. . FINDINGS: A pacing implement is present with control pack over the right upper chest. Persistent dense consolid ation in the right lung base. No evidence of pneumothorax following thoracentesis. Left lung is stabl e with mild basilar pleural-parenchymal opacity unchanged. Visualized cardiac contours are stable. CONCLUSION: No pneumothorax Electronically signed by: Fco Bassett MD Board Certified Radiologist 09/27/2018 9:17 AM EST
[2018-09-27 10:20] LABS: Total Protein,Pleural Fluid 3.8 gm/dL
[2018-09-27 10:52] LABS: Eosinophils,Pleural Fluid 1 %; Lymphocytes,Pleural Fluid 44 %; Mesothelial,Pleural Fluid 2 %; Monocytes,Pleural Fluid 1 %; Neutrophils,Pleural Fluid 13 %
[2018-09-27 10:53] LABS: RBC,Pleural Fluid 42170 /mm3 (0-0)
--- NOTE | 2018-09-27 10:54 | US ---
EXAM DATE: 09/27/2018 9:07 AM EST AGE/SEX: 47 years / Male INDICATIONS: Right pleural effusion. CLINICAL DATA: This is the patient's subsequent encounter. Patient reports that signs and symptoms h ave been present for 4 - 6 days and indicates a pain score of 2/10. MEDICAL/SURGICAL HISTORY: . Great vessels transposition. Mitral valve regurgitation. Pacemaker . Paracentesis. Mitral valve replacement. Thoracentesis. [place]PARISON: [facility] [place] GUID[place]ORACENTES[place] RIGHT, 06/21/2018. . FLUID: Total volume of 1000 cc of cloudy, red fluid was removed. Fluid was sent to lab for ordered studies. . . TECHNIQUE: Ultrasound guidance for thoracentesis. Thoracentesis. The risks, benefits, and alternatives to ultrasound guided thoracentesis were explained to the patien t in lay simple terms, including the risk of bleeding and infection. Written and verbal informed con sent was obtained. Appropriate area for right thoracentesis was marked under ultrasound guidance with the patient in the upright position. Overlying skin was prepped and draped in the usual sterile fashion and with local anesthetic, a dermatotomy was made with an 11 blade scalpel. A 6 Ukrainian thoracentesis catheter was placed in the pleural space and fluid was removed. Catheter was then removed and a sterile dressing applied. There were no immediate complications. The patient tolerated the procedure well and the lef t the ultrasound suite in stable condition. Chest radiograph is to be obtained. FINDINGS: Adequate fluid for thoracentesis. CONCLUSION: 1. Uncomplicated thoracentesis. Electronically signed by: Sean Mojica MD Board Certified Radiologist 09/27/2018 10:[address]
[2018-09-27] MEDS ORDERED: Albumin Human 25% Inj 150 ML IV.SIG ONE (12:00)
[2018-09-27 12:10] LABS: Total Protein,Peritoneal Fluid 5.5 gm/dL
--- NOTE | 2018-09-27 13:04 | US ---
EXAM DATE: 09/27/2018 10:42 AM EST AGE/SEX: 47 years / Male INDICATIONS: Ascites. CLINICAL DATA: This is the patient's subsequent encounter. Patient reports that signs and symptoms h ave been present for 4 - 6 days and indicates a pain score of 3/10. MEDICAL/SURGICAL HISTORY: . Great vessel transposition. Mitral valve regurgitation. Pacemaker. . Heart surgery. Mitral valve Replacement. Thoracentesis. [place] [facility] [place]/O CONTRAST, 09/24/2018. . FLUID: Total volume of 5500 cc of cloudy, red fluid was removed. Fluid was sent to lab for ordered studies. Proceduralist: Alexander Maradiaga TECHNIQUE: Ultrasound guidance for abdominal paracentesis. Paracentesis. The risks, benefits, and alternatives to ultrasound guided paracentesis were explained to the patient in detail including the risk of bleeding and infection. Written and verbal informed consent was obt ained. With the patient on the ultrasound table, ultrasound imaging was used to select the most appropriate approach for paracentesis. Overlying skin was prepped and draped in the usual sterile fashion and wi th a local anesthetic, a dermatotomy was made with an 11 blade scalpel. A 6 Polish [id number] ca theter was introduced into the peritoneal cavity and fluid was collected. Post procedure scanning reveals no hematoma or other complication. The patient tolerated the procedu re well and left the ultrasound suite in stable condition. FINDINGS: Adequate fluid for paracentesis. CONCLUSION: 1. Uncomplicated paracentesis. Electronically signed by: Sean Mojica MD Board Certified Radiologist 09/27/2018 1:03 PM REJI Woodson
--- NOTE | 2018-09-27 15:17 | P.PNIM ---
Subjective Interval history: Mr. Ko is feeling more comfortable following a paracentesis and thoracentesis. He is still coughing due to his right sided pneumonia, wants to go home, but understands that IV antibiotic medications necessary at this time. He also still remains somewhat confused. Physical Exam Vital signs: Last Vital Signs Temp 98.1 F 09/27/18 12:51 Pulse 60 09/27/18 12:51 Resp 20 09/27/18 12:51 BP 116/86 09/27/18 12:51 Pulse Ox 96 09/27/18 12:51 Intake & Output 09/25/18 09/26/18 09/27/18 09/28/18 06:59 06:59 06:59 06:59 Intake Total 450 / 450 450 / 450 501 / 501 250 / 250 Output Total 1200 / 1200 355 / 355 Balance -750 / -750 95 / 95 501 / 501 250 / 250 Weight 59 kg 59.1 kg 59.4 kg Narrative: Gen.: No acute distress, quiet, generally weak, thin extremities Head: Normocephalic. Atraumatic. EENT: Pupils equal round and reactive to light. Nose without drainage. Airway intact. Throat without injection. Cardiovascular: Regular rate and rhythm. No murmurs, rubs or gallops. Respiratory: Improved aeration on the right lobe, still with crackles. No wheezes or rhonchi. Abdomen: Decompressed abdomen, reduced ascites, hypoactive bowel sounds, not acutely tender Musculoskeletal: No gross deformities. No edema. Skin: No obvious rashes or erythema. Neuro: Improving orientation,. Cranial nerves II through XII grossly intact. Oriented to self and place. Results Labs CBC & Chem 7: 09/27/18 04:26 09/26/18 04:46 Labs: Microbiology 09/24/18 18:01 Blood - Peripheral Aerobic Blood Culture - Preliminary No growth in 3 days 09/24/18 18:01 Blood - Peripheral Anaerobic Blood Culture - Preliminary No growth in 3 days 09/24/18 17:55 Blood - Peripheral Aerobic Blood Culture - Preliminary No growth in 3 days 09/24/18 17:55 Blood - Peripheral Anaerobic Blood Culture - Preliminary No growth in 3 days Imaging Imaging: Impressions Chest X-Ray 09/27/18 00:00 CONCLUSION: No pneumothorax Paracentesis Ultrasound 09/27/18 00:00 CONCLUSION: 1. Uncomplicated paracentesis. Thoracentesis Ultrasound 09/27/18 00:00 CONCLUSION: 1. Uncomplicated thoracentesis. Assessment and Plan Plan Ascites Large amount of ascitic fluid in abdomen Ascitic fluid removed today by interventional radiology Patient is symptomatically relieved Patient reports he had procedure done at [facility] ([facility]?) Continue IV diuresis with Lasix Appreciate interventional radiology performing paracentesis and thoracentesis CHF exacerbation BNP on admission was 999 Large right-sided pleural effusion complicated by taut ascites and pneumonia Thoracentesis on 09/27/2018 Continue IV Lasix, continue carvedilol Appreciate interventional radiology Altered mental status Possibly related to hyperammonemia, ammonia level was 50 on admission Continue holding BuSpar for questionable overdose, continue telemetry Continue lactulose for elevated ammonia Affect is slowly improving Recheck ammonia with a.m. labs Pneumonia Right basilar density on chest x-ray, consider effect of ascites and cirrhosis Continue empiric coverage with cefepime and azithromycin Chronic kidney disease Baseline creatinine is 1.7 Monitor renal function during stay Avoid nephrotoxic agents h/o mitral valve replacement Resume Coumadin DVT prophylaxis Resume Coumadin Progress Note: Quality VTE Deep Vein Thrombosis/Pulmonary Embolism Present on Admission: No
[2018-09-27] MEDS: Haloperidol Inj 5 MG/ML Ampul IV.PUSH PRN (18:02)
[2018-09-27] MEDS: Azithromycin Inj 500 MG in Sodium Chlor 0.9% Inj 250 ML IV.SIG SCH (20:16)
[2018-09-28] MEDS: Haloperidol Inj 5 MG/ML Ampul IV.PUSH PRN (10:30)
--- NOTE | 2018-09-28 11:33 | P.PNIM ---
Subjective Interval history: Patient underwent paracentesis and thoracentesis yesterday. He has been confused since his admission despite normalization of ammonia level. Yesterday afternoon he became more aggressive with staff and started grabbing some of the nurses arms. He was given Haldol to assist in calming his aggression. This morning again he grabbed a staff member's arm. He states that he wants to go home but he is not oriented to place only to name. This is off of his baseline according to his family. Physical Exam Vital signs: Last Vital Signs Temp 97.1 F L 09/28/18 08:00 Pulse 61 09/28/18 08:00 Resp 16 09/28/18 08:00 BP 110/56 L 09/28/18 08:00 Pulse Ox 97 09/28/18 08:00 Intake & Output 09/26/18 09/27/18 09/28/18 09/29/18 06:59 06:59 06:59 06:59 Intake Total 450 / 450 501 / 501 980 / 980 Output Total 355 / 355 Balance 95 / 95 501 / 501 980 / 980 Weight 59.1 kg 59.4 kg Narrative: Gen.: No acute distress, thin, aggressive toward staff, oriented to self, not place or date Head: Normocephalic. Atraumatic. EENT: Pupils equal round and reactive to light. Nose without drainage. Airway intact. Cardiovascular: Regular rate and rhythm. No murmurs, rubs or gallops. Respiratory: Improved aeration on the right lobe, still with crackles. No wheezes or rhonchi. Abdomen: Decompressed abdomen, reduced ascites, hypoactive bowel sounds, not acutely tender Musculoskeletal: No gross deformities. No edema. Skin: No obvious rashes or erythema. Neuro: Improving orientation,. Cranial nerves II through XII grossly intact. Oriented to self and place. Psych: Patient has become increasingly aggressive towards staff, still remains disoriented Results Labs CBC & Chem 7: 09/27/18 04:26 09/26/18 04:46 Labs: Microbiology 09/27/18 08:45 Fluid - Pleural fluid Gram Stain - Final 09/27/18 08:45 Fluid - Pleural fluid Body Fluid Culture - Preliminary No growth in 24 hours 09/24/18 18:01 Blood - Peripheral Aerobic Blood Culture - Preliminary No growth in 4 days 09/24/18 18:01 Blood - Peripheral Anaerobic Blood Culture - Preliminary No growth in 4 days 09/24/18 17:55 Blood - Peripheral Aerobic Blood Culture - Preliminary No growth in 4 days 09/24/18 17:55 Blood - Peripheral Anaerobic Blood Culture - Preliminary No growth in 4 days Imaging Imaging: Impressions Paracentesis Ultrasound 09/27/18 00:00 CONCLUSION: 1. Uncomplicated paracentesis. Assessment and Plan Plan Ascites Much decreased amount of ascitic fluid in abdomen following paracentesis 2017 Ascitic fluid removed today by interventional radiology Patient reports he had procedure done at [facility] ([facility] Switch diuretics to p.o. given patient pulled out his IV Appreciate interventional radiology CHF exacerbation BNP on admission was 999 Large right-sided pleural effusion on admission Thoracentesis on 09/27/2018 Continue carvedilol Continue diuresis p.o. Appreciate interventional radiology Altered mental status Hyperammonemia on admission, but normalized after single dose of lactulose, remains normal Continue lactulose for elevated ammonia Patient has become increasingly aggressive, possibly anxious, resume BuSpar Continue following ammonia levels If patient remains aggressive and grabbing towards staff may need to send to med psych Pneumonia Right basilar density on chest x-ray, consider effect of ascites and cirrhosis Continue empiric coverage with cefepime and azithromycin Chronic kidney disease Baseline creatinine is 1.7 Monitor renal function during stay Avoid nephrotoxic agents h/o mitral valve replacement Continue Coumadin DVT prophylaxis Coumadin Progress Note: Quality VTE Deep Vein Thrombosis/Pulmonary Embolism Present on Admission: No
[2018-09-28] MEDS ORDERED: Haloperidol Inj 5 MG/ML Ampul IM PRN (16:00)
[2018-09-28] MEDS: Furosemide 40 MG Tablet PO SCH (17:59)
[2018-09-29 06:36] LABS: INR 1.5 Ratio; Prothrombin Time 15.5 sec (9.8-11.6)
[2018-09-29] MEDS: Furosemide 40 MG Tablet PO SCH ×2 (08:35→17:14)
[2018-09-29] MEDS: Azithromycin 250 MG Tablet PO SCH (08:35)
--- NOTE | 2018-09-29 16:01 | P.CONPSY ---
Provisional Diagnosis Admission Date: September 24, 2018 19:46 History of Present Illness Service: psychiatry Consult date: 09/29/18 Primary Care Provider: UNKNOWN Chief Complaint: AMS History of Present Illness: This is a request for a psychiatric consult. Documentation was reviewed, case was discussed with nursing and patient was evaluated. Patient is a 47-year-old male with a history of depression per patient. We are consulted for change in mental status and agitation. Per record patient has been confused and grabbing at his IV and staff. He had required and ETO Haldol. However, today per nursing and physician patient remains confused but has not had any episodes of agitation. Patient is alert and oriented x2. He is not sure of the month and the year. He is not sure what holidays coming up. His memory appears impaired and he has a vague recollection of the events leading to his admission or life events in general. He describes a history of depressive disorders, but at this time denies depressed mood. He denies suicidal or homicidal ideation intent or plan. Thought processes disorganized with no specific delusions were elicited. He denies auditory or visual hallucinations. Past psych: Patient says he may have seen a psychiatrist when he was 16 and 34 for depressive episodes and may have been on medication. He denies any inpatient admissions. Denies any history of suicide attempts or cutting. Past medical: Extensive medical history including heart failure and hepatic encephalopathy Past Famhx: Denies Past Social: Patient claims he had a stroke 8 years old and has been sick and disabled since. He says he has some right-sided weakness. Patient denies alcohol or substance use. He is not and does not have any kids. Lives with his mother taking care of her. Has never been employed Review of Systems All other systems reviewed negative except as stated in HPI PMFSH - History History Provided By: Patient - Medical History Medical History: Medical History (Last Reviewed 09/29/18 @ 15:58 by Kevin Carranza DO) Chronic kidney disease, stage III (moderate) Congestive heart failure Umbilical hernia Great vessels transposition History of abdominal paracentesis Mitral valve regurgitation Pacemaker - Surgical History Surgical History: Surgical History (Last Reviewed 09/29/18 @ 15:58 by Kevin Carranza DO) H/O heart surgery H/O mitral valve replacement History of permanent cardiac pacemaker placement History of thoracentesis - Family History Family History: Family History (Last Reviewed 09/26/18 @ 08:33 by Emely Group) Mother Stroke Diabetes Father Bladder cancer - Tobacco History Second Hand Smoke Exposure: No Smoking Status: Never smoker Tobacco Type: Cigars - Alcohol History How Often Do You Have a Drink Containing Alcohol: Never - Substance Use History Substance History: No History of Abuse - Travel History Recent Travel in the [place] Within the Last 8 Weeks: No Recent Travel Out of the Country Within the Last 8 Weeks: No - Immunization History Tetanus Immunization: Unsure Medications and Allergies Active Medications: Active Medications Acetaminophen (Tylenol) 650 mg PO Q4H PRN PRN Reason: Temp > 100.4 Al Hydroxide/Mg Hydroxide (Milk Of Magnesia Liq) 30 ml PO Q12H PRN PRN Reason: Mild Constipation Azithromycin (Zithromax) 500 mg PO DAILY [facility] Last Admin: 09/29/18 08:35 Dose: 500 mg Bisacodyl (Dulcolax Supp) 10 mg RECTAL DAILY PRN PRN Reason: SEVERE CONSITIPATION Carvedilol (Coreg) 3.125 mg PO BID [facility] Last Admin: 09/29/18 08:35 Dose: 3.125 mg Cephalexin Monohydrate (Keflex) 500 mg PO Q8HR [facility] Last Admin: 09/29/18 14:07 Dose: 500 mg Furosemide (Lasix) 40 mg PO BID@0900,1800 [facility] Last Admin: 09/29/18 08:35 Dose: 40 mg Haloperidol Lactate (Haldol Inj) 2 mg IM Q6H PRN PRN Reason: AGITATION Lactulose (Lactulose Liq) 30 ml PO QID [facility] Last Admin: 09/29/18 14:06 Dose: Not Given Sennosides (Senokot) 17.2 mg PO Q12H PRN PRN Reason: Moderate Constipation Sodium Chloride (Ns Flush) 2 ml IV.FLUSH BID [facility] Last Admin: 09/29/18 08:40 Dose: 2 ml Sodium Chloride (Ns Flush) 2 ml IV.FLUSH PRN PRN PRN Reason: FLUSH AFTER USING IV ACCESS Warfarin Sodium (Coumadin) 5 mg PO DAILY@1600 [facility] Last Admin: 09/28/18 15:09 Dose: 5 mg Allergies Allergy/AdvReac Type Severity Reaction Status Date / Time losartan Allergy Unknown Anaphylaxis Verified 06/16/18 11:01 Home Medications Medication Instructions Recorded Confirmed Type warfarin [Coumadin] 5 mg PO DAILY 06/16/18 09/24/18 History carvedilol 3.125 mg PO BID 09/24/18 09/24/18 History Exam Vital signs: Vital Signs 09/28/18 20:00 09/29/18 00:00 09/29/18 08:00 Temperature 97.3 F L 97.8 F 97.5 F L Pulse Rate 58 L 60 68 Respiratory Rate 20 20 18 Blood Pressure 149/72 H 141/81 H 115/59 L Pulse Oximetry 97 97 99 09/29/18 12:00 Temperature 97.6 F Pulse Rate 60 Respiratory Rate 15 Blood Pressure 127/69 Pulse Oximetry 100 Intake & Output 09/28/18 09/29/18 09/29/18 18:59 06:59 18:59 Intake Total 820 / 820 480 / 480 Output Total 400 / 400 Balance 420 / 420 480 / 480 Weight 59.4 kg Intake: IV 100 / 100 Maxipime Inj 2,000 MG In NS Inj 100 / 100 100 ML @ 200 mls/hr IV.SIG Q8H JOSÉ MIGUEL Rx#:[id number] Oral 720 / 720 480 / 480 Output: Urine 400 / 400 Other: # Voids 2 Date of Last Bowel Movement 09/28/18 09/28/18 09/28/18 # Bowel Movements 1 1 Mental Status Examination Appearance: Dirty, Disheveled Consciousness: Alert Orientation: Person, Place Motor Activity: Other Speech: Hesitant, Slow Language: Adequate Fund of Knowledge: Inadequate Attention and Concentration: Easily distracted Memory: Impaired Mood: Appropriate Affect: Blunt Thought Process & Associations: Disorganized Thought Content: Appropriate Hallucination Type: None Delusion Type: None Suicidal Ideation: No Suicidal Plan: No Suicidal Intention: No Homicidal Ideation: No Homicidal Plan: No Homicidal Intention: No Insight: Poor Judgment: Poor Assessment and Plan - Assessment (1) Delirium due to another medical condition Code(s): F05 - Delirium due to known physiological condition Status: Acute - Plan Plan: It is likely patient continues to have residual symptoms of delirium and or deficits from his stroke. Given he has made an improvement since yesterday I do not record dosing of antipsychotics given his extensive medical comorbidities. He is not a danger to himself or others at this time Justification for Continued Inpatient Stay: Patient would decompensate in a less restrictive setting
--- NOTE | 2018-09-29 17:15 | P.PNIM ---
Subjective Interval history: Nursing denies any acute changes overnight, says that he is much calmer today than he is reportedly been for the past few days. Patient sleeping upon my entrance to the room. When asked him how he is doing, he says he feels good. I asked him about nausea he denies anything. Physical Exam Vital signs: Vital Signs 09/28/18 20:00 09/29/18 00:00 09/29/18 08:00 Temperature 97.3 F L 97.8 F 97.5 F L Pulse Rate 58 L 60 68 Respiratory Rate 20 20 18 Blood Pressure 149/72 H 141/81 H 115/59 L Pulse Oximetry 97 97 99 09/29/18 12:00 Temperature 97.6 F Pulse Rate 60 Respiratory Rate 15 Blood Pressure 127/69 Pulse Oximetry 100 Intake & Output 09/28/18 09/29/18 09/29/18 18:59 06:59 18:59 Intake Total 820 / 820 480 / 480 Output Total 400 / 400 Balance 420 / 420 480 / 480 Weight 59.4 kg Intake: IV 100 / 100 Maxipime Inj 2,000 MG In NS Inj 100 / 100 100 ML @ 200 mls/hr IV.SIG Q8H JOSÉ MIGUEL Rx#:[id number] Oral 720 / 720 480 / 480 Output: Urine 400 / 400 Other: # Voids 2 Date of Last Bowel Movement 09/28/18 09/28/18 09/28/18 # Bowel Movements 1 1 Narrative: Oriented to self and place, but not oriented to time nor insight towards hospitalization Heart sounds regular rate and rhythm, 3/6 ejection murmur Clear lung field on the left, slightly diminished breath sounds on the right lung base, unlabored breathing No lower extremity edema Abdomen soft, nontender, nondistended, benign Results - Labs CBC & Chem 7: 10/01/18 02:57 10/01/18 02:57 Laboratory Results - last 24 hr 09/29/18 05:22 PT 15.5 H INR 1.5 Microbiology 09/24/18 18:01 Blood - Peripheral Aerobic Blood Culture - Final No growth in 5 days 09/24/18 18:01 Blood - Peripheral Anaerobic Blood Culture - Final No growth in 5 days 09/24/18 17:55 Blood - Peripheral Aerobic Blood Culture - Final No growth in 5 days 09/24/18 17:55 Blood - Peripheral Anaerobic Blood Culture - Final No growth in 5 days 12/20/18 08:45 Fluid - Pleural fluid Gram Stain - Final 09/27/18 08:45 Fluid - Pleural fluid Body Fluid Culture - Preliminary No growth in 48 hours Assessment and Plan - Plan 47-year-old black male admitted with metabolic encephalopathy. Found to have hepatic encephalopathy and started on antibiotics for possible right basilar pneumonia. Underwent paracentesis and thoracentesis. Eventually had improvement in his encephalopathy but still has some residual cognitive impairment. Psychiatry has been consulted to evaluate for any underlying psychotic disorders, have deemed more harm than benefit in using any antipsychotics at this time. Pleural effusion Likely secondary to hepatic insufficiency and CHF exacerbation Status post thoracentesis, clinically asymptomatic Ascites Status post paracentesis Continue spironolactone CHF exacerbation Continue Coreg and diuretic Metabolic encephalopathy Likely secondary to hepatic encephalopathy -Ammonia improved, continue lactulose, add on zinc -No further antipsychotics or anxiolytics at this time per psychiatry Pneumonia Right basilar density on chest x-ray, consider effect of ascites and cirrhosis Continue empiric coverage with keflex and azithromycin Chronic kidney disease Baseline creatinine is 1.7 Monitor renal function during stay Avoid nephrotoxic agents h/o mitral valve replacement Continue Coumadin Follow INR, consider starting heparin drip to bridge DVT prophylaxis Coumadin
[2018-09-29] MEDS: Spironolactone 25 MG Tablet PO SCH (18:23)
[2018-09-29 18:25] LABS: Calcium 8.3 mg/dL (8.5-10.1); Carbon Dioxide 28.4 meq/L (21.0-32.0); Potassium 4.3 meq/L (3.5-5.1)
[2018-09-30] MEDS: Spironolactone 25 MG Tablet PO SCH ×2 (09:24→18:47)
[2018-09-30] MEDS: Furosemide 40 MG Tablet PO SCH (09:24)
[2018-09-30] MEDS: Azithromycin 250 MG Tablet PO SCH (09:24)
[2018-09-30] MEDS ORDERED: Heparin 10,000 UNITS/10 ML Vial (for IV use) IV.PUSH STA ×3 (11:39→13:04)
[2018-09-30 15:09] LABS: INR 2.2 Ratio; Prothrombin Time 22.2 sec (9.8-11.6)
[2018-09-30 15:24] LABS: Activated Partial Thrombo Time 138.9 sec (23.4-31.7)
--- NOTE | 2018-09-30 16:23 | P.PNIM ---
Subjective Interval history: Nursing denies any acute changes overnight. Patient appears calm today as he did yesterday. Still is somewhat confused. Patient is aware to self, says that he is in the hospital, gets the month right, but gets the year wrong by about 2 decades. Reports some nausea but no vomiting. Denies abdominal pain. Says he lives by himself. Physical Exam Vital signs: Vital Signs 09/29/18 20:00 09/30/18 00:00 09/30/18 04:00 Temperature 97.8 F 97.6 F 97.6 F Pulse Rate 94 H 60 60 Respiratory Rate 18 18 18 Blood Pressure 137/63 133/82 108/59 L Pulse Oximetry 99 97 98 09/30/18 08:00 Temperature 97.6 F Pulse Rate 82 Respiratory Rate 17 Blood Pressure 126/66 Pulse Oximetry 95 Intake & Output 09/29/18 09/30/18 09/30/18 18:59 06:59 18:59 Intake Total 354 / 354 Output Total 325 / 325 Balance Weight 52.1 kg Intake: Oral 354 / 354 Output: Urine 325 / 325 Other: Date of Last Bowel Movement 09/28/18 09/28/18 Narrative: Patient sitting up bedside of the bed Awake and alert, no acute distress Left lung field clear, right lung field clear except for the right base with diminished breath sounds Heart sounds regular rate and rhythm, 3/6 ejection murmur No lower extremity edema Abdomen soft, mildly distended, nontender Results - Labs CBC & Chem 7: 10/01/18 02:57 10/01/18 02:57 Laboratory Results - last 24 hr 09/29/18 09/30/18 17:35 13:34 PT 22.2 H INR 2.2 APTT 138.9 H* Sodium 139 Potassium 4.3 Chloride 105 Carbon Dioxide 28.4 Anion Gap 6 BUN 35 H Creatinine 1.69 H Estimated GFR 53 L Random Glucose 84 Calcium 8.3 L Microbiology 09/30/18 12:40 Stool Stool Occult Blood (NETTE) - Final Hemoccult positive 09/27/18 08:45 Fluid - Pleural fluid Gram Stain - Final 09/27/18 08:45 Fluid - Pleural fluid Body Fluid Culture - Final No growth in 72 hours (aerobically and anaerobically ) Assessment and Plan - Plan 47-year-old black male admitted with metabolic encephalopathy. Found to have hepatic encephalopathy and started on antibiotics for possible right basilar pneumonia. Underwent paracentesis and thoracentesis. Eventually had improvement in his encephalopathy but still has some residual cognitive impairment. Psychiatry has been consulted to evaluate for any underlying psychotic disorders, have deemed more harm than benefit in using any antipsychotics at this time. 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 Albumin infusion for now DVT prophylaxis Coumadin Discharge Planning: Left voicemail for nearest of kin contact. Patient has impaired cognition, is unsafe discharge even though physically he is improving. Will need secure living arrangements.
[2018-09-30 17:01] LABS: Prothrombin Time 20.4 sec (9.8-11.6)
--- NOTE | 2018-09-30 17:49 | XR ---
EXAM DATE: 09/30/2018 5:46 PM EST AGE/SEX: 47 years / Male INDICATIONS: . Short of Breath CLINICAL DATA: This is the patient's subsequent encounter. Patient reports that signs and symptoms h ave been present for 3 days and indicates a pain score of 0/10. MEDICAL/SURGICAL HISTORY: . Myocardial infarction. Congestive heart failure. Hypercholesterolem ia. CVA. Afib. HTN. Dyspnea. Hemoptysis. Ascites. Hematuria. Chronic kidney disease. Renal calculi. D iabetes. Situs inversus. Pleural effusion. Anticoagulant therapy, Heparin. . Pacemaker. CABG. Mitr al valve replacement x2. Paracentesis. Thoracentesis. Blood transfusions COMPARISON: [facility] – [place], CHEST EXPIRATION ONLY, 09/27/2018. . FINDINGS: The heart is markedly enlarged. Median sternotomy wires are noted status post cardiac surgery. A righ t subclavian single lead pacemaker has its tip in the right ventricle. Diffuse consolidation of the r ight lung is noted consistent with probable diffuse pneumonia. Scattered patchiness is noted within t he left lung related to possible less severe pneumonia or underlying pulmonary vascular congestion. CONCLUSION: 1. Diffuse consolidation of the right lung consistent with probable diffuse pneumonia as well as sca ttered patchiness within left lung related to less severe pneumonia or underlying pulmonary vascular congestion. 2. Marked cardiomegaly. Electronically signed by: Luis Alfredo Álvarez MD Board Certified Radiologist 09/30/2018 5:48 PM EST
[2018-09-30] MEDS: Albumin Human 25% Inj 50 ML IV.SIG SCH (18:47)
[2018-09-30] MEDS: Heparin Drip 25,000 UNIT/250 ML BAG IV.CONT PRN (20:36)
[2018-10-01 04:12] LABS: Hematocrit 29.2 % (39.0-51.0); Hemoglobin 9.7 gm/dL (13.0-17.0); Mean Corpuscular HGB Conc 33.4 % (32.0-36.0); Mean Corpuscular Hemoglobin 27.4 pg (27.0-34.0); Mean Corpuscular Volume 82.2 fL (80.0-100.0); Mean Platelet Volume 9.6 fL (7.0-11.0); Platelet Count 172 th/mm3 (150-450); Red Blood Count 3.55 mil/mm3 (4.50-5.90); Red Cell Distribution Width 18.7 % (11.6-17.2); White Blood Count 5.9 th/mm3 (4.0-11.0)
[2018-10-01] MEDS: Albumin Human 25% Inj 50 ML IV.SIG SCH ×2 (04:13→16:54)
[2018-10-01 04:26] LABS: Calcium 8.8 mg/dL (8.5-10.1); Carbon Dioxide 23.7 meq/L (21.0-32.0); Potassium 4.9 meq/L (3.5-5.1)
[2018-10-01] MEDS: Azithromycin 250 MG Tablet PO SCH (08:09)
[2018-10-01] MEDS: Spironolactone 25 MG Tablet PO SCH ×2 (08:09→17:58)
[2018-10-01 09:33] LABS: Prothrombin Time 20.5 sec (9.8-11.6)
--- NOTE | 2018-10-01 09:56 | US ---
EXAM DATE: 10/01/2018 9:54 AM EST AGE/SEX: 47 years / Male INDICATIONS: Shortness of breath. Right pleural effusion. CLINICAL DATA: This is the patient's subsequent encounter. Patient reports that signs and symptoms h ave been present for 1 week and indicates a pain score of 0/10. MEDICAL/SURGICAL HISTORY: . Great vessels transposition. Mitral valve regurgitation. . Pacemak er. Paracentesis. Mitral valve replacement. Thoracentesis. COMPARISON: No prior exams available for comparison. MEASUREMENTS: Skin To Parietal Pleura:__0.6 cm Skin To Max Safe Depth:__3.65 cm Estimated Fluid Volume:__1,093 cc Fluid Composition:__simple FINDINGS: Multiple sonographic images of the right hemithorax demonstrated large right pleural effusion. CONCLUSION: 1. Large right pleural effusion confirmed sonographically. Electronically signed by: Luis Alfredo Álvarez MD Board Certified Radiologist 10/01/2018 9:54 AM EST
--- NOTE | 2018-10-01 11:49 | P.PNIM ---
Subjective Interval history: Nursing denies any acute changes overnight. Patient cooperative and calm today. When asked the patient if he has any family he can contact, he says no. And goes back to sleep. Denies any vomiting Physical Exam Vital signs: Vital Signs 09/30/18 12:00 09/30/18 16:00 09/30/18 20:00 Temperature 98.5 F 98.3 F 97.9 F Pulse Rate 59 L 59 L 60 Respiratory Rate 18 17 18 Blood Pressure 126/69 132/64 115/59 L Pulse Oximetry 99 96 98 10/01/18 00:00 10/01/18 08:00 Temperature 98.0 F 97.5 F L Pulse Rate 60 60 Respiratory Rate 18 20 Blood Pressure 130/56 L 158/67 H Pulse Oximetry 99 100 Intake & Output 09/30/18 10/01/18 10/01/18 18:59 06:59 18:59 Intake Total 354 / 354 50 / 50 220 / 220 Output Total 325 / 325 525 / 525 Balance / 50 / 50 -305 / -305 Weight 50.7 kg Intake: IV 50 / 50 Flexbumin 25% Inj 50 ML @ 60 50 / 50 mls/hr IV.SIG Q12H JOSÉ MIGUEL Rx#: [id number] Oral 354 / 354 220 / 220 Output: Urine 325 / 325 525 / 525 Other: Date of Last Bowel Movement 09/28/18 # Bowel Movements 2 Narrative: Decreased breath sounds right lung base, relatively clear breath sounds on the left Heart sounds regular rate and rhythm, 5/6 ejection murmur Abdomen is starting to get distended again but is soft, nontender Results - Labs CBC & Chem 7: 10/02/18 05:00 10/02/18 05:00 Laboratory Results - last 24 hr 09/30/18 09/30/18 09/30/18 13:34 16:14 16:14 WBC RBC Hgb Hct MCV MCH MCHC RDW Plt Count MPV PT 22.2 H 20.4 H INR 2.2 2.0 APTT 138.9 H* 37.1 H D Sodium Potassium Chloride Carbon Dioxide Anion Gap BUN Creatinine Estimated GFR Random Glucose Calcium B-Natriuretic Peptide Procalcitonin 09/30/18 09/30/18 09/30/18 18:50 18:50 21:16 WBC RBC Hgb Hct MCV MCH MCHC RDW Plt Count MPV PT INR APTT 35.2 H 37.0 H Sodium Potassium Chloride Carbon Dioxide Anion Gap BUN Creatinine Estimated GFR Random Glucose Calcium B-Natriuretic Peptide Procalcitonin 0.50 H 10/01/18 10/01/18 10/01/18 02:57 02:57 02:57 WBC 5.9 RBC 3.55 L Hgb 9.7 L Hct 29.2 L MCV 82.2 MCH 27.4 MCHC 33.4 RDW 18.7 H Plt Count 172 MPV 9.6 PT INR APTT 45.7 H D Sodium 139 Potassium 4.9 Chloride 106 Carbon Dioxide 23.7 Anion Gap 9 BUN 37 H Creatinine 1.69 H Estimated GFR 53 L Random Glucose 88 Calcium 8.8 B-Natriuretic Peptide Procalcitonin 10/01/18 10/01/18 02:57 02:57 WBC RBC Hgb Hct MCV MCH MCHC RDW Plt Count MPV PT 20.5 H INR 2.0 APTT Sodium Potassium Chloride Carbon Dioxide Anion Gap BUN Creatinine Estimated GFR Random Glucose Calcium B-Natriuretic Peptide 1114 H Procalcitonin Microbiology 09/30/18 12:40 Stool Stool Occult Blood (NETTE) - Final Hemoccult positive 09/27/18 08:45 Fluid - Pleural fluid Gram Stain - Final 09/27/18 08:45 Fluid - Pleural fluid Body Fluid Culture - Final No growth in 72 hours (aerobically and anaerobically ) - Imaging Impressions Chest X-Ray 09/30/18 00:00 CONCLUSION: 1. Diffuse consolidation of the right lung consistent with probable diffuse pneumonia as well as scattered patchiness within left lung related to less severe pneumonia or underlying pulmonary vascular congestion. 2. Marked cardiomegaly. Chest Ultrasound 10/01/18 00:00 CONCLUSION: 1. Large right pleural effusion confirmed sonographically. Assessment and Plan - Plan 47-year-old black male admitted with metabolic encephalopathy. Found to have hepatic encephalopathy and started on antibiotics for possible right basilar pneumonia. Underwent paracentesis and thoracentesis. Eventually had improvement in his encephalopathy but still has some residual cognitive impairment. Psychiatry has been consulted to evaluate for any underlying psychotic disorders, have deemed more harm than benefit in using any antipsychotics at this time. 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 -slightly + fluid balance -switch over to IV lasix, continue albumin -coreg -coumadin w/ heparin bridge until INR 2.5 Suspected hepatic insufficiency/failure given lowest INR is 1.5 while in-house -Hard to tell baseline liver INR given that the patient requires warfarin for mitral valve -obtain hep viral profile and repeat LFTs for now -Theoretical meld score is 19 assuming best natural INR is 1.5 hepatic encephalopathy -partially improved but still has impaired cognition -continue lactulose and zinc -No scheduled antipsychotics or anxiolytics at this time per psychiatry Ascites -improved, Status post paracentesis -Continue spironolactone chronic kidney disease -back to baseline Albumin infusion for now DVT prophylaxis Coumadin Discharge Planning: no family involved despite attempted contact yesterday. Consulting palliative care to establish goals of care and healthcare surrogate. Patient had may have a poor prognosis given his CHF and CKD now with likely underlying liver disease.
[2018-10-01 12:25] LABS: Albumin 2.3 g/dL (3.4-5.0)
[2018-10-01 12:27] LABS: Total Protein 8.2 g/dL (6.4-8.2)
--- NOTE | 2018-10-01 13:14 | MB ---
cc: Peace Maza MD DATE: 10/01/2018 REASON FOR CONSULTATION: Recurrent pleural effusion. REFERRING PHYSICIAN: Dr. Garcia. HISTORY OF PRESENT ILLNESS: The patient is a 47-year-old male with a past medical history of CHF, cardiomyopathy with EF of less than 20%, chronic kidney disease stage III, mechanical mitral valve replacement, on Coumadin, pacemaker placement, who was admitted to [facility] on 09/24/2018 under hospitalist service for CHF decompensation, ascites and altered mental status. He underwent ultrasound-guided thoracentesis on the right with removal of 1 liter of red-tinged fluid, which was an exudative effusion by protein criteria likely secondary to diuretics. The patient also underwent ultrasound-guided paracentesis on 09/27/2018 as well with removal of 5.5 L. Pulmonary medicine was consulted regarding a recurrent pleural effusion. He had an echocardiogram in June, which showed cardiomyopathy with EF of less than 20%, moderate to severe pulmonary hypertension with a PA pressure 60-70 mmHg. The patient had a chest x-ray yesterday, which showed consolidation of the right lung. An ultrasound of the chest was obtained today, which showed large right pleural effusion. When seen, the patient is awake, alert, confused at times. He is on room air oxygen with saturation that ranges between 98% to 100%. The patient is afebrile. His fluid culture showed no growth from 09/27/2018. He denies any shortness of breath or chest pain at the present time. In addition, the patient denies any nausea, vomiting or abdominal pain. PAST MEDICAL HISTORY: Significant for chronic kidney disease, CHF, mechanical mitral valve replacement, pacemaker placement, prior history of thoracentesis and abdominal paracentesis, cardiomyopathy. ALLERGIES: LOSARTAN. SOCIAL HISTORY: Ex-smoker, nondrinker. FAMILY HISTORY: Noncontributing to present illness. ACTIVE MEDICATIONS Include; 1. Albumin. 2. Azithromycin. 3. Coreg. 4. Keflex. 5. Lasix. 6. Aldactone. 7. Coumadin. 8. Heparin. REVIEW OF SYSTEMS: As per HPI. The rest of review of systems and unremarkable. PHYSICAL EXAMINATION: GENERAL: A 47-year-old male lying in bed, in no acute respiratory distress on room air oxygen. VITAL SIGNS: Temperature 98.0, pulse 60, respiratory rate of 20, blood pressure 158/67, saturation 98% to 100%. HEENT: Atraumatic, normocephalic. Pupils are equal, round, reactive to light and accommodation. Extraocular muscles intact. Conjunctivae pink. Nonicteric sclerae. Oral mucosa within normal. NECK: Supple. No JVD, adenopathy, or thyromegaly. Trachea midline. CARDIOVASCULAR: Regular rate and rhythm. Normal S1, S2, no ejection murmur noted. PULMONARY: Diminished breath sounds on the right. No crackles or wheezing. ABDOMEN: Soft, mildly distended, positive bowel sounds. EXTREMITIES: No cyanosis or clubbing. Trace edema. NEUROLOGIC: No focal sensory deficit. Intermittent confusion noted. LABORATORY DATA: WBC 5.9, hemoglobin 9.7, hematocrit 29, platelet count 172. Sodium 139, potassium 4.9, chloride 106, CO2 23, BUN 37, creatinine 1.69, glucose of 88. BNP 1114. Procalcitonin 0.5. INR 2.0. RADIOGRAPHIC STUDIES: Ultrasound of the chest showed large right pleural effusion. IMPRESSION: 1. Recurrent right pleural effusion. 2. Status post ultrasound-guided right thoracentesis on 09/27/2018 with removal of 1 liter. 3. Cardiomyopathy with ejection fraction less than 20%. 4. Congestive heart failure with elevated BNP. 5. Acute on chronic kidney disease. 6. Mechanical mitral valve replacement. 7. Coagulopathy. 8. Moderate to severe pulmonary hypertension with a PA pressure 60-70 mmHg. 9. Anemia. 10. Status post ultrasound-guided paracentesis on 09/27/2018 with removal of 5.5 liters. RECOMMENDATIONS: 1. Oxygen p.r.n. to maintain sats above 92%. 2. Bronchodilators placed on DuoNeb on a p.r.n. basis. 3. We will proceed with a repeat ultrasound-guided thoracentesis and a pigtail catheter insertion. We will send the pleural fluid for analysis and culture. 4. Continue with Lasix 40 mg b.i.d. as ordered. 5. Continue with empiric antibiotics. The patient is on Keflex and azithromycin. Monitor for signs of infection, which include fever and WBC. His recurrent pleural effusion is likely secondary to congestive heart failure, cardiomyopathy, especially with elevated BNP. 6. We will need to hold anticoagulation for thoracentesis. The patient's INR is 2.0 today. 7. Continue other medical management per primary team. 7. Further recommendations will be based on hospital course. Thank you for this consultation and allowing us to participate in this patient's care. MD BAUTISTA Chowdary/ct , 12:09 PM , 12:24 PM
--- NOTE | 2018-10-01 13:31 | P.CONPAL ---
Consult Service: Palliative Care Requesting Physician: Armani Garcia Reason for Consult: a. To assist with evaluation and management of symptoms including: confusion b. To assist medical decision maker(s) with: better understanding of current medical conditions; weighing benefits/burdens of medical treatment options; making medical treatment decisions. Primary Care Provider: UNKNOWN History of Present Illness History of Present Illness: This 47-year-old man was admitted on 09/24/18. He presented to the ED w brother for evaluation of confusion, dyspnea and abdominal distention. His brother reported going to check on him that morning noted that he had some hemorrhage in his right eye and was confused. He has multiple chronic comorbidities including mitral valve replacement x2, chronic anticoagulant, systolic CHF EF 20%, CKD stage III, umbilical hernia, AICD. 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 He had been living with his mother however most recently she went to a nursing facility. He was then living alone with the brother doing grocery shopping and checking on him. * In the ED he was partially oriented. He is noted to have rhonchorous cough. Cadet cultures obtained. EKG noted paced rhythm rate 60. CBC with mild anemia hemoglobin 10.4/hematocrit 31.8. Hyperkalemic 5.4. BUN 29/creatinine 1.71. Bilirubin 2.9. CK 114. Troponin 0.02. Lactic acid 2.1. Ammonia 50. UA negative. Urine drug screen negative. Acetaminophen level less than 2. Alcohol less than 3. Started on cefepime, azithromycin. Also treated with Lasix. Admitted for further evaluation and management. * CT brain negative for acute process, noted old infarct involving left basal ganglia with ex vacuo dilatation of left lateral ventricle. * CXR with cardiomegaly increase in pulmonary vascularity, large right pleural effusion right basilar density. Status post CABG. * CT abdomen pelvis: Moderate to large amount of ascitic fluid again noted, liver more prominent than prior study, bowel loops are displaced with nonobstructing bowel gas pattern, small nonobstructing right renal calculus, large right pleural effusion small left pleural effusion. * Underwent paracentesis, thoracentesis by IR 09/27. 09/27 slight improvement in neuro status, continued on lactulose. Lasix continued. Antibiotics continued. * 09/29 psychiatry consulted: Patient reporting known history of depression. Patient remains confused, oriented x2. Memory appearing impaired. Does describe depressive disorders. Patient reported a stroke at 8 years old and has been disabled since. Reported not and no children. Never employed. Psychiatry notes residual symptoms of delirium and possibly deficits from stroke. Some improvement during hospital course does not recommend scheduled dosing antipsychotics due to medical morbidities. No danger to himself or others. Patient with poor judgment poor insight, disorganized thoughts, impaired memory though mood is appropriate. * 09/30 speech therapy consulted for cognitive eval. Patient reporting that his cognitive status is at his baseline however he does not appear to be reliable historian. Patient with delayed recall impaired attention and language. Recommended dysphasia evaluation as there were some signs and symptoms of aspiration noted during session. Patient condition overall improving however with impaired cognition still, will need safe discharge plan, does not appear he is safe to return living home alone. * 10/01 palliative care consulted to assist with clarification of goals of medical treatment, as well as clarifying legal decision maker. Pulmonology also consulted for recurrent pleural effusion, concern may need longer term management of. Pulmonology evaluated recommends repeat ultrasound-guided thoracentesis and pigtail catheter insertion. Pleural fluid to be sent for analysis. Continue with antibiotics and diuretic. Hold anticoagulation for thoracentesis. Patient seen in room no visitors present. He is alert, partially oriented, pleasant and cooperative. Knows it is October 01, Debora liz. Is aware he is in the hospital, tells me he was here because his INR was too high. Wants to go home. Confused to year, keeps naming 1989-something. Oriented to current [place] President. Also able to name his family. Tells me he has a brother Maikel "Keyona" and another brother Jordan. Tells me about valve surgery as a child, as well as his mother recently having a stroke and requiring going to a [facility] for increased care. Upon attempting to explore his medical history and conditions and prognosis he seems to have some insight though is quite limited and does not appear to have a full understanding. He does endorse being evaluated at [facility] for heart transplant but he said the just went ahead and did surgery instead. Explore if need for pigtail chest tube, he endorses that he does not want that though he cannot really tell me why other than "it would be too much work to take care of ". He does not seem to understand the full gravity of his conditions or prognosis. Exploration of whom he would trust to make decisions for him in an emergency as surrogate he indicates his brother Maikel Ellis". He is in agreement to sign healthcare surrogate designation today. He knows that he lives in [place], but does not know current address tells me he just moved. He does not know his telephone number. Does not know what mcf[facility] his mother is at. Discussed with medical attending, will need to obtain accurint when case management returns after the holiday and attempt to locate brother, number Gil found from June case management record just rings. [place] [facility] [place] "Although previous extensive GI work ups negative for liver disease/cirrhosis, his airport electrician is Dr. Obregon believes this is related to the liver and not the heart; Dr. Obregon is referring him to [facility] for further evaluation in the near future." He is noted to have recurrent ascites secondary to heart failure. Pulmonology also followed this admission patient additionally noted with cirrhosis of the liver probably secondary to chronic heart failure and recurrent effusion. Pulmonary and ascites issues felt to be chronic secondary to cardiac failure, could have ongoing therapeutic drainage. Pulmonology also recommends evaluation at [facility]." Function/Cognitive Trajectory: Previously lived with his mother however mother recently required m[facility] placement 2/2 CVA. Most recently living alone with the brother doing grocery shopping and checking on him. Ambulatory around the house with cane and walker. Review of Systems other (poor historian) Constitutional: Denies body ache(s) Cardiovascular: Reports leg swelling, Denies chest pain, Denies shortness of breath Respiratory: Reports shortness of breath, Denies cough Gastrointestinal: Denies abdominal pain, Denies difficulty swallowing, Denies nausea, Denies pain with swallowing, Denies vomiting Genitourinary: Denies decreased urination, Denies difficulty urinating Musculoskeletal: Denies back pain, Denies joint pain Skin/Breast: Denies rash Psychiatric: Reports confusion, Denies anxiety PMFSH - History History Provided By: Patient - Medical History Medical History: Medical History (Last Reviewed 09/29/18 @ 15:58 by Kevin Carranza DO) Chronic kidney disease, stage III (moderate) Congestive heart failure Umbilical hernia Great vessels transposition History of abdominal paracentesis Mitral valve regurgitation Pacemaker - Surgical History Surgical History: Surgical History (Last Reviewed 09/29/18 @ 15:58 by Kevin Carranza DO) H/O heart surgery H/O mitral valve replacement History of permanent cardiac pacemaker placement History of thoracentesis - Family History Family History: Family History (Last Reviewed 09/26/18 @ 08:33 by Emely Group) Mother Stroke Diabetes Father Bladder cancer - Tobacco History Second Hand Smoke Exposure: No Smoking Status: Never smoker Tobacco Type: Cigars - Alcohol History How Often Do You Have a Drink Containing Alcohol: Never - Substance Use History Substance History: No History of Abuse - Travel History Recent Travel in the [place] Within the Last 8 Weeks: No Recent Travel Out of the Country Within the Last 8 Weeks: No - Immunization History Tetanus Immunization: Unsure Medications and Allergies Active Medications: Active Medications Acetaminophen (Tylenol) 650 mg PO Q4H PRN PRN Reason: Temp > 100.4 Al Hydroxide/Mg Hydroxide (Milk Of Magnesia Liq) 30 ml PO Q12H PRN PRN Reason: Mild Constipation Azithromycin (Zithromax) 500 mg PO DAILY [facility] Last Admin: 10/01/18 08:09 Dose: 500 mg Bisacodyl (Dulcolax Supp) 10 mg RECTAL DAILY PRN PRN Reason: SEVERE CONSITIPATION Carvedilol (Coreg) 3.125 mg PO BID [facility] Last Admin: 10/01/18 08:09 Dose: 3.125 mg Cephalexin Monohydrate (Keflex) 500 mg PO Q8HR [facility] Last Admin: 10/01/18 05:12 Dose: Not Given Furosemide (Lasix) 40 mg PO BID@0900,1800 [facility] Last Admin: 09/30/18 09:24 Dose: 40 mg Furosemide (Lasix Inj) 40 mg IV.PUSH BID@0900,1800 [facility] Haloperidol Lactate (Haldol Inj) 2 mg IM Q6H PRN PRN Reason: AGITATION Heparin Sodium/Dextrose (Heparin/D5w 25,000 U/250 Ml) 25,000 unit in 250 mls @ 6 mls/hr IV.CONT TITRATE PRN; Protocol PRN Reason: Per Protocol Last Titration: 10/01/18 03:32 Dose: 700 units/hr, 7 mls/hr Albumin Human (Flexbumin 25% Inj) 50 mls @ 60 mls/hr IV.SIG Q12H [facility] Last Admin: 10/01/18 04:13 Dose: Not Given Lactulose (Lactulose Liq) 30 ml PO QID [facility] Last Admin: 10/01/18 08:09 Dose: 30 ml Sennosides (Senokot) 17.2 mg PO Q12H PRN PRN Reason: Moderate Constipation Sodium Chloride (Ns Flush) 2 ml IV.FLUSH BID [facility] Last Admin: 10/01/18 08:09 Dose: 2 ml Sodium Chloride (Ns Flush) 2 ml IV.FLUSH PRN PRN PRN Reason: FLUSH AFTER USING IV ACCESS Spironolactone (Aldactone) 25 mg PO BID@0900,1800 [facility] Last Admin: 10/01/18 08:09 Dose: 25 mg Warfarin Sodium (Coumadin) 5 mg PO DAILY@1600 [facility] Last Admin: 09/30/18 15:40 Dose: Not Given Zinc Sulfate (Zinc-220) 220 mg PO DAILY [facility] Last Admin: 10/01/18 08:09 Dose: 220 mg Allergies Allergy/AdvReac Type Severity Reaction Status Date / Time losartan Allergy Unknown Anaphylaxis Verified 06/16/18 11:01 Home Medications Medication Instructions Recorded Confirmed Type warfarin [Coumadin] 5 mg PO DAILY 06/16/18 09/24/18 History carvedilol 3.125 mg PO BID 09/24/18 09/24/18 History Advance Directives Living Will: No Healthcare Surrogate: No Power of Groundman/Lineman: No Today's verbally stated goals: Patient states he just wants to go home Ethical and Legal Issues: Patient was some mild confusion, possibly underlying cognitive deficit. Not able to make decisions alone currently. Reported his mother has recently required transition to [facility] due to increased care needs/ CVA. No advanced directives. Not , no children. Supported by her brother, possible this may be the appropriate legal proxy per [place] statutes. Upon consultation with him he is in agreement to name 1 of his brothers Maikel "Keyona "as his healthcare surrogate. He has another brother named Jordan Chu. I have tried to reach brother Maikel from a number found in June admission case management note just rings and rings. Physical Exam Vital Signs: Vital Signs - 24 hr 09/30/18 16:00 09/30/18 20:00 10/01/18 00:00 Temperature 98.3 F 97.9 F 98.0 F Pulse Rate 59 L 60 60 Respiratory Rate 17 18 18 Blood Pressure 132/64 115/59 L 130/56 L Pulse Oximetry 96 98 99 10/01/18 08:00 10/01/18 12:00 Temperature 97.5 F L 98.0 F Pulse Rate 60 60 Respiratory Rate 20 20 Blood Pressure 158/67 H 155/64 H Pulse Oximetry 100 98 I&O: Intake & Output 09/29/18 09/30/18 10/01/18 10/02/18 06:59 06:59 06:59 06:59 Intake Total 1300 / 1300 404 / 404 220 / 220 Output Total 400 / 400 325 / 325 525 / 525 Balance 900 / 900 79 / 79 -305 / -305 Weight 59.4 kg 52.1 kg 50.7 kg Physical Exam: CONSTITUTIONAL/GENERAL: This is a very thin, frail appearing gentleman, pleasant and cooperative TUBES/LINES/DRAINS: PIV x2 left upper extremity SKIN: No jaundice, rashes, or lesions. No wounds seen anteriorly. Skin temperature appropriate. Not diaphoretic. HEAD: Atraumatic. Normocephalic. EYES: Pupils equal and round and reactive. Extraocular motions intact. Small area hemorrhage right sclera. No scleral icterus. No injection or drainage. Fundi not examined. ENT: Hearing grossly normal. Nose without bleeding or purulent drainage. Throat without visible erythema, exudates, masses, or lesions. NECK: Trachea midline. Supple, nontender. No palpable thyroid enlargement or nodularity. CARDIOVASCULAR: Regular rate and rhythm .'s distant heart sounds, faint murmur. No JVD. Peripheral pulses symmetric. RESPIRATORY/CHEST: Symmetric, unlabored respirations. On room air. Crackles to posterior bases. Otherwise clear to auscultation. Breath sounds equal bilaterally. GASTROINTESTINAL: Abdomen soft, non-tender, +distended. No palpable masses. No guarding. Bowel sounds present. GENITOURINARY: Without palpable bladder distension. MUSCULOSKELETAL: Extremities without clubbing, cyanosis, or edema. No joint tenderness or effusion noted. Remedies very thin with muscle atrophy x4. LYMPHATICS: No palpable cervical or supraclavicular adenopathy. NEUROLOGICAL: Awake and alert. Oriented x2. Cooperative. Follows commands. Very limited insight. Moves all 4 extremities PSYCHIATRIC: No obvious anxiety/depression. no apparent hallucinations or other psychotic thought process. Diagnostic Tests Laboratory: Laboratory Results - last 72 hr 09/29/18 09/29/18 09/30/18 05:22 17:35 13:34 WBC RBC Hgb Hct MCV MCH MCHC RDW Plt Count MPV PT 15.5 H 22.2 H INR 1.5 2.2 APTT 138.9 H* Sodium 139 Potassium 4.3 Chloride 105 Carbon Dioxide 28.4 Anion Gap 6 BUN 35 H Creatinine 1.69 H Estimated GFR 53 L Random Glucose 84 Calcium 8.3 L Total Bilirubin Direct Bilirubin Indirect Bilirubin AST ALT Alkaline Phosphatase B-Natriuretic Peptide Total Protein Albumin Procalcitonin 09/30/18 09/30/18 09/30/18 16:14 16:14 18:50 WBC RBC Hgb Hct MCV MCH MCHC RDW Plt Count MPV PT 20.4 H INR 2.0 APTT 37.1 H D Sodium Potassium Chloride Carbon Dioxide Anion Gap BUN Creatinine Estimated GFR Random Glucose Calcium Total Bilirubin Direct Bilirubin Indirect Bilirubin AST ALT Alkaline Phosphatase B-Natriuretic Peptide Total Protein Albumin Procalcitonin 0.50 H 09/30/18 09/30/18 10/01/18 18:50 21:16 02:57 WBC RBC Hgb Hct MCV MCH MCHC RDW Plt Count MPV PT INR APTT 35.2 H 37.0 H Sodium 139 Potassium 4.9 Chloride 106 Carbon Dioxide 23.7 Anion Gap 9 BUN 37 H Creatinine 1.69 H Estimated GFR 53 L Random Glucose 88 Calcium 8.8 Total Bilirubin Direct Bilirubin Indirect Bilirubin AST ALT Alkaline Phosphatase B-Natriuretic Peptide Total Protein Albumin Procalcitonin 10/01/18 10/01/18 10/01/18 02:57 02:57 02:57 WBC 5.9 RBC 3.55 L Hgb 9.7 L Hct 29.2 L MCV 82.2 MCH 27.4 MCHC 33.4 RDW 18.7 H Plt Count 172 MPV 9.6 PT 20.5 H INR 2.0 APTT 45.7 H D Sodium Potassium Chloride Carbon Dioxide Anion Gap BUN Creatinine Estimated GFR Random Glucose Calcium Total Bilirubin Direct Bilirubin Indirect Bilirubin AST ALT Alkaline Phosphatase B-Natriuretic Peptide Total Protein Albumin Procalcitonin 10/01/18 10/01/18 10/01/18 02:57 02:57 11:38 WBC RBC Hgb Hct MCV MCH MCHC RDW Plt Count MPV PT INR APTT 53.0 H Sodium Potassium Chloride Carbon Dioxide Anion Gap BUN Creatinine Estimated GFR Random Glucose Calcium Total Bilirubin 2.5 H Direct Bilirubin 2.1 H Indirect Bilirubin 0.4 AST 47 H ALT 20 Alkaline Phosphatase 277 H B-Natriuretic Peptide 1114 H Total Protein 8.2 Albumin 2.3 L Procalcitonin Result Diagrams: 10/01/18 02:57 10/01/18 02:57 Microbiology: Microbiology 09/30/18 12:40 Stool Occult Blood (NETTE) - Final Stool Hemoccult positive 09/27/18 08:45 Gram Stain - Final Fluid - Pleural fluid Body Fluid Culture - Final No growth in 72 hours (aerobically and anaerobically) 09/24/18 18:01 Aerobic Blood Culture - Final Blood - Peripheral No growth in 5 days Anaerobic Blood Culture - Final No growth in 5 days 09/24/18 17:55 Aerobic Blood Culture - Final Blood - Peripheral No growth in 5 days Anaerobic Blood Culture - Final No growth in 5 days 09/27/18 10:15 Fungal Smear - Final Other No fungal elements seen Imaging: Impressions Chest X-Ray 09/30/18 00:00 CONCLUSION: 1. Diffuse consolidation of the right lung consistent with probable diffuse pneumonia as well as scattered patchiness within left lung related to less severe pneumonia or underlying pulmonary vascular congestion. 2. Marked cardiomegaly. Chest Ultrasound 10/01/18 00:00 CONCLUSION: 1. Large right pleural effusion confirmed sonographically. Procedures: 09/27 thoracentesis, paracentesis 06/18/18 2D echo: Left ventricular systolic function severely reduced with EF less than 20%. Right ventricle severely dilated. Mechanical mitral valve bileaflet with both leaflets moving. Mild aortic valve regurg. Severe tricuspid regurg. Moderate to severe pulmonary hypertension. Patient/Family Conference Issues Discussed: Limited discussion with patient due to his very limited insight. Unable to reach brother today for further discussion. * Palliative care role, purpose, approach * Additional medical, psychosocial, and spiritual history * Patients general health, functional status, and cognitive changes in the months leading up to the current hospitalization * Questions answered to the best of my ability * Palliative care contact information provided Assessment and Plan - Disease Oriented Problem List (1) Congestive heart failure (2) Ascites (3) Pleural effusion (4) Shortness of breath (5) Altered mental status (6) Pneumonia (7) Delirium due to another medical condition - Symptom Scale (1) Dyspnea 0-10 Scale: Unable to quantify (2) Encephalopathy 0-10 Scale: Unable to quantify Pertinent Non-Medical Issues: Psychosocial: Has 2 brothers. Used to live with his mother however she is referred to significant stroke and now lives in a mcfp. Had been living alone. Has not worked been disabled due to heart condition. Not , no children. Spiritual: Confucianism meghan. Legal: Ethical issues impacting care: No ethical issues identified. Important Contacts: Brother Maikel Ellis" [phone] ( found in 06/18/18 CM note) Mother Joelle Ko [phone]-now reported to live in SNF 2/2 CVA brother Jordan Chu Prognosis: . This patient was admitted a few days ago for altered mental status. Appears may have some component of delirium on top of baseline mild cognitive impairment. Probable hepatic encephalopathy, liver disease. Additionally has underlying CHF with EF less than 20% per echo June 2018, valvular disease. High risk for additional complications/decline related to multiple chronic medical conditions and cognitive impairments. Appropriate for hospice if goals were compatible. Prior [facility] admissions note that patient reported in the past recommended to have a heart transplant, "evaluation in [facility] in the past patient did not want to pursue". Code Status: Full Code Plan: Legal decision maker: Patient was some mild confusion, possibly underlying cognitive deficit. Not able to make decisions alone currently. Reported his mother has recently required transition to m[facility] due to increased care needs/ CVA. No advanced directives. Not , no children. Supported by her brother, possible this may be the appropriate legal proxy per [place] statutes. Upon consultation with him he is in agreement to name 1 of his brothers Maikel "Keyona Ko "as his healthcare surrogate. He has another brother named Jordan Chu. I have tried to reach brother Maikel from a number found in June admission case management note just rings and rings == Ordered for case management consult to obtain accurint support for brother once Ciara Martinez returns 10/04. updated med attending MD Goals: TBD. pt with very limited insight, unable to make informed decisions. Wants to go home. unable to reach brother whom he named [facility]. CODE STATUS:Full code by default SYMPTOMS: --Encephalopathy/confusion-patient presented for altered mental status, confusion found by his brother. Probable multifactorial though primarily hepatic encephalopathy. Liver failure secondary to chronic heart failure. --Dyspnea: Risk for secondary to ongoing heart failure EF less than 20%. Requiring diuretics, as well as recurrent thoracentesis. Ordered for IR to place pigtail chest tube drain. Likely will continue to reaccumulate. he denies dyspnea today denies pain. Palliative care will continue to follow during hospital course as condition evolves, to assist patient/decision-maker with understanding of medical conditions, weighing benefits/burdens of treatment options, for clarification of goals of treatment. Additionally will assist with any symptoms of palliative concern Appreciation Thank you for the opportunity to participate in the care of Mike Ko. Attestation Attestation: To help prompt me to consider important information that might be impacting today's encounter and assessment, information from prior notes written by myself or my colleagues may have been "brought forward" into today's note. My signature on this note, however, is an attestation that I personally performed the exam, history, and/or decision-making noted today, and, unless otherwise indicated, the interactions with patient, family, and staff as well as the review of records all occurred today. I also attest that the listed assessment and stated plan reflect my best clinical judgment today based on the combination of historical information, prior notes, and today's exam/ interactions. When time spent is documented, it refers only to time spent today by the signer, or if indicated, combined time spent today by collaborating physician/nurse practitioner.
[2018-10-01 16:22] LABS: Hepatitis A IgM Antibody Nonreactive (Nonreactive); Hepatitits B Surface Antigen Nonreactive (Nonreactive)
[2018-10-02] MEDS: Albumin Human 25% Inj 50 ML IV.SIG SCH ×2 (05:01→17:35)
[2018-10-02 05:25] LABS: Hematocrit 29.3 % (39.0-51.0); Hemoglobin 9.8 gm/dL (13.0-17.0); Mean Corpuscular HGB Conc 33.6 % (32.0-36.0); Mean Corpuscular Hemoglobin 27.7 pg (27.0-34.0); Mean Corpuscular Volume 82.2 fL (80.0-100.0); Mean Platelet Volume 9.4 fL (7.0-11.0); Platelet Count 173 th/mm3 (150-450); Red Blood Count 3.56 mil/mm3 (4.50-5.90); Red Cell Distribution Width 19.3 % (11.6-17.2); White Blood Count 5.5 th/mm3 (4.0-11.0)
[2018-10-02 05:48] LABS: Alanine Aminotransferase 21 U/L (12-78); Albumin 2.4 g/dL (3.4-5.0); Anion Gap 6 meq/L (5-15); Aspartate Aminotransferase 39 U/L (15-37); Blood Urea Nitrogen 32 mg/dL (7-18); Calcium 8.7 mg/dL (8.5-10.1); Carbon Dioxide 26.1 meq/L (21.0-32.0); Chloride 106 meq/L (98-107); Glomerular Filtration Rate 57 mL/min (>89); Glucose,Random 84 mg/dL (74-106); Potassium 4.9 meq/L (3.5-5.1); Sodium 138 meq/L (136-145)
[2018-10-02 05:50] LABS: Alkaline Phosphatase 294 U/L (45-117); Total Protein 8.4 g/dL (6.4-8.2)
--- NOTE | 2018-10-02 09:29 | P.PNPL ---
Subjective Interval history: Patient is on room air oxygen. On Heparin drip. Physical Exam Vital signs: Vital Signs 10/01/18 12:00 10/01/18 16:00 10/01/18 20:00 Temperature 98.0 F 97.2 F L 97.8 F Pulse Rate 60 100 H 60 Respiratory Rate 20 20 16 Blood Pressure 155/64 H 105/70 138/61 Pulse Oximetry 98 94 L 100 10/02/18 00:00 10/02/18 04:00 10/02/18 08:00 Temperature 98.0 F 97.8 F 98.0 F Pulse Rate 60 58 L 62 Respiratory Rate 16 16 17 Blood Pressure 133/69 118/81 107/57 L Pulse Oximetry 98 93 L 99 Intake & Output 10/01/18 10/02/18 10/02/18 18:59 06:59 18:59 Intake Total 950 / 950 50 / 50 120 / 120 Output Total 975 / 975 1100 / 1100 Balance -25 / -25 -1050 / -1050 120 / 120 Weight 48.2 kg Intake: IV 50 / 50 50 / 50 Flexbumin 25% Inj 50 ML @ 60 50 / 50 50 / 50 mls/hr IV.SIG Q12H JOSÉ MIGUEL Rx#: [id number] Oral 900 / 900 120 / 120 Output: Urine 975 / 975 1100 / 1100 Other: Date of Last Bowel Movement 10/01/18 # Bowel Movements 2 1 - Constitutional no acute distress - Routine HEENT Exam Head: Present: normocephalic, atraumatic Eye: Present: EOMI, PERRL, normal accommodation, conjunctivae pink ENT: Present: mucous membranes moist - Routine Neck Exam Present: supple, full ROM, trachea midline - Routine Respiratory Exam Present: CTA bilaterally - Routine Cardiovascular Exam Present: RRR, S1, S2 - Routine Abdominal Exam Present: soft, normoactive bowel sounds - Routine Extremities Exam Present: full ROM, pulses intact, normal capillary refill - Routine Neurological Exam Present: alert, oriented X3, CN II-XII intact Assessment and Plan - Plan 1. Recurrent right pleural effusion. 2. S/p US guided right thoracentesis on 09/27/2018 with removal of 1 liter. 3. Cardiomyopathy EF< 20%. 4. CHF with elevated BNP. 5. Acute on chronic kidney disease. 6. s/p Mechanical mitral valve replacement. 7. Coagulopathy. 8. Moderate to severe pulmonary hypertension with a PA pressure 60-70mmHg. 9. Anemia. 10. s/p US-guided paracentesis on 09/27/2018 with removal of 5.5 liters. Plan Oxygen p.r.n. to maintain sats above 92%. Bronchodilators placed on DuoNeb on a p.r.n. basis. For repeat US-guided thoracentesis and a pigtail catheter insertion. Recurrent pleural effusion is likely 2nd to CHF/ cardiomyopathy, Will send the pleural fluid for analysis and culture. Continue with Lasix 40 mg b.i.d. Continue abx- on Keflex and azithromycin. Monitor for signs of infection( fever and WBC). Will need to hold anticoagulation for thoracentesis. Thora once INR< 1.5 Patient is on Heparin drip- Monitor INR/PTT Continue other medical management per primary team.
[2018-10-02 09:32] LABS: INR 1.8 Ratio; Prothrombin Time 18.1 sec (9.8-11.6)
[2018-10-02] MEDS: Azithromycin 250 MG Tablet PO SCH (09:56)
[2018-10-02] MEDS: Spironolactone 25 MG Tablet PO SCH ×2 (09:56→17:34)
--- NOTE | 2018-10-02 13:30 | P.PNIM ---
Subjective Interval history: Nursing denies any acute changes overnight. Patient himself says he wants to go home, when I told him he can take him himself, he replies by saying he can. He is standing up at the bedside facing the wall with a remote in his hand as if the television is on that side when in fact is on the opposite side. Physical Exam Vital signs: Vital Signs 10/01/18 16:00 10/01/18 20:00 10/02/18 00:00 Temperature 97.2 F L 97.8 F 98.0 F Pulse Rate 100 H 60 60 Respiratory Rate 20 16 16 Blood Pressure 105/70 138/61 133/69 Pulse Oximetry 94 L 100 98 10/02/18 04:00 10/02/18 08:00 10/02/18 09:53 Temperature 97.8 F 98.0 F Pulse Rate 58 L 62 60 Respiratory Rate 16 17 Blood Pressure 118/81 107/57 L Pulse Oximetry 93 L 99 10/02/18 12:00 Temperature 97.3 F L Pulse Rate 61 Respiratory Rate 16 Blood Pressure 116/56 L Pulse Oximetry 100 Intake & Output 10/01/18 10/02/18 10/02/18 18:59 06:59 18:59 Intake Total 950 / 950 50 / 50 232 / 232 Output Total 975 / 975 1100 / 1100 Balance -25 / -25 -1050 / -1050 232 / 232 Weight 48.2 kg Intake: IV 50 / 50 50 / 50 112 / 112 Heparin/D5W 25,000 U/250 mL 25, 112 / 112 000 unit In 250 ml @ 600 UNITS/ HR 6 mls/hr IV.CONT TITRATE PRN Rx#:[id number] Flexbumin 25% Inj 50 ML @ 60 50 / 50 50 / 50 mls/hr IV.SIG Q12H JOSÉ MIGUEL Rx#: [id number] Oral 900 / 900 120 / 120 Output: Urine 975 / 975 1100 / 1100 Other: Date of Last Bowel Movement 10/01/18 10/01/18 # Bowel Movements 2 1 Narrative: Clear lungs bilaterally Heart sounds regular rate and rhythm, 5/6 ejection murmur Is an obvious intra-abdominal ventral hernia which I can now see as he stands up Abdomen is slightly becoming more distended over the past few days, more taut, but non-tender Results - Labs CBC & Chem 7: 10/02/18 05:00 10/02/18 05:00 Laboratory Results - last 24 hr 10/01/18 10/01/18 10/01/18 14:05 17:08 22:59 WBC RBC Hgb Hct MCV MCH MCHC RDW Plt Count MPV PT INR APTT 52.2 H 54.4 H Sodium Potassium Chloride Carbon Dioxide Anion Gap BUN Creatinine Estimated GFR Random Glucose Calcium Total Bilirubin AST ALT Alkaline Phosphatase Total Protein Albumin Hepatitis A IgM Ab Nonreactive Hep Bs Antigen Nonreactive Hep B Core IgM Ab Nonreactive Hep C IgG Ab Nonreactive 10/02/18 10/02/18 10/02/18 05:00 05:00 05:00 WBC 5.5 RBC 3.56 L Hgb 9.8 L Hct 29.3 L MCV 82.2 MCH 27.7 MCHC 33.6 RDW 19.3 H Plt Count 173 MPV 9.4 PT INR APTT 52.6 H Sodium 138 Potassium 4.9 Chloride 106 Carbon Dioxide 26.1 Anion Gap 6 BUN 32 H Creatinine 1.59 H Estimated GFR 57 L Random Glucose 84 Calcium 8.7 Total Bilirubin 2.7 H AST 39 H ALT 21 Alkaline Phosphatase 294 H Total Protein 8.4 H Albumin 2.4 L Hepatitis A IgM Ab Hep Bs Antigen Hep B Core IgM Ab Hep C IgG Ab 10/02/18 05:00 WBC RBC Hgb Hct MCV MCH MCHC RDW Plt Count MPV PT 18.1 H INR 1.8 APTT Sodium Potassium Chloride Carbon Dioxide Anion Gap BUN Creatinine Estimated GFR Random Glucose Calcium Total Bilirubin AST ALT Alkaline Phosphatase Total Protein Albumin Hepatitis A IgM Ab Hep Bs Antigen Hep B Core IgM Ab Hep C IgG Ab Assessment and Plan - Plan 47-year-old black male admitted with metabolic encephalopathy. Found to have hepatic encephalopathy and started on antibiotics for possible right basilar pneumonia. Underwent paracentesis and thoracentesis. Eventually had improvement in his encephalopathy but still has some residual cognitive impairment. Psychiatry has been consulted to evaluate for any underlying psychotic disorders, have deemed more harm than benefit in using any antipsychotics at this time. 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 -Fluid balance now improved with IV Lasix Continue IV Lasix and albumin -heparin drip until INR ready for procedure Suspected hepatic insufficiency/failure given lowest INR is 1.5 while in-house -Hard to tell baseline liver INR given that the patient requires warfarin for mitral valve -Viral panel negative -Theoretical meld score is 19 assuming best natural INR is 1.5 Cognitive impairment -hepatic encephalopathy -continue lactulose and zinc -No scheduled antipsychotics or anxiolytics at this time per psychiatry Ascites -improved, s/p paracentesis -Continue spironolactone chronic kidney disease -back to baseline Albumin infusion for now DVT prophylaxis holding Coumadin for procedure anticipated Discharge Planning: Left voicemail for nearest of kin contact. Patient has impaired cognition, is unsafe discharge even though physically he is improving. Will need secure living arrangements.
[2018-10-03 05:00] LABS: Hemoglobin 9.3 gm/dL (13.0-17.0); Mean Corpuscular HGB Conc 33.2 % (32.0-36.0); Mean Corpuscular Hemoglobin 27.2 pg (27.0-34.0); Mean Corpuscular Volume 81.9 fL (80.0-100.0); Mean Platelet Volume 9.4 fL (7.0-11.0); Platelet Count 155 th/mm3 (150-450); Red Blood Count 3.42 mil/mm3 (4.50-5.90); Red Cell Distribution Width 18.8 % (11.6-17.2); White Blood Count 5.5 th/mm3 (4.0-11.0)
[2018-10-03] MEDS: Albumin Human 25% Inj 50 ML IV.SIG SCH ×2 (05:15→18:06)
[2018-10-03] MEDS: Heparin Drip 25,000 UNIT/250 ML BAG IV.CONT PRN (06:19)
--- NOTE | 2018-10-03 08:55 | P.PNPL ---
Subjective Interval history: No events overnight . On Heparin drip for thoracentesis today, Afebrile and is on room air oxygen. Physical Exam Vital signs: Vital Signs 10/02/18 09:53 10/02/18 12:00 10/02/18 16:00 Temperature 97.3 F L 97.4 F L Pulse Rate 60 61 61 Respiratory Rate 16 18 Blood Pressure 116/56 L 138/78 Pulse Oximetry 100 98 10/02/18 20:00 10/03/18 00:00 10/03/18 04:00 Temperature 97.4 F L 97.7 F 98 F Pulse Rate 62 60 60 Respiratory Rate 20 18 18 Blood Pressure 103/53 L 104/52 L 105/55 L Pulse Oximetry 100 96 97 10/03/18 08:00 Temperature 97.5 F L Pulse Rate 59 L Respiratory Rate 16 Blood Pressure 116/61 Pulse Oximetry 99 Intake & Output 10/02/18 10/03/18 10/03/18 18:59 06:59 18:59 Intake Total 1282 / 1282 188 / 188 Output Total 600 / 600 1300 / 1300 Balance 682 / 682 -1112 / -1112 Weight 48.3 kg Intake: IV 162 / 162 188 / 188 Heparin/D5W 25,000 U/250 mL 25, 112 / 112 138 / 138 000 unit In 250 ml @ 600 UNITS/ HR 6 mls/hr IV.CONT TITRATE PRN Rx#:[id number] Flexbumin 25% Inj 50 ML @ 60 50 / 50 50 / 50 mls/hr IV.SIG Q12H JOSÉ MIGUEL Rx#: [id number] Oral 1120 / 1120 Output: Urine 600 / 600 1300 / 1300 Other: # Voids 1 Date of Last Bowel Movement 10/01/18 10/01/18 # Bowel Movements 3 2 - Constitutional no acute distress - Routine HEENT Exam Head: Present: normocephalic, atraumatic Eye: Present: EOMI, PERRL, normal accommodation, conjunctivae pink ENT: Present: mucous membranes moist - Routine Neck Exam Present: supple, full ROM, trachea midline - Routine Respiratory Exam Present: CTA bilaterally - Routine Cardiovascular Exam Present: RRR, S1, S2 - Routine Abdominal Exam Present: soft, normoactive bowel sounds - Routine Skin Exam Present: intact - Routine Neurological Exam Present: alert, oriented X3, CN II-XII intact Assessment and Plan - Plan 1. Recurrent right pleural effusion. 2. S/p US guided right thoracentesis on 09/27/2018 with removal of 1 liter. 3. Cardiomyopathy EF< 20%. 4. CHF with elevated BNP. 5. Acute on chronic kidney disease. 6. s/p Mechanical mitral valve replacement. 7. Coagulopathy. 8. Moderate to severe pulmonary hypertension with a PA pressure 60-70mmHg. 9. Anemia. 10. s/p US-guided paracentesis on 09/27/2018 with removal of 5.5 liters. Plan Oxygen p.r.n. to maintain sats above 92%. Bronchodilators. For thoracentesis and a pigtail catheter insertion today. Recurrent pleural effusion is likely 2nd to CHF/ cardiomyopathy, Send the pleural fluid for analysis and culture. Continue with Lasix 40 mg b.i.d. Continue abx- on Keflex and azithromycin. Monitor for signs of infection( fever and WBC). Will need to hold anticoagulation for thoracentesis. Thora once INR< 1.5 Patient is on Heparin drip- Monitor INR/PTT Continue other medical management per primary team.
[2018-10-03] MEDS: Spironolactone 25 MG Tablet PO SCH ×2 (09:04→18:07)
[2018-10-03] MEDS: Azithromycin 250 MG Tablet PO SCH (09:04)
[2018-10-03 10:32] LABS: INR 1.8 Ratio; Prothrombin Time 18.1 sec (9.8-11.6)
--- NOTE | 2018-10-03 16:58 | CT ---
EXAM DATE: 10/03/2018 3:37 PM EST AGE/SEX: 47 years / Male INDICATIONS: Pleural effusion COMPARISON: CT abdomen and pelvis 09/24/2018. FINDINGS: The patient has massive ascites in addition to large asymmetrically right-sided pleural effusion. Pro nounced cardiomegaly with reported severe LV dysfunction, also likely renal dysfunction and hepatocel lular dysfunction. Rather than performing recurrent thoracentesis and/or paracentesis on this patient and rather than pl acing a temporary pleural drainage catheter/chest tube, the patient may be a more appropriate viral te for implanted drainage catheter placement such as an Aspira drain. In any case, the patient is not consentable at present for any procedure, not fully oriented to the c ircumstances of his care in discussions with myself and my staff. I note that palliative care has been consulted. The patient is clinically stable at present with satisfactory O2 sats, breathing comfortably in a ful ly supine position without supplemental oxygen. Ideally, I would like the clinical team to arrive at a consensus about the best long-term approach to management of this patient's fluid third spacing, which may be an Aspira drain with which he could b e discharged. If the patient continues to be intermittently disoriented, next of kin or power of att orney arrangements will need to be clarified as well. CONCLUSION: 1. Drainage procedure deferred for now. 2. Please see above discussion and reconsult when appropriate Electronically signed by: Fco Bassett MD Board Certified Radiologist 10/03/2018 4:57 PM EST
--- NOTE | 2018-10-03 17:22 | P.PNIM ---
Subjective Interval history: Nursing denies any acute changes overnight. Patient self says he feels like his diet is restricted, explained to him that he needs to have a fluid restricted low-sodium diet to minimize any further volume overload issues. Physical Exam Vital signs: Vital Signs 10/02/18 20:00 10/03/18 00:00 10/03/18 04:00 Temperature 97.4 F L 97.7 F 98 F Pulse Rate 62 60 60 Respiratory Rate 20 18 18 Blood Pressure 103/53 L 104/52 L 105/55 L Pulse Oximetry 100 96 97 10/03/18 08:00 10/03/18 09:04 10/03/18 12:00 Temperature 97.5 F L 97.5 F L Pulse Rate 59 L 60 59 L Respiratory Rate 16 17 Blood Pressure 116/61 119/68 Pulse Oximetry 99 96 10/03/18 16:00 Temperature 97.3 F L Pulse Rate 59 L Respiratory Rate 17 Blood Pressure 127/73 Pulse Oximetry 100 Intake & Output 10/02/18 10/03/18 10/03/18 18:59 06:59 18:59 Intake Total 1282 / 1282 188 / 188 Output Total 600 / 600 1300 / 1300 Balance 682 / 682 -1112 / -1112 Weight 48.3 kg Intake: IV 162 / 162 188 / 188 Heparin/D5W 25,000 U/250 mL 25, 112 / 112 138 / 138 000 unit In 250 ml @ 600 UNITS/ HR 6 mls/hr IV.CONT TITRATE PRN Rx#:[id number] Flexbumin 25% Inj 50 ML @ 60 50 / 50 50 / 50 mls/hr IV.SIG Q12H JOSÉ MIGUEL Rx#: [id number] Oral 1120 / 1120 Output: Urine 600 / 600 1300 / 1300 Other: # Voids 1 Date of Last Bowel Movement 10/01/18 10/01/18 10/03/18 # Bowel Movements 3 2 Narrative: Unlabored breathing, decreased breath sounds on the right, good aeration on the left Heart sounds regular rate and rhythm, 5/6 ejection murmur Abdomen is about the same distended as yesterday, soft, ventral hernia palpated today with no signs of incarceration Sitting up in the side of the bed Results - Labs CBC & Chem 7: 10/03/18 04:50 10/02/18 05:00 Laboratory Results - last 24 hr 10/03/18 10/03/18 10/03/18 04:50 04:50 04:50 WBC 5.5 RBC 3.42 L Hgb 9.3 L Hct 28.0 L MCV 81.9 MCH 27.2 MCHC 33.2 RDW 18.8 H Plt Count 155 MPV 9.4 Hematology Comments PT 18.1 H INR 1.8 APTT 50.4 H - Imaging Impressions CT Consultation 10/03/18 00:00 CONCLUSION: 1. Drainage procedure deferred for now. 2. Please see above discussion and reconsult when appropriate Assessment and Plan - Plan 47-year-old black male admitted with metabolic encephalopathy. Found to have hepatic encephalopathy and started on antibiotics for possible right basilar pneumonia. Underwent paracentesis and thoracentesis. Eventually had improvement in his encephalopathy but still has some residual cognitive impairment. Psychiatry has been consulted to evaluate for any underlying psychotic disorders, have deemed more harm than benefit in using any antipsychotics at this time. Recurrent pleural effusion despite initial thoracentesis 2/2 hepatic insufficiency vs CHF vs pneumonia -fluid cx's negative Thoracentesis was considered with chest tube today, however after discussion with IR Dr. Bassett plan is to seek healthcare surrogate decision makers to find a more definitive long-term solution after goals of care by patient or healthcare surrogate or establish as the patient may need repeat procedures if a thoracentesis/chest tube was to be performed today. 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 -Switch over to oral Lasix, continue IV albumin -spironolactone -bmp in AM -Resume heparin drip since procedures are now on hold Suspected hepatic insufficiency/failure given lowest INR is 1.5 while in-house -Hard to tell baseline liver INR given that the patient requires warfarin for mitral valve -Viral panel negative -Theoretical meld score is 19 assuming best natural INR is 1.5 Cognitive impairment -hepatic encephalopathy -continue lactulose and zinc -No scheduled antipsychotics or anxiolytics at this time per psychiatry Ascites -s/p paracentesis -Continue spironolactone chronic kidney disease -back to baseline Albumin infusion for now DVT prophylaxis holding Coumadin for procedure anticipated Discharge Planning: Left voicemail for nearest of kin contact. Patient has impaired cognition, is unsafe discharge even though physically he is improving. Will need secure living arrangements.
[2018-10-04] MEDS: Albumin Human 25% Inj 50 ML IV.SIG SCH ×2 (05:22→17:27)
[2018-10-04 07:07] LABS: Calcium 8.6 mg/dL (8.5-10.1); Carbon Dioxide 23.1 meq/L (21.0-32.0); Potassium 4.3 meq/L (3.5-5.1)
[2018-10-04] MEDS: Azithromycin 250 MG Tablet PO SCH (08:31)
[2018-10-04] MEDS: Spironolactone 25 MG Tablet PO SCH ×2 (08:32→17:27)
--- NOTE | 2018-10-04 11:13 | P.PNIM ---
Subjective Interval history: Laying in bed. Slow to respond to my questions. He states that he has no complaints. Physical Exam Vital signs: Last Vital Signs Temp 97 F L 10/04/18 08:00 Pulse 60 10/04/18 08:00 Resp 16 10/04/18 08:00 BP 113/58 L 10/04/18 08:00 Pulse Ox 96 10/04/18 08:00 Intake & Output 10/02/18 10/03/18 10/04/18 10/05/18 06:59 06:59 06:59 06:59 Intake Total 1000 / 1000 1470 / 1470 550 / 550 200 / 200 Output Total 2075 / 2075 1900 / 1900 700 / 700 900 / 900 Balance -1075 / -1075 -430 / -430 -150 / -150 -700 / -700 Weight 48.2 kg 48.3 kg 59.1 kg Narrative: Well-nourished well-developed male laying in bed slow to respond to my questions Cardiac regular rate and rhythm Lungs clear to auscultation bilaterally Neurological exam, alert and oriented to place, person knew the month and year but not to date. Told me his brother's name. Not fully oriented to situation. He did move bilateral upper extremity lotion without difficulty. Results Labs CBC & Chem 7: 10/03/18 04:50 10/04/18 06:20 Imaging Imaging: Impressions CT Consultation 10/03/18 00:00 CONCLUSION: 1. Drainage procedure deferred for now. 2. Please see above discussion and reconsult when appropriate Assessment and Plan Plan 47-year-old black male admitted with metabolic encephalopathy. Found to have hepatic encephalopathy and started on antibiotics for possible right basilar pneumonia. Underwent paracentesis and thoracentesis. Eventually had improvement in his encephalopathy but still has some residual cognitive impairment. Psychiatry has been consulted to evaluate for any underlying psychotic disorders, have deemed more harm than benefit in using any antipsychotics at this time. Recurrent pleural effusion despite initial thoracentesis Ascites hepatic insufficiency/hepatic hydro-thorax vs chronic systolic CHF -fluid cx's negative Status post evaluation with Dr. Bassett who felt the patient may be a candidate for implanted drainage catheter placement such as as pleural drain for long- term management of the patient's fluid retention Currently patient is satting well on room air Patient not consentable at this time due to his cognitive impairment hepatic encephalopathy Palliative care also following and due to his history of chronic systolic CHF with EF less than 20% does also qualify him for comfort care and hospice eligible. 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 -Switch over to oral Lasix, continue IV albumin -spironolactone -bmp in AM -Resume heparin drip since procedures are now on hold Continue Coreg History of allergy with [facility], Suspected hepatic insufficiency/failure given lowest INR is 1.5 while in-house -Hard to tell baseline liver INR given that the patient requires warfarin for mitral valve -Viral panel negative Cognitive impairment -hepatic encephalopathy -continue lactulose and zinc -No scheduled antipsychotics or anxiolytics at this time per psychiatry Ascites -s/p paracentesis -Continue spironolactone chronic kidney disease stage III Avoid nephrotoxins DVT prophylaxis Heparin, Coumadin currently on hold until healthcare proxy can be contacted , INR 1.8 today Progress Note: Quality VTE Deep Vein Thrombosis/Pulmonary Embolism Present on Admission: No
--- NOTE | 2018-10-04 12:23 | P.PNPL ---
Subjective Interval history: Patient is lying in bed in NAD. On room air oxygen. IR recommended implanted drainage catheter placement such as an Aspira drain instead of placing a temporary pleural drainage catheter/chest tube. Patient however is confused and can not give consent. Physical Exam Vital signs: Vital Signs 10/03/18 16:00 10/03/18 20:00 10/04/18 00:00 Temperature 97.3 F L 98.0 F 98.0 F Pulse Rate 59 L 62 59 L Respiratory Rate 17 18 18 Blood Pressure 127/73 106/59 L 110/55 L Pulse Oximetry 100 98 97 10/04/18 04:00 10/04/18 08:00 Temperature 97.9 F 97 F L Pulse Rate 60 60 Respiratory Rate 18 16 Blood Pressure 98/52 L 113/58 L Pulse Oximetry 96 96 Intake & Output 10/03/18 10/04/18 10/04/18 18:59 06:59 18:59 Intake Total 500 / 500 50 / 50 250 / 250 Output Total 700 / 700 1000 / 1000 Balance -200 / -200 50 / 50 -750 / -750 Weight 59.1 kg Intake: IV 50 / 50 50 / 50 Flexbumin 25% Inj 50 ML @ 60 50 / 50 50 / 50 mls/hr IV.SIG Q12H JOSÉ MIGUEL Rx#: [id number] Oral 500 / 500 200 / 200 Output: Urine 700 / 700 1000 / 1000 Other: Date of Last Bowel Movement 10/03/18 10/03/18 # Bowel Movements 1 - Constitutional no acute distress - Routine HEENT Exam Head: Present: normocephalic, atraumatic Eye: Present: EOMI, PERRL, conjunctivae pink ENT: Present: mucous membranes moist - Routine Neck Exam Present: supple, full ROM, trachea midline - Routine Respiratory Exam Present: CTA bilaterally - Routine Cardiovascular Exam Present: RRR, S1, S2 - Routine Abdominal Exam Present: soft, normoactive bowel sounds - Routine Skin Exam Present: intact, dry - Routine Neurological Exam Present: altered mental status Assessment and Plan - Plan 1. Recurrent right pleural effusion. 2. S/p US guided right thoracentesis on 09/27/2018 with removal of 1 liter. 3. Cardiomyopathy EF< 20%. 4. CHF with elevated BNP. 5. Acute on chronic kidney disease. 6. s/p Mechanical mitral valve replacement. 7. Coagulopathy. 8. Moderate to severe pulmonary hypertension with a PA pressure 60-70mmHg. 9. Anemia. 10. s/p US-guided paracentesis on 09/27/2018 with removal of 5.5 liters. Plan Oxygen p.r.n. to maintain sats above 92%. Bronchodilators. IR recommended implanted drainage catheter placement such as an Aspira drain instead of placing a temporary pleural drainage catheter/chest tube however patient is confused to give consent. Recurrent pleural effusion is likely 2nd to CHF/ cardiomyopathy, Continue abx- on Keflex and azithromycin. Monitor for signs of infection( fever and WBC). on Heparin drip- Monitor INR/PTT Palliative care is following Continue other medical management per primary team.
--- NOTE | 2018-10-04 15:04 | P.PNPAL ---
Reason for Visit Reason for visit: a. To assist with evaluation and management of symptoms including: confusion b. To assist medical decision maker(s) with: better understanding of current medical conditions; weighing benefits/burdens of medical treatment options; making medical treatment decisions. Subjective Subjective/Interval History: Mr. Ko is a 47-year-old man who was admitted on 09/24/2018 with hepatic encephalopathy. He was started on antibiotics for possible right basilar pneumonia. Patient underwent paracentesis and thoracentesis on 09/27/2018 with some subsequent improvement in neuro status. Psychiatry and speech therapy have evaluated the patient. Patient has multiple chronic comorbid conditions including mitral valve replacement x2, chronic anticoagulant, systolic CHF EF 20 %, CKD stage III, umbilical hernia, AICD. 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 Patient has been disabled since the age of 8 years status post CVA. He lived with his mother until recently when she went to a nursing facility. He has been living alone with his brothers doing grocery shopping and checking in on him. Follow up visit necessary for symptom management and clarification of medical treatment goals. Patient seen in his room with no visitors present. He is alert, partially oriented, pleasant and cooperative. Patient knows his name and is aware that he is in the hospital. He tells me he is fearful about an upcoming procedure but he cannot not tell me what the procedure is. He denies dyspnea and/or pain. Pulmonology was consulted on 10/01/2018 for of recurrent pleural effusion. Plan to proceed with repeat ultrasound-guided thoracentesis and a pigtail catheter insertion when INR < 1.5. Recurrent pleural effusion is likely secondary to congestive heart failure/cardiomyopathy. IR recommending consideration for implanted drainage catheter for long-term management of patient's fluids third spacing instead of placing a temporary pleural drainage catheter/chest tube. Patient has limited insight and judgement related to his medical decisions at this time. Patient has 2 brothers (Melquiades Castro" and Jordan). Melquiades Ko ([place]) has been designated as the healthcare surrogate decision-maker. Palliative care was unable to reach patient's brother (Melquiades Ko ([place]) @[phone]) via telephone or leave a message on voiceWebPTil. Per case management notes, brother ( Melquiades Ko ([place])) indicated that both brothers were working together to make healthcare decisions for the patient. Palliative care spoke to brother (Jordan Ko @[phone]) as well. He states both brothers wanted to proceed with the medical teams recommendations and ongoing aggressive care. Palliative care will make ongoing attempts to contact brother/HCS, Melquiades Ko ([place]). Family/Friend Interactions: See interval history Advance Directives Health Care Surrogate: Copy in medical record Advance Directives Date on File: 10/01/18 Health Care Surrogate Name and Number: MELQUIADES KO ([place]) [phone] Objective Vital Signs: Vital Signs 10/03/18 16:00 10/03/18 20:00 10/04/18 00:00 Temperature 97.3 F L 98.0 F 98.0 F Pulse Rate 59 L 62 59 L Respiratory Rate 17 18 18 Blood Pressure 127/73 106/59 L 110/55 L Pulse Oximetry 100 98 97 10/04/18 04:00 10/04/18 08:00 10/04/18 12:00 Temperature 97.9 F 97 F L 97 F L Pulse Rate 60 60 75 Respiratory Rate 18 16 18 Blood Pressure 98/52 L 113/58 L 137/86 Pulse Oximetry 96 96 98 Intake & Output 10/03/18 10/04/18 10/04/18 18:59 06:59 18:59 Intake Total 500 / 500 50 / 50 250 / 250 Output Total 700 / 700 1000 / 1000 Balance -200 / -200 50 / 50 -750 / -750 Weight 59.1 kg Intake: IV 50 / 50 50 / 50 Flexbumin 25% Inj 50 ML @ 60 50 / 50 50 / 50 mls/hr IV.SIG Q12H JOSÉ MIGUEL Rx#: [id number] Oral 500 / 500 200 / 200 Output: Urine 700 / 700 1000 / 1000 Other: Date of Last Bowel Movement 10/03/18 10/03/18 # Bowel Movements 1 Physical Exam: CONSTITUTIONAL/GENERAL: This is a very thin, frail appearing gentleman, pleasant and cooperative TUBES/LINES/DRAINS: PIV x2 left upper extremity SKIN: No jaundice, rashes, or lesions. No wounds seen anteriorly. Skin temperature appropriate. Not diaphoretic. HEAD: Atraumatic. Normocephalic. EYES: Pupils equal and round and reactive. Extraocular motions intact. Small area hemorrhage right sclera. No scleral icterus. No injection or drainage. Fundi not examined. ENT: Hearing grossly normal. Nose without bleeding or purulent drainage. NECK: Trachea midline. Supple, nontender. No palpable thyroid enlargement or nodularity. CARDIOVASCULAR: Regular rate and rhythm, faint murmur. No JVD. Peripheral pulses symmetric. RESPIRATORY/CHEST: Symmetric, unlabored respirations. On room air. Breath sounds equal bilaterally. GASTROINTESTINAL: Abdomen soft, non-tender, +distended. No palpable masses. No guarding. Bowel sounds present. GENITOURINARY: Without palpable bladder distension. MUSCULOSKELETAL: Extremities without clubbing, cyanosis, or edema. No joint tenderness or effusion noted. Remedies very thin with muscle atrophy x4. LYMPHATICS: No palpable cervical or supraclavicular adenopathy. NEUROLOGICAL: Awake and alert. Oriented x2. Cooperative. Follows commands. Very limited insight. Moves all 4 extremities PSYCHIATRIC: + anxiety. No apparent hallucinations or other psychotic thought process. Diagnostic Tests Laboratory: Laboratory Results - last 72 hr 10/01/18 10/01/18 10/01/18 14:05 17:08 22:59 WBC RBC Hgb Hct MCV MCH MCHC RDW Plt Count MPV Hematology Comments PT INR APTT 52.2 H 54.4 H Sodium Potassium Chloride Carbon Dioxide Anion Gap BUN Creatinine Estimated GFR Random Glucose Calcium Total Bilirubin AST ALT Alkaline Phosphatase Total Protein Albumin Hepatitis A IgM Ab Nonreactive Hep Bs Antigen Nonreactive Hep B Core IgM Ab Nonreactive Hep C IgG Ab Nonreactive 10/02/18 10/02/18 10/02/18 05:00 05:00 05:00 WBC 5.5 RBC 3.56 L Hgb 9.8 L Hct 29.3 L MCV 82.2 MCH 27.7 MCHC 33.6 RDW 19.3 H Plt Count 173 MPV 9.4 Hematology Comments PT INR APTT 52.6 H Sodium 138 Potassium 4.9 Chloride 106 Carbon Dioxide 26.1 Anion Gap 6 BUN 32 H Creatinine 1.59 H Estimated GFR 57 L Random Glucose 84 Calcium 8.7 Total Bilirubin 2.7 H AST 39 H ALT 21 Alkaline Phosphatase 294 H Total Protein 8.4 H Albumin 2.4 L Hepatitis A IgM Ab Hep Bs Antigen Hep B Core IgM Ab Hep C IgG Ab 10/02/18 10/03/18 10/03/18 05:00 04:50 04:50 WBC 5.5 RBC 3.42 L Hgb 9.3 L Hct 28.0 L MCV 81.9 MCH 27.2 MCHC 33.2 RDW 18.8 H Plt Count 155 MPV 9.4 Hematology Comments PT 18.1 H INR 1.8 APTT 50.4 H Sodium Potassium Chloride Carbon Dioxide Anion Gap BUN Creatinine Estimated GFR Random Glucose Calcium Total Bilirubin AST ALT Alkaline Phosphatase Total Protein Albumin Hepatitis A IgM Ab Hep Bs Antigen Hep B Core IgM Ab Hep C IgG Ab 10/03/18 10/04/18 10/04/18 04:50 06:20 06:20 WBC RBC Hgb Hct MCV MCH MCHC RDW Plt Count MPV Hematology Comments PT 18.1 H INR 1.8 APTT 46.0 H Sodium 136 Potassium 4.3 Chloride 104 Carbon Dioxide 23.1 Anion Gap 9 BUN 35 H Creatinine 1.60 H Estimated GFR 56 L Random Glucose 111 H Calcium 8.6 Total Bilirubin AST ALT Alkaline Phosphatase Total Protein Albumin Hepatitis A IgM Ab Hep Bs Antigen Hep B Core IgM Ab Hep C IgG Ab Result Diagrams: 10/03/18 04:50 10/04/18 06:20 Microbiology: Microbiology 09/27/18 10:15 Fungal Smear - Final Other No fungal elements seen Fungal Culture - Preliminary No growth in 1 week Imaging: Abdomen/Pelvis CT 09/24/18 17:32 CONCLUSION: 1. Moderate to large amount of ascitic fluid again noted. 2. The liver is more prominent than on the prior study with prominent left lobe and diffuse inhomogeneity. 3. The bowel loops are displaced centrally within nonobstructive bowel gas pattern. 4. Small nonobstructing right renal calculus. 5. Large right pleural effusion and small left pleural effusion. Head CT 09/24/18 17:32 CONCLUSION: 1. No acute infarct, acute hemorrhage, mass effect or extra-axial fluid collections. 2. 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 . Paracentesis Ultrasound 09/27/18 00:00 CONCLUSION: 1. Uncomplicated paracentesis. Thoracentesis Ultrasound 09/27/18 00:00 CONCLUSION: 1. Uncomplicated thoracentesis. Chest X-Ray 09/30/18 00:00 CONCLUSION: 1. Diffuse consolidation of the right lung consistent with probable diffuse pneumonia as well as scattered patchiness within left lung related to less severe pneumonia or underlying pulmonary vascular congestion. 2. Marked cardiomegaly. Chest Ultrasound 10/01/18 00:00 CONCLUSION: 1. Large right pleural effusion confirmed sonographically. CT Consultation 10/03/18 00:00 CONCLUSION: 1. Drainage procedure deferred for now. 2. Please see above discussion and reconsult when appropriate Procedures: 09/27 Thoracentesis and paracentesis 06/18/18 2D echo: Left ventricular systolic function severely reduced with EF less than 20%. Right ventricle severely dilated. Mechanical mitral valve bileaflet with both leaflets moving. Mild aortic valve regurgitation. Severe tricuspid regurgitation. Moderate to severe pulmonary hypertension. Assessment and Plan - Disease Oriented Problem List (1) Congestive heart failure (2) Ascites (3) Pleural effusion (4) Shortness of breath (5) Altered mental status (6) Pneumonia (7) Delirium due to another medical condition Pertinent Non-Medical Issues: Psychosocial: Has 2 brothers. Used to live with his mother however she is referred to significant stroke and now lives in a chcf. Had been living alone. Has not worked been disabled due to heart condition. Not , no children. Spiritual: Zoroastrianism meghan. Legal: Patient designated his brother Melquiades "Keyona" Maikel as the healthcare surrogate decision-maker. Ethical issues impacting care: No ethical issues identified. Important Contacts: Melquiades Ko ([place]), brother/[facility]: [phone] Jordan Chu, brother: [phone] Joelle Ko, mother: [phone]-now reported to live in SNF 2/2 CVA Prognosis: Patient admitted with altered mental status. Appears may have some component of delirium on top of baseline mild cognitive impairment. Probable hepatic encephalopathy, liver disease. Additionally has underlying CHF with EF less than 20% per echo June 2018, valvular disease. High risk for additional complications/decline related to multiple chronic medical conditions (requiring frequent thoracentesis and paracentesis) and cognitive impairments. Appropriate for hospice if goals were compatible. Prior [place] admissions note that patient reported in the past recommended to have a heart transplant, "evaluation in [place] in the past patient did not want to pursue". Code Status: Full Code Plan: * FULL CODE * Legal decision maker: Patient was some mild confusion, possibly underlying cognitive deficit. Not able to make decisions alone currently. Reported his mother has recently required transition to chcf due to increased care needs/ CVA. Not , no children. Patient has 2 brothers. He designated 1 of his brothers supported by her brother, Melquiades Ko ([place]), as his healthcare surrogate. He has another brother named Jordan Chu. * Accurints report completed * Discussed patient with case management, Brianna. * Palliative care was unable to reach patient's brother (Melquiades Ko ([place]) @) via telephone or leave a message on voicemail. Per case management notes, brother (Melquiades Ko ([place])) indicated that both brothers were working together to make healthcare decisions for the patient. Palliative care spoke to brother (Jordan Ko @[phone]) as well. He states both brothers wanted to proceed with the medical teams recommendations and ongoing aggressive care. Palliative care will make ongoing attempts to contact brother/HCS, Melquiades Ko ([place]). * SYMPTOMS: == Confusion- Patient presented for altered mental status, confusion found by his brother. Probable multifactorial though primarily hepatic encephalopathy. Liver failure secondary to chronic heart failure. == Dyspnea: Patient denies dyspnea on exam. Risk for secondary to ongoing heart failure EF less than 20%. Requiring diuretics, as well as recurrent thoracentesis. Recurrent pleural effusion is likely secondary to congestive heart failure/cardiomyopathy. IR recommending consideration for implanted drainage catheter for long-term management of patient's fluids third spacing instead of placing a temporary pleural drainage catheter/chest tube. * Palliative care will continue to follow during hospital course as condition evolves, to assist patient/decision-maker with understanding of medical conditions, weighing benefits/burdens of treatment options, for clarification of goals of treatment. Additionally will assist with any symptoms of palliative concern Attestation Attestation: To help prompt me to consider important information that might be impacting today's encounter and assessment, information from prior notes written by myself or my colleagues may have been "brought forward" into today's note. My signature on this note, however, is an attestation that I personally performed the exam, history, and/or decision-making noted today, and, unless otherwise indicated, the interactions with patient, family, and staff as well as the review of records all occurred today. I also attest that the listed assessment and stated plan reflect my best clinical judgment today based on the combination of historical information, prior notes, and today's exam/ interactions. When time spent is documented, it refers only to time spent today by the signer, or if indicated, combined time spent today by collaborating physician/nurse practitioner.
[2018-10-05] MEDS: Albumin Human 25% Inj 50 ML IV.SIG SCH ×2 (06:42→16:34)
[2018-10-05] MEDS: Heparin Drip 25,000 UNIT/250 ML BAG IV.CONT PRN (07:32)
[2018-10-05] MEDS: Azithromycin 250 MG Tablet PO SCH (09:19)
[2018-10-05] MEDS: Spironolactone 25 MG Tablet PO SCH ×2 (09:19→17:23)
--- NOTE | 2018-10-05 09:56 | P.PNIM ---
Subjective Interval history: Follow-up visit for pleural effusion, Ascitis, CHF, hepatic insufficiency and CKD III Pt seen and examined lying in bed, c/o of some nausea but no vomiting. Stated cannot eat much of his breakfast. Denies any abdominal pain, diarrhea or constipation Denies any CP, SOB, fever or chills. Physical Exam Vital signs: Last Vital Signs Temp 97.5 F L 10/05/18 08:00 Pulse 59 L 10/05/18 08:00 Resp 16 10/05/18 08:00 BP 98/56 L 10/05/18 08:00 Pulse Ox 98 10/05/18 08:00 Intake & Output 10/03/18 10/04/18 10/05/18 10/06/18 06:59 06:59 06:59 06:59 Intake Total 1470 / 1470 550 / 550 1270 / 1270 50 / 50 Output Total 1900 / 1900 700 / 700 1400 / 1400 Balance -430 / -430 -150 / -150 -130 / -130 50 / 50 Weight 48.3 kg 46.9 kg Narrative: GENERAL: Thin appearing male lying in bed in no acute distress SKIN: Warm and dry. HEAD: Atraumatic. Normocephalic. EYES: Pupils equal and round. No scleral icterus. No injection or drainage. CARDIOVASCULAR: Regular rate and rhythm. + murmur RESPIRATORY: No accessory muscle use. Clear to auscultation. Breath sounds equal bilaterally. GASTROINTESTINAL: Abdomen soft, non-tender, slight abdominal distention. Hepatic and splenic margins not palpable. MUSCULOSKELETAL: Extremities without clubbing, cyanosis, or edema. Bilateral lower Extremities muscle wasting NEUROLOGICAL: Awake and alert and oriented x 2. Motor grossly within normal limits. Generalized weakness, moving all 4 extremities. Normal speech but slow. PSYCHIATRIC: flat mood and affect; insight and judgment unreliable Results Labs CBC & Chem 7: 10/03/18 04:50 10/04/18 06:20 Labs: Microbiology 09/27/18 10:15 Other Fungal Smear - Final No fungal elements seen 09/27/18 10:15 Other Fungal Culture - Preliminary No growth in 1 week Assessment and Plan Plan This is a 47-year-old -[place] male admitted with metabolic encephalopathy. Found to have hepatic encephalopathy and started on antibiotics for possible right basilar pneumonia. Underwent paracentesis and thoracentesis. Eventually had improvement in his encephalopathy but still has some residual cognitive impairment. Psychiatry has been consulted to evaluate for any underlying psychotic disorders, have deemed more harm than benefit in using any antipsychotics at this time. Recurrent pleural effusion despite initial thoracentesis Ascites Hepatic insufficiency/hepatic hydro-thorax vs chronic systolic CHF -Pleural fluid cx's negative -Status post evaluation with Dr. Bassett who felt the patient may be a candidate for implanted drainage catheter placement such as as pleural drain for long- term management of the patient's fluid retention -Currently patient's O2 Sat at 98% on room air -Patient not consentable at this time due to his cognitive impairment hepatic encephalopathy -Palliative care also following and due to his history of chronic systolic CHF with EF less than 20% does also qualify him for comfort care and hospice eligible. 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 -Continue oral Lasix, spironolactone and continue IV albumin -monitor bmp -Resume heparin drip since procedures are now on hold -Continue Coreg -History of allergy with [facility] Suspected hepatic insufficiency/failure given lowest INR is 1.5 while in-house -Hard to tell baseline liver INR given that the patient requires warfarin for mitral valve -Viral panel negative Cognitive impairment Hepatic encephalopathy -continue lactulose and zinc -No scheduled antipsychotics or anxiolytics at this time per psychiatry Ascites -s/p paracentesis -Continue spironolactone, Lasix and albumin -monitor BMP Chronic kidney disease stage III -Avoid nephrotoxins -follow renal indices DVT prophylaxis: continue on Heparin drip Coumadin on hold until healthcare proxy can be contacted , INR 1.8 Code Status: full code Discussed Condition With: patient and nurse Progress Note: Quality VTE Deep Vein Thrombosis/Pulmonary Embolism Present on Admission: No
--- NOTE | 2018-10-05 12:37 | P.PNPL ---
Subjective Interval history: No events overnight. On room air oxygen. Afebrile. Physical Exam Vital signs: Vital Signs 10/04/18 16:52 10/04/18 20:00 10/04/18 22:00 Temperature 97.5 F L 97.8 F Pulse Rate 61 60 Respiratory Rate 16 17 18 Blood Pressure 108/55 L 124/58 L Pulse Oximetry 100 100 10/05/18 00:00 10/05/18 04:00 10/05/18 08:00 Temperature 98 F 98.3 F 97.5 F L Pulse Rate 60 60 59 L Respiratory Rate 18 20 16 Blood Pressure 125/57 L 121/58 L 98/56 L Pulse Oximetry 97 97 98 10/05/18 12:00 Temperature 97 F L Pulse Rate 59 L Respiratory Rate 16 Blood Pressure 108/58 L Pulse Oximetry 97 Intake & Output 10/04/18 10/05/18 10/05/18 18:59 06:59 18:59 Intake Total 300 / 300 970 / 970 50 / 50 Output Total 1400 / 1400 Balance -1100 / -1100 970 / 970 50 / 50 Weight 59.1 kg 46.9 kg Intake: IV 100 / 100 250 / 250 50 / 50 Heparin/D5W 25,000 U/250 mL 25, 250 / 250 000 unit In 250 ml @ 600 UNITS/ HR 6 mls/hr IV.CONT TITRATE PRN Rx#:[id number] Flexbumin 25% Inj 50 ML @ 60 100 / 100 50 / 50 mls/hr IV.SIG Q12H JOSÉ MIGUEL Rx#: [id number] Oral 200 / 200 720 / 720 Output: Urine 1000 / 1000 Stool 400 / 400 Other: # Voids 2 Date of Last Bowel Movement 10/04/18 # Bowel Movements 2 - Constitutional no acute distress - Routine HEENT Exam Head: Present: normocephalic, atraumatic Eye: Present: EOMI, PERRL, normal accommodation, conjunctivae pink ENT: Present: mucous membranes moist - Routine Neck Exam Present: supple, full ROM, trachea midline - Routine Respiratory Exam Present: CTA bilaterally - Routine Cardiovascular Exam Present: RRR, S1, S2 - Routine Abdominal Exam Present: soft, normoactive bowel sounds - Routine Extremities Exam Present: full ROM, pulses intact - Routine Neurological Exam Present: alert Assessment and Plan - Plan 1. Recurrent right pleural effusion. 2. S/p US guided right thoracentesis on 09/27/2018 with removal of 1 liter. 3. Cardiomyopathy EF< 20%. 4. CHF with elevated BNP. 5. Acute on chronic kidney disease. 6. s/p Mechanical mitral valve replacement. 7. Coagulopathy. 8. Moderate to severe pulmonary hypertension with a PA pressure 60-70mmHg. 9. Anemia. 10. s/p US-guided paracentesis on 09/27/2018 with removal of 5.5 liters. Plan Oxygen p.r.n. to maintain sats above 92%. Bronchodilators. IR recommended implanted drainage catheter placement such as an Aspira drain instead of placing a temporary pleural drainage catheter/chest tube however patient is confused to give consent. Recurrent pleural effusion is likely 2nd to CHF/ cardiomyopathy, Continue abx- on Keflex and azithromycin. Monitor for signs of infection( fever and WBC). on Heparin drip- Monitor INR/PTT Palliative care is following Continue other medical management per primary team.
--- NOTE | 2018-10-05 19:04 | P.PNPAL ---
Reason for Visit Reason for visit: a. To assist with evaluation and management of symptoms including: confusion b. To assist medical decision maker(s) with: better understanding of current medical conditions; weighing benefits/burdens of medical treatment options; making medical treatment decisions. Subjective Subjective/Interval History: Mr. Ko is a 47-year-old man who was admitted on 09/24/2018 with hepatic encephalopathy. He was started on antibiotics for possible right basilar pneumonia. Patient underwent paracentesis and thoracentesis on 09/27/2018 with some subsequent improvement in neuro status. Psychiatry and speech therapy have evaluated the patient. Patient has multiple chronic comorbid conditions including mitral valve replacement x2, chronic anticoagulant, systolic CHF EF 20 %, CKD stage III, umbilical hernia, AICD. 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 Patient has been disabled since the age of 8 years status post CVA. He lived with his mother until recently when she went to a nursing facility. He has been living alone with his brothers doing grocery shopping and checking in on him. Follow up visit necessary for symptom management and clarification of medical treatment goals. Patient seen in his room with no visitors present. He is alert, partially oriented, pleasant and cooperative. Appetite is poor. Patient complaining of some nausea but has had no vomiting. He denies pain, dyspnea. No recent lab work or imaging available. Pulmonology was consulted on 10/01/2018 for of recurrent pleural effusion. Plan to proceed with repeat ultrasound-guided thoracentesis and a pigtail catheter insertion when INR < 1.5. Recurrent pleural effusion is likely secondary to congestive heart failure/cardiomyopathy. IR recommending consideration for implanted drainage catheter for long-term management of patient's fluids third spacing instead of placing a temporary pleural drainage catheter/chest tube. Patient has limited insight and judgement related to his medical decisions at this time. Patient has 2 brothers (Melquiades Castro" and Jordan). Melquiades Ko ([place]) has been designated as the healthcare surrogate decision-maker. Palliative care has attempted to contact brother (Melquiades Castro" and Jordan) yesterday 10/04/2018 and again today 09/25/2018 without success. Unable to leave a voicemail. Per case management notes, brother (Melquiades Ko ([place])) indicated that both brothers were working together to make healthcare decisions for the patient. Palliative care spoke to brother (Jordan Ko @[phone]) who stated both brothers wanted to proceed with the medical teams recommendations and ongoing aggressive care. Case management updated. Advance Directives Health Care Surrogate: Copy in medical record Advance Directives Date on File: 10/01/18 Health Care Surrogate Name and Number: MELQUIADES KO ([place]) [phone] Objective Vital Signs: Vital Signs 10/04/18 20:00 10/04/18 22:00 10/05/18 00:00 Temperature 97.8 F 98 F Pulse Rate 60 60 Respiratory Rate 17 18 18 Blood Pressure 124/58 L 125/57 L Pulse Oximetry 100 97 10/05/18 04:00 10/05/18 08:00 10/05/18 12:00 Temperature 98.3 F 97.5 F L 97 F L Pulse Rate 60 59 L 59 L Respiratory Rate 20 16 16 Blood Pressure 121/58 L 98/56 L 108/58 L Pulse Oximetry 97 98 97 10/05/18 16:45 Temperature 98 F Pulse Rate 61 Respiratory Rate 16 Blood Pressure 119/74 Pulse Oximetry 100 Intake & Output 10/04/18 10/05/18 10/05/18 18:59 06:59 18:59 Intake Total 300 / 300 970 / 970 50 / 50 Output Total 1400 / 1400 Balance -1100 / -1100 970 / 970 50 / 50 Weight 59.1 kg 46.9 kg Intake: IV 100 / 100 250 / 250 50 / 50 Heparin/D5W 25,000 U/250 mL 25, 250 / 250 000 unit In 250 ml @ 600 UNITS/ HR 6 mls/hr IV.CONT TITRATE PRN Rx#:[id number] Flexbumin 25% Inj 50 ML @ 60 100 / 100 50 / 50 mls/hr IV.SIG Q12H JOSÉ MIGUEL Rx#: [id number] Oral 200 / 200 720 / 720 Output: Urine 1000 / 1000 Stool 400 / 400 Other: # Voids 2 Date of Last Bowel Movement 10/04/18 # Bowel Movements 2 Physical Exam: CONSTITUTIONAL/GENERAL: This is a very thin, frail appearing gentleman, pleasant and cooperative TUBES/LINES/DRAINS: PIV x2 left upper extremity SKIN: No jaundice, rashes, or lesions. No wounds seen anteriorly. Skin temperature appropriate. Not diaphoretic. HEAD: Atraumatic. Normocephalic. EYES: Pupils equal and round and reactive. Extraocular motions intact. Small area hemorrhage right sclera. No scleral icterus. No injection or drainage. Fundi not examined. ENT: Hearing grossly normal. Nose without bleeding or purulent drainage. NECK: Trachea midline. Supple, nontender. No palpable thyroid enlargement or nodularity. CARDIOVASCULAR: Regular rate and rhythm, faint murmur. No JVD. Peripheral pulses symmetric. RESPIRATORY/CHEST: Symmetric, unlabored respirations. On room air. Breath sounds equal bilaterally. GASTROINTESTINAL: Abdomen soft, non-tender, +distended. No palpable masses. No guarding. Bowel sounds present. GENITOURINARY: Without palpable bladder distension. MUSCULOSKELETAL: Extremities without clubbing, cyanosis, or edema. Muscle wasting in all extremities LYMPHATICS: No palpable cervical or supraclavicular adenopathy. NEUROLOGICAL: Awake and alert. Oriented x2. Cooperative. Follows commands. Very limited insight. Moves all 4 extremities PSYCHIATRIC: No anxiety/depression. No apparent hallucinations or other psychotic thought process. Diagnostic Tests Laboratory: Laboratory Results - last 72 hr 10/03/18 10/03/18 10/03/18 04:50 04:50 04:50 WBC 5.5 RBC 3.42 L Hgb 9.3 L Hct 28.0 L MCV 81.9 MCH 27.2 MCHC 33.2 RDW 18.8 H Plt Count 155 MPV 9.4 Hematology Comments PT 18.1 H INR 1.8 APTT 50.4 H Sodium Potassium Chloride Carbon Dioxide Anion Gap BUN Creatinine Estimated GFR Random Glucose Calcium 10/04/18 10/04/18 10/05/18 06:20 06:20 05:07 WBC RBC Hgb Hct MCV MCH MCHC RDW Plt Count MPV Hematology Comments PT INR APTT 46.0 H 48.3 H Sodium 136 Potassium 4.3 Chloride 104 Carbon Dioxide 23.1 Anion Gap 9 BUN 35 H Creatinine 1.60 H Estimated GFR 56 L Random Glucose 111 H Calcium 8.6 Result Diagrams: 10/03/18 04:50 10/04/18 06:20 Microbiology: Microbiology 09/27/18 10:15 Fungal Smear - Final Other No fungal elements seen Fungal Culture - Preliminary No growth in 1 week Procedures: 09/27 Thoracentesis and paracentesis 06/18/18 2D echo: Left ventricular systolic function severely reduced with EF less than 20%. Right ventricle severely dilated. Mechanical mitral valve bileaflet with both leaflets moving. Mild aortic valve regurgitation. Severe tricuspid regurgitation. Moderate to severe pulmonary hypertension. Assessment and Plan - Disease Oriented Problem List (1) Congestive heart failure (2) Ascites (3) Pleural effusion (4) Shortness of breath (5) Altered mental status (6) Pneumonia (7) Delirium due to another medical condition Pertinent Non-Medical Issues: Psychosocial: Has 2 brothers. Used to live with his mother however she is referred to significant stroke and now lives in a fpc. Had been living alone. Has not worked been disabled due to heart condition. Not , no children. Spiritual: Jainism meghan. Legal: Patient designated his brother Melquiades Ko ([place]) as the healthcare surrogate decision-maker. Ethical issues impacting care: No ethical issues identified. Important Contacts: Melquiades Ko ([place]), brother/[facility]: [phone] Jordan Chu, brother: [phone] Joelle Ko, mother: [phone]-now reported to live in SNF 2/2 CVA Prognosis: Patient admitted with altered mental status. Appears may have some component of delirium on top of baseline mild cognitive impairment. Probable hepatic encephalopathy, liver disease. Additionally has underlying CHF with EF less than 20% per echo June 2018, valvular disease. High risk for additional complications/decline related to multiple chronic medical conditions (requiring frequent thoracentesis and paracentesis) and cognitive impairments. Appropriate for hospice if goals were compatible. Prior [place] admissions note that patient reported in the past recommended to have a heart transplant, "evaluation in [facility] in the past patient did not want to pursue". Code Status: Full Code Plan: * FULL CODE * Legal decision maker: Patient was some mild confusion, possibly underlying cognitive deficit. Not able to make decisions alone currently. Reported his mother has recently required transition to fpc due to increased care needs/ CVA. Not , no children. Patient has 2 brothers. He designated 1 of his brothers supported by her brother, Melquiades Ko ([place]), as his healthcare surrogate. He has another brother named Jordan Chu. * Patient has 2 brothers (Melquiades Castro" and Jordan). Melquiades "Keyona" Maikel has been designated as the healthcare surrogate decision-maker. Palliative care has attempted to contact brother (Melquiades Castro" and Jordan) yesterday 10/04/2018 and again today 09/25/2018 without success. Unable to leave a voicemail. Per case management notes, brother (Melquiades Ko ([place])) indicated that both brothers were working together to make healthcare decisions for the patient. Palliative care spoke to brother (Jordan Ko @[phone]) who stated both brothers wanted to proceed with the medical teams recommendations and ongoing aggressive care. * Case management updated. * SYMPTOMS: == Confusion- Patient presented for altered mental status, confusion found by his brother. Probable multifactorial though primarily hepatic encephalopathy. Liver failure secondary to chronic heart failure. == Dyspnea: Patient denies dyspnea on exam. Risk for secondary to ongoing heart failure EF less than 20%. Requiring diuretics, as well as recurrent thoracentesis. Recurrent pleural effusion is likely secondary to congestive heart failure/cardiomyopathy. IR recommending consideration for implanted drainage catheter for long-term management of patient's fluids third spacing instead of placing a temporary pleural drainage catheter/chest tube. * Palliative care will continue to follow during hospital course as condition evolves, to assist patient/decision-maker with understanding of medical conditions, weighing benefits/burdens of treatment options, for clarification of goals of treatment. Additionally will assist with any symptoms of palliative concern Attestation Attestation: To help prompt me to consider important information that might be impacting today's encounter and assessment, information from prior notes written by myself or my colleagues may have been "brought forward" into today's note. My signature on this note, however, is an attestation that I personally performed the exam, history, and/or decision-making noted today, and, unless otherwise indicated, the interactions with patient, family, and staff as well as the review of records all occurred today. I also attest that the listed assessment and stated plan reflect my best clinical judgment today based on the combination of historical information, prior notes, and today's exam/ interactions. When time spent is documented, it refers only to time spent today by the signer, or if indicated, combined time spent today by collaborating physician/nurse practitioner.
--- NOTE | 2018-10-06 04:47 | XR ---
EXAM DATE: 10/06/2018 4:34 AM EST AGE/SEX: 47 years / Male INDICATIONS: Pleural effusion. CLINICAL DATA: This is the patient's initial encounter. Patient reports that signs and symptoms have been present for 2 weeks and indicates a pain score of 0/10. MEDICAL/SURGICAL HISTORY: . Myocardial infarction. Congestive heart failure. Hypercholesterolem ia. CVA. Afib. HTN. Dyspnea. Hemoptysis. Ascites. Hematuria. Chronic kidney disease. Renal calculi. D iabetes. Situs inversus. Pleural effusion. Anticoagulant therapy, Heparin. . . Pacemaker. CABG. Usman ral valve replacement x2. Paracentesis. Thoracentesis. Blood transfusions COMPARISON: [facility] [place], CHEST 1V SINGLE AP, 09/24/2018. . FINDINGS: Parenchymal consolidation, pleural effusion and volume loss again seen on the right. Left lung remain s reasonably clear. There is mild cardiomegaly. Patient has had previous median sternotomy. Cardiac p acer present. CONCLUSION: No significant change consolidation, pleural fluid and volume loss on the right with mild cardiomegal y. Electronically signed by: Fco Duque MD Board Certified Radiologist 10/06/2018 4:45 AM EST
[2018-10-06] MEDS: Albumin Human 25% Inj 50 ML IV.SIG SCH ×2 (05:01→17:55)
[2018-10-06 07:22] LABS: INR 1.4 Ratio
[2018-10-06 07:26] LABS: Prothrombin Time 14.6 sec (9.8-11.6)
[2018-10-06 07:35] LABS: Alkaline Phosphatase 287 U/L (45-117); Total Protein 8.3 g/dL (6.4-8.2)
[2018-10-06 07:41] LABS: Alanine Aminotransferase 20 U/L (12-78); Albumin 2.7 g/dL (3.4-5.0); Anion Gap 9 meq/L (5-15); Aspartate Aminotransferase 34 U/L (15-37); Blood Urea Nitrogen 40 mg/dL (7-18); Calcium 8.6 mg/dL (8.5-10.1); Carbon Dioxide 23.6 meq/L (21.0-32.0); Chloride 102 meq/L (98-107); Glomerular Filtration Rate 57 mL/min (>89); Glucose,Random 81 mg/dL (74-106); Potassium 4.9 meq/L (3.5-5.1); Sodium 135 meq/L (136-145)
[2018-10-06] MEDS: Azithromycin 250 MG Tablet PO SCH (09:59)
[2018-10-06] MEDS: Spironolactone 25 MG Tablet PO SCH ×2 (10:00→17:56)
--- NOTE | 2018-10-06 11:45 | P.PN ---
Subjective Interval history: he is off O2 and has no SOB . CXR stable . Will need Pleur X catheter. wants to go home. Physical Exam Vital signs: Vital Signs 10/05/18 12:00 10/05/18 16:45 10/05/18 19:59 Temperature 97 F L 98 F Pulse Rate 59 L 61 60 Respiratory Rate 16 16 Blood Pressure 108/58 L 119/74 Pulse Oximetry 97 100 10/05/18 20:00 10/05/18 23:59 10/06/18 00:00 Temperature 98.3 F 97.8 F Pulse Rate 60 59 L 59 L Respiratory Rate 22 20 Blood Pressure 109/57 L 106/55 L Pulse Oximetry 98 99 10/06/18 04:00 10/06/18 04:14 10/06/18 08:00 Temperature 97.6 F 97.5 F L Pulse Rate 60 64 60 Respiratory Rate 20 16 Blood Pressure 106/52 L 120/64 Pulse Oximetry 95 97 Intake & Output 10/05/18 10/06/18 10/06/18 18:59 06:59 18:59 Intake Total 50 / 50 170 / 170 Balance 50 / 50 170 / 170 Weight 47.9 kg Intake: IV 50 / 50 50 / 50 Flexbumin 25% Inj 50 ML @ 60 50 / 50 50 / 50 mls/hr IV.SIG Q12H JOSÉ MIGUEL Rx#: [id number] Oral 120 / 120 Other: # Voids 2 Narrative: GENERAL: Thin appearing male in no acute distress SKIN: Warm and dry. HEAD: Atraumatic. Normocephalic. EYES: Pupils equal and round. No scleral icterus. No injection or drainage. CARDIOVASCULAR: Regular rate and rhythm. + murmur RESPIRATORY: No accessory muscle use. Clear to auscultation. Breath sounds decreased at right base GASTROINTESTINAL: Abdomen soft, non-tender, slight abdominal distention. Hepatic and splenic margins not palpable. MUSCULOSKELETAL: Extremities without clubbing, cyanosis, or edema. Bilateral lower Extremities muscle wasting NEUROLOGICAL: Awake and alert and oriented x 2. Generalized weakness, moving all 4 extremities. Normal speech but slow. PSYCHIATRIC: flat mood and affect; insight and judgment unreliable Results - Labs CBC & Chem 7: 10/03/18 04:50 10/06/18 06:43 Laboratory Results - last 24 hr 10/06/18 10/06/18 06:43 06:43 PT 14.6 H INR 1.4 Sodium 135 L Potassium 4.9 Chloride 102 Carbon Dioxide 23.6 Anion Gap 9 BUN 40 H Creatinine 1.58 H Estimated GFR 57 L Random Glucose 81 Calcium 8.6 Total Bilirubin 3.3 H AST 34 ALT 20 Alkaline Phosphatase 287 H Total Protein 8.3 H Albumin 2.7 L - Imaging Impressions Chest X-Ray 10/06/18 00:00 CONCLUSION: No significant change consolidation, pleural fluid and volume loss on the right with mild cardiomegaly. Assessment and Plan - Assessment (1) Congestive heart failure Code(s): I50.9 - Heart failure, unspecified Status: Acute (2) Ascites Code(s): R18.8 - Other ascites Status: Acute (3) Pleural effusion Code(s): J90 - Pleural effusion, not elsewhere classified Status: Acute (4) Shortness of breath Code(s): R06.02 - Shortness of breath Status: Acute (5) Altered mental status Code(s): R41.82 - Altered mental status, unspecified Status: Acute (6) Pneumonia Code(s): J18.9 - Pneumonia, unspecified organism Status: Acute (7) Delirium due to another medical condition Code(s): F05 - Delirium due to known physiological condition Status: Acute (8) Dyspnea Code(s): R06.00 - Dyspnea, unspecified Status: Acute - Plan 1. Recurrent right pleural effusion. 2. S/p US guided right thoracentesis on 09/27/2018 with removal of 1 liter. 3. Cardiomyopathy EF< 20%. 4. CHF with elevated BNP. 5. Acute on chronic kidney disease. 6. s/p Mechanical mitral valve replacement. 7. Coagulopathy. 8. Moderate to severe pulmonary hypertension with a PA pressure 60-70mmHg. 9. Anemia. 10. s/p US-guided paracentesis on 09/27/2018 with removal of 5.5 liters. Plan Oxygen p.r.n. to maintain sats above 92%. Bronchodilators, Duoneb nebs tid PRN. IR recommended implanted drainage catheter placement such as an Aspira drain instead of placing a temporary pleural drainage catheter/chest tube however patient is confused to give consent. Recurrent pleural effusion is likely 2nd to CHF/ cardiomyopathy, Continue antibiotic,and Monitor for signs of infection( fever and WBC). Palliative care is following (1) Congestive heart failure Qualifiers: Heart failure type: unspecified Heart failure chronicity: acute on chronic Qualified Code(s): I50.9 - Heart failure, unspecified (2) Ascites Qualifiers: Ascites type: other type Qualified Code(s): R18.8 - Other ascites (5) Altered mental status Qualifiers: Altered mental status type: unspecified Qualified Code(s): R41.82 - Altered mental status, unspecified (6) Pneumonia Qualifiers: Pneumonia type: due to unspecified organism Laterality: right Lung location : unspecified part of lung Qualified Code(s): J18.9 - Pneumonia, unspecified organism
--- NOTE | 2018-10-06 15:35 | P.PNIM ---
Subjective Interval history: F/U plural effusion, ascites Patient seen and examined laying in bed, asking when he is going to go home. Patient denies any shortness of breath, currently in room air. Patient denies any chest pain or shortness of breath, denies any abdominal pain , nausea, vomiting, diarrhea or constipation. Patient denies any fever or chills. Discussed the patient about putting a drain, asking if it is painful however agreed to have it. Discussed with geriatric social work professor and nursing to obtain consent from the family/healthcare surrogate/brother Physical Exam Vital signs: Last Vital Signs Temp 97.3 F L 10/06/18 12:00 Pulse 68 10/06/18 12:00 Resp 16 10/06/18 12:00 BP 100/56 L 10/06/18 12:00 Pulse Ox 97 10/06/18 12:00 Intake & Output 10/04/18 10/05/18 10/06/18 10/07/18 06:59 06:59 06:59 06:59 Intake Total 550 / 550 1270 / 1270 220 / 220 Output Total 700 / 700 1400 / 1400 Balance -150 / -150 -130 / -130 220 / 220 Weight 46.9 kg 47.9 kg Narrative: GENERAL: Thin appearing male lying in bed in no acute distress SKIN: Warm and dry. HEAD: Atraumatic. Normocephalic. EYES: Pupils equal and round. No scleral icterus. No injection or drainage. CARDIOVASCULAR: Regular rate and rhythm. + murmur RESPIRATORY: No accessory muscle use. Clear to auscultation. Breath sounds equal bilaterally. GASTROINTESTINAL: Abdomen soft, non-tender, slight abdominal distention. MUSCULOSKELETAL: Extremities without clubbing, cyanosis, or edema. Bilateral lower Extremities muscle wasting NEUROLOGICAL: Awake and alert and oriented x 2. Motor grossly within normal limits. Generalized weakness, moving all 4 extremities. Normal speech but slow. PSYCHIATRIC: flat mood and affect; insight and judgment unreliable Results Labs CBC & Chem 7: 10/03/18 04:50 10/06/18 06:43 Imaging Imaging: Impressions Chest X-Ray 10/06/18 00:00 CONCLUSION: No significant change consolidation, pleural fluid and volume loss on the right with mild cardiomegaly. Assessment and Plan (1) Congestive heart failure: Code(s): I50.9 - Heart failure, unspecified Status: Acute (2) Ascites: Code(s): R18.8 - Other ascites Status: Acute (3) Pleural effusion: Code(s): J90 - Pleural effusion, not elsewhere classified Status: Acute (4) Shortness of breath: Code(s): R06.02 - Shortness of breath Status: Acute (5) Altered mental status: Code(s): R41.82 - Altered mental status, unspecified Status: Acute (6) Pneumonia: Code(s): J18.9 - Pneumonia, unspecified organism Status: Acute (7) Delirium due to another medical condition: Code(s): F05 - Delirium due to known physiological condition Status: Acute (8) Dyspnea: Code(s): R06.00 - Dyspnea, unspecified Status: Acute Plan This is a 47-year-old -Congolese male admitted with metabolic encephalopathy. Found to have hepatic encephalopathy and started on antibiotics for possible right basilar pneumonia. Underwent paracentesis and thoracentesis. Eventually had improvement in his encephalopathy but still has some residual cognitive impairment. Psychiatry has been consulted to evaluate for any underlying psychotic disorders, have deemed more harm than benefit in using any antipsychotics at this time. Recurrent pleural effusion despite initial thoracentesis Ascites Hepatic insufficiency/hepatic hydro-thorax vs chronic systolic CHF -Status post ultrasound-guided right thoracentesis on 09/27/18 with removal of 1 L -Pleural fluid cx's negative -Status post evaluation with Dr. Bassett who felt the patient may be a candidate for implanted drainage catheter placement such as as pleural drain for long- term management of the patient's fluid retention -Currently patient's O2 Sat at 98% on room air -Patient not consentable at this time due to his cognitive impairment hepatic encephalopathy. Consents obtained from the family/healthcare surrogate/brother. -Palliative care also following and due to his history of chronic systolic CHF with EF less than 20% does also qualify him for comfort care and hospice eligible. -Case management and palliative care assisting with contact with brother Jordan Fuentes -Discussed with pulmonology/Dr. Membreno plan for a drain placement if consent is obtained per IR recommendation. Then plan to discharged home with the drain. -Consent obtained and signed from family, copy in the chart -Orders placed for IR consult for drain placement. 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 Cardiomyopathy with EF less than 20% -History of allergy with ARBS -Continue oral Lasix, spironolactone and continue IV albumin -monitor bmp -continue heparin drip, coumadin on hold for possible procedure -Continue Coreg Suspected hepatic insufficiency/failure given lowest INR is 1.5 while in-house -Hard to tell baseline liver INR given that the patient requires warfarin for mitral valve -Viral panel negative Cognitive impairment Hepatic encephalopathy -continue lactulose and zinc -No scheduled antipsychotics or anxiolytics at this time per psychiatry Chronic kidney disease stage III -Avoid nephrotoxins -follow renal indices DVT prophylaxis: continue on Heparin drip Coumadin on hold until healthcare proxy can be contacted , INR 1.8 Code Status: full code Discussed Condition With: patient, nurse, and pillowcase sewer Dr Brown and Dr Membreno Discharge Planning: Plan to discharge home after drain placement and cleared with pulmonology Progress Note: Quality VTE Deep Vein Thrombosis/Pulmonary Embolism Present on Admission: No _ (1) Congestive heart failure Qualifiers: Heart failure chronicity: acute on chronic Heart failure type: unspecified Qualified Code(s): I50.9 - Heart failure, unspecified (2) Ascites Qualifiers: Ascites type: other type Qualified Code(s): R18.8 - Other ascites (3) Altered mental status Qualifiers: Altered mental status type: unspecified Coma depth: Coma timing: Qualified Code(s): R41.82 - Altered mental status, unspecified (4) Pneumonia Qualifiers: Aspiration pneumonia type: Laterality: right Lung location: unspecified part of lung Pneumonia type: due to unspecified organism Qualified Code(s): J18.9 - Pneumonia, unspecified organism (5) Dyspnea Qualifiers: Dyspnea type:
[2018-10-06] MEDS: Heparin Drip 25,000 UNIT/250 ML BAG IV.CONT PRN (17:56)
[2018-10-07] MEDS: Albumin Human 25% Inj 50 ML IV.SIG SCH ×2 (04:31→17:23)
[2018-10-07] MEDS: Azithromycin 250 MG Tablet PO SCH (08:39)
[2018-10-07] MEDS: Spironolactone 25 MG Tablet PO SCH ×2 (08:39→17:24)
--- NOTE | 2018-10-07 16:07 | P.PNIM ---
Subjective Interval history: F/U plural effusion, ascites Patient seen and examined laying in bed, patient had some looks like loose stool on the urinal, confirmed with patient stated excess stool. Lori VAZQUEZ CNA reported patient states that yesterday also. Patient denies any headache or dizziness, denies any pain or shortness of breath denies any abdominal pain, nausea, vomiting, diarrhea or constipation. Patient had a large hernia in the abdomen states that it did not bother him. However stated it bothers everyone else. Nurse reported no acute concerns overnight Physical Exam Vital signs: Last Vital Signs Temp 97.5 F L 10/07/18 16:00 Pulse 58 L 10/07/18 16:00 Resp 16 10/07/18 16:00 BP 107/57 L 10/07/18 16:00 Pulse Ox 100 10/07/18 16:00 Intake & Output 10/05/18 10/06/18 10/07/18 10/08/18 06:59 06:59 06:59 06:59 Intake Total 1270 / 1270 220 / 220 1300 / 1300 Output Total 1400 / 1400 400 / 400 Balance -130 / -130 220 / 220 900 / 900 Weight 46.9 kg 47.9 kg 49.4 kg Narrative: GENERAL: Thin appearing, chronically ill male lying in bed in no acute distress SKIN: Warm and dry. HEAD: Atraumatic. Normocephalic. EYES: Pupils equal and round. No scleral icterus. No injection or drainage. CARDIOVASCULAR: Regular rate and rhythm. + murmur RESPIRATORY: No accessory muscle use. Clear to auscultation. Breath sounds equal bilaterally. GASTROINTESTINAL: Abdomen soft, non-tender, slight abdominal distention. Large umbilical hernia noted MUSCULOSKELETAL: Extremities without clubbing, cyanosis, or edema. Bilateral lower Extremities muscle wasting NEUROLOGICAL: Awake and alert and oriented x 2. Motor grossly within normal limits. Generalized weakness, moving all 4 extremities. Normal speech but slow. PSYCHIATRIC: flat mood and affect; insight and judgment unreliable Results Labs CBC & Chem 7: 10/03/18 04:50 10/06/18 06:43 Assessment and Plan (1) Congestive heart failure: Code(s): I50.9 - Heart failure, unspecified Status: Acute (2) Ascites: Code(s): R18.8 - Other ascites Status: Acute (3) Pleural effusion: Code(s): J90 - Pleural effusion, not elsewhere classified Status: Acute (4) Shortness of breath: Code(s): R06.02 - Shortness of breath Status: Acute (5) Altered mental status: Code(s): R41.82 - Altered mental status, unspecified Status: Acute (6) Pneumonia: Code(s): J18.9 - Pneumonia, unspecified organism Status: Acute (7) Delirium due to another medical condition: Code(s): F05 - Delirium due to known physiological condition Status: Acute (8) Dyspnea: Code(s): R06.00 - Dyspnea, unspecified Status: Acute Plan This is a 47-year-old -[place] male admitted with metabolic encephalopathy. Found to have hepatic encephalopathy and started on antibiotics for possible right basilar pneumonia. Underwent paracentesis and thoracentesis. Eventually had improvement in his encephalopathy but still has some residual cognitive impairment. Psychiatry has been consulted to evaluate for any underlying psychotic disorders, have deemed more harm than benefit in using any antipsychotics at this time. Recurrent pleural effusion despite initial thoracentesis Ascites Hepatic insufficiency/hepatic hydro-thorax vs chronic systolic CHF -Status post ultrasound-guided right thoracentesis on 09/27/18 with removal of 1 L -Pleural fluid cx's negative -Status post evaluation with Dr. Bassett who felt the patient may be a candidate for implanted drainage catheter placement such as as pleural drain for long- term management of the patient's fluid retention -Currently patient's O2 Sat at 98% on room air -Patient not consentable at this time due to his cognitive impairment hepatic encephalopathy. Consents obtained from the family/healthcare surrogate/brother over the phone. Copy in the chart. -Palliative care also following and due to his history of chronic systolic CHF with EF less than 20% does also qualify him for comfort care and hospice eligible. -Case management and palliative care assisting with contact with brother Jordan Fuentes -Discussed with pulmonology/Dr. Membreno plan for a drain placement if consent is obtained per IR recommendation. Then plan to discharged home with the drain. 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 Cardiomyopathy with EF less than 20% -History of allergy with ARBS -Continue oral Lasix, spironolactone and continue IV albumin -monitor bmp -continue heparin drip, coumadin on hold for possible procedure -Continue Coreg -No chest pain no shortness of breath Suspected hepatic insufficiency/failure given lowest INR is 1.5 while in-house -Hard to tell baseline liver INR given that the patient requires warfarin for mitral valve -Viral panel negative Cognitive impairment Hepatic encephalopathy -continue lactulose and zinc -No scheduled antipsychotics or anxiolytics at this time per psychiatry Chronic kidney disease stage III -Avoid nephrotoxins -follow renal indices DVT prophylaxis: continue on Heparin drip Coumadin on hold until drain placement. Discharge Planning: Plan to discharge home after drain placement and cleared with pulmonology Progress Note: Quality VTE Deep Vein Thrombosis/Pulmonary Embolism Present on Admission: No _ (1) Congestive heart failure Qualifiers: Heart failure chronicity: acute on chronic Heart failure type: unspecified Qualified Code(s): I50.9 - Heart failure, unspecified (2) Ascites Qualifiers: Ascites type: other type Qualified Code(s): R18.8 - Other ascites (3) Altered mental status Qualifiers: Altered mental status type: unspecified Coma depth: Coma timing: Qualified Code(s): R41.82 - Altered mental status, unspecified (4) Pneumonia Qualifiers: Aspiration pneumonia type: Laterality: right Lung location: unspecified part of lung Pneumonia type: due to unspecified organism Qualified Code(s): J18.9 - Pneumonia, unspecified organism (5) Dyspnea Qualifiers: Dyspnea type:
--- NOTE | 2018-10-07 19:02 | P.PN ---
Subjective Interval history: Alert and lying on Right side. CXR not done .Off O2 sat 96 Physical Exam Vital signs: Vital Signs 10/06/18 20:00 10/07/18 00:00 10/07/18 04:00 Temperature 98.1 F 98.2 F 98.2 F Pulse Rate 60 60 60 Respiratory Rate 16 16 16 Blood Pressure 106/57 L 120/67 101/56 L Pulse Oximetry 98 93 L 95 10/07/18 08:00 10/07/18 12:00 10/07/18 16:00 Temperature 97.7 F 97.4 F L 97.5 F L Pulse Rate 60 60 58 L Respiratory Rate 16 16 16 Blood Pressure 104/54 L 107/53 L 107/57 L Pulse Oximetry 95 100 100 Intake & Output 10/07/18 10/07/18 10/08/18 06:59 18:59 06:59 Intake Total 50 / 50 1250 / 1250 Output Total 400 / 400 Balance -350 / -350 1250 / 1250 Weight 49.4 kg Intake: IV 50 / 50 50 / 50 Flexbumin 25% Inj 50 ML @ 60 50 / 50 50 / 50 mls/hr IV.SIG Q12H JOSÉ MIGUEL Rx#: [id number] Oral 1200 / 1200 Output: Urine 400 / 400 Other: # Voids 4 Date of Last Bowel Movement 10/06/18 10/07/18 # Bowel Movements 3 Narrative: GENERAL: Thin appearing, chronically ill male lying in bed in no acute distress SKIN: Warm and dry.Pale HEAD: Atraumatic. Normocephalic. EYES: Pupils equal and round. No scleral icterus. No injection or drainage. CARDIOVASCULAR: Regular rate and rhythm. + murmur RESPIRATORY: No accessory muscle use. Occ Right chest crackles. Breath sounds equal bilaterally. GASTROINTESTINAL: Abdomen soft, non-tender, slight abdominal distention. Large umbilical hernia noted MUSCULOSKELETAL: Extremities without clubbing, cyanosis, or edema. Bilateral lower Extremities muscle wasting NEUROLOGICAL: Awake and alert and oriented x 2. Motor grossly within normal limits.. Normal speech but slow. PSYCHIATRIC: flat mood and affect; insight and judgment unreliable Results - Labs CBC & Chem 7: 10/03/18 04:50 10/06/18 06:43 Laboratory Results - last 24 hr 10/07/18 10/07/18 10/07/18 00:15 07:56 13:56 APTT 53.2 H D 50.2 H 30.8 D Assessment and Plan - Assessment (1) Congestive heart failure Code(s): I50.9 - Heart failure, unspecified Status: Acute (2) Ascites Code(s): R18.8 - Other ascites Status: Acute (3) Pleural effusion Code(s): J90 - Pleural effusion, not elsewhere classified Status: Acute (4) Shortness of breath Code(s): R06.02 - Shortness of breath Status: Acute (5) Altered mental status Code(s): R41.82 - Altered mental status, unspecified Status: Acute (6) Pneumonia Code(s): J18.9 - Pneumonia, unspecified organism Status: Acute (7) Delirium due to another medical condition Code(s): F05 - Delirium due to known physiological condition Status: Acute (8) Dyspnea Code(s): R06.00 - Dyspnea, unspecified Status: Acute - Plan 1. Recurrent right pleural effusion. 2. S/p US guided right thoracentesis on 09/27/2018 with removal of 1 liter. 3. Cardiomyopathy EF< 20%. 4. CHF with elevated BNP. 5. Acute on chronic kidney disease. 6. s/p Mechanical mitral valve replacement. 7. Coagulopathy. 8. Moderate to severe pulmonary hypertension with a PA pressure 60-70mmHg. 9. Anemia. 10. s/p US-guided paracentesis on 09/27/2018 with removal of 5.5 liters. Plan 1.Oxygen p.r.n. to maintain sats above 92%. 2. Bronchodilators, Duoneb nebs tid PRN. 3. IR recommended implanted drainage catheter placement such as an Aspira drain instead of placing a temporary pleural drainage catheter/chest tube however patient is confused to give consent. 4. Rpt Chest Xray in am Palliative care is following (1) Congestive heart failure Qualifiers: Heart failure type: unspecified Heart failure chronicity: acute on chronic Qualified Code(s): I50.9 - Heart failure, unspecified (2) Ascites Qualifiers: Ascites type: other type Qualified Code(s): R18.8 - Other ascites (5) Altered mental status Qualifiers: Altered mental status type: unspecified Qualified Code(s): R41.82 - Altered mental status, unspecified (6) Pneumonia Qualifiers: Pneumonia type: due to unspecified organism Laterality: right Lung location : unspecified part of lung Qualified Code(s): J18.9 - Pneumonia, unspecified organism
[2018-10-08] MEDS: Albumin Human 25% Inj 50 ML IV.SIG SCH ×2 (04:18→17:50)
[2018-10-08] MEDS: Heparin Drip 25,000 UNIT/250 ML BAG IV.CONT PRN (04:18)
--- NOTE | 2018-10-08 06:31 | XR ---
EXAM DATE: 10/08/2018 6:14 AM EST AGE/SEX: 47 years / Male INDICATIONS: Short of breath. CLINICAL DATA: This is the patient's subsequent encounter. Patient reports that signs and symptoms h ave been present for 2 weeks and indicates a pain score of Nonresponsive. MEDICAL/SURGICAL HISTORY: Congestive heart failure. Cardiovascular disease. ascites, pleural e ffuison, diabetic, kidney disease Pacemaker. mitral valve replaced. COMPARISON: [facility], CHEST 1V SINGLE AP, 10/06/2018. . FINDINGS: The patient is status post sternotomy. There is a right-sided pacemaker in place. The cardiac silhoue tte appears enlarged although there is silhouetting of the right heart border. The pacing lead presu mably outlines the right atrium confirming the enlargement of the cardiac silhouette. This increased density seen throughout the right hemithorax with only mild aeration in the right upper lung. There a re some patchy density in the left perihilar region and left base. CONCLUSION: Suspected large right pleural effusion with accompanying atelectasis or consolidation throughout much the right lung. Cardiomegaly. The patient is status post sternotomy and pacing device in place. Patchy consolidation or atelectasis in the left perihilar and left base regions. Electronically signed by: Fco Jang MD Board Certified Radiologist 10/08/2018 6:29 AM EST
[2018-10-08 08:00] LABS: Baso % (Auto) 1.3 % (0.0-2.0); Eos # (Auto) 0.1 th/mm3 (0.0-0.4); Hematocrit 28.8 % (39.0-51.0); Hemoglobin 9.4 gm/dL (13.0-17.0); Lymph # (Auto) 0.3 th/mm3 (1.0-4.8); Lymph % (Auto) 8.3 % (9.0-44.0); Mean Corpuscular HGB Conc 32.8 % (32.0-36.0); Mean Corpuscular Hemoglobin 27.3 pg (27.0-34.0); Mean Corpuscular Volume 83.3 fL (80.0-100.0); Mean Platelet Volume 9.5 fL (7.0-11.0); Mono # (Auto) 0.9 th/mm3 (0.0-0.9); Mono % (Auto) 23.4 % (0.0-8.0); Neut # (Auto) 2.5 th/mm3 (1.8-7.7); Platelet Count 144 th/mm3 (150-450); Red Blood Count 3.45 mil/mm3 (4.50-5.90); Red Cell Distribution Width 18.8 % (11.6-17.2); White Blood Count 3.8 th/mm3 (4.0-11.0)
[2018-10-08 08:27] LABS: Alanine Aminotransferase 19 U/L (12-78); Anion Gap 9 meq/L (5-15); Aspartate Aminotransferase 29 U/L (15-37); Blood Urea Nitrogen 45 mg/dL (7-18); Calcium 8.6 mg/dL (8.5-10.1); Carbon Dioxide 23.6 meq/L (21.0-32.0); Chloride 104 meq/L (98-107); Glomerular Filtration Rate 59 mL/min (>89); Glucose,Random 83 mg/dL (74-106); Potassium 4.4 meq/L (3.5-5.1); Sodium 137 meq/L (136-145)
[2018-10-08 08:30] LABS: Alkaline Phosphatase 288 U/L (45-117); Total Protein 8.4 g/dL (6.4-8.2)
[2018-10-08] MEDS: Azithromycin 250 MG Tablet PO SCH (09:27)
[2018-10-08] MEDS: Spironolactone 25 MG Tablet PO SCH ×2 (09:28→18:30)
--- NOTE | 2018-10-08 09:39 | P.PNPL ---
Subjective Interval history: No events overnight. On room air oxygen. Afebrile. For Aspira drain catheter placement today. Physical Exam Vital signs: Vital Signs 10/07/18 12:00 10/07/18 16:00 10/07/18 20:00 Temperature 97.4 F L 97.5 F L 97.6 F Pulse Rate 60 58 L 60 Respiratory Rate 16 16 18 Blood Pressure 107/53 L 107/57 L 145/93 H Pulse Oximetry 100 100 99 10/08/18 00:00 10/08/18 04:00 10/08/18 08:00 Temperature 98.3 F 98 F 98.1 F Pulse Rate 60 60 60 Respiratory Rate 18 17 19 Blood Pressure 101/59 L 119/62 100/56 L Pulse Oximetry 98 98 97 Intake & Output 10/07/18 10/08/18 10/08/18 18:59 06:59 18:59 Intake Total 1250 / 1250 300 / 300 Output Total 150 / 150 Balance 1250 / 1250 150 / 150 Weight 47.2 kg Intake: IV 50 / 50 300 / 300 Heparin/D5W 25,000 U/250 mL 25, 250 / 250 000 unit In 250 ml @ 600 UNITS/ HR 6 mls/hr IV.CONT TITRATE PRN Rx#:[id number] Flexbumin 25% Inj 50 ML @ 60 50 / 50 50 / 50 mls/hr IV.SIG Q12H JOSÉ MIGUEL Rx#: [id number] Oral 1200 / 1200 Output: Urine 150 / 150 Other: # Voids 4 11 Date of Last Bowel Movement 10/07/18 # Bowel Movements 3 2 - Constitutional no acute distress - Routine HEENT Exam Head: Present: normocephalic, atraumatic Eye: Present: EOMI, PERRL, normal accommodation, conjunctivae pink ENT: Present: mucous membranes moist - Routine Neck Exam Present: supple, full ROM, trachea midline - Routine Respiratory Exam Present: CTA bilaterally - Routine Cardiovascular Exam Present: RRR, S1, S2 - Routine Abdominal Exam Present: soft, normoactive bowel sounds - Routine Skin Exam Present: intact, dry - Routine Neurological Exam Present: alert, altered mental status Assessment and Plan - Plan 1. Recurrent right pleural effusion. 2. S/p US guided right thoracentesis on 09/27/2018 with removal of 1 liter. 3. Cardiomyopathy EF< 20%. 4. CHF with elevated BNP. 5. Acute on chronic kidney disease. 6. s/p Mechanical mitral valve replacement. 7. Coagulopathy. 8. Moderate to severe pulmonary hypertension with a PA pressure 60-70mmHg. 9. Anemia. 10. s/p US-guided paracentesis on 09/27/2018 with removal of 5.5 liters. Plan Oxygen p.r.n. to maintain sats above 92%. Bronchodilators. For Aspira drain catheter placement today- Discussed with Dr. Ruddy Almazan Recurrent pleural effusion is likely 2nd to CHF/ cardiomyopathy, D/c abx and observe off abx Monitor for signs of infection( fever and WBC). Patient has been on Keflex and Azithromycin since 09/28, 09/29 respectively. Off Heparin drip for catheter placement today CXR today- large right pleural effusion with accompanying atelectasis or consolidation throughout much the right lung. Cardiomegaly. The patient is status post sternotomy and pacing device in place. Atelectasis in the left perihilar and left base regions. Palliative care is following Continue other medical management per primary team.
[2018-10-08] MEDS ORDERED: Vancomycin Inj 1,000 MG in Sodium Chlor 0.9% Inj 250 ML IV.SIG SCH (11:00)
[2018-10-08] MEDS ORDERED: fentaNYL Citrate Inj 250 MCG/5 ML Ampul ONE (11:27)
[2018-10-08] MEDS ORDERED: Lidocaine 1%/Epinephrine 1:100,000 Inj 20 ML Vial ONE (11:51)
--- NOTE | 2018-10-08 12:57 | P.RAD ---
Post Procedure Progress Note - Procedure Information Procedure Date: 10/08/18 Supervising Radiologist: YENNIFER Gonzáles Assisting Physician: Sean Mojica Estimated blood loss (mL): 0 Anesthesia: Local, Conscious Sedation - Plan of Activity Patient to Unit: Nursing Unit Patient Condition: Good Additional Comments: A 15.5 Fr Aspira drain was successfully placed on the right without any difficulties. See PACS Report for procedural detail/treatment.
--- NOTE | 2018-10-08 14:07 | IR ---
EXAM DATE: 10/08/2018 1:05 PM EST AGE/SEX: 47 years / Male INDICATIONS: Patient presents with recurrent Effusion in need of an Aspira drain catheter. CLINICAL DATA: This is the patient's initial encounter. Patient reports that signs and symptoms have been present for 3 weeks and indicates a pain score of Nonresponsive. MEDICAL/SURGICAL HISTORY: Congestive heart failure. Stage III chronic kidney disease, Umbilical hernia, Great vessels transposition, Abdominal paracentesis, Mitral valve prolapse. Pacemaker. Hear t surgery, Mitral valve replacement, Thoracentesis. COMPARISON: [facility], CHEST 1V SINGLE AP, 10/08/2018. . FLUORO TIME (min): 0.12 IMAGE SERIES: 2 RADIATION DOSE: 2mGY ACCESS SITE: SEDATION TIME (min): 30 MEDICATION(S): 100 mcg fentanyl (Sublimaze) IV DEVICE(S): 15 [place] Aspiria catheter . . PROCEDURE : 1. Conscious sedation with continuous EKG and Oximetry monitoring. 2. Ultrasound and fluoroscopic guidance 3. Placement of tunneled S. Peroneal catheter The risks, benefits and alternatives to the procedure were explained and verbal and written consent w as obtained. The site was prepped in sterile fashion. Full sterile technique was used, including ca p, mask, sterile gloves and gown and a large sterile sheet. Hand hygiene and 2% chlorhexidine and Be tadine was utilized per protocol for cutaneous antisepsis with appropriate dry time for site. The sk in and subcutaneous tissues were infiltrated with local anesthetic solution. Next, a 15.5 [place] vascular drainage catheter was advanced through the tract and subsequently insert ed through a peel-away sheath into the peritoneal cavity. Catheter demonstrated appropriate function and was therefore secured into place. Conscious sedation was performed with the prescribed dosages and duration as above in the presence of an independent trained radiology nurse to assist in the monitoring of the patient. EKG and oximetry remained stable throughout the procedure. CONCLUSION: 1. Uncomplicated fluoroscopic and ultrasound-guided placement of right-sided tunneled pleural Aspira drainage catheter. Electronically signed by: Sean Mojica MD Board Certified Radiologist 10/08/2018 1:58 PM REJI Woodson
--- NOTE | 2018-10-08 18:52 | P.PNIM ---
Subjective Interval history: F/U recurrent plural effusion, ascites, CHF and cardiomegaly Patient seen and examined laying in bed, just came back from IR procedure for drain placement. Patient denies any pain or shortness of breath, patient unaware of what procedure he went. Patient unaware he had tube on the right chest. Patient lying in bed with no acute distress SHAREPOINT SPECIALIST in room assisting with dinner tray. Physical Exam Vital signs: Last Vital Signs Temp 97.3 F L 10/08/18 16:00 Pulse 61 10/08/18 16:00 Resp 17 10/08/18 16:00 BP 112/62 10/08/18 16:00 Pulse Ox 95 10/08/18 16:00 Intake & Output 10/06/18 10/07/18 10/08/18 10/09/18 06:59 06:59 06:59 06:59 Intake Total 220 / 220 1300 / 1300 1550 / 1550 Output Total 400 / 400 150 / 150 Balance 220 / 220 900 / 900 1400 / 1400 Weight 47.9 kg 49.4 kg 47.2 kg Narrative: GENERAL: Thin appearing, chronically ill male lying in bed in no acute distress SKIN: Warm and dry.Pale HEAD: Atraumatic. Normocephalic. EYES: Pupils equal and round. No scleral icterus. No injection or drainage. CARDIOVASCULAR: Regular rate and rhythm. + murmur RESPIRATORY: No accessory muscle use. Occ Right chest crackles. Breath sounds equal bilaterally. GASTROINTESTINAL: Abdomen soft, non-tender, slight abdominal distention. Large umbilical hernia noted MUSCULOSKELETAL: Extremities without clubbing, cyanosis, or edema. Bilateral lower Extremities muscle wasting NEUROLOGICAL: Awake and alert and oriented x 2. Motor grossly within normal limits.. Normal speech but slow. PSYCHIATRIC: flat mood and affect; insight and judgment unreliable Results Labs CBC & Chem 7: 10/08/18 07:37 10/08/18 07:37 Imaging Imaging: Impressions Catheter Placement X-Ray 10/08/18 00:00 CONCLUSION: 1. Uncomplicated fluoroscopic and ultrasound-guided placement of right-sided tunneled pleural Aspira drainage catheter. Chest X-Ray 10/08/18 00:00 CONCLUSION: Suspected large right pleural effusion with accompanying atelectasis or consolidation throughout much the right lung. Cardiomegaly. The patient is status post sternotomy and pacing device in place. Patchy consolidation or atelectasis in the left perihilar and left base regions. Assessment and Plan (1) Congestive heart failure: Code(s): I50.9 - Heart failure, unspecified Status: Acute (2) Ascites: Code(s): R18.8 - Other ascites Status: Acute (3) Pleural effusion: Code(s): J90 - Pleural effusion, not elsewhere classified Status: Acute (4) Shortness of breath: Code(s): R06.02 - Shortness of breath Status: Acute (5) Altered mental status: Code(s): R41.82 - Altered mental status, unspecified Status: Acute (6) Pneumonia: Code(s): J18.9 - Pneumonia, unspecified organism Status: Acute (7) Delirium due to another medical condition: Code(s): F05 - Delirium due to known physiological condition Status: Acute (8) Dyspnea: Code(s): R06.00 - Dyspnea, unspecified Status: Acute Plan This is a 47-year-old -[place] male admitted with metabolic encephalopathy. Found to have hepatic encephalopathy and started on antibiotics for possible right basilar pneumonia. Underwent paracentesis and thoracentesis. Eventually had improvement in his encephalopathy but still has some residual cognitive impairment. Psychiatry has been consulted to evaluate for any underlying psychotic disorders, have deemed more harm than benefit in using any antipsychotics at this time. 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 Bassett who felt the patient may be a candidate for implanted drainage catheter placement such as as pleural drain for long- term management of the patient's fluid retention -Currently patient's O2 Sat at 98% on room air -Patient not consentable at this time due to his cognitive impairment hepatic encephalopathy. Consents obtained from the family/healthcare surrogate/brother over the phone. Copy in the chart. -Palliative care also following and due to his history of chronic systolic CHF with EF less than 20% does also qualify him for comfort care and hospice eligible. -Case management and palliative care assisting with contact with brother Jordan Fuentes -Discussed with pulmonology/Dr. Membreno plan for a drain placement if consent is obtained per IR recommendation. Then plan to discharged home with the drain. -Consent obtained and signed from family, copy in the chart -Aspira drainage catheter placement with IR today on the right side -Chest XR today- large right pleural effusion with accompanying atelectasis or consolidation throughout much the right lung.Cardiomegaly. The patient is status post sternotomy and pacing device in place. Atelectasis in the left perihilar and left base regions. 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 Cardiomyopathy with EF less than 20% -History of allergy with ARBS -Continue oral Lasix, and continue IV albumin, increase spironolactone -monitor bmp -continue heparin drip, coumadin on hold for possible procedure -Continue Coreg -No chest pain no shortness of breath Suspected hepatic insufficiency/failure given lowest INR is 1.5 while in-house -Hard to tell baseline liver INR given that the patient requires warfarin for mitral valve -Viral panel negative Cognitive impairment Hepatic encephalopathy -continue lactulose and zinc -No scheduled antipsychotics or anxiolytics at this time per psychiatry Chronic kidney disease stage III -Avoid nephrotoxins -follow renal indices DVT prophylaxis: continue on Heparin drip Coumadin on hold until drain placement. Discharge Planning: Plan to discharge home after drain placement and cleared with pulmonology Progress Note: Quality VTE Deep Vein Thrombosis/Pulmonary Embolism Present on Admission: No _ (1) Congestive heart failure Qualifiers: Heart failure chronicity: acute on chronic Heart failure type: unspecified Qualified Code(s): I50.9 - Heart failure, unspecified (2) Ascites Qualifiers: Ascites type: other type Qualified Code(s): R18.8 - Other ascites (3) Altered mental status Qualifiers: Altered mental status type: unspecified Coma depth: Coma timing: Qualified Code(s): R41.82 - Altered mental status, unspecified (4) Pneumonia Qualifiers: Aspiration pneumonia type: Laterality: right Lung location: unspecified part of lung Pneumonia type: due to unspecified organism Qualified Code(s): J18.9 - Pneumonia, unspecified organism (5) Dyspnea Qualifiers: Dyspnea type:
[2018-10-09] MEDS: Albumin Human 25% Inj 50 ML IV.SIG SCH ×2 (06:30→17:47)
[2018-10-09] MEDS: Spironolactone 25 MG Tablet PO SCH ×2 (09:16→17:47)
[2018-10-09] MEDS: Azithromycin 250 MG Tablet PO SCH (09:16)
--- NOTE | 2018-10-09 10:28 | P.PNPL ---
Subjective Interval history: Patient is lying in bed in NAD/ On room air oxygen. s/p Aspira drain placement. Physical Exam Vital signs: Vital Signs 10/08/18 12:45 10/08/18 16:00 10/08/18 20:00 Temperature 98.1 F 97.3 F L 98.5 F Pulse Rate 60 61 60 Respiratory Rate 19 17 14 Blood Pressure 114/68 112/62 103/57 L Pulse Oximetry 92 L 95 95 10/09/18 00:00 10/09/18 04:00 10/09/18 08:00 Temperature 98.2 F 99 F 98.2 F Pulse Rate 60 60 62 Respiratory Rate 16 20 16 Blood Pressure 102/51 L 116/60 118/66 Pulse Oximetry 95 96 95 Intake & Output 10/08/18 10/09/18 10/09/18 18:59 06:59 18:59 Intake Total 290 / 290 Output Total 300 / 300 Balance -10 / -10 Weight 48.3 kg Intake: IV 50 / 50 Flexbumin 25% Inj 50 ML @ 60 50 / 50 mls/hr IV.SIG Q12H [facility] Rx#: [id number] Oral 240 / 240 Output: Urine 300 / 300 Other: Date of Last Bowel Movement 10/08/18 10/08/18 - Constitutional no acute distress - Routine HEENT Exam Head: Present: normocephalic, atraumatic Eye: Present: EOMI, PERRL, normal accommodation, conjunctivae pink ENT: Present: mucous membranes moist - Routine Neck Exam Present: supple, full ROM - Routine Respiratory Exam Present: CTA bilaterally - Routine Cardiovascular Exam Present: RRR, S1, S2 - Routine Abdominal Exam Present: soft, normoactive bowel sounds - Routine Extremities Exam Present: pulses intact - Routine Skin Exam Present: intact, dry - Routine Neurological Exam Present: alert Assessment and Plan - Plan 1. Recurrent right pleural effusion. 2. S/p US guided right thoracentesis on 09/27/2018 with removal of 1 liter. 3. Cardiomyopathy EF< 20%. 4. CHF with elevated BNP. 5. Acute on chronic kidney disease. 6. s/p Mechanical mitral valve replacement. 7. Coagulopathy. 8. Moderate to severe pulmonary hypertension with a PA pressure 60-70mmHg. 9. Anemia. 10. s/p US-guided paracentesis on 09/27/2018 with removal of 5.5 liters. Plan Oxygen p.r.n. to maintain sats above 92%. Bronchodilators. s/p Aspira drain catheter placement 10/08, check CXR Recurrent pleural effusion is likely 2nd to CHF/ cardiomyopathy, D/c abx and observe off abx Monitor for signs of infection( fever and WBC). Patient has been on Keflex and Azithromycin since 09/28, 09/29 respectively. On Heparin drip. Monitor PTT per protocol. Palliative care is following Continue treatment plan
--- NOTE | 2018-10-09 10:51 | XR ---
EXAM DATE: 10/09/2018 10:47 AM EST AGE/SEX: 47 years / Male INDICATIONS: Evaluate drain placement. CLINICAL DATA: This is the patient's initial encounter. Patient reports that signs and symptoms have been present for 1 day and indicates a pain score of 0/10. MEDICAL/SURGICAL HISTORY: Congestive heart failure. Cardiovascular disease. Diabetes. Ascite s. Pleural effusion. Pacemaker. Mitral valve replaced. COMPARISON: [facility] – [place], CHEST 1V SINGLE AP, 10/08/2018. . FINDINGS: A single AP view of the chest demonstrates almost complete opacification of the right hemithorax and volume loss. There is better aeration of the lung were compared to previous study. Cardiomegaly. Incr ease in pulmonary vascularity. Minimal densities in the left lower lobe. Right-sided pacemaker and pr evious median sternotomy. There is a right-sided neural catheter overlying the right lower hemithorax . No pneumothorax. CONCLUSION: 1. Diffuse pleural-parenchymal density throughout the right hemithorax, with slight better aeration of the lung. 2. Right-sided pleural drainage catheter. Electronically signed by: Jerome Fenton MD Board Certified Radiologist 10/09/2018 10:50 AM EST
[2018-10-09] MEDS: RESP: Acetylcysteine 10% 4 ML Neb NEB SCH ×3 (16:20→23:47)
[2018-10-09 17:40] LABS: Activated Partial Thrombo Time 37.9 sec (23.4-31.7); INR 1.4 Ratio
--- NOTE | 2018-10-09 18:05 | P.PNIM ---
Subjective Interval history: Patient seen earlier today. Follow-up visit recurrent pleural effusion, status post Aspira drain catheter placement 10/08, mitral valve replacement on Coumadin now on heparin drip. Patient seen and examined today. Reports he wants to go home. States he feels a lot better. Pain is manageable denies SOB/ dyspnea. Denies chest pain, palpitations, headaches, dizziness. Denies fevers, chills, n/v/d. Denies dysuria. Physical Exam Vital signs: Vital Signs 10/08/18 20:00 10/09/18 00:00 10/09/18 04:00 Temperature 98.5 F 98.2 F 99 F Pulse Rate 60 60 60 Respiratory Rate 14 16 20 Blood Pressure 103/57 L 102/51 L 116/60 Pulse Oximetry 95 95 96 10/09/18 08:00 10/09/18 12:00 10/09/18 16:25 Temperature 98.2 F 98.3 F Pulse Rate 62 60 88 Respiratory Rate 16 16 18 Blood Pressure 118/66 105/53 L Pulse Oximetry 95 94 L Intake & Output 10/08/18 10/09/18 10/09/18 18:59 06:59 18:59 Intake Total 290 / 290 50 / 50 Output Total 300 / 300 1200 / 1200 Balance -10 / -10 -1150 / -1150 Weight 48.3 kg Intake: IV 50 / 50 50 / 50 Flexbumin 25% Inj 50 ML @ 60 50 / 50 50 / 50 mls/hr IV.SIG Q12H [facility] Rx#: [id number] Oral 240 / 240 Output: Urine 300 / 300 Wound Drainage 1200 / 1200 Right Abdomen 1200 / 1200 Other: Date of Last Bowel Movement 10/08/18 10/08/18 Narrative: GENERAL: This is a thin appearing, chronically ill AAA patient, in no apparent distress. SKIN: Warm and dry. HEENT: Normocephalic. Pupils equal round and reactive. Nose without bleeding. Airway patent. NECK: Trachea midline. CARDIOVASCULAR: Regular rate and rhythm without murmurs, gallops, or rubs. RESPIRATORY: Diminished bases. Right chest crackles. No wheezes, rales, or rhonchi. Aspira drain in place right side GASTROINTESTINAL: Abdomen with distention, ascites. Bowel Sounds normoactive x4. Scrotal edema. MUSCULOSKELETAL: Extremities without clubbing, cyanosis, or edema. NEUROLOGICAL: Awake and alert. Moves all extremities weakly. Normal speech. Results - Labs CBC & Chem 7: 10/08/18 07:37 10/08/18 07:37 Laboratory Results - last 24 hr 10/08/18 10/09/18 10/09/18 19:14 03:30 10:55 PT INR APTT 37.1 H D 58.4 H D 38.2 H D 10/09/18 17:05 PT 14.0 H INR 1.4 APTT 37.9 H - Imaging Impressions Chest X-Ray 10/09/18 10:23 CONCLUSION: 1. Diffuse pleural-parenchymal density throughout the right hemithorax, with slight better aeration of the lung. 2. Right-sided pleural drainage catheter. Assessment and Plan - Assessment (1) Congestive heart failure Code(s): I50.9 - Heart failure, unspecified Status: Acute (2) Ascites Code(s): R18.8 - Other ascites Status: Acute (3) Pleural effusion Code(s): J90 - Pleural effusion, not elsewhere classified Status: Acute (4) Shortness of breath Code(s): R06.02 - Shortness of breath Status: Acute (5) Altered mental status Code(s): R41.82 - Altered mental status, unspecified Status: Acute (6) Pneumonia Code(s): J18.9 - Pneumonia, unspecified organism Status: Acute (7) Delirium due to another medical condition Code(s): F05 - Delirium due to known physiological condition Status: Acute (8) Dyspnea Code(s): R06.00 - Dyspnea, unspecified Status: Acute - Plan This is a 47-year-old -[place] male admitted with metabolic encephalopathy. Found to have hepatic encephalopathy and started on antibiotics for possible right basilar pneumonia. Underwent paracentesis and thoracentesis. Eventually had improvement in his encephalopathy but still has some residual cognitive impairment. Psychiatry has been consulted to evaluate for any underlying psychotic disorders, have deemed more harm than benefit in using any antipsychotics at this time. 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 Bassett who felt the patient may be a candidate for implanted drainage catheter placement such as as pleural drain for long-term management of the patient's fluid retention -Consents obtained from the family/healthcare surrogate/brother over the phone. Copy in the chart. -Palliative care also following and due to his history of chronic systolic CHF with EF less than 20% does also qualify him for comfort care and hospice eligible. Consent obtained and signed from family, copy in the chart, Brother Jordan -Discussed with pulmonology/Dr. Membreno plan for a drain placement if consent is obtained per IR recommendation. Then plan to discharged home with the drain. -Chest XR with large right pleural effusion with accompanying atelectasis or consolidation throughout much the right lung.Cardiomegaly. The patient is status post sternotomy and pacing device in place. Atelectasis in the left perihilar and left base regions. -continue albumin and lasix, spironolactone -Aspira drainage catheter placement on the right side, drainage sanguinous as per nursing -Repeat chest x-ray showed 1. Diffuse pleural-parenchymal density throughout the right hemithorax, with slight better aeration of the lung. 2. Right-sided pleural drainage catheter. 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 Cardiomyopathy with EF less than 20% -History of allergy with ARBS -Continue oral Lasix, and continue IV albumin, increase spironolactone -On heparin drip, will switch over to Coumadin -Continue Coreg -No chest pain no shortness of breath Suspected hepatic insufficiency/failure given lowest INR is 1.5 while in-house -Hard to tell baseline liver INR given that the patient requires warfarin for mitral valve -Viral panel negative Cognitive impairment Hepatic encephalopathy -continue lactulose and zinc -No scheduled antipsychotics or anxiolytics at this time per psychiatry Chronic kidney disease stage III -Avoid nephrotoxins -follow renal indices DVT prophylaxis heparin drip, transition to Coumadin Full code Discussed Condition With: Patient, nursing Discharge Planning: Plan to DC home with home health care pending pulmonary clearance (1) Congestive heart failure Qualifiers: Heart failure type: unspecified Heart failure chronicity: acute on chronic Qualified Code(s): I50.9 - Heart failure, unspecified (2) Ascites Qualifiers: Ascites type: other type Qualified Code(s): R18.8 - Other ascites (5) Altered mental status Qualifiers: Altered mental status type: unspecified Qualified Code(s): R41.82 - Altered mental status, unspecified (6) Pneumonia Qualifiers: Pneumonia type: due to unspecified organism Laterality: right Lung location : unspecified part of lung Qualified Code(s): J18.9 - Pneumonia, unspecified organism
[2018-10-10] MEDS: RESP: Acetylcysteine 10% 4 ML Neb NEB SCH ×5 (03:05→20:13)
[2018-10-10] MEDS: Albumin Human 25% Inj 50 ML IV.SIG SCH ×2 (05:29→16:57)
--- NOTE | 2018-10-10 07:17 | XR ---
EXAM DATE: 10/10/2018 7:10 AM EST AGE/SEX: 47 years / Male INDICATIONS: Short of breath. CLINICAL DATA: This is the patient's subsequent encounter. Patient reports that signs and symptoms h ave been present for 2 days and indicates a pain score of Nonresponsive. MEDICAL/SURGICAL HISTORY: . Congestive heart failure. Cardiovascular disease. Diabetes. Ascites . Pleural effusion. . Pacemaker. Mitral valve replaced. COMPARISON: [facility] – [place], CHEST 1V SINGLE AP, 10/09/2018. . FINDINGS: Pacemaker implanted on the right. Cardiomegaly with moderate interstitial edema. Large right pleural effusion with consolidative changes in the right base have progressed. No signifi cant fluid on the left. The portion of the bony skeleton visualized is unremarkable. CONCLUSION: Increasing right pleural effusion moderate congestive failure. Electronically signed by: Anthony Almazan MD Board Certified Radiologist 10/10/2018 7:16 AM EST
[2018-10-10] MEDS: Spironolactone 25 MG Tablet PO SCH ×2 (08:20→17:08)
--- NOTE | 2018-10-10 09:14 | P.PNPL ---
Subjective Interval history: No events overnight. On room air oxygen. Aspira drained 1200ml yesterday. Physical Exam Vital signs: Vital Signs 10/09/18 12:00 10/09/18 16:00 10/09/18 16:25 Temperature 98.3 F 98.1 F Pulse Rate 60 62 88 Respiratory Rate 16 16 18 Blood Pressure 105/53 L 104/55 L Pulse Oximetry 94 L 93 L 10/09/18 20:00 10/09/18 20:29 10/10/18 00:00 Temperature 98.2 F 97.7 F Pulse Rate 60 60 60 Respiratory Rate 17 17 20 Blood Pressure 126/50 L 114/65 Pulse Oximetry 98 95 10/10/18 03:53 10/10/18 04:00 10/10/18 07:00 Temperature 98.5 F Pulse Rate 60 60 62 Respiratory Rate 22 18 Blood Pressure 122/60 Pulse Oximetry 96 10/10/18 08:00 Temperature 98.4 F Pulse Rate 60 Respiratory Rate 16 Blood Pressure 132/69 Pulse Oximetry 95 Intake & Output 10/09/18 10/10/18 10/10/18 18:59 06:59 18:59 Intake Total 350 / 350 271 / 271 Output Total 1200 / 1200 450 / 450 Balance -850 / -850 -179 / -179 Weight 48.4 kg Intake: IV 350 / 350 50 / 50 Heparin/D5W 25,000 U/250 mL 25, 250 / 250 000 unit In 250 ml @ 600 UNITS/ HR 6 mls/hr IV.CONT TITRATE PRN Rx#:[id number] Flexbumin 25% Inj 50 ML @ 60 100 / 100 50 / 50 mls/hr IV.SIG Q12H [facility] Rx#: [id number] Oral 221 / 221 Output: Urine 450 / 450 Wound Drainage 1200 / 1200 Right Abdomen 1200 / 1200 Other: # Voids 2 Date of Last Bowel Movement 10/09/18 10/10/18 # Bowel Movements 1 # Incontinent Bowel Movements 1 - Constitutional no acute distress, cachectic - Routine HEENT Exam Head: Present: normocephalic, atraumatic Eye: Present: EOMI, PERRL, normal accommodation, conjunctivae pink - Routine Neck Exam Present: supple, full ROM, trachea midline - Routine Respiratory Exam Present: CTA bilaterally - Routine Cardiovascular Exam Present: RRR, S1, S2 - Routine Abdominal Exam Present: soft, normoactive bowel sounds - Routine Extremities Exam Present: full ROM, pulses intact - Routine Skin Exam Present: intact - Routine Neurological Exam Present: alert Assessment and Plan - Plan 1. Recurrent right pleural effusion. 2. S/p US guided right thoracentesis on 09/27/2018 with removal of 1 liter. 3. Cardiomyopathy EF< 20%. 4. CHF with elevated BNP. 5. Acute on chronic kidney disease. 6. s/p Mechanical mitral valve replacement. 7. Coagulopathy. 8. Moderate to severe pulmonary hypertension with a PA pressure 60-70mmHg. 9. Anemia. 10. s/p US-guided paracentesis on 09/27/2018 with removal of 5.5 liters. Plan Oxygen p.r.n. to maintain sats above 92%. Bronchodilators. s/p Aspira drain catheter placement 10/08, Aspira drained 1200ml pleural fluid yesterday. Drain daily. Recurrent pleural effusion is likely 2nd to CHF/ cardiomyopathy, Off abx. Monitor for signs of infection( fever and WBC). On Heparin drip. Monitor PTT per protocol. Palliative care is following Continue treatment plan
--- NOTE | 2018-10-10 11:45 | P.PNIM ---
Subjective Interval history: Follow-up visit recurrent pleural effusion, status post Aspira drain catheter placement 10/08, mitral valve replacement on Coumadin. Patient seen and examined today. States he is okay. Pain is manageable. Denies SOB/ dyspnea. Denies chest pain, palpitations, headaches, dizziness. Denies fevers, chills, n/ v/d. Denies dysuria. Physical Exam Vital signs: Vital Signs 10/09/18 12:00 10/09/18 16:00 10/09/18 16:25 Temperature 98.3 F 98.1 F Pulse Rate 60 62 88 Respiratory Rate 16 16 18 Blood Pressure 105/53 L 104/55 L Pulse Oximetry 94 L 93 L 10/09/18 20:00 10/09/18 20:29 10/10/18 00:00 Temperature 98.2 F 97.7 F Pulse Rate 60 60 60 Respiratory Rate 17 17 20 Blood Pressure 126/50 L 114/65 Pulse Oximetry 98 95 10/10/18 03:53 10/10/18 04:00 10/10/18 07:00 Temperature 98.5 F Pulse Rate 60 60 62 Respiratory Rate 22 18 Blood Pressure 122/60 Pulse Oximetry 96 10/10/18 08:00 Temperature 98.4 F Pulse Rate 60 Respiratory Rate 16 Blood Pressure 132/69 Pulse Oximetry 95 Intake & Output 10/09/18 10/10/18 10/10/18 18:59 06:59 18:59 Intake Total 350 / 350 271 / 271 Output Total 1200 / 1200 450 / 450 Balance -850 / -850 -179 / -179 Weight 48.4 kg Intake: IV 350 / 350 50 / 50 Heparin/D5W 25,000 U/250 mL 25, 250 / 250 000 unit In 250 ml @ 600 UNITS/ HR 6 mls/hr IV.CONT TITRATE PRN Rx#:[id number] Flexbumin 25% Inj 50 ML @ 60 100 / 100 50 / 50 mls/hr IV.SIG Q12H [facility] Rx#: [id number] Oral 221 / 221 Output: Urine 450 / 450 Wound Drainage 1200 / 1200 Right Abdomen 1200 / 1200 Other: # Voids 2 Date of Last Bowel Movement 10/09/18 10/10/18 # Bowel Movements 1 # Incontinent Bowel Movements 1 Narrative: GENERAL: This is a thin appearing, cachetic, chronically ill AA patient, in no apparent distress. SKIN: Warm and dry. HEENT: Normocephalic. Pupils equal round and reactive. Nose without bleeding. Airway patent. NECK: Trachea midline. CARDIOVASCULAR: Regular rate and rhythm with murmurs, gallops, or rubs. RESPIRATORY: Diminished bases. Right chest crackles. No wheezes, rales, or rhonchi. Aspira drain in place right side GASTROINTESTINAL: Abdomen with distention, ascites. Bowel Sounds normoactive x4. Scrotal edema. MUSCULOSKELETAL: Extremities without clubbing, cyanosis. NEUROLOGICAL: Awake and alert. Moves all extremities weakly. Normal speech. Results - Labs CBC & Chem 7: 10/08/18 07:37 10/10/18 16:06 Laboratory Results - last 24 hr 10/09/18 17:05 PT 14.0 H INR 1.4 APTT 37.9 H - Imaging Impressions Chest X-Ray 10/10/18 00:00 CONCLUSION: Increasing right pleural effusion moderate congestive failure. Assessment and Plan - Assessment (1) Congestive heart failure Code(s): I50.9 - Heart failure, unspecified Status: Acute (2) Ascites Code(s): R18.8 - Other ascites Status: Acute (3) Pleural effusion Code(s): J90 - Pleural effusion, not elsewhere classified Status: Acute (4) Shortness of breath Code(s): R06.02 - Shortness of breath Status: Acute (5) Altered mental status Code(s): R41.82 - Altered mental status, unspecified Status: Acute (6) Pneumonia Code(s): J18.9 - Pneumonia, unspecified organism Status: Acute (7) Delirium due to another medical condition Code(s): F05 - Delirium due to known physiological condition Status: Acute (8) Dyspnea Code(s): R06.00 - Dyspnea, unspecified Status: Acute - Plan This is a 47-year-old -[place] male admitted with metabolic encephalopathy. Found to have hepatic encephalopathy and started on antibiotics for possible right basilar pneumonia. Underwent paracentesis and thoracentesis. Eventually had improvement in his encephalopathy but still has some residual cognitive impairment. Psychiatry has been consulted to evaluate for any underlying psychotic disorders, have deemed more harm than benefit in using any antipsychotics at this time. 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 Bassett who felt the patient may be a candidate for implanted drainage catheter placement such as as pleural drain for long-term management of the patient's fluid retention -Consents obtained from the family/healthcare surrogate/brother over the phone. Copy in the chart. -Palliative care also following and due to his history of chronic systolic CHF with EF less than 20% does also qualify him for comfort care and hospice eligible. Consent obtained and signed from family, copy in the chart, Brother Jordan -Plan for a drain placement if consent is obtained per IR recommendation. Then plan to discharged home with the drain. -Chest XR with large right pleural effusion with accompanying atelectasis or consolidation throughout much the right lung.Cardiomegaly. The patient is status post sternotomy and pacing device in place. Atelectasis in the left perihilar and left base regions. -continue albumin and lasix, spironolactone -Aspira drainage catheter placement on the right side, drainage sanguinous as per nursing -Repeat chest x-ray showed 1. Diffuse pleural-parenchymal density throughout the right hemithorax, with slight better aeration of the lung. 2. Right-sided pleural drainage catheter. -Monitor respiratory status -Needs to be drained daily x 5 days. Spoke with crap game box person, patient will need daily drain for now as per IR recommendation due to hepatic hydrothorax, until the drain slows sown, will unable to send patient home with [facility]. -Consult GI ascites and liver disease. 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 Cardiomyopathy with EF less than 20% -History of allergy with ARBS -Continue oral Lasix, and continue IV albumin, increase spironolactone -Coumadin, Monitor INR -Continue Coreg -No chest pain no shortness of breath Suspected hepatic insufficiency/failure given lowest INR is 1.5 in hospital -Hard to tell baseline liver INR given that the patient requires warfarin for mitral valve -Viral panel negative Cognitive impairment Hepatic encephalopathy -continue lactulose and zinc -No scheduled antipsychotics or anxiolytics at this time per psychiatry Chronic kidney disease stage III -Avoid nephrotoxins -follow renal indices DVT prophylaxis heparin drip, transition to Coumadin Full code Discussed Condition With: Patient, nursing, case management, Dr. Lu Discharge Planning: Plan to DC home with home health care pending pulmonary clearance (1) Congestive heart failure Qualifiers: Heart failure type: unspecified Heart failure chronicity: acute on chronic Qualified Code(s): I50.9 - Heart failure, unspecified (2) Ascites Qualifiers: Ascites type: other type Qualified Code(s): R18.8 - Other ascites (5) Altered mental status Qualifiers: Altered mental status type: unspecified Qualified Code(s): R41.82 - Altered mental status, unspecified (6) Pneumonia Qualifiers: Pneumonia type: due to unspecified organism Laterality: right Lung location : unspecified part of lung Qualified Code(s): J18.9 - Pneumonia, unspecified organism
--- NOTE | 2018-10-10 15:04 | P.PNPAL ---
Reason for Visit Reason for visit: a. To assist with evaluation and management of symptoms including: confusion, debility b. To assist medical decision maker(s) with: better understanding of current medical conditions; weighing benefits/burdens of medical treatment options; making medical treatment decisions. Subjective Subjective/Interval History: Mr. Ko is a 47-year-old man who was admitted on 09/24/2018 with hepatic encephalopathy. He was started on antibiotics for possible right basilar pneumonia. Patient underwent paracentesis and thoracentesis on 09/27/2018 with some subsequent improvement in neuro status. Psychiatry and speech therapy have evaluated the patient. Patient has multiple chronic comorbid conditions including mitral valve replacement x2, chronic anticoagulant, systolic CHF EF 20 %, CKD stage III, umbilical hernia, AICD. 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 Patient has been disabled since the age of 8 years status post CVA. He lived with his mother until recently when she went to a nursing facility. He has been living alone with his brothers doing grocery shopping and checking in on him. Follow up visit necessary for symptom management of confusion and debility. Patient seen in his room with no visitors present. He has no complaints; denies pain. Appetite improving. Patient ate 75% his breakfast and lunch today. Status post Aspira catheter placement on 10/08/2018. Orders to drain daily, approximately 1200 mL of fluid yesterday on 10/09/2018. Chest x-ray this morning showing increasing right pleural effusion, moderate congestive failure. Tentative plan for patient to be discharged home with [facility] home [facility] care services after he has been cleared by pulmonology. Patient's brother wants to be educated patient's healthcare needs including wound care and Aspira cath care. He is willing to assist patient with any needs at home. It is unclear if the patient will have someone at home with him 01/05. Attempted to telephone brotherJordan. Messages left on voicemail with palliative care contact information. Family/Friend Interactions: See interval history Advance Directives Health Care Surrogate: Copy in medical record Advance Directives Date on File: 10/01/18 Health Care Surrogate Name and Number: MELQUIADES KO ([place]) [phone] Significant change in goals:: Tentative plan to return home with home health care. Objective Vital Signs: Vital Signs 10/09/18 16:00 10/09/18 16:25 10/09/18 20:00 Temperature 98.1 F 98.2 F Pulse Rate 62 88 60 Respiratory Rate 16 18 17 Blood Pressure 104/55 L 126/50 L Pulse Oximetry 93 L 98 10/09/18 20:29 10/10/18 00:00 10/10/18 03:53 Temperature 97.7 F Pulse Rate 60 60 60 Respiratory Rate 17 20 Blood Pressure 114/65 Pulse Oximetry 95 10/10/18 04:00 10/10/18 07:00 10/10/18 08:00 Temperature 98.5 F 98.4 F Pulse Rate 60 62 60 Respiratory Rate 22 18 16 Blood Pressure 122/60 132/69 Pulse Oximetry 96 95 10/10/18 11:00 10/10/18 12:00 Temperature 98.1 F Pulse Rate 65 60 Respiratory Rate 18 17 Blood Pressure 108/54 L Pulse Oximetry 97 Intake & Output 10/09/18 10/10/18 10/10/18 18:59 06:59 18:59 Intake Total 350 / 350 271 / 271 Output Total 1200 / 1200 450 / 450 Balance -850 / -850 -179 / -179 Weight 48.4 kg Intake: IV 350 / 350 50 / 50 Heparin/D5W 25,000 U/250 mL 25, 250 / 250 000 unit In 250 ml @ 600 UNITS/ HR 6 mls/hr IV.CONT TITRATE PRN Rx#:[id number] Flexbumin 25% Inj 50 ML @ 60 100 / 100 50 / 50 mls/hr IV.SIG Q12H JOSÉ MIGUEL Rx#: [id number] Oral 221 / 221 Output: Urine 450 / 450 Wound Drainage 1200 / 1200 Right Abdomen 1200 / 1200 Other: # Voids 2 Date of Last Bowel Movement 10/09/18 10/10/18 # Bowel Movements 1 # Incontinent Bowel Movements 1 Physical Exam: CONSTITUTIONAL/GENERAL: This is a very frail, chronically ill appearing gentleman, pleasant and cooperative TUBES/LINES/DRAINS: PIV x2 left upper extremity SKIN: No jaundice, rashes, or lesions. Skin temperature appropriate. Not diaphoretic. HEAD: Atraumatic. Normocephalic. EYES: Pupils equal and round and reactive. No injection or drainage. Fundi not examined. ENT: Hearing grossly normal. Nose without bleeding or purulent drainage. NECK: Trachea midline. Supple, nontender. No palpable thyroid enlargement or nodularity. CARDIOVASCULAR: Regular rate and rhythm, faint murmur. No JVD. Peripheral pulses symmetric. RESPIRATORY/CHEST: Symmetric, unlabored respirations. On room air. Breath sounds diminished in bases bilaterally. Aspira drain in place right side GASTROINTESTINAL: Abdomen soft, non-tender, distended. Ascites. Bowel sounds present. GENITOURINARY: Without palpable bladder distension. MUSCULOSKELETAL: Extremities without clubbing, cyanosis, or edema. Muscle wasting in all extremities LYMPHATICS: No palpable cervical or supraclavicular adenopathy. NEUROLOGICAL: Awake and alert. Cooperative. Follows commands. Able to answer questions. Moves all 4 extremities PSYCHIATRIC: No anxiety/depression. No apparent hallucinations or other psychotic thought process. Diagnostic Tests Laboratory: Laboratory Results - last 72 hr 10/07/18 10/08/18 10/08/18 13:56 07:37 07:37 WBC 3.8 L RBC 3.45 L Hgb 9.4 L Hct 28.8 L MCV 83.3 MCH 27.3 MCHC 32.8 RDW 18.8 H Plt Count 144 L MPV 9.5 Neut % (Auto) 65.0 Lymph % (Auto) 8.3 L Gibson % (Auto) 23.4 H Eos % (Auto) 2.0 Baso % (Auto) 1.3 Neut # (Auto) 2.5 Lymph # (Auto) 0.3 L Gibson # (Auto) 0.9 Eos # (Auto) 0.1 Baso # (Auto) 0.0 WBC Differential . Differential Comment Auto diff final PT INR APTT 30.8 D Sodium 137 Potassium 4.4 Chloride 104 Carbon Dioxide 23.6 Anion Gap 9 BUN 45 H Creatinine 1.54 H Estimated GFR 59 L Random Glucose 83 Calcium 8.6 Total Bilirubin 2.9 H AST 29 ALT 19 Alkaline Phosphatase 288 H Total Protein 8.4 H Albumin 3.0 L 10/08/18 10/08/18 10/09/18 07:37 19:14 03:30 WBC RBC Hgb Hct MCV MCH MCHC RDW Plt Count MPV Neut % (Auto) Lymph % (Auto) Gibson % (Auto) Eos % (Auto) Baso % (Auto) Neut # (Auto) Lymph # (Auto) Gibson # (Auto) Eos # (Auto) Baso # (Auto) WBC Differential Differential Comment PT INR APTT 55.2 H D 37.1 H D 58.4 H D Sodium Potassium Chloride Carbon Dioxide Anion Gap BUN Creatinine Estimated GFR Random Glucose Calcium Total Bilirubin AST ALT Alkaline Phosphatase Total Protein Albumin 10/09/18 10/09/18 10:55 17:05 WBC RBC Hgb Hct MCV MCH MCHC RDW Plt Count MPV Neut % (Auto) Lymph % (Auto) Gibson % (Auto) Eos % (Auto) Baso % (Auto) Neut # (Auto) Lymph # (Auto) Gibson # (Auto) Eos # (Auto) Baso # (Auto) WBC Differential Differential Comment PT 14.0 H INR 1.4 APTT 38.2 H D 37.9 H Sodium Potassium Chloride Carbon Dioxide Anion Gap BUN Creatinine Estimated GFR Random Glucose Calcium Total Bilirubin AST ALT Alkaline Phosphatase Total Protein Albumin Result Diagrams: 10/08/18 07:37 10/08/18 07:37 Microbiology: Microbiology 09/27/18 10:15 Other Fungal Smear - Final No fungal elements seen 09/27/18 10:15 Other Fungal Culture - Preliminary No growth in 1 week 09/30/18 12:40 Stool Stool Occult Blood (NETTE) - Final Hemoccult positive 09/27/18 08:45 Fluid - Pleural fluid Gram Stain - Final 09/27/18 08:45 Fluid - Pleural fluid Body Fluid Culture - Final No growth in 72 hours (aerobically and anaerobically ) 09/24/18 18:01 Blood - Peripheral Aerobic Blood Culture - Final No growth in 5 days 09/24/18 18:01 Blood - Peripheral Anaerobic Blood Culture - Final No growth in 5 days 09/24/18 17:55 Blood - Peripheral Aerobic Blood Culture - Final No growth in 5 days 09/24/18 17:55 Blood - Peripheral Anaerobic Blood Culture - Final No growth in 5 days Imaging: Abdomen/Pelvis CT 09/24/18 17:32 CONCLUSION: 1. Moderate to large amount of ascitic fluid again noted. 2. The liver is more prominent than on the prior study with prominent left lobe and diffuse inhomogeneity. 3. The bowel loops are displaced centrally within nonobstructive bowel gas pattern. 4. Small nonobstructing right renal calculus. 5. Large right pleural effusion and small left pleural effusion. Head CT 09/24/18 17:32 CONCLUSION: 1. No acute infarct, acute hemorrhage, mass effect or extra-axial fluid collections. 2. 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 . Paracentesis Ultrasound 09/27/18 00:00 CONCLUSION: 1. Uncomplicated paracentesis. Thoracentesis Ultrasound 09/27/18 00:00 CONCLUSION: 1. Uncomplicated thoracentesis. Chest Ultrasound 10/01/18 00:00 CONCLUSION: 1. Large right pleural effusion confirmed sonographically. CT Consultation 10/03/18 00:00 CONCLUSION: 1. Drainage procedure deferred for now. 2. Please see above discussion and reconsult when appropriate Catheter Placement X-Ray 10/08/18 00:00 CONCLUSION: 1. Uncomplicated fluoroscopic and ultrasound-guided placement of right-sided tunneled pleural Aspira drainage catheter. Chest X-Ray 10/10/18 00:00 CONCLUSION: Increasing right pleural effusion moderate congestive failure. Procedures: 06/18/18: 2D echo. Left ventricular systolic function severely reduced with EF less than 20%. Right ventricle severely dilated. Mechanical mitral valve bileaflet with both leaflets moving. Mild aortic valve regurgitation. Severe tricuspid regurgitation. Moderate to severe pulmonary hypertension. 09/27/2018: Thoracentesis and paracentesis 10/08/2019: Aspira drainage cath placement Assessment and Plan - Disease Oriented Problem List (1) Congestive heart failure (2) Ascites (3) Pleural effusion (4) Shortness of breath (5) Altered mental status (6) Pneumonia (7) Delirium due to another medical condition Pertinent Non-Medical Issues: Psychosocial: Has 2 brothers. Used to live with his mother however she is referred to significant stroke and now lives in a halfway. Had been living alone. Has not worked been disabled due to heart condition. Not , no children. Spiritual: Quaker meghan. Legal: Patient designated his brother Melquiades Ko ([place]) as the healthcare surrogate decision-maker. Ethical issues impacting care: No ethical issues identified. Important Contacts: Melquiades Ko ([place]), brother/[facility]: [phone] Jordan Chu, brother: [phone] Joelle Ko, mother: [phone]-now reported to live in SNF 2/2 CVA Prognosis: Patient admitted with altered mental status. Appears may have some component of delirium on top of baseline mild cognitive impairment. Probable hepatic encephalopathy, liver disease. Additionally has underlying CHF with EF less than 20% per echo June 2018, valvular disease. High risk for additional complications/decline related to multiple chronic medical conditions (requiring frequent thoracentesis and paracentesis) and cognitive impairments. Appropriate for hospice if goals were compatible. Prior [facility] admissions note that patient reported in the past recommended to have a heart transplant, "[facility] patient did not want to pursue". Code Status: Full Code Plan: * FULL CODE * Legal decision maker: Patient was some mild confusion, possibly underlying cognitive deficit. Not able to make decisions alone currently. Reported his mother has recently required transition to halfway due to increased care needs/ CVA. Not , no children. Patient has 2 brothers. He designated 1 of his brothers supported by her brother, Melquiades Ko ([place]), as his healthcare surrogate. He has another brother named Jordan Chu. * Patient has 2 brothers (Melquiades Castro" and Jordan). Melquiades Ko ([place]) has been designated as the healthcare surrogate decision-maker. A2nd brother (Jordan) has been assisting with medical decision-making when Rachel is not available. * Discussed patient with Tamika Hernandez APRN, nurse (Mimi) and case management. * Messages left on voicemail with palliative care contact information. * Tentative discharge plan home with [facility] home health care services after he has been cleared by pulmonology. Patient's brother (Jordan) wants to be educated patient's healthcare needs including wound care and Aspira catheter care. He is willing to assist patient with any needs at home. It is unclear if the patient will have someone at home with him 01/05 or if there will be periods of time when he will be alone. * SYMPTOMS: == Confusion- Improving. Patient presented for altered mental status, confusion found by his brother. Probable multifactorial though primarily hepatic encephalopathy. Liver failure secondary to chronic heart failure. == Dyspnea: Patient denies dyspnea on exam. Risk for secondary to ongoing heart failure EF less than 20%. Requiring diuretics, as well as recurrent thoracentesis. Recurrent pleural effusion is likely. secondary to congestive heart failure/cardiomyopathy. Status post Aspira catheter placement on 10/08/18. * Palliative care will continue to follow during hospital course as condition evolves, to assist patient/decision-maker with understanding of medical conditions, weighing benefits/burdens of treatment options, for clarification of goals of treatment. Additionally will assist with any symptoms of palliative concern Attestation Attestation: To help prompt me to consider important information that might be impacting today's encounter and assessment, information from prior notes written by myself or my colleagues may have been "brought forward" into today's note. My signature on this note, however, is an attestation that I personally performed the exam, history, and/or decision-making noted today, and, unless otherwise indicated, the interactions with patient, family, and staff as well as the review of records all occurred today. I also attest that the listed assessment and stated plan reflect my best clinical judgment today based on the combination of historical information, prior notes, and today's exam/ interactions. When time spent is documented, it refers only to time spent today by the signer, or if indicated, combined time spent today by collaborating physician/nurse practitioner.
[2018-10-10] MEDS ORDERED: Warfarin Consult Pharmacy OTHER PRN (15:22)
[2018-10-10] MEDS ORDERED: Sodium Chloride 0.9% 2 ML Flush PRN IV.FLUSH (16:10)
[2018-10-10 16:39] LABS: INR 1.4 Ratio; Prothrombin Time 14.1 sec (9.8-11.6)
[2018-10-10 17:00] LABS: Calcium 8.4 mg/dL (8.5-10.1); Potassium 5.8 meq/L (3.5-5.1)
--- NOTE | 2018-10-10 18:37 | P.CONGI ---
History of Present Illness Consult date: 10/10/18 Consult reason: Ascites Liver disease Chief complaint: Pleural Effusion, Pneumonia, AMS, CHF, Ascites History of Present Illness: This patient is a 47-year-old male with past medical history significant for transposition of the great vessels, mitral valve replacement-on Coumadin, pacemaker, CHF, chronic kidney disease, umbilical hernia and recurring ascites with pleural effusions. This patient presented to the emergency department for evaluation of altered mental status. Last reported paracentesis and thoracentesis prior to admission was on 06/21/2018. Patient is awake and alert with confusion and altered mental status. He is a poor historian. Patient has tense abdominal ascites with palpable liver and spleen. Patient currently has right pleural drain due to right pleural effusion. Patient endorses "always being a social drinker, 1 drink per week may be more on the weekend". Our service has been consulted to evaluate patient for ascites/liver disease. Review of Systems unobtainable due to mental condition PMFSH - History History Provided By: Patient - Medical History Medical History: Medical History (Last Reviewed 10/08/18 @ 08:17 by Isabelle Mace) Chronic kidney disease, stage III (moderate) Congestive heart failure Umbilical hernia Great vessels transposition History of abdominal paracentesis Mitral valve regurgitation Pacemaker - Surgical History Surgical History: Surgical History (Last Reviewed 09/29/18 @ 15:58 by Kevin Carranza DO) H/O heart surgery H/O mitral valve replacement History of permanent cardiac pacemaker placement History of thoracentesis - Family History Family History: Family History (Last Reviewed 09/26/18 @ 08:33 by Emely Novoa) Mother Stroke Diabetes Father Bladder cancer - Tobacco History Second Hand Smoke Exposure: No Smoking Status: Never smoker Tobacco Type: Cigars - Alcohol History How Often Do You Have a Drink Containing Alcohol: Never - Substance Use History Substance History: No History of Abuse - Travel History Recent Travel in the [place] Within the Last 8 Weeks: No Recent Travel Out of the Country Within the Last 8 Weeks: No - Immunization History Tetanus Immunization: Unsure Hx Influenza Vaccine This Season: Unable to Assess Medications and Allergies Active Medications: Active Medications Acetaminophen (Tylenol) 650 mg PO Q4H PRN PRN Reason: Temp > 100.4 Last Admin: 10/09/18 15:05 Dose: 650 mg Acetylcysteine (Mucomyst 10% Neb) 2 ml NEB Q4HR NEB LEONARDO Last Admin: 10/10/18 16:57 Dose: Not Given Al Hydroxide/Mg Hydroxide (Milk Of Magnesia Liq) 30 ml PO Q12H PRN PRN Reason: Mild Constipation Albuterol (Duoneb Neb (Prn)) 1 ampul NEB Q2HR NEB PRN PRN Reason: DYSPNEA Albuterol (Duoneb Neb (Leonardo)) 1 ampul NEB Q4HR NEB [facility] Last Admin: 10/10/18 16:57 Dose: Not Given Bisacodyl (Dulcolax Supp) 10 mg RECTAL DAILY PRN PRN Reason: SEVERE CONSITIPATION Carvedilol (Coreg) 3.125 mg PO BID [facility] Last Admin: 10/10/18 08:20 Dose: 3.125 mg Furosemide (Lasix) 40 mg PO BID@0900,1800 [facility] Last Admin: 09/30/18 09:24 Dose: 40 mg Haloperidol Lactate (Haldol Inj) 2 mg IM Q6H PRN PRN Reason: AGITATION Albumin Human (Flexbumin 25% Inj) 50 mls @ 60 mls/hr IV.SIG Q12H [facility] Last Infusion: 10/10/18 17:56 Dose: Infused Lactulose (Lactulose Liq) 30 ml PO QID [facility] Last Admin: 10/10/18 17:08 Dose: 30 ml Pharmacy Profile Note (Coumadin Consult Pharmacy) 1 each OTHER UNSCH PRN PRN Reason: PHARMACY DOCUMENTATION Rifaximin (Xifaxan) 550 mg PO Q12HR [facility] Sennosides (Senokot) 17.2 mg PO Q12H PRN PRN Reason: Moderate Constipation Sodium Chloride (Ns Flush) 2 ml IV.FLUSH BID [facility] Sodium Chloride (Ns Flush) 2 ml IV.FLUSH PRN PRN PRN Reason: FLUSH AFTER USING IV ACCESS Sodium Polystyrene Sulfonate (Kayexalate Liq) 30 gm PO ONCE ONE Stop: 10/10/18 18:00 Spironolactone (Aldactone) 25 mg PO BID@0900,1800 [facility] Last Admin: 10/10/18 17:08 Dose: 25 mg Warfarin Sodium (Coumadin) 5 mg PO DAILY@1600 [facility] Last Admin: 10/10/18 16:57 Dose: 5 mg Zinc Sulfate (Zinc-220) 220 mg PO DAILY [facility] Last Admin: 10/10/18 08:20 Dose: 220 mg Allergies Allergy/AdvReac Type Severity Reaction Status Date / Time losartan Allergy Unknown Anaphylaxis Verified 06/16/18 11:01 Home Medications Medication Instructions Recorded Confirmed Type warfarin [Coumadin] 5 mg PO DAILY 06/16/18 09/24/18 History carvedilol 3.125 mg PO BID 09/24/18 09/24/18 History Exam Vital signs: Vital Signs 10/09/18 20:00 10/09/18 20:29 10/10/18 00:00 Temperature 98.2 F 97.7 F Pulse Rate 60 60 60 Respiratory Rate 17 17 20 Blood Pressure 126/50 L 114/65 Pulse Oximetry 98 95 10/10/18 03:53 10/10/18 04:00 10/10/18 07:00 Temperature 98.5 F Pulse Rate 60 60 62 Respiratory Rate 22 18 Blood Pressure 122/60 Pulse Oximetry 96 10/10/18 08:00 10/10/18 11:00 10/10/18 12:00 Temperature 98.4 F 98.1 F Pulse Rate 60 65 60 Respiratory Rate 16 18 17 Blood Pressure 132/69 108/54 L Pulse Oximetry 95 97 10/10/18 16:00 Temperature 98.2 F Pulse Rate 60 Respiratory Rate 17 Blood Pressure 109/59 L Pulse Oximetry 97 Intake & Output 10/09/18 10/10/18 10/10/18 18:59 06:59 18:59 Intake Total 350 / 350 271 / 271 50 / 50 Output Total 1200 / 1200 450 / 450 Balance -850 / -850 -179 / -179 50 / 50 Weight 48.4 kg Intake: IV 350 / 350 50 / 50 50 / 50 Heparin/D5W 25,000 U/250 mL 25, 250 / 250 000 unit In 250 ml @ 600 UNITS/ HR 6 mls/hr IV.CONT TITRATE PRN Rx#:[id number] Flexbumin 25% Inj 50 ML @ 60 100 / 100 50 / 50 50 / 50 mls/hr IV.SIG Q12H LEONARDO Rx#: [id number] Oral 221 / 221 Output: Urine 450 / 450 Wound Drainage 1200 / 1200 Right Abdomen 1200 / 1200 Other: # Voids 2 Date of Last Bowel Movement 10/09/18 10/10/18 # Bowel Movements 1 # Incontinent Bowel Movements 1 - Constitutional thin, chronically ill appearing - Routine HEENT Exam Head: Present: normocephalic - Routine Respiratory Exam Absent: accessory muscle use, respiratory distress Comments: Right pleural catheter draining scant amount of sanguinous fluid - Routine Cardiovascular Exam Present: RRR - Routine Abdominal Exam Present: normoactive bowel sounds, distended, firm. Absent: tenderness, guarding - Routine Extremities Exam Absent: cyanosis, clubbing - Routine Skin Exam Absent: cyanosis - Routine Neurological Exam Present: alert, altered mental status Results - Labs CBC & Chem 7: 10/08/18 07:37 10/10/18 16:06 Labs: Laboratory Results - last 24 hr 10/10/18 10/10/18 16:06 16:06 PT 14.1 H INR 1.4 Sodium 134 L Potassium 5.8 H Chloride 104 Carbon Dioxide 24.0 Anion Gap 6 BUN 46 H Creatinine 1.67 H Estimated GFR 53 L Random Glucose 162 H Calcium 8.4 L - Imaging Impressions Chest X-Ray 10/10/18 00:00 CONCLUSION: Increasing right pleural effusion moderate congestive failure. Assessment and Plan (1) Ascites Status: Acute Code(s): R18.8 - Other ascites (2) Encephalopathy Status: Acute Code(s): G93.40 - Encephalopathy, unspecified - Plan This patient is a 47-year-old male with past medical history significant for transposition of the great vessels, mitral valve replacement-on Coumadin, pacemaker, CHF, chronic kidney disease, umbilical hernia and recurring ascites with pleural effusions. This patient presented to the emergency department for evaluation of altered mental status. Last reported paracentesis and thoracentesis prior to admission was on 06/21/2018. Patient is awake and alert with confusion and altered mental status. He is a poor historian. Patient has tense abdominal ascites with palpable liver and spleen. Patient currently has right pleural drain due to right pleural effusion. Patient endorses "always being a social drinker, 1 drink per week may be more on the weekend". Our service has been consulted to evaluate patient for ascites/liver disease. Ascites Cirrhosis: congestive (CHF /cardiomyopathy )versus alcoholic Patient presented to [facility] with altered mental status Recurring ascites with pleural effusion On Coumadin for mitral valve replacement-INR 1.4 10/08/2018-total bilirubin 2.9 AST 29 ALT 19 alk phos 288 09/28/2018 ammonia level 22, hepatitis panel nonreactive CBC pending 09/27/2018 paracentesis-Total volume of 5500 cc of cloudy, red fluid was removed. Fluid was sent to lab for ordered studies. Plan -Cardiac diet-low sodium -Echocardiogram -rule out tricuspid regurgitation -Will require cardiac clearance for EGD to rule out portal hypertension -Liver workup -Ammonia level -Xifaxan 550 mg p.o. twice daily -Avoid hepatotoxins -Spironolactone, Lasix, albumin -Ultrasound-guided paracentesis-therapeutic -Supportive care -Further recommendations to follow This patient has been seen by myself and Dr. Alvarado and this note is written on his behalf - Attending Attestation Dr. Alvarado (1) Ascites Qualifiers: Ascites type: other type Qualified Code(s): R18.8 - Other ascites
[2018-10-10] MEDS ORDERED: Sodium Polystyrene Sulfonate/Sorbitol Liq 15 GM/60 ML UDC PO ONE (18:45)
--- NOTE | 2018-10-10 19:44 | US ---
EXAM DATE: 10/10/2018 7:41 PM EST AGE/SEX: 47 years / Male INDICATIONS: Ascites. CLINICAL DATA: This is the patient's sequela encounter. Patient reports that signs and symptoms have been present for 3 weeks and indicates a pain score of 3/10. MEDICAL/SURGICAL HISTORY: Renal failure, chronic. Congestive heart failure. Greater vessel tra nsposition. Mitral valve regurgitation. Pacemaker. Hernia. . Heart surgery. Valve replacement. Pacem shantell placement. Thoracentesis. Paracentesis. COMPARISON: [facility] [place], [place] PARACENTESIS ABD W/IMAGE, 09/27/2018. . FINDINGS: Masses: None Fluid Collections: None Other: Small amount of abdominal ascites in the right upper quadrant, right lower quadrant, left upp er quadrant and left lower quadrant.. CONCLUSION: 1. Small amount of abdominal ascites. Electronically signed by: Jerome Fenton MD Board Certified Radiologist 10/10/2018 7:43 PM EST
[2018-10-10 20:28] LABS: Hemoglobin 8.9 gm/dL (13.0-17.0); Mean Corpuscular Hemoglobin 27.5 pg (27.0-34.0); Mean Corpuscular Volume 83.4 fL (80.0-100.0); Platelet Count 140 th/mm3 (150-450); Red Blood Count 3.24 mil/mm3 (4.50-5.90); Red Cell Distribution Width 17.9 % (11.6-17.2); White Blood Count 5.1 th/mm3 (4.0-11.0)
[2018-10-10] MEDS: Sodium Chloride 0.9% 2 ML Flush BID IV.FLUSH SCH (20:35)
[2018-10-10] MEDS: rifAXIMin 550 MG Tablet PO SCH (20:35)
[2018-10-10 22:45] LABS: % Iron Saturation 19.4 % (20-50); Alpha Fetoprotein Tumor Marker 2.8 ng/mL (0.5-8.0)
[2018-10-11] MEDS: RESP: Acetylcysteine 10% 4 ML Neb NEB SCH (01:04)
[2018-10-11] MEDS: Albumin Human 25% Inj 50 ML IV.SIG SCH ×2 (04:46→17:31)
[2018-10-11 06:07] LABS: INR 1.4 Ratio
[2018-10-11 06:19] LABS: Baso % (Auto) 0.5 % (0.0-2.0); Eos # (Auto) 0.1 th/mm3 (0.0-0.4); Eos % (Auto) 1.6 % (0.0-4.0); Hematocrit 25.6 % (39.0-51.0); Hemoglobin 8.6 gm/dL (13.0-17.0); Lymph # (Auto) 0.2 th/mm3 (1.0-4.8); Lymph % (Auto) 4.4 % (9.0-44.0); Mean Corpuscular HGB Conc 33.6 % (32.0-36.0); Mean Corpuscular Hemoglobin 28.2 pg (27.0-34.0); Mean Corpuscular Volume 84.1 fL (80.0-100.0); Mean Platelet Volume 9.7 fL (7.0-11.0); Mono % (Auto) 18.3 % (0.0-8.0); Neut # (Auto) 4.2 th/mm3 (1.8-7.7); Neut % (Auto) 75.2 % (16.0-70.0); Platelet Count 142 th/mm3 (150-450); Red Blood Count 3.05 mil/mm3 (4.50-5.90); Red Cell Distribution Width 18.3 % (11.6-17.2); White Blood Count 5.7 th/mm3 (4.0-11.0)
[2018-10-11 06:30] LABS: Alanine Aminotransferase 17 U/L (12-78); Albumin 3.1 g/dL (3.4-5.0); Alkaline Phosphatase 245 U/L (45-117); Anion Gap 7 meq/L (5-15); Aspartate Aminotransferase 21 U/L (15-37); Blood Urea Nitrogen 47 mg/dL (7-18); Calcium 8.4 mg/dL (8.5-10.1); Carbon Dioxide 22.8 meq/L (21.0-32.0); Chloride 103 meq/L (98-107); Glomerular Filtration Rate 59 mL/min (>89); Glucose,Random 89 mg/dL (74-106); Potassium 4.5 meq/L (3.5-5.1); Sodium 133 meq/L (136-145)
[2018-10-11] MEDS: Sodium Chloride 0.9% 2 ML Flush BID IV.FLUSH SCH ×2 (08:20→21:35)
[2018-10-11] MEDS: rifAXIMin 550 MG Tablet PO SCH ×2 (08:20→20:22)
[2018-10-11] MEDS: Spironolactone 25 MG Tablet PO SCH ×2 (08:20→17:31)
[2018-10-11] MEDS ORDERED: Heparin - SQ 10,000 UNITS/ML Vial SQ SCH (10:00)
--- NOTE | 2018-10-11 10:24 | P.PNPL ---
Subjective Interval history: Patient is on room air oxygen. Afebrile. Aspira drain only drained 50ml since yesterday morning ( bloody fluid). Physical Exam Vital signs: Vital Signs 10/10/18 11:00 10/10/18 12:00 10/10/18 16:00 Temperature 98.1 F 98.2 F Pulse Rate 65 60 60 Respiratory Rate 18 17 17 Blood Pressure 108/54 L 109/59 L Pulse Oximetry 97 97 10/10/18 20:00 10/11/18 00:00 10/11/18 01:04 Temperature 99.0 F 98.2 F Pulse Rate 60 60 60 Respiratory Rate 17 17 16 Blood Pressure 108/65 115/59 L Pulse Oximetry 98 100 10/11/18 03:07 10/11/18 04:00 10/11/18 08:00 Temperature 97.8 F 97.7 F Pulse Rate 69 59 L 64 Respiratory Rate 17 18 16 Blood Pressure 108/59 L 109/56 L Pulse Oximetry 96 96 Intake & Output 10/10/18 10/11/18 10/11/18 18:59 06:59 18:59 Intake Total 50 / 50 450 / 450 Output Total 50 / 50 Balance 50 / 50 400 / 400 Weight 48.8 kg Intake: IV 50 / 50 50 / 50 Flexbumin 25% Inj 50 ML @ 60 50 / 50 50 / 50 mls/hr IV.SIG Q12H JOSÉ MIGUEL Rx#: [id number] Oral 400 / 400 Output: Wound Drainage 50 / 50 Right Abdomen 50 / 50 Other: # Incontinent Voids 4 Date of Last Bowel Movement 10/10/18 10/10/18 - Constitutional no acute distress, cachectic - Routine HEENT Exam Head: Present: normocephalic, atraumatic Eye: Present: EOMI, PERRL, normal accommodation, conjunctivae pink ENT: Present: mucous membranes moist - Routine Neck Exam Present: supple, full ROM, trachea midline - Routine Respiratory Exam Present: CTA bilaterally - Routine Cardiovascular Exam Present: RRR, S1, S2 - Routine Abdominal Exam Present: soft, normoactive bowel sounds - Routine Skin Exam Present: intact - Routine Neurological Exam Present: alert Assessment and Plan - Plan 1. Recurrent right pleural effusion. 2. S/p US guided right thoracentesis on 09/27/2018 with removal of 1 liter. 3. Cardiomyopathy EF< 20%. 4. CHF with elevated BNP. 5. Acute on chronic kidney disease. 6. s/p Mechanical mitral valve replacement. 7. s/p Coagulopathy. 8. Moderate to severe pulmonary hypertension with a PA pressure 60-70mmHg. 9. Anemia. 10. s/p US-guided paracentesis on 09/27/2018 with removal of 5.5 liters. Plan Oxygen p.r.n. to maintain sats above 92%. Bronchodilators. s/p Aspira drain catheter placement 10/08, Aspira drained 50ml since yesterday morning ( hemorrhagic fluid) CXR yesterday showed right plural effusion/consolidation. Will check CT chest for further eval ? hemothorax Recurrent pleural effusion is likely 2nd to CHF/ cardiomyopathy, Off abx. Monitor for signs of infection( fever and WBC). Monitor CBC Palliative care is following Continue treatment plan Discussed with nursing staff
--- NOTE | 2018-10-11 11:52 | P.PNIM ---
Subjective Interval history: Follow-up visit recurrent pleural effusion, status post Aspira drain catheter placement 10/08, mitral valve on Coumadin. Patient seen and examined today. States he is okay. Pain is manageable. Ascites present. Denies SOB/ dyspnea. Denies chest pain, palpitations, headaches, dizziness. Denies fevers, chills, n/ v/d. Denies dysuria. Per nursing has refused his medications this am including heparin. Spoke with brother Melquiades today. [place]. Discussed patient condition, comorbid status, and procedures has been done and to be done for the patient. Discussed quality of life at home versus senior living facility versus being at hospice. Brother will discuss options with patient on Monday. [place]. Physical Exam Vital signs: Vital Signs 10/10/18 12:00 10/10/18 16:00 10/10/18 20:00 Temperature 98.1 F 98.2 F 99.0 F Pulse Rate 60 60 60 Respiratory Rate 17 17 17 Blood Pressure 108/54 L 109/59 L 108/65 Pulse Oximetry 97 97 98 10/11/18 00:00 10/11/18 01:04 10/11/18 03:07 Temperature 98.2 F Pulse Rate 60 60 69 Respiratory Rate 17 16 17 Blood Pressure 115/59 L Pulse Oximetry 100 10/11/18 04:00 10/11/18 08:00 Temperature 97.8 F 97.7 F Pulse Rate 59 L 64 Respiratory Rate 18 16 Blood Pressure 108/59 L 109/56 L Pulse Oximetry 96 96 Intake & Output 10/10/18 10/11/18 10/11/18 18:59 06:59 18:59 Intake Total 50 / 50 450 / 450 Output Total 50 / 50 Balance 50 / 50 400 / 400 Weight 48.8 kg Intake: IV 50 / 50 50 / 50 Flexbumin 25% Inj 50 ML @ 60 50 / 50 50 / 50 mls/hr IV.SIG Q12H JOSÉ MIGUEL Rx#: [id number] Oral 400 / 400 Output: Wound Drainage 50 / 50 Right Abdomen 50 / 50 Other: # Incontinent Voids 4 Date of Last Bowel Movement 10/10/18 10/10/18 Narrative: GENERAL: This is a thin appearing, cachetic, chronically ill AA patient, in no apparent distress. SKIN: Warm and dry. HEENT: Normocephalic. Pupils equal round and reactive. Nose without bleeding. Airway patent. NECK: Trachea midline. CARDIOVASCULAR: Regular rate and rhythm with murmurs, gallops, or rubs. RESPIRATORY: Diminished bases. Right chest crackles. No wheezes, rales, or rhonchi. Aspira drain in place right side GASTROINTESTINAL: Abdomen with distention, ascites. Bowel Sounds hypoactive. Scrotal edema. MUSCULOSKELETAL: Extremities without clubbing, cyanosis. NEUROLOGICAL: Awake and alert. Moves all extremities weakly. Normal speech. Results - Labs CBC & Chem 7: 10/11/18 05:37 10/11/18 05:37 Laboratory Results - last 24 hr 10/10/18 10/10/18 10/10/18 16:06 16:06 19:32 WBC 5.1 RBC 3.24 L Hgb 8.9 L Hct 27.0 L MCV 83.4 MCH 27.5 MCHC 33.0 RDW 17.9 H Plt Count 140 L MPV 10.0 Neut % (Auto) Lymph % (Auto) Ida % (Auto) Eos % (Auto) Baso % (Auto) Neut # (Auto) Lymph # (Auto) Ida # (Auto) Eos # (Auto) Baso # (Auto) WBC Differential Differential Comment PT 14.1 H INR 1.4 Sodium 134 L Potassium 5.8 H Chloride 104 Carbon Dioxide 24.0 Anion Gap 6 BUN 46 H Creatinine 1.67 H Estimated GFR 53 L Random Glucose 162 H Calcium 8.4 L Iron TIBC % Saturation Ferritin Total Bilirubin Direct Bilirubin Indirect Bilirubin AST ALT Alkaline Phosphatase Ammonia Total Protein Albumin Tumor Marker AFP 10/10/18 10/10/18 10/11/18 21:54 21:54 05:37 WBC RBC Hgb Hct MCV MCH MCHC RDW Plt Count MPV Neut % (Auto) Lymph % (Auto) Ida % (Auto) Eos % (Auto) Baso % (Auto) Neut # (Auto) Lymph # (Auto) Ida # (Auto) Eos # (Auto) Baso # (Auto) WBC Differential Differential Comment PT 14.0 H INR 1.4 Sodium Potassium Chloride Carbon Dioxide Anion Gap BUN Creatinine Estimated GFR Random Glucose Calcium Iron 44 L TIBC 227 L % Saturation 19.4 L Ferritin 188 Total Bilirubin Direct Bilirubin Indirect Bilirubin AST ALT Alkaline Phosphatase Ammonia 48 H Total Protein Albumin Tumor Marker AFP 2.8 10/11/18 10/11/18 05:37 05:37 WBC 5.7 RBC 3.05 L Hgb 8.6 L Hct 25.6 L MCV 84.1 MCH 28.2 MCHC 33.6 RDW 18.3 H Plt Count 142 L MPV 9.7 Neut % (Auto) 75.2 H Lymph % (Auto) 4.4 L Ida % (Auto) 18.3 H Eos % (Auto) 1.6 Baso % (Auto) 0.5 Neut # (Auto) 4.2 Lymph # (Auto) 0.2 L Ida # (Auto) 1.0 H Eos # (Auto) 0.1 Baso # (Auto) 0.0 WBC Differential . Differential Comment Auto diff final PT INR Sodium 133 L Potassium 4.5 D Chloride 103 Carbon Dioxide 22.8 Anion Gap 7 BUN 47 H Creatinine 1.54 H Estimated GFR 59 L Random Glucose 89 Calcium 8.4 L Iron TIBC % Saturation Ferritin Total Bilirubin 2.8 H Direct Bilirubin 2.1 H Indirect Bilirubin 0.7 AST 21 ALT 17 Alkaline Phosphatase 245 H Ammonia Total Protein 8.0 Albumin 3.1 L Tumor Marker AFP - Imaging Impressions Abdomen Ultrasound 10/10/18 00:00 CONCLUSION: 1. Small amount of abdominal ascites. Assessment and Plan - Assessment (1) Congestive heart failure Code(s): I50.9 - Heart failure, unspecified Status: Acute (2) Ascites Code(s): R18.8 - Other ascites Status: Acute (3) Pleural effusion Code(s): J90 - Pleural effusion, not elsewhere classified Status: Acute (4) Shortness of breath Code(s): R06.02 - Shortness of breath Status: Acute (5) Altered mental status Code(s): R41.82 - Altered mental status, unspecified Status: Acute (6) Pneumonia Code(s): J18.9 - Pneumonia, unspecified organism Status: Acute (7) Delirium due to another medical condition Code(s): F05 - Delirium due to known physiological condition Status: Acute (8) Dyspnea Code(s): R06.00 - Dyspnea, unspecified Status: Acute - Plan This is a 47-year-old -[place] male admitted with metabolic encephalopathy. Found to have hepatic encephalopathy and started on antibiotics for possible right basilar pneumonia. Underwent paracentesis and thoracentesis. Eventually had improvement in his encephalopathy but still has some residual cognitive impairment. Psychiatry has been consulted to evaluate for any underlying psychotic disorders, have deemed more harm than benefit in using any antipsychotics at this time. 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 Bassett who felt the patient may be a candidate for implanted drainage catheter placement such as as pleural drain for long-term management of the patient's fluid retention -Consents obtained from the family/healthcare surrogate/brother over the phone. Copy in the chart. -Palliative care also following and due to his history of chronic systolic CHF with EF less than 20% does also qualify him for comfort care and hospice eligible. Consent obtained and signed from family, copy in the chart, Brother Jordan -Plan for a drain placement if consent is obtained per IR recommendation. Then plan to discharged home with the drain. -Chest XR with large right pleural effusion with accompanying atelectasis or consolidation throughout much the right lung.Cardiomegaly. The patient is status post sternotomy and pacing device in place. Atelectasis in the left perihilar and left base regions. -continue albumin and lasix, spironolactone -Aspira drainage catheter placement on the right side, drainage sanguinous as per nursing -Repeat chest x-ray showed 1. Diffuse pleural-parenchymal density throughout the right hemithorax, with slight better aeration of the lung. 2. Right-sided pleural drainage catheter. -Monitor respiratory status -Needs to be drained daily. Spoke with fish net maker, patient will need daily drain for now as per IR recommendation due to hepatic hydrothorax, until the drain slows sown, will unable to send patient home with [facility]. -GI consulted ascites and liver disease, appreciate recommendations. MELD 18. ?EGD for portal HTN, rifaximin/ lactulose -Spoke with brother Melquiades, discuss option for SNF vs home with hospice will speak with patient when he comes back abroad -US guided paracentesis PRN -Aspira Drain not draining as much. CT Chest ordered. F/u results poss clotting since drain previously was serosanguineous. F/u results. 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 Cardiomyopathy with EF less than 20% -History of allergy with ARBS -Continue oral Lasix, and continue IV albumin, increase spironolactone -Coumadin, Monitor INR -Continue Coreg -No chest pain no shortness of breath -Non compliant with medications, restart heparin drip, transition to Coumadin if INR is therapeutic Suspected hepatic insufficiency/failure given lowest INR is 1.5 in hospital -Hard to tell baseline liver INR given that the patient requires warfarin for mitral valve -Viral panel negative Cognitive impairment Hepatic encephalopathy -continue lactulose and zinc -No scheduled antipsychotics or anxiolytics at this time per psychiatry Chronic kidney disease stage III, poss cardiorenal vs hepatorenal -Avoid nephrotoxins -follow renal indices DVT prophylaxis heparin drip, transition to Coumadin Full code Discussed Condition With: Patient, CM, brother, nursing Discharge Planning: Plan to DC when clinically improved home with home health care versus SNF versus hospice. Pending meeting with brother Ray (1) Congestive heart failure Qualifiers: Heart failure type: unspecified Heart failure chronicity: acute on chronic Qualified Code(s): I50.9 - Heart failure, unspecified (2) Ascites Qualifiers: Ascites type: other type Qualified Code(s): R18.8 - Other ascites (5) Altered mental status Qualifiers: Altered mental status type: unspecified Qualified Code(s): R41.82 - Altered mental status, unspecified (6) Pneumonia Qualifiers: Pneumonia type: due to unspecified organism Laterality: right Lung location : unspecified part of lung Qualified Code(s): J18.9 - Pneumonia, unspecified organism
--- NOTE | 2018-10-11 12:23 | CT ---
EXAM DATE: 10/11/2018 12:10 PM EST AGE/SEX: 47 years / Male INDICATIONS: Effusion. Evaluate possible hemothorax. CLINICAL DATA: This is the patient's initial encounter. Patient reports that signs and symptoms have been present for 1 day and indicates a pain score of 0/10. MEDICAL/SURGICAL HISTORY: Renal disease. Congestive heart failure. . mitral valve replacement RADIATION DOSE: 8.65 CTDI (mGy) COMPARISON: [facility] [place], CT ABDOMEN & PELVIS W/O CONTRAST, 09/24/2018. . TECHNIQUE: Multiple contiguous axial images were obtained through the chest without contrast. Image s were obtained in suspended respiration using multiple row detector helical technique. Using automa shantel exposure control and adjustment of the mA and/or kV according to patient size, radiation dose was kept as low as reasonably achievable to obtain optimal diagnostic quality images. DICOM format imag e data is available electronically for review and comparison. FINDINGS: Lung: Patchy groundglass opacities throughout the right lung, slightly more confluent near the lung base. Patchy airspace consolidation in the left lower lobe. Mild diffuse interstitial edema. Pleura: There is a very small left-sided pleural effusion and a [id number] sized right-sided pleural effusion. Both effusions measure indeterminate density. However, there is focal region of inc reased irregular density noted along the anterior inferior right hemithorax along the proximal tract of the patient's tunneled Aspira catheter consistent with pleural blood products. Patient has a histo ry of serosanguineous right-sided pleural effusions during multiple prior thoracenteses dating back t o 2015. Mediastinum: Massive cardiomegaly with transposition of the great vessels. No pericardial effusion. Osseous Structures: No abnormal focal lytic or blastic bony lesions. Soft Tissues: Mild diffuse anasarca with minimal chest wall emphysema at the chest tube insertion sit e. Other: Diffusely heterogeneous hepatic density most likely reflecting long-standing congestive hepat opathy. CONCLUSION: 1. Small left and [id number] sized indeterminate density right-sided pleural effusions. There is a small amount of hemorrhage seen along the tract of the tunneled chest tube on the right. Patie nt does have a history of serosanguineous effusions on numerous thoracenteses dating back to 2015. 2. Massive cardiomegaly with transposition of the great vessels. Patchy groundglass opacities and in terstitial edema, right greater than left, consistent with pulmonary edema pattern with compressive a telectasis in the lower lobes. 3. Diffusely heterogeneous hepatic density most likely reflecting long-standing congestive hepatopat hy. Electronically signed by: Sean Mojica MD Board Certified Radiologist 10/11/2018 12:22 PM EST
--- NOTE | 2018-10-11 15:08 | P.PNGI ---
Subjective Interval history: Pt resting in bed. Denies nausea, vomiting. Abdomen distended and firm, denies abdominal pain. Denies melena or hematochezia. Expresses wishes to go home. <Miryam Chin - Last Filed: 10/11/18 14:49> Physical Exam Vital signs: Vital Signs 10/10/18 16:00 10/10/18 20:00 10/11/18 00:00 Temperature 98.2 F 99.0 F 98.2 F Pulse Rate 60 60 60 Respiratory Rate 17 17 17 Blood Pressure 109/59 L 108/65 115/59 L Pulse Oximetry 97 98 100 10/11/18 01:04 10/11/18 03:07 10/11/18 04:00 Temperature 97.8 F Pulse Rate 60 69 59 L Respiratory Rate 16 17 18 Blood Pressure 108/59 L Pulse Oximetry 96 10/11/18 08:00 10/11/18 12:00 Temperature 97.7 F 97.8 F Pulse Rate 64 60 Respiratory Rate 16 20 Blood Pressure 109/56 L 103/53 L Pulse Oximetry 96 95 Intake & Output 10/10/18 10/11/18 10/11/18 18:59 06:59 18:59 Intake Total 50 / 50 450 / 450 Output Total 50 / 50 Balance 50 / 50 400 / 400 Weight 48.8 kg Intake: IV 50 / 50 50 / 50 Flexbumin 25% Inj 50 ML @ 60 50 / 50 50 / 50 mls/hr IV.SIG Q12H JOSÉ MIGUEL Rx#: [id number] Oral 400 / 400 Output: Wound Drainage 50 / 50 Right Abdomen 50 / 50 Other: # Incontinent Voids 4 Date of Last Bowel Movement 10/10/18 10/10/18 - Constitutional no acute distress - Routine HEENT Exam Head: Present: normocephalic, atraumatic - Routine Respiratory Exam Present: decreased breath sounds - Routine Cardiovascular Exam Present: RRR, murmur - Routine Abdominal Exam Present: normoactive bowel sounds, distended, firm. Absent: tenderness - Routine Skin Exam Present: dry, warm - Routine Neurological Exam Present: alert, oriented X3 <Miryam Chin - Last Filed: 10/11/18 14:49> Vital signs: Vital Signs 10/10/18 16:00 10/10/18 20:00 10/11/18 00:00 Temperature 98.2 F 99.0 F 98.2 F Pulse Rate 60 60 60 Respiratory Rate 17 17 17 Blood Pressure 109/59 L 108/65 115/59 L Pulse Oximetry 97 98 100 10/11/18 01:04 10/11/18 03:07 10/11/18 04:00 Temperature 97.8 F Pulse Rate 60 69 59 L Respiratory Rate 16 17 18 Blood Pressure 108/59 L Pulse Oximetry 96 10/11/18 08:00 10/11/18 12:00 Temperature 97.7 F 97.8 F Pulse Rate 64 60 Respiratory Rate 16 20 Blood Pressure 109/56 L 103/53 L Pulse Oximetry 96 95 Intake & Output 10/10/18 10/11/18 10/11/18 18:59 06:59 18:59 Intake Total 50 / 50 450 / 450 Output Total 50 / 50 Balance 50 / 50 400 / 400 Weight 48.8 kg Intake: IV 50 / 50 50 / 50 Flexbumin 25% Inj 50 ML @ 60 50 / 50 50 / 50 mls/hr IV.SIG Q12H JOSÉ MIGUEL Rx#: [id number] Oral 400 / 400 Output: Wound Drainage 50 / 50 Right Abdomen 50 / 50 Other: # Incontinent Voids 4 Date of Last Bowel Movement 10/10/18 10/10/18 <Ivelisse Pacheco A - Last Filed: 10/11/18 15:17> Results - Labs CBC & Chem 7: 10/11/18 05:37 10/11/18 05:37 Laboratory Results - last 24 hr 10/10/18 10/10/18 10/10/18 16:06 16:06 19:32 WBC 5.1 RBC 3.24 L Hgb 8.9 L Hct 27.0 L MCV 83.4 MCH 27.5 MCHC 33.0 RDW 17.9 H Plt Count 140 L MPV 10.0 Neut % (Auto) Lymph % (Auto) Sabine % (Auto) Eos % (Auto) Baso % (Auto) Neut # (Auto) Lymph # (Auto) Sabine # (Auto) Eos # (Auto) Baso # (Auto) WBC Differential Differential Comment PT 14.1 H INR 1.4 Sodium 134 L Potassium 5.8 H Chloride 104 Carbon Dioxide 24.0 Anion Gap 6 BUN 46 H Creatinine 1.67 H Estimated GFR 53 L Random Glucose 162 H Calcium 8.4 L Iron TIBC % Saturation Ferritin Total Bilirubin Direct Bilirubin Indirect Bilirubin AST ALT Alkaline Phosphatase Ammonia Lactate Dehydrogenase Total Protein Albumin Tumor Marker AFP 10/10/18 10/10/18 10/11/18 21:54 21:54 05:37 WBC RBC Hgb Hct MCV MCH MCHC RDW Plt Count MPV Neut % (Auto) Lymph % (Auto) Sabine % (Auto) Eos % (Auto) Baso % (Auto) Neut # (Auto) Lymph # (Auto) Sabine # (Auto) Eos # (Auto) Baso # (Auto) WBC Differential Differential Comment PT 14.0 H INR 1.4 Sodium Potassium Chloride Carbon Dioxide Anion Gap BUN Creatinine Estimated GFR Random Glucose Calcium Iron 44 L TIBC 227 L % Saturation 19.4 L Ferritin 188 Total Bilirubin Direct Bilirubin Indirect Bilirubin AST ALT Alkaline Phosphatase Ammonia 48 H Lactate Dehydrogenase Total Protein Albumin Tumor Marker AFP 2.8 10/11/18 10/11/18 10/11/18 05:37 05:37 05:37 WBC 5.7 RBC 3.05 L Hgb 8.6 L Hct 25.6 L MCV 84.1 MCH 28.2 MCHC 33.6 RDW 18.3 H Plt Count 142 L MPV 9.7 Neut % (Auto) 75.2 H Lymph % (Auto) 4.4 L Sabine % (Auto) 18.3 H Eos % (Auto) 1.6 Baso % (Auto) 0.5 Neut # (Auto) 4.2 Lymph # (Auto) 0.2 L Sabine # (Auto) 1.0 H Eos # (Auto) 0.1 Baso # (Auto) 0.0 WBC Differential . Differential Comment Auto diff final PT INR Sodium 133 L Potassium 4.5 D Chloride 103 Carbon Dioxide 22.8 Anion Gap 7 BUN 47 H Creatinine 1.54 H Estimated GFR 59 L Random Glucose 89 Calcium 8.4 L Iron TIBC % Saturation Ferritin Total Bilirubin 2.8 H Direct Bilirubin 2.1 H Indirect Bilirubin 0.7 AST 21 ALT 17 Alkaline Phosphatase 245 H Ammonia Lactate Dehydrogenase 176 Total Protein 8.0 Cancelled Albumin 3.1 L Tumor Marker AFP Microbiology 09/27/18 10:15 Other Fungal Smear - Final No fungal elements seen 09/27/18 10:15 Other Fungal Culture - Preliminary No growth in 2 weeks - Imaging Impressions Abdomen Ultrasound 10/10/18 00:00 CONCLUSION: 1. Small amount of abdominal ascites. Chest CT 10/11/18 10:19 CONCLUSION: 1. Small left and owegh-ox-khubefpo sized indeterminate density right-sided pleural effusions. There is a small amount of hemorrhage seen along the tract of the tunneled chest tube on the right. Patient does have a history of serosanguineous effusions on numerous thoracenteses dating back to 2016. 2. Massive cardiomegaly with transposition of the great vessels. Patchy groundglass opacities and interstitial edema, right greater than left, consistent with pulmonary edema pattern with compressive atelectasis in the lower lobes. 3. Diffusely heterogeneous hepatic density most likely reflecting long- standing congestive hepatopathy. <Miryam Chin - Last Filed: 10/11/18 14:49> - Labs CBC & Chem 7: 10/11/18 05:37 10/11/18 05:37 Laboratory Results - last 24 hr 10/10/18 10/10/18 10/10/18 16:06 16:06 19:32 WBC 5.1 RBC 3.24 L Hgb 8.9 L Hct 27.0 L MCV 83.4 MCH 27.5 MCHC 33.0 RDW 17.9 H Plt Count 140 L MPV 10.0 Neut % (Auto) Lymph % (Auto) Sabine % (Auto) Eos % (Auto) Baso % (Auto) Neut # (Auto) Lymph # (Auto) Sabine # (Auto) Eos # (Auto) Baso # (Auto) WBC Differential Differential Comment PT 14.1 H INR 1.4 Sodium 134 L Potassium 5.8 H Chloride 104 Carbon Dioxide 24.0 Anion Gap 6 BUN 46 H Creatinine 1.67 H Estimated GFR 53 L Random Glucose 162 H Calcium 8.4 L Iron TIBC % Saturation Ferritin Total Bilirubin Direct Bilirubin Indirect Bilirubin AST ALT Alkaline Phosphatase Ammonia Lactate Dehydrogenase Total Protein Albumin Tumor Marker AFP 10/10/18 10/10/18 10/11/18 21:54 21:54 05:37 WBC RBC Hgb Hct MCV MCH MCHC RDW Plt Count MPV Neut % (Auto) Lymph % (Auto) Sabine % (Auto) Eos % (Auto) Baso % (Auto) Neut # (Auto) Lymph # (Auto) Sabine # (Auto) Eos # (Auto) Baso # (Auto) WBC Differential Differential Comment PT 14.0 H INR 1.4 Sodium Potassium Chloride Carbon Dioxide Anion Gap BUN Creatinine Estimated GFR Random Glucose Calcium Iron 44 L TIBC 227 L % Saturation 19.4 L Ferritin 188 Total Bilirubin Direct Bilirubin Indirect Bilirubin AST ALT Alkaline Phosphatase Ammonia 48 H Lactate Dehydrogenase Total Protein Albumin Tumor Marker AFP 2.8 10/11/18 10/11/18 10/11/18 05:37 05:37 05:37 WBC 5.7 RBC 3.05 L Hgb 8.6 L Hct 25.6 L MCV 84.1 MCH 28.2 MCHC 33.6 RDW 18.3 H Plt Count 142 L MPV 9.7 Neut % (Auto) 75.2 H Lymph % (Auto) 4.4 L Sabine % (Auto) 18.3 H Eos % (Auto) 1.6 Baso % (Auto) 0.5 Neut # (Auto) 4.2 Lymph # (Auto) 0.2 L Sabine # (Auto) 1.0 H Eos # (Auto) 0.1 Baso # (Auto) 0.0 WBC Differential . Differential Comment Auto diff final PT INR Sodium 133 L Potassium 4.5 D Chloride 103 Carbon Dioxide 22.8 Anion Gap 7 BUN 47 H Creatinine 1.54 H Estimated GFR 59 L Random Glucose 89 Calcium 8.4 L Iron TIBC % Saturation Ferritin Total Bilirubin 2.8 H Direct Bilirubin 2.1 H Indirect Bilirubin 0.7 AST 21 ALT 17 Alkaline Phosphatase 245 H Ammonia Lactate Dehydrogenase 176 Total Protein 8.0 Cancelled Albumin 3.1 L Tumor Marker AFP Microbiology 09/27/18 10:15 Other Fungal Smear - Final No fungal elements seen 09/27/18 10:15 Other Fungal Culture - Preliminary No growth in 2 weeks - Imaging Impressions Abdomen Ultrasound 10/10/18 00:00 CONCLUSION: 1. Small amount of abdominal ascites. Chest CT 10/11/18 10:19 CONCLUSION: 1. Small left and [id number]-[id number] sized indeterminate density right-sided pleural effusions. There is a small amount of hemorrhage seen along the tract of the tunneled chest tube on the right. Patient does have a history of serosanguineous effusions on numerous thoracenteses dating back to 2016. 2. Massive cardiomegaly with transposition of the great vessels. Patchy groundglass opacities and interstitial edema, right greater than left, consistent with pulmonary edema pattern with compressive atelectasis in the lower lobes. 3. Diffusely heterogeneous hepatic density most likely reflecting long- standing congestive hepatopathy. <Ivelisse Pacheco - Last Filed: 10/11/18 15:17> Assessment and Plan (1) Ascites Status: Acute Code(s): R18.8 - Other ascites (2) Encephalopathy Status: Acute Code(s): G93.40 - Encephalopathy, unspecified - Plan Assessment: - Recurrent ascites- Pt has had previous work up by our service, negative SHANNAN, AMA, ASMA. Ceruloplasmin only mildly elevated. Negative for AAT deficiency. Viral hepatitis panel negative. Ferritin not elevated. Paracentesis with SAAG score 0.5 consistent with etiology not related to portal hypertension. Likely congestive hepatopathy given patient's severely reduced EF. - Anemia with Hemoccult positive stools- no camilla bleeding seen in stools. Hgb has been trending down some but overall stable. - Recurrent pleural effusions- status post Aspira drain catheter placement - Mitral valve replacement- Anticoagulated with Warfarin (10/11/18) This is a 47 yo M with significant medical history, congenital heart disease leading to cardiomyopathy and severe CHF with EF < 20%. He has multiple complications from this including recurrent pleural effusion and ascites which has been recurrently drained. He is currently anemic with Hemoccult positive stools, however there is no camilla blood seen in his stools. He is anticoagulated for history of MV repair and this would be risky to stop. He would also be at high risk due to very low EF. Would recommend no EGD at this time unless emergent need. He has had previous liver work up as noted above and his liver issues are likely related to congestive hepatopathy. Pt states he wants to go home and be comfortable. He is waiting for his brother to arrive to discuss Hospice, might not be til Monday. At this time, there is not much to add from a GI perspective, previous liver work up reviewed, can have therapeutic paracentesis as needed. No plans for EGD at this time given very high risk. Plan: Monitor H/H Will add Protonix Anticoagulation per primary team and cardiology Therapeutic paracentesis PRN Continue Spironolactone and Lasix Monitor ammonia On lactulose and Xifaxan Hospice consult is appropriate from our standpoint GI will sign off, please reconsult as needed This patient has been seen and examined by myself and Dr. Pacheco and this note is written on his behalf <Miryam Chin - Last Filed: 10/11/18 14:49> (1) Ascites Status: Acute Code(s): R18.8 - Other ascites (2) Encephalopathy Status: Acute Code(s): G93.40 - Encephalopathy, unspecified - Attending Attestation Agree with above, please notify us if needed again. <Ivelisse Pacheco - Last Filed: 10/11/18 15:17> <Miryam Chin - Last Filed: 10/11/18 14:49> (1) Ascites Qualifiers: Ascites type: other type Qualified Code(s): R18.8 - Other ascites <Ivelisse Pacheco - Last Filed: 10/11/18 15:17> (1) Ascites Qualifiers: Qualified Code(s): R18.8 - Other ascites
[2018-10-11] MEDS: Heparin Drip 25,000 UNIT/250 ML BAG IV.CONT PRN (18:33)
[2018-10-12] MEDS: Albumin Human 25% Inj 50 ML IV.SIG SCH ×3 (04:51→16:42)
[2018-10-12 04:59] LABS: Hematocrit 24.5 % (39.0-51.0); Hemoglobin 8.4 gm/dL (13.0-17.0); Mean Corpuscular HGB Conc 34.4 % (32.0-36.0); Mean Corpuscular Hemoglobin 28.1 pg (27.0-34.0); Mean Corpuscular Volume 81.9 fL (80.0-100.0); Mean Platelet Volume 9.5 fL (7.0-11.0); Platelet Count 148 th/mm3 (150-450); Red Blood Count 2.99 mil/mm3 (4.50-5.90); Red Cell Distribution Width 18.1 % (11.6-17.2)
[2018-10-12 05:12] LABS: Activated Partial Thrombo Time 57.7 sec (23.4-31.7); INR 1.5 Ratio; Prothrombin Time 15.2 sec (9.8-11.6)
--- NOTE | 2018-10-12 09:59 | P.PNPL ---
Subjective Interval history: Patient is lying in bed in NAD. Aspira catheter drained only 20ml. Afebrile. Physical Exam Vital signs: Vital Signs 10/11/18 12:00 10/11/18 16:00 10/11/18 20:00 Temperature 97.8 F 97.9 F Pulse Rate 60 60 60 Respiratory Rate 20 18 Blood Pressure 103/53 L 136/60 Pulse Oximetry 95 95 10/11/18 21:01 10/12/18 00:00 10/12/18 00:51 Temperature 97.2 F L Pulse Rate 60 63 60 Respiratory Rate 17 16 17 Blood Pressure 107/52 L Pulse Oximetry 92 L 10/12/18 04:00 10/12/18 04:20 10/12/18 04:51 Temperature 97.5 F L 98.2 F Pulse Rate 58 L 60 Respiratory Rate 16 16 Blood Pressure 124/56 L Pulse Oximetry 97 10/12/18 08:00 10/12/18 08:41 Temperature 98.0 F Pulse Rate 61 61 Respiratory Rate 16 20 Blood Pressure 112/53 L Pulse Oximetry 97 Intake & Output 10/11/18 10/12/18 10/12/18 18:59 06:59 18:59 Intake Total 770 / 770 230 / 230 Output Total 20 / 20 Balance 770 / 770 210 / 210 Weight 46.7 kg Intake: IV 50 / 50 50 / 50 Flexbumin 25% Inj 50 ML @ 60 50 / 50 50 / 50 mls/hr IV.SIG Q12H JOSÉ MIGUEL Rx#: [id number] Oral 720 / 720 180 / 180 Output: Wound Drainage 20 20 Right Abdomen 20 Other: # Voids 2 3 Date of Last Bowel Movement 10/10/18 10/10/18 - Constitutional no acute distress, thin - Routine HEENT Exam Head: Present: normocephalic, atraumatic Eye: Present: EOMI, PERRL, normal accommodation, conjunctivae pink ENT: Present: mucous membranes moist - Routine Neck Exam Present: supple, full ROM, trachea midline - Routine Respiratory Exam Present: CTA bilaterally - Routine Cardiovascular Exam Present: RRR, S1, S2 - Routine Abdominal Exam Present: soft, normoactive bowel sounds - Routine Skin Exam Present: intact, dry - Routine Neurological Exam Present: alert Assessment and Plan - Plan 1. Recurrent right pleural effusion. 2. S/p US guided right thoracentesis on 09/27/2018 with removal of 1 liter. 3. Cardiomyopathy EF< 20%. 4. CHF with elevated BNP. 5. Acute on chronic kidney disease. 6. s/p Mechanical mitral valve replacement. 7. s/p Coagulopathy. 8. Moderate to severe pulmonary hypertension with a PA pressure 60-70mmHg. 9. Anemia. 10. s/p US-guided paracentesis on 09/27/2018 with removal of 5.5 liters. Plan Oxygen p.r.n. to maintain sats above 92%. Bronchodilators. s/p Aspira drain catheter placement 10/08, Aspira drained 20ml since yesterday morning CT chest yesterday : Small left and [id number] sized indeterminate density right-sided pleural effusions. There is a small amount of hemorrhage seen along the tract of the tunneled chest tube on the right CTS consulted for ? right hemothorax ? need for decortication. Off abx. Monitor for signs of infection( fever and WBC). Diurese with Lasix 40mg IV x1. Check BMP Check CXR in am Monitor CBC Palliative care is following Continue treatment plan Discussed with nursing staff
[2018-10-12] MEDS: rifAXIMin 550 MG Tablet PO SCH ×2 (10:49→21:29)
[2018-10-12] MEDS: Spironolactone 25 MG Tablet PO SCH ×2 (10:49→17:17)
[2018-10-12] MEDS: Sodium Chloride 0.9% 2 ML Flush BID IV.FLUSH SCH ×2 (10:52→21:29)
[2018-10-12 11:10] LABS: Calcium 8.6 mg/dL (8.5-10.1); Carbon Dioxide 20.1 meq/L (21.0-32.0); Potassium 4.3 meq/L (3.5-5.1)
--- NOTE | 2018-10-12 12:34 | P.PNIM ---
Subjective Interval history: Follow-up visit recurrent pleural effusion, status post Aspira drain catheter placement 10/08, mitral valve on Coumadin. Patient seen and examined today. He wanted to go home. States he does not want to do anything further discussed with patient hospice benefits of going home. Patient states that he understood that he can go home with hospice "I want to go home and pass away at home not here." States he understood that he is sick and not getting well. Patient is coherent, awake and alert. Oriented to year saying it is 2018, he knows he is at [facility], situation and condition. Physical Exam Vital signs: Vital Signs 10/11/18 16:00 10/11/18 20:00 10/11/18 21:01 Temperature 97.9 F Pulse Rate 60 60 60 Respiratory Rate 18 17 Blood Pressure 136/60 Pulse Oximetry 95 10/12/18 00:00 10/12/18 00:51 10/12/18 04:00 Temperature 97.2 F L 97.5 F L Pulse Rate 63 60 58 L Respiratory Rate 16 17 16 Blood Pressure 107/52 L 124/56 L Pulse Oximetry 92 L 97 10/12/18 04:20 10/12/18 04:51 10/12/18 08:00 Temperature 98.2 F 98.0 F Pulse Rate 60 61 Respiratory Rate 16 16 Blood Pressure 112/53 L Pulse Oximetry 97 10/12/18 08:41 10/12/18 12:00 Temperature 98.0 F Pulse Rate 61 59 L Respiratory Rate 20 16 Blood Pressure 110/58 L Pulse Oximetry 98 Intake & Output 10/11/18 10/12/18 10/12/18 18:59 06:59 18:59 Intake Total 770 / 770 230 / 230 Output Total Balance 770 / 770 210 / 210 Weight 46.7 kg Intake: IV 50 / 50 50 / 50 Flexbumin 25% Inj 50 ML @ 60 50 / 50 50 / 50 mls/hr IV.SIG Q12H JOSÉ MIGUEL Rx#: [id number] Oral 720 / 720 180 / 180 Output: Wound Drainage Right Abdomen Other: # Voids 2 3 Date of Last Bowel Movement 10/10/18 10/10/18 Narrative: GENERAL: This is a thin appearing, cachetic, chronically ill AA patient, in no apparent distress. SKIN: Warm and dry. HEENT: Normocephalic. Pupils equal round and reactive. Nose without bleeding. Airway patent. NECK: Trachea midline. CARDIOVASCULAR: Regular rate and rhythm with murmurs, gallops, or rubs. RESPIRATORY: Diminished bases. Right chest crackles. No wheezes, rales, or rhonchi. Aspira drain in place right side, draining amount sanguinous drainage. GASTROINTESTINAL: Abdomen with distention, ascites. Bowel Sounds hypoactive. Scrotal edema. MUSCULOSKELETAL: Extremities without clubbing, cyanosis. NEUROLOGICAL: Awake and alert. Moves all extremities weakly. Normal speech. Results - Labs CBC & Chem 7: 10/12/18 04:43 10/12/18 10:23 Laboratory Results - last 24 hr 10/11/18 10/11/18 10/11/18 05:37 17:20 23:24 WBC RBC Hgb Hct MCV MCH MCHC RDW Plt Count MPV PT INR APTT 32.0 H 48.2 H D Sodium Potassium Chloride Carbon Dioxide Anion Gap BUN Creatinine Estimated GFR Random Glucose Calcium Lactate Dehydrogenase 176 Total Protein Cancelled 10/12/18 10/12/18 10/12/18 04:43 04:43 10:23 WBC 5.0 RBC 2.99 L Hgb 8.4 L Hct 24.5 L MCV 81.9 MCH 28.1 MCHC 34.4 RDW 18.1 H Plt Count 148 L MPV 9.5 PT 15.2 H INR 1.5 APTT 57.7 H 56.4 H Sodium Potassium Chloride Carbon Dioxide Anion Gap BUN Creatinine Estimated GFR Random Glucose Calcium Lactate Dehydrogenase Total Protein 10/12/18 10:23 WBC RBC Hgb Hct MCV MCH MCHC RDW Plt Count MPV PT INR APTT Sodium 134 L Potassium 4.3 Chloride 105 Carbon Dioxide 20.1 L Anion Gap 9 BUN 56 H Creatinine 1.69 H Estimated GFR 53 L Random Glucose 143 H Calcium 8.6 Lactate Dehydrogenase Total Protein Microbiology 09/27/18 10:15 Other Fungal Smear - Final No fungal elements seen 09/27/18 10:15 Other Fungal Culture - Preliminary No growth in 2 weeks Assessment and Plan - Assessment (1) Congestive heart failure Code(s): I50.9 - Heart failure, unspecified Status: Acute (2) Ascites Code(s): R18.8 - Other ascites Status: Acute (3) Pleural effusion Code(s): J90 - Pleural effusion, not elsewhere classified Status: Acute (4) Shortness of breath Code(s): R06.02 - Shortness of breath Status: Acute (5) Altered mental status Code(s): R41.82 - Altered mental status, unspecified Status: Acute (6) Pneumonia Code(s): J18.9 - Pneumonia, unspecified organism Status: Acute (7) Delirium due to another medical condition Code(s): F05 - Delirium due to known physiological condition Status: Acute (8) Dyspnea Code(s): R06.00 - Dyspnea, unspecified Status: Acute - Plan This is a 47-year-old -[place] male admitted with metabolic encephalopathy. Found to have hepatic encephalopathy and started on antibiotics for possible right basilar pneumonia. Underwent paracentesis and thoracentesis. Eventually had improvement in his encephalopathy but still has some residual cognitive impairment. Psychiatry has been consulted to evaluate for any underlying psychotic disorders, have deemed more harm than benefit in using any antipsychotics at this time. 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 Bassett who felt the patient may be a candidate for implanted drainage catheter placement such as as pleural drain for long-term management of the patient's fluid retention -Consents obtained from the family/healthcare surrogate/brother over the phone. Copy in the chart. -Palliative care also following and due to his history of chronic systolic CHF with EF less than 20% does also qualify him for comfort care and hospice eligible. Consent obtained and signed from family, copy in the chart, Brother Jordan -Plan for a drain placement if consent is obtained per IR recommendation. Then plan to discharged home with the drain. -Chest XR with large right pleural effusion with accompanying atelectasis or consolidation throughout much the right lung.Cardiomegaly. The patient is status post sternotomy and pacing device in place. Atelectasis in the left perihilar and left base regions. -continue albumin and lasix, spironolactone -Aspira drainage catheter placement on the right side, drainage sanguinous as per nursing -Repeat chest x-ray showed 1. Diffuse pleural-parenchymal density throughout the right hemithorax, with slight better aeration of the lung. 2. Right-sided pleural drainage catheter. -Monitor respiratory status -Needs to be drained daily. Spoke with sheet sorter, patient will need daily drain for now as per IR recommendation due to hepatic hydrothorax, until the drain slows sown, will unable to send patient home with [facility]. -GI consulted ascites and liver disease, appreciate recommendations. Recommends rifaximin/ lactulose. GI has signed off. -Spoke with brother Melquiades, discuss option for SNF vs home with hospice will speak [place] -US guided paracentesis PRN -Aspira Drain not draining as much. CT Chest 1. Small left and small-to- moderate sized indeterminate density right-sided pleural effusions. There is a small amount of hemorrhage seen along the tract of the tunneled chest tube on the right. Patient does have a history of serosanguineous effusions on numerous thoracenteses dating back to 2016. Massive cardiomegaly with transposition of the great vessels. Patchy groundglass opacities and interstitial edema, right greater than left, consistent with pulmonary edema pattern with compressive atelectasis in the lower lobes. Diffusely heterogeneous hepatic density most likely reflecting long-standing congestive hepatopathy. -Thoracic surgery has been consulted and has seen the patient. Recommends no surgical intervention as patient also does not want any intervention. -Spoke extensively with patient today. Patient wants to go on hospice to go home. Discussed with palliative care and case management. Will get in contact with brother Melquiades. We will plan for hospice care for patient to go [facility] versus home. 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 Cardiomyopathy with EF less than 20% -History of allergy with ARBS -Continue oral Lasix, and continue IV albumin, increase spironolactone -Coumadin, Monitor INR -Continue Coreg -No chest pain no shortness of breath -heparin drip, transition to Coumadin if INR is therapeutic Suspected hepatic insufficiency/failure given lowest INR is 1.5 in hospital -Hard to tell baseline liver INR given that the patient requires warfarin for mitral valve -Viral panel negative Cognitive impairment Hepatic encephalopathy -continue lactulose and zinc -No scheduled antipsychotics or anxiolytics at this time per psychiatry Chronic kidney disease stage III, poss cardiorenal vs hepatorenal -Avoid nephrotoxins -follow renal indices DVT prophylaxis heparin drip, transition to Coumadin Full code Discussed Condition With: Patient, nursing, CM, palliative care, Dr. Molina, Dr. Lu, cardiothoracic Discharge Planning: Plan to DC with hospice care (1) Congestive heart failure Qualifiers: Heart failure type: unspecified Heart failure chronicity: acute on chronic Qualified Code(s): I50.9 - Heart failure, unspecified (2) Ascites Qualifiers: Ascites type: other type Qualified Code(s): R18.8 - Other ascites (5) Altered mental status Qualifiers: Altered mental status type: unspecified Qualified Code(s): R41.82 - Altered mental status, unspecified (6) Pneumonia Qualifiers: Pneumonia type: due to unspecified organism Laterality: right Lung location : unspecified part of lung Qualified Code(s): J18.9 - Pneumonia, unspecified organism
[2018-10-12 14:42] LABS: Smooth Muscle Total Auto Abs Negative (Negative)
--- NOTE | 2018-10-12 16:12 | P.PNPAL ---
Reason for Visit Reason for visit: a. To assist with evaluation and management of symptoms including: confusion b. To assist medical decision maker(s) with: better understanding of current medical conditions; weighing benefits/burdens of medical treatment options; making medical treatment decisions. Subjective Subjective/Interval History: Mr. Ko is a 47-year-old man who was admitted on 09/24/2018 with hepatic encephalopathy. He was started on antibiotics for possible right basilar pneumonia. Patient underwent paracentesis and thoracentesis on 09/27/2018 with some subsequent improvement in neuro status. Psychiatry and speech therapy have evaluated the patient. Patient has multiple chronic comorbid conditions including mitral valve replacement x2, chronic anticoagulant, systolic CHF EF 20 %, CKD stage III, umbilical hernia, AICD. 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 Patient has been disabled since the age of 8 years status post CVA. He lived with his mother until recently when she went to a nursing facility. He has been living alone with his brothers doing grocery shopping and checking in on him. Follow up visit necessary for symptom management of confusion and clarification of medical treatment goals. Patient appears extremely frail and cachectic. He presents sitting upright on the side of his bed eating lunch. When asked how he is doing he shrugs his shoulders and puts his hands in the air stating "I just wanna go home." He has no complaints; denies pain or any acute distress. Eating 75% of meals. Status post Aspira catheter placement on 10/08/2018. Chest x-ray yesterday 10/11/2018 showed small left and small to moderate sized indeterminate density right sided pleural effusions. There was a small amount of hemorrhage seen along the tract of the tunneled chest tube on the right. Massive cardiomegaly with transposition of the great vessels. Patchy groundglass opacities and interstitial edema, right greater than left, consistent with pulmonary edema pattern with compressive atelectasis in the lower lobes. Diffusely heterogeneous hepatic density most likely reflecting long-standing congestive hepatopathy. Gastroenterology was consulted on 10/10/2017 due to the patient's recurrent ascites and liver disease. Patient anemic with Hemoccult positive stools, however no camilla blood is seen in the stool. He is on anticoagulation due to his history of MV repair and would be high risk for complications if it were stopped; EF approximately 20%. GI does not recommend EGD at this time unless emergently needed. GI is in agreement with medical team that a hospice would be appropriate at this point in time. Palliative care met with the patient to reviewed aggressive treatment goals versus comfort focused care. Explained that hospice would focus not on how long he had to live but the quality of the time he had left. Patient would like to speak with someone from hospice to learn more about their services. I asked if he wanted his family to be involved in conversations with hospice. The patient replied, "Why? I know what year it is and I know I am in the hospital. I don't want anymore stuff done to me. I just wanna go home to ." Patient was unwilling to readdress CODE STATUS at the time of my visit. Hospice consult pending. Spoke with hospice intake (Mustapha) and hospice admission nurse (Mateo). RECOMMENDATIONS TO CONSIDER THERAPEUTIC PARACENTESIS PRIOR TO DISCHARGE IF INDICATED. Discussed patient's hospital course and medical treatment goals with Radha Lundberg APRN, ed case manager (Brianna) and RN (Pilar). Family/Friend Interactions: See interval history Advance Directives Health Care Surrogate: Copy in medical record Advance Directives Date on File: 10/01/18 Health Care Surrogate Name and Number: MELQUIADES "GERSON" FAVIOLA [phone] Significant change in goals:: Patient stating he wants to go home to . Hospice consult pending. Objective Vital Signs: Vital Signs 10/11/18 16:00 10/11/18 20:00 10/11/18 21:01 Temperature 97.9 F Pulse Rate 60 60 60 Respiratory Rate 18 17 Blood Pressure 136/60 Pulse Oximetry 95 10/12/18 00:00 10/12/18 00:51 10/12/18 04:00 Temperature 97.2 F L 97.5 F L Pulse Rate 63 60 58 L Respiratory Rate 16 17 16 Blood Pressure 107/52 L 124/56 L Pulse Oximetry 92 L 97 10/12/18 04:20 10/12/18 04:51 10/12/18 08:00 Temperature 98.2 F 98.0 F Pulse Rate 60 61 Respiratory Rate 16 16 Blood Pressure 112/53 L Pulse Oximetry 97 10/12/18 08:41 10/12/18 12:00 Temperature 98.0 F Pulse Rate 61 59 L Respiratory Rate 20 16 Blood Pressure 110/58 L Pulse Oximetry 98 Intake & Output 10/11/18 10/12/18 10/12/18 18:59 06:59 18:59 Intake Total 770 / 770 230 / 230 Output Total Balance 770 / 770 210 / 210 Weight 46.7 kg Intake: IV 50 / 50 50 / 50 Flexbumin 25% Inj 50 ML @ 60 50 / 50 50 / 50 mls/hr IV.SIG Q12H JOSÉ MIGUEL Rx#: [id number] Oral 720 / 720 180 / 180 Output: Wound Drainage Right Abdomen Other: # Voids 2 3 Date of Last Bowel Movement 10/10/18 10/10/18 10/10/18 Physical Exam: CONSTITUTIONAL/GENERAL: This is a very frail, chronically ill appearing gentleman, pleasant and cooperative TUBES/LINES/DRAINS: PIV x2 left upper extremity SKIN: No jaundice, rashes, or lesions. Skin temperature appropriate. Not diaphoretic. HEAD: Atraumatic. Normocephalic. EYES: Pupils equal and round and reactive. No injection or drainage. Fundi not examined. ENT: Hearing grossly normal. Nose without bleeding or purulent drainage. NECK: Trachea midline. Supple, nontender. No palpable thyroid enlargement or nodularity. CARDIOVASCULAR: Regular rate and rhythm, faint murmur. No JVD. Peripheral pulses symmetric. RESPIRATORY/CHEST: Symmetric, unlabored respirations. On room air. Breath sounds diminished in bases bilaterally. Aspira drain in place right side GASTROINTESTINAL: Abdomen soft, non-tender, distended. Ascites. Bowel sounds present. GENITOURINARY: Without palpable bladder distension. MUSCULOSKELETAL: Extremities without clubbing, cyanosis, or edema. Muscle wasting in all extremities LYMPHATICS: No palpable cervical or supraclavicular adenopathy. NEUROLOGICAL: Awake and alert. Cooperative. Follows commands. Able to answer questions. Moves all 4 extremities PSYCHIATRIC: No anxiety/depression. No apparent hallucinations or other psychotic thought process. Diagnostic Tests Laboratory: Laboratory Results - last 72 hr 10/09/18 10/10/18 10/10/18 17:05 16:06 16:06 WBC RBC Hgb Hct MCV MCH MCHC RDW Plt Count MPV Neut % (Auto) Lymph % (Auto) Bulloch % (Auto) Eos % (Auto) Baso % (Auto) Neut # (Auto) Lymph # (Auto) Bulloch # (Auto) Eos # (Auto) Baso # (Auto) WBC Differential Differential Comment PT 14.0 H 14.1 H INR 1.4 1.4 APTT 37.9 H Sodium 134 L Potassium 5.8 H Chloride 104 Carbon Dioxide 24.0 Anion Gap 6 BUN 46 H Creatinine 1.67 H Estimated GFR 53 L Random Glucose 162 H Calcium 8.4 L Iron TIBC % Saturation Ferritin Total Bilirubin Direct Bilirubin Indirect Bilirubin AST ALT Alkaline Phosphatase Ammonia Lactate Dehydrogenase Total Protein Albumin Tumor Marker AFP Anti-Smooth Muscle Ab 10/10/18 10/10/18 10/10/18 19:32 21:54 21:54 WBC 5.1 RBC 3.24 L Hgb 8.9 L Hct 27.0 L MCV 83.4 MCH 27.5 MCHC 33.0 RDW 17.9 H Plt Count 140 L MPV 10.0 Neut % (Auto) Lymph % (Auto) Bulloch % (Auto) Eos % (Auto) Baso % (Auto) Neut # (Auto) Lymph # (Auto) Bulloch # (Auto) Eos # (Auto) Baso # (Auto) WBC Differential Differential Comment PT INR APTT Sodium Potassium Chloride Carbon Dioxide Anion Gap BUN Creatinine Estimated GFR Random Glucose Calcium Iron 44 L TIBC 227 L % Saturation 19.4 L Ferritin 188 Total Bilirubin Direct Bilirubin Indirect Bilirubin AST ALT Alkaline Phosphatase Ammonia 48 H Lactate Dehydrogenase Total Protein Albumin Tumor Marker AFP 2.8 Anti-Smooth Muscle Ab 10/10/18 10/11/18 10/11/18 21:54 05:37 05:37 WBC RBC Hgb Hct MCV MCH MCHC RDW Plt Count MPV Neut % (Auto) Lymph % (Auto) Bulloch % (Auto) Eos % (Auto) Baso % (Auto) Neut # (Auto) Lymph # (Auto) Bulloch # (Auto) Eos # (Auto) Baso # (Auto) WBC Differential Differential Comment PT 14.0 H INR 1.4 APTT Sodium 133 L Potassium 4.5 D Chloride 103 Carbon Dioxide 22.8 Anion Gap 7 BUN 47 H Creatinine 1.54 H Estimated GFR 59 L Random Glucose 89 Calcium 8.4 L Iron TIBC % Saturation Ferritin Total Bilirubin 2.8 H Direct Bilirubin 2.1 H Indirect Bilirubin 0.7 AST 21 ALT 17 Alkaline Phosphatase 245 H Ammonia Lactate Dehydrogenase Total Protein 8.0 Albumin 3.1 L Tumor Marker AFP Anti-Smooth Muscle Ab Negative 10/11/18 10/11/18 10/11/18 05:37 05:37 17:20 WBC 5.7 RBC 3.05 L Hgb 8.6 L Hct 25.6 L MCV 84.1 MCH 28.2 MCHC 33.6 RDW 18.3 H Plt Count 142 L MPV 9.7 Neut % (Auto) 75.2 H Lymph % (Auto) 4.4 L Bulloch % (Auto) 18.3 H Eos % (Auto) 1.6 Baso % (Auto) 0.5 Neut # (Auto) 4.2 Lymph # (Auto) 0.2 L Bulloch # (Auto) 1.0 H Eos # (Auto) 0.1 Baso # (Auto) 0.0 WBC Differential . Differential Comment Auto diff final PT INR APTT 32.0 H Sodium Potassium Chloride Carbon Dioxide Anion Gap BUN Creatinine Estimated GFR Random Glucose Calcium Iron TIBC % Saturation Ferritin Total Bilirubin Direct Bilirubin Indirect Bilirubin AST ALT Alkaline Phosphatase Ammonia Lactate Dehydrogenase 176 Total Protein Cancelled Albumin Tumor Marker AFP Anti-Smooth Muscle Ab 10/11/18 10/12/18 10/12/18 23:24 04:43 04:43 WBC 5.0 RBC 2.99 L Hgb 8.4 L Hct 24.5 L MCV 81.9 MCH 28.1 MCHC 34.4 RDW 18.1 H Plt Count 148 L MPV 9.5 Neut % (Auto) Lymph % (Auto) Bulloch % (Auto) Eos % (Auto) Baso % (Auto) Neut # (Auto) Lymph # (Auto) Bulloch # (Auto) Eos # (Auto) Baso # (Auto) WBC Differential Differential Comment PT 15.2 H INR 1.5 APTT 48.2 H D 57.7 H Sodium Potassium Chloride Carbon Dioxide Anion Gap BUN Creatinine Estimated GFR Random Glucose Calcium Iron TIBC % Saturation Ferritin Total Bilirubin Direct Bilirubin Indirect Bilirubin AST ALT Alkaline Phosphatase Ammonia Lactate Dehydrogenase Total Protein Albumin Tumor Marker AFP Anti-Smooth Muscle Ab 10/12/18 10/12/18 10:23 10:23 WBC RBC Hgb Hct MCV MCH MCHC RDW Plt Count MPV Neut % (Auto) Lymph % (Auto) Bulloch % (Auto) Eos % (Auto) Baso % (Auto) Neut # (Auto) Lymph # (Auto) Bulloch # (Auto) Eos # (Auto) Baso # (Auto) WBC Differential Differential Comment PT INR APTT 56.4 H Sodium 134 L Potassium 4.3 Chloride 105 Carbon Dioxide 20.1 L Anion Gap 9 BUN 56 H Creatinine 1.69 H Estimated GFR 53 L Random Glucose 143 H Calcium 8.6 Iron TIBC % Saturation Ferritin Total Bilirubin Direct Bilirubin Indirect Bilirubin AST ALT Alkaline Phosphatase Ammonia Lactate Dehydrogenase Total Protein Albumin Tumor Marker AFP Anti-Smooth Muscle Ab Result Diagrams: 10/12/18 04:43 10/12/18 10:23 Microbiology: Microbiology 09/27/18 10:15 Fungal Smear - Final Other No fungal elements seen Fungal Culture - Preliminary No growth in 2 weeks Imaging: Abdomen/Pelvis CT 09/24/18 17:32 CONCLUSION: 1. Moderate to large amount of ascitic fluid again noted. 2. The liver is more prominent than on the prior study with prominent left lobe and diffuse inhomogeneity. 3. The bowel loops are displaced centrally within nonobstructive bowel gas pattern. 4. Small nonobstructing right renal calculus. 5. Large right pleural effusion and small left pleural effusion. Head CT 09/24/18 17:32 CONCLUSION: 1. No acute infarct, acute hemorrhage, mass effect or extra-axial fluid collections. 2. 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 . Paracentesis Ultrasound 09/27/18 00:00 CONCLUSION: 1. Uncomplicated paracentesis. Thoracentesis Ultrasound 09/27/18 00:00 CONCLUSION: 1. Uncomplicated thoracentesis. Chest Ultrasound 10/01/18 00:00 CONCLUSION: 1. Large right pleural effusion confirmed sonographically. CT Consultation 10/03/18 00:00 CONCLUSION: 1. Drainage procedure deferred for now. 2. Please see above discussion and reconsult when appropriate Catheter Placement X-Ray 10/08/18 00:00 CONCLUSION: 1. Uncomplicated fluoroscopic and ultrasound-guided placement of right-sided tunneled pleural Aspira drainage catheter. Abdomen Ultrasound 10/10/18 00:00 CONCLUSION: 1. Small amount of abdominal ascites. Chest X-Ray 10/10/18 00:00 CONCLUSION: Increasing right pleural effusion moderate congestive failure. Chest CT 10/11/18 10:19 CONCLUSION: 1. Small left and [id number] sized indeterminate density right-sided pleural effusions. There is a small amount of hemorrhage seen along the tract of the tunneled chest tube on the right. Patient does have a history of serosanguineous effusions on numerous thoracenteses dating back to 2016. 2. Massive cardiomegaly with transposition of the great vessels. Patchy groundglass opacities and interstitial edema, right greater than left, consistent with pulmonary edema pattern with compressive atelectasis in the lower lobes. 3. Diffusely heterogeneous hepatic density most likely reflecting long- standing congestive hepatopathy. Procedures: 06/18/18: 2D echo. Left ventricular systolic function severely reduced with EF less than 20%. Right ventricle severely dilated. Mechanical mitral valve bileaflet with both leaflets moving. Mild aortic valve regurgitation. Severe tricuspid regurgitation. Moderate to severe pulmonary hypertension. 09/27/2018: Thoracentesis and paracentesis 10/08/2019: Aspira drainage cath placement Assessment and Plan - Disease Oriented Problem List (1) Congestive heart failure (2) Ascites (3) Pleural effusion (4) Shortness of breath (5) Altered mental status (6) Pneumonia (7) Delirium due to another medical condition - Symptom Scale (1) Confusion 0-10 Scale: 0 Pertinent Non-Medical Issues: Psychosocial: Has 2 brothers. Used to live with his mother however she is referred to significant stroke and now lives in a correction. Had been living alone. Has not worked been disabled due to heart condition. Not , no children. Spiritual: Mandaeism meghan. Legal: Patient designated his brother Melquiades Ko ([place]) as the healthcare surrogate decision-maker. Ethical issues impacting care: No ethical issues identified. Important Contacts: Melquiades Ko ([place]), brother/[facility]: [phone] Jordan Chu, brother: [phone] Joelle Ko, mother: [phone]-now reported to live in SNF 2/2 CVA Prognosis: Patient admitted with altered mental status. Appears may have some component of delirium on top of baseline mild cognitive impairment. Probable hepatic encephalopathy, liver disease. Additionally has underlying CHF with EF less than 20% per echo June 2018, valvular disease. High risk for additional complications/decline related to multiple chronic medical conditions (requiring frequent thoracentesis and paracentesis) and cognitive impairments. Appropriate for hospice if goals were compatible. Prior [facility] admissions note that patient reported in the past recommended to have a heart transplant, "evaluation in [facility] in the past patient did not want to pursue". Code Status: Full Code Plan: * FULL CODE * Legal decision maker: Patient was some mild confusion, possibly underlying cognitive deficit. Not able to make decisions alone currently. Reported his mother has recently required transition to correction due to increased care needs/ CVA. Not , no children. Patient has 2 brothers. He designated 1 of his brothers supported by her brother, Melquiades Ko ([place]), as his healthcare surrogate. He has another brother named Jordan Chu. * Patient has 2 brothers (Melquiades Castro" and Jordan). Melquiades Ko ([place]) has been designated as the healthcare surrogate decision-maker. A 2nd brother (Jordan) has been assisting with medical decision-making when Rachel is not available. * Palliative care met with the patient who again states he just wants to go home. We reviewed what aggressive treatment might look like versus comfort focused care. Explained that hospice would focus not on how long he had to live but the quality of the time he had left. Patient would like to speak with someone from hospice to learn more about their services. I asked if he wanted his family to be involved in conversations with hospice. The patient replied, "Why? I know what year it is and I know I am in the hospital. I don't want anymore stuff done to me. I just wanna go home to ." Patient was unwilling to readdress CODE STATUS at the time of my visit. Hospice consult pending. Spoke with hospice intake (Mustapha) and hospice admission nurse (Mateo). RECOMMENDATIONS TO CONSIDER THERAPEUTIC PARACENTESIS PRIOR TO DISCHARGE IF INDICATED. * Discussed patient's hospital course and medical treatment goals with Radha Lundberg APRN, ed case manager (Brianna) and RN (Pilar). * Spoke with brother (Jordan) who states patient's request for hospice does not surprise him. He states he will support his brother and whatever his medical treatment goals should be. Unsuccessful in my attempted to speak with brother "Rachel." * SYMPTOMS: == Confusion-Resolved. Patient presented for altered mental status, confusion found by his brother. Probable multifactorial though primarily hepatic encephalopathy. Patient is alert and oriented to person place time and situation. He appears to have good insight and judgment related to his medical conditions stating he wants to go home to be with his family and be kept comfortable. He states he understands that he will likely in the near future. * Palliative care will continue to follow during hospital course as condition evolves, to assist patient/decision-maker with understanding of medical conditions, weighing benefits/burdens of treatment options, for clarification of goals of treatment. Additionally will assist with any symptoms of palliative concern. Attestation Attestation: To help prompt me to consider important information that might be impacting today's encounter and assessment, information from prior notes written by myself or my colleagues may have been "brought forward" into today's note. My signature on this note, however, is an attestation that I personally performed the exam, history, and/or decision-making noted today, and, unless otherwise indicated, the interactions with patient, family, and staff as well as the review of records all occurred today. I also attest that the listed assessment and stated plan reflect my best clinical judgment today based on the combination of historical information, prior notes, and today's exam/ interactions. When time spent is documented, it refers only to time spent today by the signer, or if indicated, combined time spent today by collaborating physician/nurse practitioner.
--- NOTE | 2018-10-12 16:47 | MB ---
cc: Andreia Molina APRN DATE: 10/12/2018 HISTORY OF PRESENT ILLNESS: This is a 47-year-old unfortunate male with multiple comorbidities who was admitted on 09/24/2018 for CHF decompensation, ascites altered mental status; apparently was found to have a large right pleural effusion and underwent thoracentesis, which they at that time they removed a liter of red-tinged fluid which was an exudative effusion. The patient also underwent ultrasound-guided paracentesis, which they removed 5.5 liters on 09/27/2018. They consulted pulmonary medicine for the recurrent effusion. The patient underwent Aspira drain placement on 10/08/2018 which still has some bloody fluid. We were consulted for a consolidation recurrent pleural effusion, evaluation for decortication, VATS procedure. The patient has known cardiomyopathy with ejection fraction of less than 20%, moderate to severe pulmonary hypertension with PA pressures in the 60s-70s. OTHER PAST MEDICAL HISTORY: Includes chronic kidney disease, congestive heart failure, mitral valve disease, cachexia with a BMI of 15. PAST SURGICAL HISTORY: Surgeries include transposition of the greater vessels at 6 weeks of age. He had a mitral valve tissue replacement in 1978 followed by mechanical valve replacement mitral valve in 1982, which required a pacemaker placement also in 1982. He has been on Coumadin since the age of 8. ALLERGIES: HE IS ALLERGIC TO LOSARTAN. MEDICATIONS: His home medications include Coumadin 5 and Coreg. FAMILY HISTORY: Noncontributory. SOCIAL HISTORY: Nonsmoker, nondrinker. REVIEW OF SYSTEMS: GENERAL: As above in the initial H and P. Other 12 systems unremarkable. PHYSICAL EXAMINATION: GENERAL: This is a very thin, cachectic male, very chronically ill-appearing. The patient is awake, alert, in no acute distress. VITAL SIGNS: Temperature-max 98, heart rate of 59, blood pressure 110/60, O2 saturation 98 on room air. HEENT: Head is normocephalic. Pupils are icteric appearing. Oral mucosa slightly pale, dry. NECK: Supple. No JVD; in fact has got flattened neck veins. HEART: Heart sounds S1, S2 with a grade 2/6 systolic murmur. No rubs or gallops. LUNGS: Very diminished in the bases, the right greater than the left. ABDOMEN: Protuberant. Positive bowel sounds, slightly firm. EXTREMITIES: Very thin, trace edema. LABORATORY DATA: Shows hemoglobin 8.4, hematocrit of 24, white cell 5, platelet count of 148. INR 1.5. Sodium 134, potassium 4.3, BUN of 56, creatinine 1.69. Iron is 44, total iron binding capacity 227, AST 21, ALT 17. Ammonia level 4.8. Pleural fluid showed 42,000 RBCs; glucose was 106. Urine tox was negative for drugs. Immunology studies pending. Serology currently hep panel negative. IMAGING: CT chest: Moderate size right pleural effusion, ground glass opacities throughout the right lung, consolidation in the left lung, massive cardiomegaly with transposition of the great vessels. PLAN: At this time, I have discussed surgical procedure with the patient. He is currently not interested in any surgical procedure and is also pursuing hospice route. He is currently being followed by palliative care. Again, he would be a very high risk due to his risk of mortality due to his cachexia, his EF of less than 20%, his kidney disease, his decompensation, ascites. Would recommend palliative care and hospice at this point. RODNEY Echavarria MD JRT/patricia , 03:31 PM , 03:39 PM
[2018-10-12] MEDS: Heparin Drip 25,000 UNIT/250 ML BAG IV.CONT PRN (21:32)
[2018-10-13 03:50] LABS: DS DNA Ab (Crithidia) NEGATIVE (NEGATIVE)
--- NOTE | 2018-10-13 05:54 | XR ---
EXAM DATE: 10/13/2018 5:36 AM EST AGE/SEX: 47 years / Male INDICATIONS: Pleural effusion. CLINICAL DATA: This is the patient's subsequent encounter. Patient reports that signs and symptoms h ave been present for 2 weeks and indicates a pain score of 0/10. MEDICAL/SURGICAL HISTORY: . Renal disease. Congestive heart failure. . Mitral valve replaceme nt COMPARISON: [facility], CHEST 1V SINGLE AP, 10/10/2018. . FINDINGS: A single AP semierect portable view the chest was obtained. Patient in the status post median sternot rani. There is diffuse opacification the right hemithorax again noted with apparent volume loss and me diastinal shift to the right. There is a right-sided transvenous pacer in place. The heart size remai ns moderately enlarged. Streaky left perihilar and basilar opacities are present. The right-sided della inage catheter remains in place. There is no pneumothorax. CONCLUSION: No significant change. Electronically signed by: Bay Wyman MD Board Certified Radiologist 10/13/2018 5:52 AM EST
[2018-10-13] MEDS: Albumin Human 25% Inj 50 ML IV.SIG SCH ×2 (06:36→17:14)
[2018-10-13 06:45] LABS: Activated Partial Thrombo Time 83.6 sec (23.4-31.7); INR 1.8 Ratio
[2018-10-13 06:49] LABS: Hematocrit 25.4 % (39.0-51.0); Hemoglobin 8.3 gm/dL (13.0-17.0); Mean Corpuscular HGB Conc 32.7 % (32.0-36.0); Mean Corpuscular Hemoglobin 27.5 pg (27.0-34.0); Mean Corpuscular Volume 84.2 fL (80.0-100.0); Platelet Count 152 th/mm3 (150-450); Red Blood Count 3.02 mil/mm3 (4.50-5.90); Red Cell Distribution Width 18.2 % (11.6-17.2); White Blood Count 5.1 th/mm3 (4.0-11.0)
[2018-10-13] MEDS: Spironolactone 25 MG Tablet PO SCH ×2 (09:47→17:14)
[2018-10-13] MEDS: Sodium Chloride 0.9% 2 ML Flush BID IV.FLUSH SCH ×2 (09:47→20:25)
[2018-10-13] MEDS: rifAXIMin 550 MG Tablet PO SCH ×2 (09:47→20:25)
--- NOTE | 2018-10-13 11:04 | P.PNIM ---
Subjective Interval history: Extensive discussion of condition and repercussions of going home with home care , SNF, or hospice care. Declines hospice for now. Code Status discussed with patient. Patient wants to not be resuscitated while in the hospital. >20 mins time spent. Face to face encounter with patient to discuss advance directives on code status decision. All questions answered. Patient seen and examined today. Reports he is okay. States he is able to manage himself at home. States that he is able to cook for himself at home. States he has been taking care of himself for quite some time. He believes that his brothers are all great he wanting his house. States that he has paid house off for himself. Discussed with patient we will have a meeting with his brother and other team members including palliative care to discuss further planning for him. Patient is agreeable. Requesting to be off of nebulizer treatments as he stated he feels better without it and is not short of breath. Noted occasional cough, not expectorating anything. Denies pain and discomfort. Denies chest pain, palpitations, headaches, dizziness. Denies fevers, chills, n/v/d. Denies dysuria. As per nursing, patient barely able to move around the bed and getting out of bed. Not eating as much. No acute issues overnight. Aspira drain not draining as much. Physical Exam Vital signs: Vital Signs 10/12/18 12:00 10/12/18 15:31 10/12/18 16:00 Temperature 98.0 F 97.5 F L Pulse Rate 59 L 59 L 60 Respiratory Rate 16 16 Blood Pressure 110/58 L 100/55 L Pulse Oximetry 98 97 10/12/18 19:45 10/12/18 23:52 10/13/18 04:00 Temperature 98.0 F 97.8 F 97.8 F Pulse Rate 60 60 60 Respiratory Rate 17 17 17 Blood Pressure 116/56 L 109/53 L 124/63 Pulse Oximetry 98 99 98 10/13/18 08:00 Temperature 98.1 F Pulse Rate 58 L Respiratory Rate 16 Blood Pressure 122/58 L Pulse Oximetry 97 Intake & Output 10/12/18 10/13/18 10/13/18 18:59 06:59 18:59 Intake Total 200 / 200 750 / 750 Output Total 1270 / 1270 Balance -1070 / -1070 750 / 750 Weight 46.7 kg Intake: IV 250 / 250 Heparin/D5W 25,000 U/250 mL 25, 250 / 250 000 unit In 250 ml @ Per Protocol IV.CONT TITRATE PRN Rx #:[id number] Oral 200 / 200 500 / 500 Output: Urine 450 / 450 Stool 800 / 800 Wound Drainage Right Abdomen Other: # Voids 3 3 # Incontinent Voids 4 Date of Last Bowel Movement 10/12/18 10/12/18 # Bowel Movements 1 2 # Incontinent Bowel Movements 1 Narrative: GENERAL: This is a thin appearing, cachetic, chronically ill AA patient, in no apparent distress. SKIN: Warm and dry. HEENT: Normocephalic. Pupils equal round and reactive. Nose without bleeding. Airway patent. NECK: Trachea midline. CARDIOVASCULAR: Regular rate and rhythm with murmurs, gallops, or rubs. RESPIRATORY: Diminished bases. Right chest crackles. No wheezes, rales, or rhonchi. Aspira drain in place right side, draining small amount sanguinous drainage in a bag. GASTROINTESTINAL: Abdomen with distention, ascites. Bowel Sounds hypoactive. Scrotal edema. MUSCULOSKELETAL: Extremities without clubbing, cyanosis. NEUROLOGICAL: Awake and alert. Moves all extremities weakly. Normal speech. Results - Labs CBC & Chem 7: 10/13/18 05:16 10/12/18 10:23 Laboratory Results - last 24 hr 10/10/18 10/12/18 10/12/18 21:54 10:23 10:23 WBC RBC Hgb Hct MCV MCH MCHC RDW Plt Count MPV PT INR APTT 56.4 H Sodium 134 L Potassium 4.3 Chloride 105 Carbon Dioxide 20.1 L Anion Gap 9 BUN 56 H Creatinine 1.69 H Estimated GFR 53 L Random Glucose 143 H Calcium 8.6 Anti-ds DNA Titer (Crith) ND Anti-ds DNA (Crithidia) Negative Mitochondria M2 IgG Ab Less than 20.0 Anti-Smooth Muscle Ab Negative 10/13/18 10/13/18 05:16 05:16 WBC 5.1 RBC 3.02 L Hgb 8.3 L Hct 25.4 L MCV 84.2 MCH 27.5 MCHC 32.7 RDW 18.2 H Plt Count 152 MPV 10.0 PT 18.0 H INR 1.8 APTT 83.6 H D Sodium Potassium Chloride Carbon Dioxide Anion Gap BUN Creatinine Estimated GFR Random Glucose Calcium Anti-ds DNA Titer (Crith) Anti-ds DNA (Crithidia) Mitochondria M2 IgG Ab Anti-Smooth Muscle Ab - Imaging Impressions Chest X-Ray 10/13/18 00:00 CONCLUSION: No significant change. Assessment and Plan - Assessment (1) Congestive heart failure Code(s): I50.9 - Heart failure, unspecified Status: Acute (2) Ascites Code(s): R18.8 - Other ascites Status: Acute (3) Pleural effusion Code(s): J90 - Pleural effusion, not elsewhere classified Status: Acute (4) Shortness of breath Code(s): R06.02 - Shortness of breath Status: Acute (5) Altered mental status Code(s): R41.82 - Altered mental status, unspecified Status: Acute (6) Pneumonia Code(s): J18.9 - Pneumonia, unspecified organism Status: Acute (7) Delirium due to another medical condition Code(s): F05 - Delirium due to known physiological condition Status: Acute (8) Dyspnea Code(s): R06.00 - Dyspnea, unspecified Status: Acute - Plan This is a 47-year-old -[place] male admitted with metabolic encephalopathy. Found to have hepatic encephalopathy and started on antibiotics for possible right basilar pneumonia. Underwent paracentesis and thoracentesis. Eventually had improvement in his encephalopathy but still has some residual cognitive impairment. Psychiatry has been consulted to evaluate for any underlying psychotic disorders, have deemed more harm than benefit in using any antipsychotics at this time. 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 Bassett who felt the patient may be a candidate for implanted drainage catheter placement such as as pleural drain for long-term management of the patient's fluid retention -Consents obtained from the family/healthcare surrogate/brother over the phone. Copy in the chart. -Palliative care also following and due to his history of chronic systolic CHF with EF less than 20% does also qualify him for comfort care and hospice eligible. Consent obtained and signed from family, copy in the chart, Brother Jordan -Plan for a drain placement if consent is obtained per IR recommendation. Then plan to discharged home with the drain. -Chest XR with large right pleural effusion with accompanying atelectasis or consolidation throughout much the right lung.Cardiomegaly. The patient is status post sternotomy and pacing device in place. Atelectasis in the left perihilar and left base regions. -continue albumin and lasix, spironolactone -Aspira drainage catheter placement on the right side, drainage sanguinous as per nursing -Repeat chest x-ray showed 1. Diffuse pleural-parenchymal density throughout the right hemithorax, with slight better aeration of the lung. 2. Right-sided pleural drainage catheter. -Monitor respiratory status -Needs to be drained daily. Spoke with space control supervisor, patient will need daily drain for now as per IR recommendation due to hepatic hydrothorax, until the drain slows sown, will unable to send patient home with [facility]. -GI consulted ascites and liver disease, appreciate recommendations. Recommends rifaximin/ lactulose. GI has signed off. -Spoke with brothwesley Arnett, discuss option for SNF vs home with hospice will speak [place] -US guided paracentesis PRN -Aspira Drain not draining as much. CT Chest 1. Small left and small-to- moderate sized indeterminate density right-sided pleural effusions. There is a small amount of hemorrhage seen along the tract of the tunneled chest tube on the right. Patient does have a history of serosanguineous effusions on numerous thoracenteses dating back to 2016. Massive cardiomegaly with transposition of the great vessels. Patchy groundglass opacities and interstitial edema, right greater than left, consistent with pulmonary edema pattern with compressive atelectasis in the lower lobes. Diffusely heterogeneous hepatic density most likely reflecting long-standing congestive hepatopathy. -Thoracic surgery has been consulted and has seen the patient. Recommends no surgical intervention as patient also does not want any intervention. -Extensive discussion of condition and repercussions of going home with home care, SNF, or hospice care. Declines hospice for now. Code Status discussed with patient. Patient wants to not be resuscitated while in the hospital. >20 mins time spent. Face to face encounter with patient to discuss advance directives on code status decision. All questions answered. 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 Cardiomyopathy with EF less than 20% -History of allergy with ARBS -Continue oral Lasix, and continue IV albumin, increase spironolactone -Coumadin, Monitor INR -Continue Coreg -No chest pain no shortness of breath -heparin drip, transition to Coumadin if INR is therapeutic Suspected hepatic insufficiency/failure given lowest INR is 1.5 in hospital -Hard to tell baseline liver INR given that the patient requires warfarin for mitral valve -Viral panel negative Cognitive impairment Hepatic encephalopathy -continue lactulose and zinc -No scheduled antipsychotics or anxiolytics at this time per psychiatry Chronic kidney disease stage III, poss cardiorenal vs hepatorenal -Avoid nephrotoxins -follow renal indices DVT prophylaxis heparin drip, transition to Coumadin Full code Discussed Condition With: Patient, nursing Discharge Planning: Plan to DC with hospice care (1) Congestive heart failure Qualifiers: Heart failure type: unspecified Heart failure chronicity: acute on chronic Qualified Code(s): I50.9 - Heart failure, unspecified (2) Ascites Qualifiers: Ascites type: other type Qualified Code(s): R18.8 - Other ascites (5) Altered mental status Qualifiers: Altered mental status type: unspecified Qualified Code(s): R41.82 - Altered mental status, unspecified (6) Pneumonia Qualifiers: Pneumonia type: due to unspecified organism Laterality: right Lung location : unspecified part of lung Qualified Code(s): J18.9 - Pneumonia, unspecified organism
[2018-10-14 04:47] LABS: Hematocrit 25.3 % (39.0-51.0); Hemoglobin 8.6 gm/dL (13.0-17.0); Mean Corpuscular HGB Conc 33.9 % (32.0-36.0); Mean Corpuscular Volume 82.8 fL (80.0-100.0); Mean Platelet Volume 9.9 fL (7.0-11.0); Platelet Count 162 th/mm3 (150-450); Red Blood Count 3.06 mil/mm3 (4.50-5.90); Red Cell Distribution Width 17.9 % (11.6-17.2); White Blood Count 4.6 th/mm3 (4.0-11.0)
[2018-10-14 05:02] LABS: Activated Partial Thrombo Time 54.4 sec (23.4-31.7); INR 2.2 Ratio; Prothrombin Time 22.1 sec (9.8-11.6)
[2018-10-14] MEDS: Heparin Drip 25,000 UNIT/250 ML BAG IV.CONT PRN (05:12)
[2018-10-14] MEDS: Albumin Human 25% Inj 50 ML IV.SIG SCH ×2 (05:12→17:08)
[2018-10-14] MEDS: Sodium Chloride 0.9% 2 ML Flush BID IV.FLUSH SCH ×2 (09:19→20:19)
[2018-10-14] MEDS: rifAXIMin 550 MG Tablet PO SCH ×2 (09:19→20:19)
[2018-10-14] MEDS: Spironolactone 25 MG Tablet PO SCH ×2 (09:19→17:07)
--- NOTE | 2018-10-14 10:59 | P.PNIM ---
Subjective Interval history: Follow-up visit recurrent pleural effusion, status post Aspira drain catheter placement 10/08, mitral valve on Coumadin. Patient seen and examined today. Patient reports increasing cough. States that he feels he is not bothered to people. States he really wants to go home. States he understood he is dying. "I know I am dying, please let me at home and not here. I want to see my home." Hospice nurse Connor paid visit to the patient, discuss with him patient wishes. Pending family meetinf with Melquiades kearney". Physical Exam Vital signs: Vital Signs 10/13/18 12:00 10/13/18 16:00 10/13/18 16:53 Temperature 97.4 F L 97.5 F L Pulse Rate 60 62 60 Respiratory Rate 17 18 16 Blood Pressure 139/77 136/70 Pulse Oximetry 100 100 10/13/18 19:30 10/13/18 20:00 10/14/18 00:00 Temperature 97.3 F L 97.9 F Pulse Rate 60 60 60 Respiratory Rate 18 18 18 Blood Pressure 106/54 L 117/55 L Pulse Oximetry 97 96 10/14/18 03:51 10/14/18 04:00 10/14/18 08:00 Temperature 97.3 F L 98.4 F Pulse Rate 60 60 60 Respiratory Rate 18 17 Blood Pressure 117/62 112/60 Pulse Oximetry 96 96 Intake & Output 10/13/18 10/14/18 10/14/18 18:59 06:59 18:59 Intake Total 750 / 750 250 / 250 50 / 50 Output Total 1100 / 1100 Balance 750 / 750 -850 / -850 50 / 50 Weight 47.8 kg Intake: IV 50 / 50 250 / 250 50 / 50 Heparin/D5W 25,000 U/250 mL 25, 250 / 250 000 unit In 250 ml @ Per Protocol IV.CONT TITRATE PRN Rx #:[id number] Flexbumin 25% Inj 50 ML @ 60 50 / 50 50 / 50 mls/hr IV.SIG Q12H JOSÉ MIGUEL Rx#: [id number] Oral 700 / 700 Output: Urine 1100 / 1100 Other: # Voids 5 3 Date of Last Bowel Movement 10/13/18 10/13/18 # Incontinent Bowel Movements 1 Narrative: GENERAL: This is a thin appearing, cachetic, chronically ill AA patient, in no apparent distress. SKIN: Warm and dry. HEENT: Normocephalic. Pupils equal round and reactive. Nose without bleeding. Airway patent. NECK: Trachea midline. CARDIOVASCULAR: Regular rate and rhythm with murmurs, gallops, or rubs. RESPIRATORY:Right chest crackles. Left crackles. No wheezes. Aspira drain in place right side, draining small amount sanguinous drainage in a bag. GASTROINTESTINAL: Abdomen with distention, ascites. Bowel Sounds hypoactive. Scrotal edema. MUSCULOSKELETAL: Extremities without clubbing, cyanosis. NEUROLOGICAL: Awake and alert. Moves all extremities weakly. Normal speech. Results - Labs CBC & Chem 7: 10/14/18 03:59 10/12/18 10:23 Laboratory Results - last 24 hr 10/10/18 10/13/18 10/13/18 21:54 13:15 19:42 WBC RBC Hgb Hct MCV MCH MCHC RDW Plt Count MPV PT INR APTT 58.5 H D 56.6 H Rheumatoid Factor Less than 14 SHANNAN Screen Negative SHANNAN Titer ND SHANNAN Pattern ND SS-A Antibody <1.0 neg SS-B Antibody <1.0 neg Sm (King) Antibody <1.0 neg SM/[employer]ACLE ADF CONSULTANT Antibody <1.0 neg Scl-70 Antibody <1.0 neg 10/14/18 10/14/18 03:59 03:59 WBC 4.6 RBC 3.06 L Hgb 8.6 L Hct 25.3 L MCV 82.8 MCH 28.0 MCHC 33.9 RDW 17.9 H Plt Count 162 MPV 9.9 PT 22.1 H INR 2.2 APTT 54.4 H Rheumatoid Factor SHANNAN Screen SHANNAN Titer SHANNAN Pattern SS-A Antibody SS-B Antibody Sm (King) Antibody SM/ORACLE ADF CONSULTANT Antibody Scl-70 Antibody Assessment and Plan - Assessment (1) Congestive heart failure Code(s): I50.9 - Heart failure, unspecified Status: Acute (2) Ascites Code(s): R18.8 - Other ascites Status: Acute (3) Pleural effusion Code(s): J90 - Pleural effusion, not elsewhere classified Status: Acute (4) Shortness of breath Code(s): R06.02 - Shortness of breath Status: Acute (5) Altered mental status Code(s): R41.82 - Altered mental status, unspecified Status: Acute (6) Pneumonia Code(s): J18.9 - Pneumonia, unspecified organism Status: Acute (7) Delirium due to another medical condition Code(s): F05 - Delirium due to known physiological condition Status: Acute (8) Dyspnea Code(s): R06.00 - Dyspnea, unspecified Status: Acute - Plan This is a 47-year-old -[place] male admitted with metabolic encephalopathy. Found to have hepatic encephalopathy and started on antibiotics for possible right basilar pneumonia. Underwent paracentesis and thoracentesis. Eventually had improvement in his encephalopathy but still has some residual cognitive impairment. Psychiatry has been consulted to evaluate for any underlying psychotic disorders, have deemed more harm than benefit in using any antipsychotics at this time. 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 Bassett who felt the patient may be a candidate for implanted drainage catheter placement such as as pleural drain for long-term management of the patient's fluid retention -Consents obtained from the family/healthcare surrogate/brother over the phone. Copy in the chart. -Palliative care also following and due to his history of chronic systolic CHF with EF less than 20% does also qualify him for comfort care and hospice eligible. Consent obtained and signed from family, copy in the chart, Brother Jordan -Plan for a drain placement if consent is obtained per IR recommendation. Then plan to discharged home with the drain. -Chest XR with large right pleural effusion with accompanying atelectasis or consolidation throughout much the right lung.Cardiomegaly. The patient is status post sternotomy and pacing device in place. Atelectasis in the left perihilar and left base regions. -continue albumin and lasix, spironolactone -Aspira drainage catheter placement on the right side, drainage sanguinous as per nursing -Repeat chest x-ray showed 1. Diffuse pleural-parenchymal density throughout the right hemithorax, with slight better aeration of the lung. 2. Right-sided pleural drainage catheter. -Monitor respiratory status -Needs to be drained daily. Spoke with boring machine operator helper, patient will need daily drain for now as per IR recommendation due to hepatic hydrothorax, until the drain slows sown, will unable to send patient home with [facility]. -GI consulted ascites and liver disease, appreciate recommendations. Recommends rifaximin/ lactulose. GI has signed off. -Spoke with brother Melquiades, discuss option for SNF vs home with hospice will speak with patient [place] -US guided paracentesis PRN -Aspira Drain not draining as much. CT Chest 1. Small left and small-to- moderate sized indeterminate density right-sided pleural effusions. There is a small amount of hemorrhage seen along the tract of the tunneled chest tube on the right. Patient does have a history of serosanguineous effusions on numerous thoracenteses dating back to 2016. Massive cardiomegaly with transposition of the great vessels. Patchy groundglass opacities and interstitial edema, right greater than left, consistent with pulmonary edema pattern with compressive atelectasis in the lower lobes. Diffusely heterogeneous hepatic density most likely reflecting long-standing congestive hepatopathy. -Thoracic surgery has been consulted and has seen the patient. Recommends no surgical intervention as patient also does not want any intervention. -Extensive discussion of condition and repercussions of going home with home care, SNF, or hospice care. Declines hospice for now. Code Status discussed with patient. Patient wants to not be resuscitated while in the hospital. >30 mins time spent. Face to face encounter with patient to discuss advance directives on code status decision. All questions answered. 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 Cardiomyopathy with EF less than 20% -History of allergy with ARBS -Continue oral Lasix, and continue IV albumin, increase spironolactone -Coumadin, Monitor INR -Continue Coreg -No chest pain no shortness of breath -heparin drip, transition to Coumadin if INR is therapeutic, INR 2.2 Suspected hepatic insufficiency/failure given lowest INR is 1.5 in hospital -Hard to tell baseline liver INR given that the patient requires warfarin for mitral valve -Viral panel negative Cognitive impairment Hepatic encephalopathy -continue lactulose and zinc -No scheduled antipsychotics or anxiolytics at this time per psychiatry Chronic kidney disease stage III, poss cardiorenal vs hepatorenal -Avoid nephrotoxins -follow renal indices DVT prophylaxis heparin drip, transition to Coumadin Full code Discussed Condition With: Patient, hospice nurse, CM Discharge Planning: Plan to DC with hospice care if family and patient agreeable, pending meeting (1) Congestive heart failure Qualifiers: Heart failure type: unspecified Heart failure chronicity: acute on chronic Qualified Code(s): I50.9 - Heart failure, unspecified (2) Ascites Qualifiers: Ascites type: other type Qualified Code(s): R18.8 - Other ascites (5) Altered mental status Qualifiers: Altered mental status type: unspecified Qualified Code(s): R41.82 - Altered mental status, unspecified (6) Pneumonia Qualifiers: Pneumonia type: due to unspecified organism Laterality: right Lung location : unspecified part of lung Qualified Code(s): J18.9 - Pneumonia, unspecified organism
[2018-10-15] MEDS: Albumin Human 25% Inj 50 ML IV.SIG SCH ×2 (05:21→17:19)
[2018-10-15 05:34] LABS: Baso % (Auto) 0.1 % (0.0-2.0); Eos # (Auto) 0.1 th/mm3 (0.0-0.4); Eos % (Auto) 1.8 % (0.0-4.0); Hematocrit 26.2 % (39.0-51.0); Hemoglobin 8.7 gm/dL (13.0-17.0); Lymph # (Auto) 0.2 th/mm3 (1.0-4.8); Lymph % (Auto) 4.6 % (9.0-44.0); Mean Corpuscular Hemoglobin 27.6 pg (27.0-34.0); Mean Corpuscular Volume 83.4 fL (80.0-100.0); Mean Platelet Volume 9.1 fL (7.0-11.0); Mono # (Auto) 0.8 th/mm3 (0.0-0.9); Mono % (Auto) 16.7 % (0.0-8.0); Neut # (Auto) 3.9 th/mm3 (1.8-7.7); Neut % (Auto) 76.8 % (16.0-70.0); Platelet Count 161 th/mm3 (150-450); Red Blood Count 3.14 mil/mm3 (4.50-5.90); Red Cell Distribution Width 18.6 % (11.6-17.2); White Blood Count 5.1 th/mm3 (4.0-11.0)
[2018-10-15 05:43] LABS: Activated Partial Thrombo Time 66.5 sec (23.4-31.7); Prothrombin Time 30.3 sec (9.8-11.6)
[2018-10-15 06:04] LABS: Alanine Aminotransferase 23 U/L (12-78); Albumin 3.1 g/dL (3.4-5.0); Anion Gap 9 meq/L (5-15); Aspartate Aminotransferase 27 U/L (15-37); Blood Urea Nitrogen 59 mg/dL (7-18); Calcium 8.7 mg/dL (8.5-10.1); Carbon Dioxide 21.6 meq/L (21.0-32.0); Chloride 106 meq/L (98-107); Glomerular Filtration Rate 48 mL/min (>89); Glucose,Random 116 mg/dL (74-106); Potassium 4.4 meq/L (3.5-5.1); Sodium 137 meq/L (136-145)
[2018-10-15 06:06] LABS: Alkaline Phosphatase 309 U/L (45-117); Total Protein 8.2 g/dL (6.4-8.2)
[2018-10-15] MEDS: rifAXIMin 550 MG Tablet PO SCH ×2 (09:44→20:43)
[2018-10-15] MEDS: Spironolactone 25 MG Tablet PO SCH ×2 (09:44→17:19)
[2018-10-15] MEDS: Sodium Chloride 0.9% 2 ML Flush BID IV.FLUSH SCH ×2 (09:44→20:43)
--- NOTE | 2018-10-15 12:49 | P.PNIM ---
Subjective Interval history: Follow-up visit recurrent pleural effusion, status post Aspira drain catheter placement 10/08, mitral valve on Coumadin. Patient seen and examined today. Reports continues to have cough. Discussed with patient results of chest x- ray. Pneumothorax effusion accumulating his right chest. States he understood what is going on. Meeting today with family member and hospice. Declines nebulization. Denies chest pain, palpitations, headaches, dizziness. Denies fevers, chills, n/v/d. Denies dysuria. Physical Exam Vital signs: Vital Signs 10/14/18 16:00 10/14/18 20:00 10/14/18 20:45 Temperature 98.2 F 97.8 F Pulse Rate 66 60 60 Respiratory Rate 17 18 18 Blood Pressure 185/78 H 116/56 L Pulse Oximetry 94 L 97 10/15/18 00:00 10/15/18 08:00 Temperature 98.3 F 97.8 F Pulse Rate 60 62 Respiratory Rate 18 17 Blood Pressure 121/73 112/60 Pulse Oximetry 97 66 L Intake & Output 10/14/18 10/15/18 10/15/18 18:59 06:59 18:59 Intake Total 100 / 100 290 / 290 Output Total 400 / 400 Balance 100 / 100 -110 / -110 Weight 47.2 kg 48.9 kg Intake: IV 100 / 100 50 / 50 Flexbumin 25% Inj 50 ML @ 60 100 / 100 50 / 50 mls/hr IV.SIG Q12H JOSÉ MIGUEL Rx#: [id number] Oral 240 / 240 Output: Urine 400 / 400 Other: Date of Last Bowel Movement 10/13/18 10/14/18 # Bowel Movements 2 Narrative: GENERAL: This is a thin appearing, cachetic, chronically ill AA patient, in no apparent distress. SKIN: Warm and dry. HEENT: Normocephalic. Pupils equal round and reactive. Nose without bleeding. Airway patent. NECK: Trachea midline. CARDIOVASCULAR: Regular rate and rhythm with murmurs, gallops, or rubs. RESPIRATORY:Right chest crackles. Left crackles. No wheezes. Aspira drain in place right side, draining small amount sanguinous drainage in a bag. GASTROINTESTINAL: Abdomen with distention, ascites. Bowel Sounds hypoactive. Scrotal edema. MUSCULOSKELETAL: Extremities without clubbing, cyanosis. NEUROLOGICAL: Awake and alert. Moves all extremities weakly. Normal speech. Results - Labs CBC & Chem 7: 10/15/18 05:21 10/15/18 05:21 Laboratory Results - last 24 hr 10/15/18 10/15/18 10/15/18 05:21 05:21 05:21 WBC 5.1 RBC 3.14 L Hgb 8.7 L Hct 26.2 L MCV 83.4 MCH 27.6 MCHC 33.0 RDW 18.6 H Plt Count 161 MPV 9.1 Neut % (Auto) 76.8 H Lymph % (Auto) 4.6 L [place] % (Auto) 16.7 H Eos % (Auto) 1.8 Baso % (Auto) 0.1 Neut # (Auto) 3.9 Lymph # (Auto) 0.2 L [place] # (Auto) 0.8 Eos # (Auto) 0.1 Baso # (Auto) 0.0 WBC Differential . Differential Comment Auto diff final PT 30.3 H INR 3.0 APTT 66.5 H D Sodium 137 Potassium 4.4 Chloride 106 Carbon Dioxide 21.6 Anion Gap 9 BUN 59 H Creatinine 1.85 H Estimated GFR 48 L Random Glucose 116 H Calcium 8.7 Total Bilirubin 2.1 H AST 27 ALT 23 Alkaline Phosphatase 309 H Total Protein 8.2 Albumin 3.1 L Assessment and Plan - Assessment (1) Congestive heart failure Code(s): I50.9 - Heart failure, unspecified Status: Acute (2) Ascites Code(s): R18.8 - Other ascites Status: Acute (3) Pleural effusion Code(s): J90 - Pleural effusion, not elsewhere classified Status: Acute (4) Shortness of breath Code(s): R06.02 - Shortness of breath Status: Acute (5) Altered mental status Code(s): R41.82 - Altered mental status, unspecified Status: Acute (6) Pneumonia Code(s): J18.9 - Pneumonia, unspecified organism Status: Acute (7) Delirium due to another medical condition Code(s): F05 - Delirium due to known physiological condition Status: Acute (8) Dyspnea Code(s): R06.00 - Dyspnea, unspecified Status: Acute - Plan This is a 47-year-old -[place] male admitted with metabolic encephalopathy. Found to have hepatic encephalopathy and started on antibiotics for possible right basilar pneumonia. Underwent paracentesis and thoracentesis. Eventually had improvement in his encephalopathy but still has some residual cognitive impairment. Psychiatry has been consulted to evaluate for any underlying psychotic disorders, have deemed more harm than benefit in using any antipsychotics at this time. 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 Bassett who felt the patient may be a candidate for implanted drainage catheter placement such as as pleural drain for long-term management of the patient's fluid retention -Consents obtained from the family/healthcare surrogate/brother over the phone. Copy in the chart. -Palliative care also following and due to his history of chronic systolic CHF with EF less than 20% does also qualify him for comfort care and hospice eligible. Consent obtained and signed from family, copy in the chart, Brother Jordan -Plan for a drain placement if consent is obtained per IR recommendation. Then plan to discharged home with the drain. -Chest XR with large right pleural effusion with accompanying atelectasis or consolidation throughout much the right lung.Cardiomegaly. The patient is status post sternotomy and pacing device in place. Atelectasis in the left perihilar and left base regions. -continue albumin and lasix, spironolactone -Aspira drainage catheter placement on the right side, drainage sanguinous as per nursing -Repeat chest x-ray showed 1. Diffuse pleural-parenchymal density throughout the right hemithorax, with slight better aeration of the lung. 2. Right-sided pleural drainage catheter. -Monitor respiratory status -Needs to be drained daily. Spoke with hydrogen cell tender, patient will need daily drain for now as per IR recommendation due to hepatic hydrothorax, until the drain slows sown, will unable to send patient home with [facility]. -GI consulted ascites and liver disease, appreciate recommendations. Recommends rifaximin/ lactulose. GI has signed off. -Spoke with brother Melquiades, discuss option for SNF vs home with hospice [place] speak [place] -US guided paracentesis PRN -Aspira Drain not draining as much. CT Chest 1. Small left and small-to- moderate sized indeterminate density right-sided pleural effusions. There is a small amount of hemorrhage seen along the tract of the tunneled chest tube on the right. Patient does have a history of serosanguineous effusions on numerous thoracenteses dating back to 2016. Massive cardiomegaly with transposition of the great vessels. Patchy groundglass opacities and interstitial edema, right greater than left, consistent with pulmonary edema pattern with compressive atelectasis in the lower lobes. Diffusely heterogeneous hepatic density most likely reflecting long-standing congestive hepatopathy. -Thoracic surgery has been consulted and has seen the patient. Recommends no surgical intervention as patient also does not want any intervention. -Extensive discussion of condition and repercussions of going home with home care, SNF, or hospice care. Declines hospice for now. Code Status discussed with patient. Patient wants to not be resuscitated while in the hospital. >30 mins time spent. Face to face encounter with patient to discuss advance directives on code status decision. All questions answered. -Plan for meeting with Hospice, palliative team and family. May go home with hospice care center versus [facility] homewith hospice. 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 Cardiomyopathy with EF less than 20% -History of allergy with ARBS -Continue oral Lasix, and continue IV albumin, increase spironolactone -Coumadin, Monitor INR -Continue Coreg -No chest pain no shortness of breath -heparin drip, transition to Coumadin if INR is therapeutic, INR 2.2 Suspected hepatic insufficiency/failure given lowest INR is 1.5 in hospital -Hard to tell baseline liver INR given that the patient requires warfarin for mitral valve -Viral panel negative Cognitive impairment Hepatic encephalopathy -continue lactulose and zinc -No scheduled antipsychotics or anxiolytics at this time per psychiatry Chronic kidney disease stage III, poss cardiorenal vs hepatorenal -Avoid nephrotoxins -follow renal indices DVT prophylaxis heparin drip, transition to Coumadin Full code Discussed Condition With: Patient, nursing, hospice nurse, CM Discharge Planning: Plan to DC with hospice care if family and patient agreeable, pending meeting (1) Congestive heart failure Qualifiers: Heart failure type: unspecified Heart failure chronicity: acute on chronic Qualified Code(s): I50.9 - Heart failure, unspecified (2) Ascites Qualifiers: Ascites type: other type Qualified Code(s): R18.8 - Other ascites (5) Altered mental status Qualifiers: Altered mental status type: unspecified Qualified Code(s): R41.82 - Altered mental status, unspecified (6) Pneumonia Qualifiers: Pneumonia type: due to unspecified organism Laterality: right Lung location : unspecified part of lung Qualified Code(s): J18.9 - Pneumonia, unspecified organism
[2018-10-15 23:50] LABS: Ceruloplasmin 39 mg/dL (18-36)
[2018-10-16] MEDS: Albumin Human 25% Inj 50 ML IV.SIG SCH ×2 (05:05→17:51)
[2018-10-16 06:21] LABS: INR 3.1 Ratio; Prothrombin Time 31.2 sec (9.8-11.6)
[2018-10-16] MEDS: Spironolactone 25 MG Tablet PO SCH ×2 (10:09→17:51)
[2018-10-16] MEDS: rifAXIMin 550 MG Tablet PO SCH ×2 (10:09→22:10)
[2018-10-16] MEDS: Sodium Chloride 0.9% 2 ML Flush BID IV.FLUSH SCH ×2 (10:09→22:11)
--- NOTE | 2018-10-16 13:50 | P.PNIM ---
Subjective Interval history: Patient seen and evaluated this morning at bedside. Patient without acute complaints and says that he would like to go home whenever it is possible. Physical Exam Vital signs: Last Vital Signs Temp 97.4 F L 10/16/18 12:00 Pulse 60 10/16/18 12:00 Resp 16 10/16/18 12:00 BP 134/63 10/16/18 12:00 Pulse Ox 99 10/16/18 12:00 Intake & Output 10/14/18 10/15/18 10/16/18 10/17/18 06:59 06:59 06:59 06:59 Intake Total 1000 / 1000 390 / 390 1849 / 1849 Output Total 1100 / 1100 400 / 400 Balance -100 / -100 -10 / -10 1849 Weight 47.8 kg 48.9 kg 48.9 kg General: No acute distress, cachectic Respiratory: Decreased breath sounds at the base of lung but no wheezing Cardiology: S1/S2 Gastroenterology: Soft, nontender, nondistended Results Labs CBC & Chem 7: 10/15/18 05:21 10/15/18 05:21 Assessment and Plan (1) Congestive heart failure: Code(s): I50.9 - Heart failure, unspecified Status: Acute (2) Ascites: Code(s): R18.8 - Other ascites Status: Acute (3) Pleural effusion: Code(s): J90 - Pleural effusion, not elsewhere classified Status: Acute (4) Shortness of breath: Code(s): R06.02 - Shortness of breath Status: Acute (5) Altered mental status: Code(s): R41.82 - Altered mental status, unspecified Status: Acute (6) Pneumonia: Code(s): J18.9 - Pneumonia, unspecified organism Status: Acute (7) Delirium due to another medical condition: Code(s): F05 - Delirium due to known physiological condition Status: Acute (8) Dyspnea: Code(s): R06.00 - Dyspnea, unspecified Status: Acute Plan This is a 47-year-old -[place]yp[place] male admitted with metabolic encephalopathy. Found to have hepatic encephalopathy and started on antibiotics for possible right basilar pneumonia. Underwent paracentesis and thoracentesis. Eventually had improvement in his encephalopathy but still has some residual cognitive impairment. Psychiatry has been consulted to evaluate for any underlying psychotic disorders, have deemed more harm than benefit in using any antipsychotics at this time. 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 Bassett who felt the patient may be a candidate for implanted drainage catheter placement such as as pleural drain for long-term management of the patient's fluid retention -Consents obtained from the family/healthcare surrogate/brother over the phone. Copy in the chart. -Palliative care also following and due to his history of chronic systolic CHF with EF less than 20% does also qualify him for comfort care and hospice eligible. Consent obtained and signed from family, copy in the chart, Brothwesley Ortega -Plan for a drain placement if consent is obtained per IR recommendation. Then plan to discharged home with the drain. -Chest XR with large right pleural effusion with accompanying atelectasis or consolidation throughout much the right lung.Cardiomegaly. The patient is status post sternotomy and pacing device in place. Atelectasis in the left perihilar and left base regions. -continue albumin and lasix, spironolactone -Aspira drainage catheter placement on the right side, drainage sanguinous as per nursing -Repeat chest x-ray showed 1. Diffuse pleural-parenchymal density throughout the right hemithorax, with slight better aeration of the lung. 2. Right-sided pleural drainage catheter. -Monitor respiratory status -Needs to be drained daily. Spoke with vegetable grower, patient will need daily drain for now as per IR recommendation due to hepatic hydrothorax, until the drain slows sown, will unable to send patient home with [facility]. -GI consulted ascites and liver disease, appreciate recommendations. Recommends rifaximin/ lactulose. GI has signed off. -Spoke with brother Melquiades, discuss option for SNF vs home with hospice -US guided paracentesis PRN -Aspira Drain not draining as much. CT Chest 1. Small left and small-to- moderate sized indeterminate density right-sided pleural effusions. There is a small amount of hemorrhage seen along the tract of the tunneled chest tube on the right. Patient does have a history of serosanguineous effusions on numerous thoracenteses dating back to 2016. Massive cardiomegaly with transposition of the great vessels. Patchy groundglass opacities and interstitial edema, right greater than left, consistent with pulmonary edema pattern with compressive atelectasis in the lower lobes. Diffusely heterogeneous hepatic density most likely reflecting long-standing congestive hepatopathy. -Thoracic surgery has been consulted and has seen the patient. Recommends no surgical intervention as patient also does not want any intervention. -During hospitalization there has been extensive discussion of condition and repercussions of going home with home care, SNF, or hospice care. Declines hospice for now. Code Status discussed with patient. Patient wants to not be resuscitated while in the hospital. >30 mins time spent. Face to face encounter with patient to discuss advance directives on code status decision. All questions answered. -Plan for meeting with Hospice, palliative team and family. May go home with hospice care center versus [facility] homewith hospice. 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 Cardiomyopathy with EF less than 20% -History of allergy with ARBS -Continue oral Lasix, and continue IV albumin, increase spironolactone -Coumadin, Monitor INR -Continue Coreg -No chest pain no shortness of breath Cognitive impairment Hepatic encephalopathy -continue lactulose and zinc -No scheduled antipsychotics or anxiolytics at this time per psychiatry Chronic kidney disease stage III, poss cardiorenal vs hepatorenal -Avoid nephrotoxins -follow renal indices DVT prophylaxis: Coumadin code: Full code dispo: PENDING Progress Note: Quality VTE Deep Vein Thrombosis/Pulmonary Embolism Present on Admission: No _ (1) Congestive heart failure Qualifiers: Heart failure chronicity: acute on chronic Heart failure type: unspecified Qualified Code(s): I50.9 - Heart failure, unspecified (2) Ascites Qualifiers: Ascites type: other type Qualified Code(s): R18.8 - Other ascites (3) Altered mental status Qualifiers: Altered mental status type: unspecified Coma depth: Coma timing: Qualified Code(s): R41.82 - Altered mental status, unspecified (4) Pneumonia Qualifiers: Aspiration pneumonia type: Laterality: right Lung location: unspecified part of lung Pneumonia type: due to unspecified organism Qualified Code(s): J18.9 - Pneumonia, unspecified organism (5) Dyspnea Qualifiers: Dyspnea type:
[2018-10-17] MEDS: Albumin Human 25% Inj 50 ML IV.SIG SCH ×2 (05:07→16:43)
[2018-10-17 06:16] LABS: Activated Partial Thrombo Time 46.9 sec (23.4-31.7); INR 2.9 Ratio; Prothrombin Time 29.7 sec (9.8-11.6)
[2018-10-17 08:06] VITALS: RESP 16
[2018-10-17] MEDS: Spironolactone 25 MG Tablet PO SCH (10:09)
[2018-10-17] MEDS: rifAXIMin 550 MG Tablet PO SCH (10:10)
[2018-10-17] MEDS: Sodium Chloride 0.9% 2 ML Flush BID IV.FLUSH SCH (10:10)
[2018-10-17 12:06] VITALS: BP 122/58; PULSE 56; TEMP 97.6; O2SAT 97
--- NOTE | 2018-10-17 16:01 | P.DS ---
DS: Providers Date of admission: 09/24/18 19:46 Consults: 10/10/18 15:19 Consult to Gastroenterology Routine Consulting Provider: Albert Alvarado V Reason for Consultation: Ascites. Liver disease. Notified:: Office Spoke with:: Marva Date Notified:: 10/10/18 Time Notified:: 15:27 Ordering Provider: DAMION 10/11/18 15:53 Consult to Cardiothoracic Surgery Routine Consulting Provider: Marybeth Jesus Reason for Consultation: right hemothorax, evaluate for possible decortication Notified:: Physician Spoke with:: Date Notified:: 10/11/18 Time Notified:: 16:01 Ordering Provider: CODI 10/16/18 15:11 HUB Only Consult Order Routine Consulting Provider: David Villegas 09/28/18 11:35 Consult to Psychiatry Routine Consulting Provider: Kevin Carranza Reason for Consultation: 47M with liver failure, treated for ascites. He was confused on admission, ammonia addressed, but still remains confused, now increasingly aggressive towards staff, grabbing arms, etc. Question of Malena as outpatient but I don't see it on his med reconciliation. Please evaluate. Spoke with:: payton Date Notified:: 09/28/18 Time Notified:: 11:44 Ordering Provider: JM 10/01/18 08:50 Consult to Palliative Care Routine Consulting Provider: Janette Gleason Reason for Consultation: goals of care, uncapacitated, need surrogate to help direct care Notified:: Service Spoke with:: DESTINEE Date Notified:: 10/01/18 Time Notified:: 10:31 Ordering Provider: KATHERINE 10/01/18 10:39 Consult to Pulmonology Routine Consulting Provider: Peace Maza Reason for Consultation: rapidly recurring right sided effusion post thoracentesis Notified:: Service Spoke with:: DESTINEE Date Notified:: 10/01/18 Time Notified:: 11:05 Ordering Provider: KATHERINE Brief History from admission: 47-year-old male with a past medical history significant for transposition of the great vessels, mitral valve replacement x2 on Coumadin, pacemaker, CHF, CKD , large umbilical hernia and recurrent ascites/pleural effusions presented to the emergency department for evaluation of altered mental status. Per the patient's brother he was more confused than usual today. The patient believes this is because he took 5 of his mother's BuSpar because who had been unable to sleep recently. The patient's brother reports that his mother recently relocated to a jail and his brother has been depressed because of this. The patient now lives alone. It is unclear if he is able to properly care for himself. The patient and his brother do not know all of the patient's medications however the patient's brother states that he is on multiple medications for his medical illnesses. The patient last had a paracentesis and thoracentesis on 06/21/18. The patient is oriented to self and place however believes it is 1984. He is an extremely poor historian. His PCP is Dr. Montero. He denies any chest pain or shortness of breath. No cough or congestion. No abdominal pain. No nausea/vomiting/diarrhea. No focal neurologic deficits. The patient reports he does not notice his distended abdomen. DS: Diagnosis Discharge Diagnosis (1) Congestive heart failure: Status: Acute (2) Ascites: Status: Acute (3) Pleural effusion: Status: Acute (4) Shortness of breath: Status: Acute (5) Altered mental status: Status: Acute (6) Pneumonia: Status: Acute (7) Delirium due to another medical condition: Status: Acute (8) Dyspnea: Status: Acute DS: Summary Patient is a 47-year-old male with extensive past medical history including transposition of the great vessels, mitral valve replacement on Coumadin, pacemaker, history of heart failure, history of chronic kidney disease, and history of recurrent abdominal ascites/pleural effusions who presented to the emergency department for altered mental status. Patient was admitted with the following treatments and services were provided in his care. Patient was treated during hospitalization with antibiotics for a chest x-ray finding of right basilar density concerning for pneumonia. Patient altered mental status was thought to be secondary to metabolic encephalopathy in the setting of liver disease. Patient was started on lactulose. Patient mental status slowly improved during hospitalization. Consultation was appreciated during hospitalization by psychiatry service for delirium. Consultation was appreciated by palliative care for assistance with goals of care and symptom base management. Consultation was appreciated by pulmonary for pleural effusion. Patient was status post right thoracentesis on 09/27 with removal of 1 L of fluid. Patient is known to have cardiomyopathy with a reduced ejection fraction of 20% making his overall clinical status very poor. During hospitalization gastroenterology was consulted for history of ascites and liver disease for optimization. Gastroenterology recommended EGD to rule out portal hypertension but given patient poor clinical status with low ejection fraction and history of mitral valve surgeries he would be a high risk candidate.. Patient was subsequently started on rifaximin, spinal lactone, Lasix, and albumin for medical optimization as patient preferred this over endoscopy treatment. Patient was status post drain catheter placement on 10/08 as per pulmonary recommendations. Cardiovascular cardio thoracic surgery was also consulted for consideration of a VATS procedure. Unfortunately patient was also again deemed to be a high risk for this procedure and it was recommended against at this time as patient also did not want any surgical procedure. It was recommended that patient proceed with hospice/palliative care services. Patient's clinical care was discussed with palliative care and it was determined after discussion with family that it was the best option for patient to proceed with hospice services on discharge. Patient was in agreement with this ultimate plan with the understanding that the focus would be on quality of life and longevity would be best preserved as possible. Patient clinically optimized for discharge to hospice Time Spent with Patient Total time spent providing and/or coordinating discharge services: >45 minutes Patient is a 47-year-old male with extensive past medical history including transposition of the great vessels, mitral valve replacement on Coumadin, pacemaker, history of heart failure, history of chronic kidney disease, and history of recurrent abdominal ascites/pleural effusions who presented to the emergency department for altered mental status. Patient was admitted with the following treatments and services were provided in his care. Patient was treated during hospitalization with antibiotics for a chest x-ray finding of right basilar density concerning for pneumonia. Patient altered mental status was thought to be secondary to metabolic encephalopathy in the setting of liver disease. Patient was started on lactulose. Patient mental status slowly improved during hospitalization. Consultation was appreciated during hospitalization by psychiatry service for delirium. Consultation was appreciated by palliative care for assistance with goals of care and symptom base management. Consultation was appreciated by pulmonary for pleural effusion. Patient was status post right thoracentesis on 09/27 with removal of 1 L of fluid. Patient is known to have cardiomyopathy with a reduced ejection fraction of 20% making his overall clinical status very poor. During hospitalization gastroenterology was consulted for history of ascites and liver disease for optimization. Gastroenterology recommended EGD to rule out portal hypertension but given patient poor clinical status with low ejection fraction and history of mitral valve surgeries he would be a high risk candidate.. Patient was subsequently started on rifaximin, spinal lactone, Lasix, and albumin for medical optimization as patient preferred this over endoscopy treatment. Patient was status post drain catheter placement on 10/08 as per pulmonary recommendations. Cardiovascular cardio thoracic surgery was also consulted for consideration of a VATS procedure. Unfortunately patient was also again deemed to be a high risk for this procedure and it was recommended against at this time as patient also did not want any surgical procedure. It was recommended that patient proceed with hospice/palliative care services. Patient's clinical care was discussed with palliative care and it was determined after discussion with family that it was the best option for patient to proceed with hospice services on discharge. Patient was in agreement with this ultimate plan with the understanding that the focus would be on quality of life and longevity would be best preserved as possible. Patient clinically optimized for discharge to hospice Quality: VTE Deep Vein Thrombosis/Pulmonary Embolism Present on Admission: No Results Labs on day of discharge: Labs from last 24 hours 10/17/18 05:06 PT 29.7 H INR 2.9 APTT 46.9 H Preliminary micro results at discharge 09/27/18 10:15 Fungal Culture - Preliminary Other No growth in 2 weeks Impressions ITS Impressions Abdomen/Pelvis CT 09/24/18 17:32 CONCLUSION: 1. Moderate to large amount of ascitic fluid again noted. 2. The liver is more prominent than on the prior study with prominent left lobe and diffuse inhomogeneity. 3. The bowel loops are displaced centrally within nonobstructive bowel gas pattern. 4. Small nonobstructing right renal calculus. 5. Large right pleural effusion and small left pleural effusion. Head CT 09/24/18 17:32 CONCLUSION: 1. No acute infarct, acute hemorrhage, mass effect or extra-axial fluid collections. 2. 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 . Paracentesis Ultrasound 09/27/18 00:00 CONCLUSION: 1. Uncomplicated paracentesis. Thoracentesis Ultrasound 09/27/18 00:00 CONCLUSION: 1. Uncomplicated thoracentesis. Chest Ultrasound 10/01/18 00:00 CONCLUSION: 1. Large right pleural effusion confirmed sonographically. CT Consultation 10/03/18 00:00 CONCLUSION: 1. Drainage procedure deferred for now. 2. Please see above discussion and reconsult when appropriate Catheter Placement X-Ray 10/08/18 00:00 CONCLUSION: 1. Uncomplicated fluoroscopic and ultrasound-guided placement of right-sided tunneled pleural Aspira drainage catheter. Abdomen Ultrasound 10/10/18 00:00 CONCLUSION: 1. Small amount of abdominal ascites. Chest CT 10/11/18 10:19 CONCLUSION: 1. Small left and [id number] sized indeterminate density right-sided pleural effusions. There is a small amount of hemorrhage seen along the tract of the tunneled chest tube on the right. Patient does have a history of serosanguineous effusions on numerous thoracenteses dating back to 2015. 2. Massive cardiomegaly with transposition of the great vessels. Patchy groundglass opacities and interstitial edema, right greater than left, consistent with pulmonary edema pattern with compressive atelectasis in the lower lobes. 3. Diffusely heterogeneous hepatic density most likely reflecting long- standing congestive hepatopathy. Chest X-Ray 10/13/18 00:00 CONCLUSION: No significant change. Discharge Plan Discharge Disposition Patient Disposition: [facility] Hospice/Med Facility Discharge Condition Condition: Fair Discharge Order Discharge Orders: Discharge Order (Routine); Ordered 10/17/18 Ordered By: Luis Alfredo Lu Discharge Details Anticipated Discharge Date: 10/17/18 Discharge Comment: discharged with hospice services Physicians Team Primary Care Provider: UNKNOWN, Attending Provider: Luis Alfredo Lu Other Providers: Kevin Carranza ; Peace Maza ; Janette Gleason ; Albert Alvarado V ; Marybeth Jesus ; [facility] Rxs /Orders / Referrals /Forms Prescriptions: New furosemide 40 mg Tablet 40 mg PO DAILY 30 Days Qty: 30 RF: 0 rifaximin [Xifaxan] 550 mg Tablet 550 mg PO BID 30 Days Qty: 60 RF: 0 spironolactone [Aldactone] 25 mg Tablet 50 mg PO DAILY 30 Days Qty: 60 RF: 0 pantoprazole 40 mg Tablet,Delayed Release (Dr/Ec) 40 mg PO BID 30 Days Qty: 60 RF: 0 Continue carvedilol 3.125 mg Tablet 3.125 mg PO BID RF: 0 Referrals: UNKNOWN, [Primary Care Provider] - See Instructions Discharge Instructions Patient Printed Instructions: Pleural Effusion (DC), Hepatic Encephalopathy (DC ), Paracentesis (DC), Thoracentesis (DC) Status ED Status: Left Department
== END 2018-10-17 17:22 | disposition hospice, inpatient (51) | DRG 291 ==
LOC: NEPC 16:33 → NEDA 19:46 → N07 21:41
PROVIDERS: ADMIT Internal Medicine; ATTEND Internal Medicine
DX: Z83.3 Family history of diabetes mellitus; K43.9 Ventral hernia without obstruction or gangrene; F32.9 Major depressive disorder, single episode, unspecified; Z95.1 Presence of aortocoronary bypass graft; Z68.1 Body mass index [BMI] 19.9 or less, adult; I27.20 Pulmonary hypertension, unspecified; Z95.2 Presence of prosthetic heart valve; Z87.891 Personal history of nicotine dependence; Z86.73 Personal history of transient ischemic attack (TIA), and cerebral infarction without residual deficits; Z79.01 Long term (current) use of anticoagulants; Z95.0 Presence of cardiac pacemaker; Z82.3 Family history of stroke; F05 Delirium due to known physiological condition; M62.50 Muscle wasting and atrophy, not elsewhere classified, unspecified site; J18.9 Pneumonia, unspecified organism; I42.9 Cardiomyopathy, unspecified; R64 Cachexia; Z51.5 Encounter for palliative care; H11.31 Conjunctival hemorrhage, right eye; K74.60 Unspecified cirrhosis of liver; G93.41 Metabolic encephalopathy; J98.11 Atelectasis; I08.3 Combined rheumatic disorders of mitral, aortic and tricuspid valves; J94.2 Hemothorax; J90 Pleural effusion, not elsewhere classified; K42.9 Umbilical hernia without obstruction or gangrene; K72.90 Hepatic failure, unspecified without coma; D68.9 Coagulation defect, unspecified; N18.3 Chronic kidney disease, stage 3 (moderate); I50.23 Acute on chronic systolic (congestive) heart failure; D64.9 Anemia, unspecified; R18.8 Other ascites; Z91.14 Patient's other noncompliance with medication regimen
CPT/HCPCS: 32019; 32550; 32555; 49083; 70450; 71010; 71020; 71045; 71046; 71250; 74176; 75989; 76001; 76604; 76705; 76937; 76942; 80048; 80053; 80074; 80076; 80307; 81001; 82042; 82105; 82140; 82150; 82272; 82390; 82550; 82728; 82945; 82948; 82962; 83520; 83540; 83550; 83605; 83615; 83735; 83880; 83986; 84145; 84155; 84157; 84484; 85025; 85027; 85610; 85730; 86038; 86039; 86225; 86235; 86255; 86256; 86431; 87040; 87070; 87102; 87205; 87206; 89051; 90765; 90775; 92526; 93005; 94640; 94664; 94665; 96125; 96365; 96375; 97127; 97162; 97532; 99285; A7043; C1729; G0515; J0456; J0692; J1630; J1644; J1940; J2060; J3010; J3430; J7050; P9047; P9612